=== PATIENT | female | born 1940 | race Caucasian/White ===

== ENCOUNTER → 2018-10-31 12:44 | Outpatient (CLI) | payer OTHER, SELFPAY ==
--- NOTE | 2018-10-31 | DI.MG.S_ITS ---
BILATERAL DIGITAL SCREENING MAMMOGRAM 3D/2D WITH CAD: 10/31/2018 CLINICAL: Routine screening. Comparison is made to exams dated: 01/21/2015 mammogram - [facility], 02/16/2013 mammogram, and 11/27/2007 mammogram - [facility]. The tissue of both breasts is predominantly fatty. Current study was also evaluated with a Computer Aided Detection (CAD) system. There are benign vascular calcifications in both breasts. No significant masses, calcifications, or other findings are seen in either breast. There has been no significant interval change. IMPRESSION: There is no mammographic evidence of malignancy. A 1 year screening mammogram is recommended. This exam was interpreted at Station ID: [id number]. NOTE: For mammograms, a report in lay terms will be sent to the patient. Approximately 15% of breast malignancies will not be visualized mammographically. In the management of a palpable breast mass, a negative mammogram must not discourage biopsy of a clinically suspicious lesion. Electronically Signed By: Maribell vaughan/marcelo:10/31/2018 14:17:14 letter sent: Normal Exam ACR BI-RADS Category 2: Benign Finding(s) 3342F
== END ==
PROVIDERS: Family Provider Family Medicine; PCP Family Medicine; Visit Provider Family Medicine
DX: Z12.31 Encounter for screening mammogram for malignant neoplasm of breast (principal)
CPT/HCPCS: 77063; 77067

== ENCOUNTER → 2019-04-22 10:48 | Outpatient (CLI) | payer OTHER, SELFPAY ==
[2019-04-22 11:51] LABS: Add Manual Diff / Slide Review NO; Basophils Absolute Auto 0 /uL (0-100); Basophils Percent Auto 0.6 % (0-2); Eosinophils Absolute Auto 100 /uL (0-450); Eosinophils Percent Auto 2.1 % (2-4); Hematocrit 40.6 % (36-46); Hemoglobin 13.7 g/dL (12.0-16.0); Lymphocytes Absolute Auto 1600 /uL (1100-4500); Lymphocytes Percent Auto 32.3 % (25-40); Mean Corpuscular HGB Conc 33.8 % (30-36); Mean Corpuscular Hemoglobin 29.3 PG (26-34); Mean Corpuscular Volume 86.7 fL (80-100); Monocytes Absolute Auto 400 /uL (0-900); Monocytes Percent Auto 8.6 % (3-14); Neutrophils Absolute Auto 2800 /uL (1500-7000); Neutrophils Percent Auto 56.4 % (50-75); Platelet Count 254 X10^3/uL (150-400); Red Blood Cell Count 4.68 X10^6/uL (4.0-5.2); Red Cell Distribution Width 13.7 % (11.6-14.8); White Blood Cell Count 4.9 X10^3/uL (4.5-11.0)
[2019-04-22 12:09] LABS: Alanine Aminotransferase 21 IU/L (9-52); Albumin 4.1 g/dL (3.5-5.0); Albumin Globulin Ratio 1.4 (1.0-2.8); Alkaline Phosphatase 52 U/L (38-126); Aspartate Aminotransferase 23 IU/L (14-36); Bilirubin Total 0.7 mg/dL (0.2-1.3); Blood Urea Nitrogen 20 mg/dL (7-17); Calcium 9.6 mg/dL (8.4-10.2); Carbon Dioxide 29 mmol/L (22-32); Chloride 102 mmol/L (98-107); Cholesterol 144 mg/dL (140-199); Estimated Glomerular Filt Rate > 60.0 mL/min (>60); Glucose 86 mg/dL (80-110); HDL Cholesterol 48 mg/dL (40-60); HEMOLYSIS < 15 (0-50); LDL Cholesterol Calculated 71 mg/dL (<100); Potassium 4.1 mmol/L (3.4-5.1); Sodium 139 mmol/L (137-145); Total Protein 7.1 g/dL (6.3-8.2); Triglycerides 125 mg/dL (35-150)
[2019-04-22 12:40] LABS: TSH w/ Reflex to FT4 1.54 uIU/mL (0.47-4.68)
== END ==
PROVIDERS: PCP Family Medicine; Visit Provider Family Medicine
DX: E78.2 Mixed hyperlipidemia (principal); I10 Essential (primary) hypertension; M81.0 Age-related osteoporosis without current pathological fracture
CPT/HCPCS: 36415; 80053; 80061; 84443; 85025

== ENCOUNTER → 2019-04-30 15:04 | Outpatient (CLI) | payer OTHER, SELFPAY ==
--- NOTE | 2019-04-30 15:05 | DI.CT.S_ITS ---
PROCEDURE: CT SINUS SCREEN WO CON INDICATIONS: left side facial pressure and pain TECHNIQUE: Noncontrast 3.0 mm axial images acquired from the frontal sinuses to the mid-sella, with coronal and sagittal reformats. For radiation dose reduction, the following was used: automated exposure control, adjustment of mA and/or kV according to patient size. COMPARISON: None. FINDINGS: Image quality: Diagnostic. Paranasal Sinuses: There is complete opacification of the left maxillary sinus with possible bulging of the bones of the left maxillary sinus, particularly along the medial wall. No displaced fractures are evident. Mild thickening of the briceno of the left maxillary sinus are present. There is mucosal thickening/opacification evident involving the left frontal and left ethmoidal sinuses. There is mild mucosal thickening involving the inferior right maxillary sinus. The remainder of the paranasal sinuses are clear. Ostiomeatal Complexes: The left ostiomeatal complex is completely opacified. The right ostiomeatal complex is patent. No Todd cells. Miscellaneous: Visualized intra-orbital contents are normal. No matthias bullosa or paradoxical turbinate curvature. No nasal septal deviation. IMPRESSION: 1. Expansile soft tissue attenuation within the left maxillary sinus may represent chronic sinusitis. However, the possibility of a mucocele or potentially neoplastic process cannot be completely excluded given the expansile nature. MRI with contrast is recommended for further evaluation. 2. Opacification of the left frontal and ethmoid air cells may also represent conventional sinusitis. 3. Minimal inferior right maxillary sinus disease probably as odontogenic in origin. Dictated by: Wilson Lombardo M.D. on 04/30/2019 at 16:07 Approved by: Wilson Lombardo M.D. on 04/30/2019 at 16:17
== END ==
PROVIDERS: PCP Family Medicine; Visit Provider Family Medicine
DX: J34.89 Other specified disorders of nose and nasal sinuses (principal); R51 Headache
CPT/HCPCS: 70486

== ENCOUNTER → 2019-05-12 08:51 | Outpatient (CLI) | payer OTHER, SELFPAY ==
--- NOTE | 2019-05-12 08:54 | DI.MRI.S_ITS ---
PROCEDURE: MR ORBITS FACE NECK WO/W CON INDICATIONS: Abnormal Sinus CT with radiologist rec. MRI w contrast TECHNIQUE: Noncontrast sagittal T1 spin echo, axial FLAIR, axial gradient echo, axial diffusion and ADC acquired through the brain. Coronal STIR, thin-slice axial T1 spin echo through the orbits. After the administration of contrast, thin-slice axial and coronal T1 spin echo with fat saturation through the orbits, axial T1 spin echo with fat saturation through the brain. COMPARISON: [facility], CT, CT SINUS SCREEN WO CON, 04/30/2019, 15:10. FINDINGS: Image quality: Excellent. Orbits: Globes are symmetrical. The optic nerves are normal in size, without abnormal signal or enhancement. No retrobulbar masses or fat abnormalities. The extra-ocular muscles are normal and symmetric in appearance. Lacrimal glands are normal. Optic chiasm is normal. Periorbital soft tissues appear normal. CSF spaces: Ventricles are normal in size and shape. Basal cisterns are patent. No extra-axial fluid collections. Brain: No intracranial bleeds or mass effects. No abnormal intracranial enhancement. Basurto-white matter interface is intact. Diffusion weighted images demonstrate no acute ischemic insults. Pituitary gland appears normal, without sellar or suprasellar masses. Brainstem appears normal. Normal intravascular flow voids are present. Skull and face: Calvarial marrow is normal in signal. Sinuses: Sinuses and mastoids are clear except for prominent mucosal thickening and retention no mucus within the left maxillary sinus which is mildly enlarged in dimension, with this pattern of mucosal inflammation and thickening and mucous retention extending into the left frontal sinus bilaterally. The left nasal airway issuperiorly by this process. No invasion into the cranial fossa is noted. IMPRESSION: There is a large chronic-appearing abnormality involving the left maxillary sinus, left ethmoid air cells, and continuously extending to involve the left frontal sinus. The appearance is considered most likely benign, and not associated with inflammation extending into the adjacent structures. However, there is prominent mucosal thickening involving the areas described and also mucous retention best seen within the right maxillary sinus but present to lesser degree in the frontal sinus on the left. ENT consultation is anticipated given this finding and the history of left-sided facial pressure and pain. Low-grade active infection or neoplasm has not been entirely excluded. Dictated by: Ned Panda M.D. on 05/13/2019 at 10:22 Approved by: Ned Panda M.D. on 05/13/2019 at 10:29
== END ==
PROVIDERS: PCP Family Medicine; Visit Provider Family Medicine
DX: R22.0 Localized swelling, mass and lump, head (principal); R51 Headache
CPT/HCPCS: 70543; A9579

== ENCOUNTER 2019-09-11 09:22 | Emergency (ER) | payer OTHER, SELFPAY ==
[2019-09-11 09:46] VITALS: BP 152/97; PULSE 124; RESP 16; TEMP 37.8; O2SAT 94
--- NOTE | 2019-09-11 09:50 | DI.RAD.S_ITS ---
PROCEDURE: XR CHEST 1V INDICATIONS: suspected sepsis TECHNIQUE: One view of the chest was acquired. COMPARISON: [facility], , CHEST 2 VIEW, 02/28/2015, 10:48. FINDINGS: Surgical changes and devices: None. Lungs and pleura: Lungs are clear. No pleural effusions or pneumothorax. Mediastinum: Mediastinal contours appear normal. Heart size is normal. Bones and chest wall: No suspicious bony lesions. Overlying soft tissues appear unremarkable. IMPRESSION: No acute disease. Dictated by: Neno Arana M.D. on 09/11/2019 at 10:13 Approved by: Neno Arana M.D. on 09/11/2019 at 10:14
[2019-09-11 10:13] LABS: Add Manual Diff / Slide Review NO; Basophils Absolute Auto 0 /uL (0-100); Basophils Percent Auto 0.2 % (0-2); Eosinophils Absolute Auto 0 /uL (0-450); Hematocrit 38.6 % (36-46); Hemoglobin 13.1 g/dL (12.0-16.0); Lymphocytes Absolute Auto 300 /uL (1100-4500); Lymphocytes Percent Auto 3.4 % (25-40); Mean Corpuscular HGB Conc 34.1 % (30-36); Mean Corpuscular Hemoglobin 30.1 PG (26-34); Mean Corpuscular Volume 88.5 fL (80-100); Monocytes Absolute Auto 300 /uL (0-900); Monocytes Percent Auto 3.4 % (3-14); Neutrophils Absolute Auto 7400 /uL (1500-7000); Platelet Count 210 X10^3/uL (150-400); Prothrombin Time 11.8 SECONDS (10.1-12.7); Red Blood Cell Count 4.36 X10^6/uL (4.0-5.2); Red Cell Distribution Width 13.6 % (11.6-14.8)
[2019-09-11] MEDS: SODIUM CHLORIDE 0.9% 1,000 ML 1000 ML IV (10:13)
[2019-09-11 10:16] LABS: PTT Partial Thromboplastin Tim 31 SECONDS (26.4-36.2)
[2019-09-11 10:23] LABS: Alanine Aminotransferase 11 IU/L (<35); Albumin 4.1 g/dL (3.5-5.0); Albumin Globulin Ratio 1.3 (1.0-2.8); Alkaline Phosphatase 63 U/L (38-126); Aspartate Aminotransferase 24 IU/L (14-36); BUN Creatinine Ratio 22.5 (6-22); Bilirubin Total 1.3 mg/dL (0.2-1.3); Blood Urea Nitrogen 18 mg/dL (7-17); Calcium 9.6 mg/dL (8.4-10.2); Carbon Dioxide 26 mmol/L (22-32); Chloride 105 mmol/L (98-107); Estimated Glomerular Filt Rate > 60.0 mL/min (>60); Globulin 3.1 g/dL (1.7-4.1); Glucose 166 mg/dL (80-110); HEMOLYSIS < 15 (0-50); Lipase 183 U/L (23-300); Potassium 3.6 mmol/L (3.4-5.1); Sodium 138 mmol/L (137-145); Total Protein 7.2 g/dL (6.3-8.2)
[2019-09-11 10:24] LABS: Lactate (Lactic Acid) 1.8 mmol/L (0.7-2.1)
[2019-09-11 10:37] LABS: Procalcitonin 0.14 ng/mL (<0.5)
[2019-09-11 11:35] VITALS: BP 105/62; PULSE 94; RESP 21; O2SAT 93
--- NOTE | 2019-09-11 11:48 | DI.CT.S_ITS ---
PROCEDURE: CT KIDNEY URETER BLADDER (KUB) INDICATIONS: urinary pain with bilateral back pain TECHNIQUE: Noncontrast 5 mm thick sections acquired from the diaphragms to the symphysis. 5 mm thick coronal and sagittal reformats were then performed. For radiation dose reduction, the following was used: automated exposure control, adjustment of mA and/or kV according to patient size. COMPARISON: None. FINDINGS: Image quality: Excellent. Lung bases: Lung bases are clear. Heart size is normal. Atherosclerotic calcifications are noted in the visualiz coronary vasculature. Urinary system: Both kidneys are normal in size. No kidney stones. There is moderate bilateral hydroureter and mild bilateral hydronephrosis. Urinary bladder wall is diffusely thickened and irregular with a focal, thickening to 1.8 cm along the posterior wall. Air locules noted in the urinary bladder which could be related to recent catheterization, infection with gas-forming organism or fistulous connection with bowel. Other solid organs: Liver is normal in size. Multiple hypoattenuating lesions identified in the liver which may represent cysts or hemangiomas, however lesions cannot be definitively characterize without the benefit of intravenous contrast. Gallbladder is absent. Pancreas is normal in contours. Spleen is normal in size. No adrenal nodules. Peritoneum and bowel: Moderate size, paraesophageal hiatal hernia. Unenhanced bowel loops demonstrate normal wall thickness and caliber. No free fluid or air. Nodes and vessels: No retroperitoneal or mesenteric adenopathy by size criteria. Aorta and inferior vena cava are normal in caliber. Abdominal wall: No ventral hernias. Pelvis: No free pelvic fluid. No inguinal hernias or adenopathy. A pessary ring is positioned in the lower pelvis. Bones: No suspicious bony lesions. Spine degenerative disc disease and facet arthropathy. Chronic appearing T12, L1, L3 and L4 vertebral body compression fractures. No acute vertebral body compression fractures. IMPRESSION: 1. No renal stone. 2. Posterior bladder wall thickened to 1.8 cm. Neoplastic process cannot be excluded. 3. Moderate bilateral hydroureter and mild bilateral hydronephrosis possibly related to bladder mass. 4. Air locules in the urinary bladder which could be related to recent catheterization, infection with gas-forming organism or fistulous connection with bowel. Please correlate with clinical history and urinalysis data. Findings. Atherosclerosis including the visualiz coronary vasculature. Dictated by: Winifred Abraham MD, PhD on 09/11/2019 at 12:10 Approved by: Winifred Abraham MD, PhD on 09/11/2019 at 12:19
[2019-09-11 11:59] LABS: Amorphous Sediment Urine 1+; Bacteria Urine Many (>30); Culture Indicated Urine Specimen Cultured; Mucus Urine 2+ (Negative); RBC Urine 5-10/HPF (0-5/HPF); Squamous Epithelial Cell Urine 0-1 /HPF (0-5/HPF); WBC Urine >100/HPF (0-5/HPF)
[2019-09-11] MEDS: CEFTRIAXONE 1 GM/50 ML FROZ.PIGGY IV (12:15)
[2019-09-11 12:20] VITALS: BP 141/76; PULSE 87; RESP 16; O2SAT 96
--- NOTE | 2019-09-11 12:20 | ED.FEMALEGU ---
HPI - Female Genitourinary <OLEGARIO Boyce - Last Filed: 09/12/19 03:31> General Chief complaint: Urogenital-Female Stated complaint: Kidney infection Time Seen by Provider: 09/11/19 11:07 Source: patient Mode of arrival: Ambulatory Limitations: no limitations History of Present Illness HPI Narrative: This is a pleasant 78-year-old female, nonsmoker, who presents to ED with her spouse with chief complaint of urinary frequency, low abdominal cramping discomfort which started on Saturday. Last night she had severe back pain crossing bilaterally with chills, nausea. She had taken her own half tab of [place] and Tylenol for this which helped her symptoms. Patient denies history of kidney stones or infection but had UTIs. When patient was evaluated by me, he had already received a L of normal saline and she reports her pain is much better at this time. Patient declines pain medications or anti nausea medications at this time. Patient reports she recently had left frontal sinus infection for 6 months after tooth extraction and recently had surgery in 08/26/19. Related Data Home Medications Medication Instructions Recorded Confirmed cholecalciferol (vitamin D3) 2,000 iu PO DAILY #0 06/21/13 09/11/19 [Vitamin D3] cyanocobalamin (vitamin B-12) 1,000 mcg PO DAILY #0 06/21/13 09/11/19 [Vitamin B-12] acetaminophen 500 mg capsule 1,000 mg PO BID 08/10/19 09/11/19 Calcium Tablet 1 tab PO DAILY 09/11/19 09/11/19 Pepcid AC 1 tab PO DAILY 09/11/19 09/11/19 jt-te-yoqi-FA-Ca carb-vit K 1 tab PO DAILY 09/11/19 09/11/19 [Women's Multivitamin] simvastatin 40 mg PO BEDTIME 09/11/19 09/11/19 vit C,I-Qx-cpeqi-lutein-zeaxan 1 cap PO BID 09/11/19 09/11/19 [PreserVision AREDS-2] Previous Rx's Medication Instructions Recorded cephalexin [Keflex] 500 mg PO Q12H 7 Days #14 cap 09/11/19 ondansetron 4 mg PO BID-TID PRN #7 tab 09/11/19 Allergies Allergy/AdvReac Type Severity Reaction Status Date / Time hydromorphone [HYDROMORPHONE] AdvReac Severe n/v, Verified 08/10/19 09:37 sweats, vomiting Review of Systems <OLEGARIO Boyce - Last Filed: 09/12/19 03:31> Review of Systems Narrative: General: See HPI HEENT: Denies sinus pain, ear pain, sore throat, difficulty swallowing, dizziness. Respiratory: Denies dyspnea, cough, wheezing, hemoptysis, sputum. Cardiovascular: Denies chest pain, palpitations, orthopnea, edema. Gastrointestinal: Reports nausea. Denies vomiting, abdominal pain, diarrhea, constipation, melena. : See HPI Musculoskeletal: Denies weakness, joint pain or bony pain. Skin: Denies rash, skin lesions, or other. Neurologic: Denies weakness, headache, numbness, change in speech, confusion, seizures, incoordination. Psychiatric: No concerning psychosocial issues. 12-point review of systems is negative except for those stated above. Patient History <OLEGARIO Boyce - Last Filed: 09/12/19 03:31> Medical History (Updated 09/11/19 @ 12:36 by OLEGARIO Boyce) Abnormal CXR (Chronic ~2013) Ankle pain (Chronic ~1976) Cataract (Chronic ~2013) Chicken pox (Resolved ~1946) Diverticular disease (Chronic ~2013) Fractures (Resolved) Gastric ulcer (Chronic) Lumbar compression fracture (Resolved) Measles (Resolved ~1946) Mumps (Resolved ~1947) Osteoporosis (Chronic ~2013) Rubella (Resolved ~1947) Urinary, incontinence, stress female (Chronic) Vision disorder (Chronic) Surgical History (Updated 09/11/19 @ 12:25 by OLEGARIO Boyce) Anesthesia (Resolved) Femoral hernia (Resolved) History of ankle surgery (Resolved) History of kyphoplasty (Resolved ~2012) History of sinus surgery (Acute) Status post appendectomy (~1948) Status post cholecystectomy (~1964) Family History Father Osteoporosis High cholesterol Mother Dementia Smoking Status: Never smoker Substance Use Type: does not use Exam <OLEGARIO Boyce - Last Filed: 09/12/19 03:31> Narrative Exam Narrative: GEN: Alert, oriented x 3, well appearing and nourished, and in no acute distress. Head: Normal cephalic, atraumatic. No scalp or temporal tenderness, palpable mass or rash. EYES: Pupils are equal, round, and reactive to light and accommodation. Extraocular muscles are intact bilaterally. There is no subconjunctival hemorrhage, exudate and sclera non-icteric. ENT: Bilateral auditory canals and tympanic membranes clear. Hearing grossly intact. Nose without bleeding, purulent discharge or deviation. Facial sinuses nontender to palpate. Mucous membrane moist, no mucosal lesion. Throat without erythema, tonsillar hypertrophy or exudate. Uvula in midline, airway patent. Neck: Trachea in midline. No JVD, non-tender without lymphadenopathy. No masses or thyroid megaly. Supple, non-tender and no meningeal signs. CARDIAC: Normal regular rate and rhythm without murmurs, gallops, or rubs. No chest wall tenderness. No peripheral edema, cyanosis or pallor. Capillary refill is less than 2 seconds. RESPIRATORY: Lungs are clear to auscultate bilaterally. No cough, wheezes, rales, or rhonchi. No stridor, respiratory distress, increase work of breathing, or accessary muscle used. ABD: Abdomen soft, nontender and non-distended. No guarding or rebound tenderness to palpate. Bowel sounds are normal in all 4 quadrants. There is no palpable masses or organomegaly. EXT: Full painless ROM of all extremities with no loss of sensation, strength, effusion or edema. SKIN: Warm, dry, normal color for patient. No erythema, lesions or rash over visible areas. BACK: Nontender without deformity or crepitance. No flank tenderness. NEUROLOGICAL: Alert and oriented to place, time and person. Sensation and motor function intact bilaterally. No facial droops, dysphasia. PSYCHIATRIC: Good judgement and reason, without hallucinations, abnormal affect or abnormal behaviors during the examination. Initial Vital Signs Initial Vital Signs: Vital Signs Temperature 100.0 F H 09/11/19 09:46 Pulse Rate 124 H 09/11/19 09:46 Respiratory Rate 16 09/11/19 09:46 Blood Pressure 152/97 H 09/11/19 09:46 Pulse Oximetry 94 09/11/19 09:46 <Sabrina C Mank, DO - Last Filed: 09/12/19 07:03> Initial Vital Signs Initial Vital Signs: Vital Signs Temperature 100.0 F H 09/11/19 09:46 Pulse Rate 124 H 09/11/19 09:46 Respiratory Rate 16 09/11/19 09:46 Blood Pressure 152/97 H 09/11/19 09:46 Pulse Oximetry 94 09/11/19 09:46 Scores <[facility] - Last Filed: 09/12/19 03:31> GCS Hero coma scale eye opening: Spontaneous Benicia coma scale verbal response: Orientated Hero coma scale motor response: Obey commands Hero coma scale total score: 15 Course <[facility] DEMETRIUS LukeP - Last Filed: 09/12/19 03:31> Orders Ordered: Discontinued Medications Sodium Chloride (Normal Saline 0.9%) 1,000 mls @ 1,000 mls/hr IV BOLUS ONE Stop: 09/11/19 10:49 Last Infusion: 09/11/19 12:19 Dose: 0 mls/hr Documented by: Admin: 09/11/19 10:13 Dose: 1,000 mls/hr Documented by: EL Ceftriaxone Sodium/Dextrose (Rocephin) 1 gm in 50 mls @ 100 mls/hr IV NOW ONE Stop: 09/11/19 12:38 Last Infusion: 09/11/19 12:46 Dose: 0 mls/hr Documented by: Admin: 09/11/19 12:15 Dose: 100 mls/hr Documented by: DENEEN Vital Signs Vital signs: Vital Signs - 8 hr 09/11/19 09:46 09/11/19 11:35 Temperature 100.0 F H Pulse Rate 124 H 94 H Respiratory Rate 16 21 Blood Pressure 152/97 H Blood Pressure [Right Arm] 105/62 Pulse Oximetry 94 93 <Sabrina Bajwa DO - Last Filed: 09/12/19 07:03> Orders Ordered: Discontinued Medications Sodium Chloride (Normal Saline 0.9%) 1,000 mls @ 1,000 mls/hr IV BOLUS ONE Stop: 09/11/19 10:49 Last Infusion: 09/11/19 12:19 Dose: 0 mls/hr Documented by: Admin: 09/11/19 10:13 Dose: 1,000 mls/hr Documented by: EL Ceftriaxone Sodium/Dextrose (Rocephin) 1 gm in 50 mls @ 100 mls/hr IV NOW ONE Stop: 09/11/19 12:38 Last Infusion: 09/11/19 12:46 Dose: 0 mls/hr Documented by: Admin: 09/11/19 12:15 Dose: 100 mls/hr Documented by: DENEEN Vital Signs Vital signs: Vital Signs - 8 hr 09/11/19 09:46 09/11/19 11:35 Temperature 100.0 F H Pulse Rate 124 H 94 H Respiratory Rate 16 21 Blood Pressure 152/97 H Blood Pressure [Right Arm] 105/62 Pulse Oximetry 94 93 MDM - Female Genitourinary <OLEGARIO Boyce - Last Filed: 09/12/19 03:31> Differential Diagnosis Differential diagnosis: Likely other (Kidney infection, kidney stone, obstructed kidney stone infection) Medical Records Attestation: I reviewed the patient's medical records. Lab Data Attestation: I reviewed the patient's lab results. Result diagrams: 09/11/19 10:00 09/11/19 10:00 Labs: Lab Results 09/11/19 09/11/19 09/11/19 Range/Units 10:00 10:00 10:00 WBC 8.0 (4.5-11.0) X10^3/uL RBC 4.36 (4.0-5.2) X10^6/uL Hgb 13.1 (12.0-16.0) g/dL Hct 38.6 (36-46) % MCV 88.5 (80-100) fL MCH 30.1 (26-34) PG MCHC 34.1 (30-36) % RDW 13.6 (11.6-14.8) % Plt Count 210 (150-400) X10^3/uL Neut % (Auto) 93.0 H (50-75) % Lymph % (Auto) 3.4 L (25-40) % Steele % (Auto) 3.4 (3-14) % Eos % (Auto) 0.0 L (2-4) % Baso % (Auto) 0.2 (0-2) % Neut # (Auto) 7400 H (7086-3947) /uL Lymph # (Auto) 300 L (0695-6596) /uL Steele # (Auto) 300 (0-900) /uL Eos # (Auto) 0 (0-450) /uL Baso # (Auto) 0 (0-100) /uL PT 11.8 (10.1-12.7) SECONDS INR 1.0 (0.9-1.3) APTT 31 (26.4-36.2) SECONDS Sodium (137-145) mmol/L Potassium (3.4-5.1) mmol/L Chloride (98-107) mmol/L Carbon Dioxide (22-32) mmol/L BUN (7-17) mg/dL Creatinine (0.52-1.04) mg/dL Estimated GFR (>60) mL/min BUN/Creatinine Ratio (6-22) Glucose (80-110) mg/dL Lactate (0.7-2.1) mmol/L Calcium (8.4-10.2) mg/dL Total Bilirubin (0.2-1.3) mg/dL AST (14-36) IU/L ALT (<35) IU/L Alkaline Phosphatase (38-126) U/L Total Protein (6.3-8.2) g/dL Albumin (3.5-5.0) g/dL Globulin (1.7-4.1) g/dL Albumin/Globulin Ratio (1.0-2.8) Lipase (23-300) U/L Procalcitonin 0.14 (<0.5) ng/mL Urine RBC (0-5/HPF) Urine WBC (0-5/HPF) Ur Squamous Epith Cells (0-5/HPF) Amorphous Sediment Urine Bacteria (None) Urine Mucus (Negative) Ur Culture Indicated? 09/11/19 09/11/19 09/11/19 Range/Units 10:00 10:00 11:46 WBC (4.5-11.0) X10^3/uL RBC (4.0-5.2) X10^6/uL Hgb (12.0-16.0) g/dL Hct (36-46) % MCV (80-100) fL MCH (26-34) PG MCHC (30-36) % RDW (11.6-14.8) % Plt Count (150-400) X10^3/uL Neut % (Auto) (50-75) % Lymph % (Auto) (25-40) % Steele % (Auto) (3-14) % Eos % (Auto) (2-4) % Baso % (Auto) (0-2) % Neut # (Auto) (5508-0165) /uL Lymph # (Auto) (2337-1218) /uL Steele # (Auto) (0-900) /uL Eos # (Auto) (0-450) /uL Baso # (Auto) (0-100) /uL PT (10.1-12.7) SECONDS INR (0.9-1.3) APTT (26.4-36.2) SECONDS Sodium 138 (137-145) mmol/L Potassium 3.6 (3.4-5.1) mmol/L Chloride 105 (98-107) mmol/L Carbon Dioxide 26 (22-32) mmol/L BUN 18 H (7-17) mg/dL Creatinine 0.80 (0.52-1.04) mg/dL Estimated GFR > 60.0 (>60) mL/min BUN/Creatinine Ratio 22.5 H (6-22) Glucose 166 H (80-110) mg/dL Lactate 1.8 (0.7-2.1) mmol/L Calcium 9.6 (8.4-10.2) mg/dL Total Bilirubin 1.3 (0.2-1.3) mg/dL AST 24 (14-36) IU/L ALT 11 (<35) IU/L Alkaline Phosphatase 63 (38-126) U/L Total Protein 7.2 (6.3-8.2) g/dL Albumin 4.1 (3.5-5.0) g/dL Globulin 3.1 (1.7-4.1) g/dL Albumin/Globulin Ratio 1.3 (1.0-2.8) Lipase 183 (23-300) U/L Procalcitonin (<0.5) ng/mL Urine RBC 5-10/hpf H (0-5/HPF) Urine WBC >100/hpf H (0-5/HPF) Ur Squamous Epith Cells 0-1 /hpf (0-5/HPF) Amorphous Sediment 1+ Urine Bacteria Many (>30) H (None) Urine Mucus 2+ H (Negative) Ur Culture Indicated? Specimen cultured Urine Dip Bedside Urine Glucose Negative Bedside Urine Bilirubin - Negative Bedside Urine Ketone +/- 5 Urine Specific Marceline 1.020 Bedside Urine Occult Blood +++ Bedside Urine pH 6.0 Bedside Urine Protein ++ 100 Bedside Urine Urobilinogen - Negative Bedside Urine Nitrite + Positive Bedside Urine Leukocytes +++ [address]-KUB: Radiologist's impression: [address] [address] [address] Scan Report Signed Patient: Ryann Tse CMR#: [id number] : 1Acct:[id number] Age/Sex: 78 / FDate of Service: 09/11/19 Loc: ED Accession Number: [id number] Procedure: CT kidney ureter bladder (KUB) Ordering Provider: Adam Luke PROCEDURE: CT KIDNEY URETER BLADDER (KUB) INDICATIONS: urinary pain with bilateral back pain TECHNIQUE: Noncontrast 5 mm thick sections acquired from the diaphragms to the symphysis. 5 mm thick coronal and sagittal reformats were then performed. For radiation dose reduction, the following was used: automated exposure control, adjustment of mA and/or kV according to patient size. COMPARISON: None. FINDINGS: Image quality: Excellent. Lung bases: Lung bases are clear. Heart size is normal. Atherosclerotic calcifications are noted in the visualiz coronary vasculature. Urinary system: Both kidneys are normal in size. No kidney stones. There is moderate bilateral hydroureter and mild bilateral hydronephrosis. Urinary bladder wall is diffusely thickened and irregular with a focal, thickening to 1.8 cm along the posterior wall. Air locules noted in the urinary bladder which could be related to recent catheterization, infection with gas-forming organism or fistulous connection with bowel. Other solid organs: Liver is normal in size. Multiple hypoattenuating lesions identified in the liver which may represent cysts or hemangiomas, however lesions cannot be definitively characterize without the benefit of intravenous contrast. Gallbladder is absent. Pancreas is normal in contours. Spleen is normal in size. No adrenal nodules. Peritoneum and bowel: Moderate size, paraesophageal hiatal hernia. Unenhanced bowel loops demonstrate normal wall thickness and caliber. No free fluid or air. Nodes and vessels: No retroperitoneal or mesenteric adenopathy by size criteria. Aorta and inferior vena cava are normal in caliber. Abdominal wall: No ventral hernias. Pelvis: No free pelvic fluid. No inguinal hernias or adenopathy. A pessary ring is positioned in the lower pelvis. Bones: No suspicious bony lesions. Spine degenerative disc disease and facet arthropathy. Chronic appearing T12, L1, L3 and L4 vertebral body compression fractures. No acute vertebral body compression fractures. IMPRESSION: 1. No renal stone. 2. Posterior bladder wall thickened to 1.8 cm. Neoplastic process cannot be excluded. 3. Moderate bilateral hydroureter and mild bilateral hydronephrosis possibly related to bladder mass. 4. Air locules in the urinary bladder which could be related to recent catheterization, infection with gas-forming organism or fistulous connection with bowel. Please correlate with clinical history and urinalysis data. Findings. Atherosclerosis including the visualiz coronary vasculature. Dictated by: Winifred Abraham MD, PhD on 09/11/2019 at 12:10 Approved by: Winifred Abraham MD, PhD on 09/11/2019 at 12:19 MDM Narrative Medical decision making narrative: This is a pleasant 78-year-old female who presents to ED with urinary frequency and low abdominal cramping pain, chills, nausea which started 3 days ago and progressively worse now she has low back pain. Patient presents to [facility] and referred to ED for evaluation and treatment. Patient reports the pain was severe and she had taken old Vicodin and Tylenol. Patient denies history of kidney stone or infection but had UTIs in the past. When patient was evaluated, she reports feeling much better. Lab tests shows normal white count with shift left. Chemistry test was unremarkable with normal kidney function. POC urine test shows many protein, occult blood with urine nitrites and esterase. Urine micro test shows many bacteria, urine WBC and RBC with mucus. Urine is being cultured at this time. KUB CT test was done given patient's urine test of blood and bacteria to rule out obstructing kidney stone. No kidney stone was visualized but moderate bilateral hydroureter and hydronephrosis possibly related to bladder mass. There was posterior bladder wall thickening which needs further evaluation for neoplastic process. Patient was treated with IV Rocephin and discharged to home with Keflex for 7 day course for bladder infection. Patient advised to follow up with her primary care physician for a referral to urologist for further evaluation and return precautions were discussed and patient verbalized understanding and agrees with treatment plan. <Sabrinaradames Bajwa, DO - Last Filed: 09/12/19 07:03> Lab Data Labs: Lab Results 09/11/19 09/11/19 09/11/19 Range/Units 10:00 10:00 10:00 WBC 8.0 (4.5-11.0) X10^3/uL RBC 4.36 (4.0-5.2) X10^6/uL Hgb 13.1 (12.0-16.0) g/dL Hct 38.6 (36-46) % MCV 88.5 (80-100) fL MCH 30.1 (26-34) PG MCHC 34.1 (30-36) % RDW 13.6 (11.6-14.8) % Plt Count 210 (150-400) X10^3/uL Neut % (Auto) 93.0 H (50-75) % Lymph % (Auto) 3.4 L (25-40) % Steele % (Auto) 3.4 (3-14) % Eos % (Auto) 0.0 L (2-4) % Baso % (Auto) 0.2 (0-2) % Neut # (Auto) 7400 H (9903-0629) /uL Lymph # (Auto) 300 L (4156-1830) /uL Steele # (Auto) 300 (0-900) /uL Eos # (Auto) 0 (0-450) /uL Baso # (Auto) 0 (0-100) /uL PT 11.8 (10.1-12.7) SECONDS INR 1.0 (0.9-1.3) APTT 31 (26.4-36.2) SECONDS Sodium (137-145) mmol/L Potassium (3.4-5.1) mmol/L Chloride (98-107) mmol/L Carbon Dioxide (22-32) mmol/L BUN (7-17) mg/dL Creatinine (0.52-1.04) mg/dL Estimated GFR (>60) mL/min BUN/Creatinine Ratio (6-22) Glucose (80-110) mg/dL Lactate (0.7-2.1) mmol/L Calcium (8.4-10.2) mg/dL Total Bilirubin (0.2-1.3) mg/dL AST (14-36) IU/L ALT (<35) IU/L Alkaline Phosphatase (38-126) U/L Total Protein (6.3-8.2) g/dL Albumin (3.5-5.0) g/dL Globulin (1.7-4.1) g/dL Albumin/Globulin Ratio (1.0-2.8) Lipase (23-300) U/L Procalcitonin 0.14 (<0.5) ng/mL Urine RBC (0-5/HPF) Urine WBC (0-5/HPF) Ur Squamous Epith Cells (0-5/HPF) Amorphous Sediment Urine Bacteria (None) Urine Mucus (Negative) Ur Culture Indicated? 09/11/19 09/11/19 09/11/19 Range/Units 10:00 10:00 11:46 WBC (4.5-11.0) X10^3/uL RBC (4.0-5.2) X10^6/uL Hgb (12.0-16.0) g/dL Hct (36-46) % MCV (80-100) fL MCH (26-34) PG MCHC (30-36) % RDW (11.6-14.8) % Plt Count (150-400) X10^3/uL Neut % (Auto) (50-75) % Lymph % (Auto) (25-40) % Steele % (Auto) (3-14) % Eos % (Auto) (2-4) % Baso % (Auto) (0-2) % Neut # (Auto) (0457-8307) /uL Lymph # (Auto) (1376-7386) /uL Steele # (Auto) (0-900) /uL Eos # (Auto) (0-450) /uL Baso # (Auto) (0-100) /uL PT (10.1-12.7) SECONDS INR (0.9-1.3) APTT (26.4-36.2) SECONDS Sodium 138 (137-145) mmol/L Potassium 3.6 (3.4-5.1) mmol/L Chloride 105 (98-107) mmol/L Carbon Dioxide 26 (22-32) mmol/L BUN 18 H (7-17) mg/dL Creatinine 0.80 (0.52-1.04) mg/dL Estimated GFR > 60.0 (>60) mL/min BUN/Creatinine Ratio 22.5 H (6-22) Glucose 166 H (80-110) mg/dL Lactate 1.8 (0.7-2.1) mmol/L Calcium 9.6 (8.4-10.2) mg/dL Total Bilirubin 1.3 (0.2-1.3) mg/dL AST 24 (14-36) IU/L ALT 11 (<35) IU/L Alkaline Phosphatase 63 (38-126) U/L Total Protein 7.2 (6.3-8.2) g/dL Albumin 4.1 (3.5-5.0) g/dL Globulin 3.1 (1.7-4.1) g/dL Albumin/Globulin Ratio 1.3 (1.0-2.8) Lipase 183 (23-300) U/L Procalcitonin (<0.5) ng/mL Urine RBC 5-10/hpf H (0-5/HPF) Urine WBC >100/hpf H (0-5/HPF) Ur Squamous Epith Cells 0-1 /hpf (0-5/HPF) Amorphous Sediment 1+ Urine Bacteria Many (>30) H (None) Urine Mucus 2+ H (Negative) Ur Culture Indicated? Specimen cultured Urine Dip Bedside Urine Glucose Negative Bedside Urine Bilirubin - Negative Bedside Urine Ketone +/- 5 Urine Specific Marceline 1.020 Bedside Urine Occult Blood +++ Bedside Urine pH 6.0 Bedside Urine Protein ++ 100 Bedside Urine Urobilinogen - Negative Bedside Urine Nitrite + Positive Bedside Urine Leukocytes +++ 500 Esterase Discharge Plan Departure Patient Disposition: Home Clinical Impression: Bladder infection Discharge Date/Time: 09/11/19 13:05 Instructions: Acute Cystitis Activity Restrictions/Additional Instructions: You have been diagnosed with [kidney infection without stones. According to KUB CT test today, there is no stones seen in your kidney. However, the bladder wall appears to be thickened with irregularity with moderate bilateral hydroureter and hydronephrosis. It is also noted possible bladder infection. Your urine is being cultured at this time and it appears to be you have an infection. CBC indicates an early infection.] What to do: *Take your medications as directed. Please ensure to complete a whole course of antibiotic medication. *Follow up with your primary care provider in 2-3 days, call for an appointment. Please ensure to follow up with your primary doctor with the CT results on bladder wall thickening. Let them know you were seen in the ED and that we asked you to be seen in follow up. *Return to ED if you have any new, worsening, or concerning symptoms, such as [worsening back pain, chest pain, breathing difficulty, unable to tolerate fluids, fever, or any acute concerns]. Prescriptions: New cephalexin [Keflex] 500 mg capsule 500 mg PO Q12H 7 Days Qty: 14 RF: 0 ondansetron 4 mg tablet,disintegrating 4 mg PO BID-TID PRN (Reason: nausea and vomiting) Qty: 7 RF: 0 No Action acetaminophen 500 mg capsule 1,000 mg PO BID RF: 0 cyanocobalamin (vitamin B-12) [Vitamin B-12] 1,000 mcg Tablet 1,000 mcg PO DAILY Qty: 0 RF: 0 cholecalciferol (vitamin D3) [Vitamin D3] 2,000 UNIT capsule 2,000 iu PO DAILY Qty: 0 RF: 0 Women's Multivitamin 18 mg iron-400 mcg-500 mg Tablet 1 tab PO DAILY RF: 0 PreserVision AREDS-2 [id number] up-goxt-vi-mg Capsule 1 cap PO BID RF: 0 Calcium Tablet 1 tab PO DAILY RF: 0 Pepcid AC 1 tab PO DAILY RF: 0 simvastatin 40 mg tablet 40 mg PO BEDTIME RF: 0 Referrals: Rob Adam MD [Primary Care Provider] -
[2019-09-11 12:49] VITALS: BP 134/84; PULSE 85; RESP 22; O2SAT 94
[2019-09-11 12:50] VITALS: BP 134/84; PULSE 85; RESP 18; O2SAT 97
[2019-09-11 13:00] VITALS: TEMP 36.9
== END 2019-09-11 13:05 | disposition home or self-care (01) ==
PROVIDERS: Emergency Medicine; Emergency Provider Nurse Practitioner Family; PCP Family Medicine
DX: N30.90 Cystitis, unspecified without hematuria (principal); R79.89 Other specified abnormal findings of blood chemistry
CPT/HCPCS: 36415; 71045; 74176; 80053; 81003; 81015; 83605; 83690; 84145; 85025; 85610; 85730; 87040; 87077; 87086; 87186; 93005; 93010; 96361; 96365; 99283; 99284

== ENCOUNTER → 2019-09-25 10:37 | Outpatient (CLI) | payer OTHER, SELFPAY ==
--- NOTE | 2019-09-25 | DI.CT.S_ITS ---
PROCEDURE: CT ABDOMEN PELVIS WO/W CON INDICATIONS: LOWER URINARY TRACT SYMPTOMS TECHNIQUE: Optional 5 mm thick noncontrast images acquired from the diaphragm to the symphysis pubis. After the administration of intravenous contrast, 5 mm thick images acquired from the diaphragm to the symphysis pubis after a 10-minute delay. 2 mm thick coronal and sagittal reformats were then performed of the kidneys and ureters. For radiation dose reduction, the following was used: automated exposure control, adjustment of mA and/or kV according to patient size. COMPARISON: CT KUB 09/11/2019. Lumbar spine CT 06/21/2013. FINDINGS: Image quality: Excellent. Lung bases: Lung bases are clear. Heart size is prominent. 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 Urinary system: Kidneys are normal in size but with areas of cortical thinning and lobulation. The renal collecting systems are prominent bilaterally this is unchanged compared to recent CT KUB 09/11/2019. However, this appears new compared to partially visualized kidneys on CT from 2012. Proximal ureters aren't dilated. The right ureter is tortuous with a crossing vessel (right gonadal vein). There is also a crossing vessel on the left (left gonadal vein). The mid ureters are patulous. The inferior portions of the ureter are not dilated. No filling defect in the well-opacified ureters. Again seen is abnormal thickening at the inferior bladder, (3/200 and 6/49). Likely small cystocele. No air in the urinary bladder. No bladder stone. Other solid organs: Liver is normal in size and enhancement. Small benign hepatic cysts. Gallbladder is absent. Biliary system is non dilated. Pancreas enhances normally. Spleen is normal in size. A small splenic cyst or hemangioma. A punctate calcified granuloma. Left adrenal benign adenoma measuring 1 cm (3/58). This measures less than 10 Hounsfield units on the noncontrast series. Peritoneum and bowel: Bowel loops demonstrate normal wall thickness and caliber. No free fluid or air. Nodes and vessels: No retroperitoneal or mesenteric adenopathy by size criteria. Aorta and inferior vena cava are normal in size. Abdominal wall: No ventral hernias. Pelvis: No pathologic free pelvic fluid. No inguinal hernias or adenopathy. Pessary is in place. Bones: No suspicious bony lesions. L3 and L4 right hemilaminectomy. L4 compression fracture with kyphoplasty. Mild T12 compression fracture, unchanged. IMPRESSION: 1. Abnormal thickening of the inferior bladder wall. -This can be further evaluated with cystoscopy if not yet performed. -Probable small cystocele. 2. Proximal ureters are dilated. The most distal ureters are normal in caliber. Etiology of this finding is uncertain. However, this appears to be new compared to 2013. Nuclear medicine Lasix renogram may be helpful for determination of obstruction. 3. No renal mass. 4. 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 Incidental benign left adrenal adenoma. Dictated by: Anand Brush M.D. on 09/25/2019 at 14:54 Approved by: Anand Brush M.D. on 09/25/2019 at 15:19
== END ==
PROVIDERS: Family Provider Family Medicine; PCP Family Medicine; Visit Provider Urology
DX: R39.9 Unspecified symptoms and signs involving the genitourinary system (principal); N28.82 Megaloureter; K44.9 Diaphragmatic hernia without obstruction or gangrene; D35.02 Benign neoplasm of left adrenal gland
CPT/HCPCS: 74178; Q9967

== ENCOUNTER → 2019-10-01 12:50 | Outpatient (CLI) | payer OTHER, SELFPAY ==
[2019-10-01 13:39] LABS: Appearance Urine UA SL CLOUDY; Bilirubin Urine UA NEGATIVE (NEGATIVE); Color Urine UA YELLOW; Glucose Urine UA NEGATIVE (Negative); Ketones Urine UA NEGATIVE (NEGATIVE); Leukocyte Esterase Urine UA 3+ (NEGATIVE); Nitrite Urine UA POSITIVE (Negative); Occult Blood Urine UA 3+ (Negative); Protein Urine UA TRACE (Negative); Specific Gravity Urine UA <=1.005 (1.000-1.035); Urobilinogen Urine UA 0.2 E.U./dL (0.2)
[2019-10-01 14:04] LABS: RBC Urine 5-10/HPF (0-5/HPF)
[2019-10-01 14:05] LABS: Amorphous Sediment Urine 1+; Bacteria Urine Moderate (10-30); Culture Indicated Urine Specimen Cultured; WBC Urine >100/HPF (0-5/HPF)
== END ==
PROVIDERS: Family Provider Urology; PCP Family Medicine; Visit Provider Family Medicine
DX: R30.0 Dysuria (principal)
CPT/HCPCS: 81003; 81015; 87077; 87086; 87186

== ENCOUNTER → 2019-11-03 11:36 | Outpatient (CLI) | payer OTHER, SELFPAY ==
[2019-11-03 12:46] LABS: Appearance Urine UA CLOUDY; Bilirubin Urine UA NEGATIVE (NEGATIVE); Color Urine UA YELLOW; Glucose Urine UA NEGATIVE (Negative); Ketones Urine UA NEGATIVE (NEGATIVE); Leukocyte Esterase Urine UA 2+ (NEGATIVE); Nitrite Urine UA POSITIVE (Negative); Occult Blood Urine UA 3+ (Negative); Protein Urine UA 2+ (Negative); Urobilinogen Urine UA 0.2 E.U./dL (0.2)
[2019-11-03 12:47] LABS: pH Urine UA 5.5 (4.5-8.0)
[2019-11-03 12:55] LABS: RBC Urine 10-30/HPF (0-5/HPF)
[2019-11-03 12:56] LABS: Bacteria Urine Many (>30); Culture Indicated Urine Specimen Cultured; Renal Epithelial Cells Urine 1-5/HPF (0-1/HPF); Squamous Epithelial Cell Urine 1-5 /HPF (0-5/HPF); Transitional Epi Cells Urine 0-1/HPF (0-5/HPF); WBC Urine >100/HPF (0-5/HPF)
== END ==
PROVIDERS: Family Provider Urology; PCP Family Medicine; Visit Provider Urology
DX: R39.9 Unspecified symptoms and signs involving the genitourinary system (principal)
CPT/HCPCS: 81001; 87077; 87086; 87186

== ENCOUNTER → 2020-03-23 12:17 | Outpatient (CLI) | payer OTHER, SELFPAY | PROVIDERS: Family Provider Urology; PCP Family Medicine; Referring Provider Family Medicine; Visit Provider Family Medicine | DX: R30.0 Dysuria (principal); Z87.440 Personal history of urinary (tract) infections | CPT/HCPCS: 87077; 87086 ==

== ENCOUNTER → 2020-04-19 14:30 | Outpatient (CLI) | payer OTHER, SELFPAY ==
[2020-04-19 17:36] LABS: Add Manual Diff / Slide Review NO; Basophils Absolute Auto 0 /uL (0-100); Basophils Percent Auto 0.6 % (0-2); Eosinophils Absolute Auto 200 /uL (0-450); Eosinophils Percent Auto 2.9 % (2-4); Hematocrit 39.9 % (36-46); Hemoglobin 13.4 g/dL (12.0-16.0); Lymphocytes Absolute Auto 1300 /uL (1100-4500); Lymphocytes Percent Auto 24.5 % (25-40); Mean Corpuscular HGB Conc 33.6 % (30-36); Mean Corpuscular Hemoglobin 29.9 PG (26-34); Monocytes Absolute Auto 300 /uL (0-900); Monocytes Percent Auto 6.2 % (3-14); Neutrophils Absolute Auto 3600 /uL (1500-7000); Neutrophils Percent Auto 65.8 % (50-75); Platelet Count 296 X10^3/uL (150-400); Red Blood Cell Count 4.49 X10^6/uL (4.0-5.2); Red Cell Distribution Width 13.5 % (11.6-14.8); White Blood Cell Count 5.5 X10^3/uL (4.5-11.0)
[2020-04-19 17:53] LABS: Alanine Aminotransferase 12 IU/L (<35); Albumin 4.3 g/dL (3.5-5.0); Albumin Globulin Ratio 1.3 (1.0-2.8); Alkaline Phosphatase 60 U/L (38-126); Aspartate Aminotransferase 29 IU/L (14-36); BUN Creatinine Ratio 31.9 (6-22); Bilirubin Total 0.5 mg/dL (0.2-1.3); Blood Urea Nitrogen 23 mg/dL (7-17); Calcium 9.9 mg/dL (8.4-10.2); Carbon Dioxide 27 mmol/L (22-32); Chloride 105 mmol/L (98-107); Estimated Glomerular Filt Rate > 60.0 mL/min (>60); Globulin 3.2 g/dL (1.7-4.1); Glucose 134 mg/dL (80-110); HEMOLYSIS < 15 (0-50); Potassium 4.2 mmol/L (3.4-5.1); Sodium 141 mmol/L (137-145); Total Protein 7.5 g/dL (6.3-8.2)
[2020-04-19 18:13] LABS: C-Reactive Protein Quant < 0.5 mg/dL (<1.0)
[2020-04-19 18:23] LABS: Erythrocyte Sedimentation Rate 15 MM/HR (0-20)
== END ==
PROVIDERS: Family Provider Urology; PCP Family Medicine; Referring Provider Family Medicine; Visit Provider Family Medicine
DX: R21 Rash and other nonspecific skin eruption (principal)
CPT/HCPCS: 36415; 80053; 85025; 85651; 86140

== ENCOUNTER 2020-05-02 11:00 | Emergency (ER) | payer OTHER, SELFPAY ==
[2020-05-02 11:07] VITALS: BP 160/89; PULSE 77; RESP 18; TEMP 36.8; O2SAT 96
--- NOTE | 2020-05-02 11:16 | ED.BACK ---
HPI - Back Pain/Injury General Chief Complaint: Back Pain/Injury Stated Complaint: back pain/leg weakness Time Seen by Provider: 05/02/20 11:11 Source: patient Limitations: no limitations History of Present Illness HPI Narrative: CC:Low back pain radiating into the left lateral thigh. HPI: The patient is a 79-year-old female who states that she has not fallen or injured herself. The patient states that she has been moving a lot of furniture over the last 2 weeks. But patient has develops severe pain and discomfort in her low back over the last 2 days prior to admission. The patient states that for the last 2 days she had tremendous difficulty getting out of bed because of the pain and discomfort. It radiated down her left lateral thigh. Today the pain became intolerable and came into the emergency department. Initially her pain was 8/10 in intensity. It was a sharp pain. The pain periodically causes her leg to give out and she has almost fallen. She denies any real numbness. She has had no numbness or tingling over her perineum. She has had previous back surgery for fracture involving her right side that she has had no problems. She took a lorazepam and late last night and again at 7:00 a.m. in the morning. The patient's daughter's boyfriend has a 10s unit and they applied it to her left lower back and the pain seemed to be a little bit better. Her pain today during the exam was approximately 4/10 in intensity. She denies a history of diabetes mellitus stroke congestive heart failure myocardial infarction COPD asthma but does have a history of hypertension. She does not smoke cigarettes vapor arm rarely and socially drinks alcohol and has use CBD marijuana oil once. Related Data Home Medications Medication Instructions Recorded Confirmed cholecalciferol (vitamin D3) 2,000 iu PO DAILY #0 06/21/13 04/27/20 [Vitamin D3] cyanocobalamin (vitamin B-12) 1,000 mcg PO DAILY #0 06/21/13 04/27/20 [Vitamin B-12] acetaminophen 500 mg capsule 1,000 mg PO BID 08/10/19 04/27/20 Calcium Tablet 1 tab PO DAILY 09/11/19 04/27/20 Pepcid AC 1 tab PO DAILY 09/11/19 04/27/20 rm-hj-bnid-FA-Ca carb-vit K 1 tab PO DAILY 09/11/19 04/27/20 [Women's Multivitamin] vit C,S-Iw-fcvhh-lutein-zeaxan 1 cap PO BID 09/11/19 04/27/20 [PreserVision AREDS-2] Previous Rx's Medication Instructions Recorded oxyquinoline 0.025 %-sodium lauryl 0.5 each VAG .q week #2 tube 11/06/19 sulfate 0.01 % vaginal gel simvastatin 40 mg tablet 40 mg PO BEDTIME #90 tab 12/02/19 clobetasol 0.05 % topical cream 1 applictn TOP BID 14 Days #180 04/07/20 gram furosemide 40 mg tablet 40 mg PO QAM #30 tab 04/26/20 potassium chloride 20 mEq 20 meq PO DAILY #30 tab 04/26/20 tablet,extended release lorazepam 0.5 mg tablet 0.5 mg PO DAILY PRN #20 tab 04/27/20 prednisone 20 mg tablet 20 mg PO DAILY #30 tab 04/27/20 cyclobenzaprine 5 mg PO TID PRN #20 tab 05/02/20 hydrocodone-acetaminophen [[place]] 1 tab PO Q6H PRN #12 tab 05/02/20 naproxen [Naprosyn] 250 mg PO BID PRN #20 tab 05/02/20 Allergies Allergy/AdvReac Type Severity Reaction Status Date / Time hydromorphone [HYDROMORPHONE] AdvReac Severe n/v, Verified 05/02/20 11:11 sweats, vomiting Review of Systems Review of Systems Narrative: Review of systems were all negative except for those mentioned in the history of present illness. The patient denies any incontinence of urine or stool. She has had no numbness or tingling loss of sensation over her perineum or rectum. She has not developed urinary retention or incontinence. She has been mildly constipated. Patient History Medical History Abnormal CXR (Chronic ~2013) Ankle pain (Chronic ~1976) Cataract (Chronic ~2013) Chicken pox (Resolved ~1946) Diverticular disease (Chronic ~2013) Fractures (Resolved) Gastric ulcer (Chronic) Lumbar compression fracture (Resolved) Measles (Resolved ~1946) Mumps (Resolved ~1947) Osteoporosis (Chronic ~2013) Pessary maintenance (Acute) Rubella (Resolved ~1947) Urinary, incontinence, stress female (Chronic) Vision disorder (Chronic) Surgical History Anesthesia (Resolved) Femoral hernia (Resolved) History of ankle surgery (Resolved) History of kyphoplasty (Resolved ~2012) History of sinus surgery (Acute) Status post appendectomy (~1948) Status post cholecystectomy (~1964) Family History Father Osteoporosis High cholesterol Mother Dementia Social History marital status: household members: family Smoking Status: Never smoker alcohol intake: current (ON OCCASION ) substance use type: does not use Smoking Status: Never smoker Substance Use Type: does not use Exam Narrative Exam Narrative: PHYSICAL EXAM: CONSTITUTIONAL: Awake, Alert, Oriented, Coherent, Cooperative in mild distress. She does not appear to be toxic. The patient was able to ambulate to the bathroom with a walker. HEAD: AT/NC EENT: PERRL, FROM of eyes, no discharge, NECK: Supple, no obvious JVD, Trachea is midline without stridor, no palpable LN. SPINE: Palpationof the cervical, Thoracic, Lumbar or Sacral spine reveals no gross deformity or tenderness. No CVA tenderness. Patient has no significant paraspinous muscle tenderness. There was no tenderness to palpation over the left piriformis left SI joint or sciatic notch. The patient had full flexion of her right and left hips with some internal external rotation flexion and extension of the hips. The patient had a mild positive straight leg raise on the left. Patient was diffusely tender to palpation along the lateral thigh over the iliotibial band however it did not appear to be extensively tight. The patient has mild swelling of her left knee. THORAX: No deformity, retractions, chest wall tenderness. LUNGS: Clear, symmetrical breath sounds without respiratory distress. HEART: Normal heart tones, regular rhythm and rate without murmur. ABDOMEN: Soft, non-tender, without guarding, rebound, rigidity or palpable mass. EXTREMITIES: No edema, deformity, tenderness or cyanosis. SKIN: No rash, bruising, petechiae or purpura. NEURO: Awake, alert, oriented, conversive, cranial nerves II-XII are symmetrical , moves all 4 extremities and is ambulatory. Initial Vital Signs Initial Vital Signs: Vital Signs Temperature 98.3 F 05/02/20 11:07 Pulse Rate 77 05/02/20 11:07 Respiratory Rate 18 05/02/20 11:07 Blood Pressure 160/89 H 05/02/20 11:07 Pulse Oximetry 96 05/02/20 11:07 Course Course Course Narrative: 1305: CT of the patient's lumbar spine reveals numerous old compression fractures. No acute compression fractures. Previous treatment of L4 compression fracture. 2. Old right hemilaminectomy at L3-L4 and L4-L5. 3. Mild canal stenosis at L2-L3 4. Multilevel foraminal narrowing as described above. The patient's potassium is 3.8, sodium 138, carbon dioxide 36, BUN 24 creatinine 0.79 GFR greater than 60. Glucose 113. The plan is to have physical therapy evaluate her safety and ability to walk and then disposition the patient. 1427: Physical therapy just finished evaluating the patient and she is safe to be discharged. She needs to use the trekking poles and walker and a bedside commode at night. She is to follow-up with her primary care physician to get an outpatient referral to physical therapy. The patient will be discharged. Orders Ordered: ED Orders 05/02/20 11:44 CT lumbar spine wo con Stat 05/02/20 12:35 BMP [Basic Metabolic Panel] Stat Complete Blood Count AUTO DIFF Stat 05/02/20 13:04 Consult to Physical Therapy Evaluate & Treat Discontinued Medications Ketorolac Tromethamine (Toradol) 15 mg IV NOW ONE Stop: 05/02/20 11:43 Last Admin: 05/02/20 12:35 Dose: 15 mg Documented by: GERALD Morphine Sulfate (Morphine) 2 mg IV NOW ONE Stop: 05/02/20 11:43 Last Admin: 05/02/20 12:36 Dose: 2 mg Documented by: GERALD Vital Signs Vital signs: Vital Signs - 8 hr 05/02/20 11:07 05/02/20 11:37 05/02/20 12:40 Temperature 98.3 F Pulse Rate 77 83 80 Respiratory Rate 18 17 16 Blood Pressure 160/89 H Blood Pressure [Right Arm] 175/94 H 174/90 H Pulse Oximetry 96 98 99 05/02/20 15:04 Temperature Pulse Rate 70 Respiratory Rate 16 Blood Pressure Blood Pressure [Right Arm] 152/78 H Pulse Oximetry 98 MDM - Back Pain/Injury Lab Data Result diagrams: 05/02/20 12:35 05/02/20 12:35 Labs: Lab Results 05/02/20 05/02/20 Range/Units 12:35 12:35 WBC 7.0 (4.5-11.0) X10^3/uL RBC 4.62 (4.0-5.2) X10^6/uL Hgb 14.0 (12.0-16.0) g/dL Hct 40.9 (36-46) % MCV 88.6 (80-100) fL MCH 30.3 (26-34) PG MCHC 34.2 (30-36) % RDW 13.6 (11.6-14.8) % Plt Count 264 (150-400) X10^3/uL Neut % (Auto) 80.8 H (50-75) % Lymph % (Auto) 12.3 L (25-40) % [place] % (Auto) 5.6 (3-14) % Eos % (Auto) 0.9 L (2-4) % Baso % (Auto) 0.4 (0-2) % Neut # (Auto) 5600 (5968-4286) /uL Lymph # (Auto) 900 L (2890-7095) /uL [place] # (Auto) 400 (0-900) /uL Eos # (Auto) 100 (0-450) /uL Baso # (Auto) 0 (0-100) /uL Sodium 138 (137-145) mmol/L Potassium 3.8 (3.4-5.1) mmol/L Chloride 99 (98-107) mmol/L Carbon Dioxide 36 H (22-32) mmol/L BUN 24 H (7-17) mg/dL Creatinine 0.79 (0.52-1.04) mg/dL Estimated GFR > 60.0 (>60) mL/min BUN/Creatinine Ratio 30.4 H (6-22) Glucose 113 H (80-110) mg/dL Calcium 10.1 (8.4-10.2) mg/dL Urine Dip Bedside Urine Glucose Negative Bedside Urine Bilirubin - Negative Bedside Urine Ketone - Negative Urine Specific [place] 1.020 Bedside Urine Occult Blood - Negative Bedside Urine pH 6.0 Bedside Urine Protein - Negative Bedside Urine Urobilinogen - Negative Bedside Urine Nitrite - Negative Bedside Urine Leukocytes - Negative Esterase Discharge Plan Departure Patient Disposition: Home Clinical Impression: Low back pain Qualifiers: Chronicity: unspecified Back pain laterality: left Sciatica presence: with sciatica Sciatica laterality: sciatica of left side Qualified Code(s): M54.42 - Lumbago with sciatica, left side Iliotibial band syndrome Qualifiers: Laterality: left Qualified Code(s): M76.32 - Iliotibial band syndrome, left leg Acute back pain Qualifiers: Back pain location: low back pain Back pain laterality: left Sciatica presence: with sciatica Sciatica laterality: sciatica of left side Qualified Code(s): M54.42 - Lumbago with sciatica, left side Discharge Date/Time: 05/02/20 15:06 Instructions: DI for Back Pain With Sciatica, DI for Back Spasm, DI for Back Strain or Sprain Activity Restrictions/Additional Instructions: 1. Follow-up with your primary care physician as soon as possible within the next 48-72 hours to obtain an outpatient consultation for physical therapy ( recommended by physical Therapy) 2. Use a walker at home or your trach poles when walking. Use a bedside commode at nighttime to minimize movement up and down at nighttime and increasing your risk for falling. 3. If you develop severe pain and discomfort weakness paralysis or the leg giving out and you fall you need to return to the emergency department for re-evaluation. 4. Take Naprosyn 250 mg 3 times a day as needed for pain and discomfort. 5. Use cyclobenzaprine 5 mg tablets, 1-2 3 times a day as needed for muscle spasms. 6. Use [place] 5/325 as a rescue pain medication 1 tablet every 6 hours. 7. Apply warm compresses or cold compresses to your back whichever helps with the pain and discomfort. Prescriptions: New naproxen [Naprosyn] 500 mg tablet 250 mg PO BID PRN (Reason: pain) Qty: 20 RF: 0 cyclobenzaprine 5 mg tablet 5 mg PO TID PRN (Reason: muscle spasm) Qty: 20 RF: 0 hydrocodone-acetaminophen [[place]] 5-325 mg tablet 1 tab PO Q6H PRN (Reason: pain) Qty: 12 RF: 0 No Action acetaminophen 500 mg capsule 1,000 mg PO BID RF: 0 clobetasol 0.05 % cream 1 applictn TOP BID 14 Days Qty: 180 RF: 3 prednisone 20 mg tablet 20 mg PO DAILY Qty: 30 RF: 0 lorazepam 0.5 mg tablet 0.5 mg PO DAILY PRN (Reason: sleep) Qty: 20 RF: 0 cyanocobalamin (vitamin B-12) [Vitamin B-12] 1,000 mcg Tablet 1,000 mcg PO DAILY Qty: 0 RF: 0 cholecalciferol (vitamin D3) [Vitamin D3] 2,000 UNIT capsule 2,000 iu PO DAILY Qty: 0 RF: 0 oxyquinoline-sod.lauryl sulfat 0.025-0.01 % gel 0.5 each VAG .q week Qty: 2 RF: 3 simvastatin 40 mg tablet 40 mg PO BEDTIME Qty: 90 RF: 3 furosemide 40 mg tablet 40 mg PO QAM Qty: 30 RF: 1 potassium chloride 20 mEq tablet extended release 20 meq PO DAILY Qty: 30 RF: 1 Women's Multivitamin 18 mg iron-400 mcg-500 mg Tablet 1 tab PO DAILY RF: 0 PreserVision AREDS-2 [id number] si-tjlc-co-mg Capsule 1 cap PO BID RF: 0 Calcium Tablet 1 tab PO DAILY RF: 0 Pepcid AC 1 tab PO DAILY RF: 0 Referrals: Rob Adam MD [Primary Care Provider] -
--- NOTE | 2020-05-02 11:32 | PC.NURSE ---
States low back has been painful for @ 1 week. c/o pain that radiates to Left leg. States left leg is weak when walking. Sensory and circulation wnl. Does not normally ambulate w/ a walker but does well w/ a walker. Recently lost her 04/26 and states she has had increased physical work because of it w/ lifting and twisting. Denies trauma /falls. Also recently increased lasix w/ new potassium supplement that has helped pedal edema greatly.
[2020-05-02 11:37] VITALS: BP 175/94; PULSE 83; RESP 17; O2SAT 98
--- NOTE | 2020-05-02 11:44 | DI.CT.S_ITS ---
PROCEDURE: CT LUMBAR SPINE WO CON INDICATIONS: low back pain radiating into left lateral thigh TECHNIQUE: Noncontrast 3 mm thick sections acquired from the T12 level to the sacrum. Sagittal and coronal reformats were constructed. For radiation dose reduction, the following was used: automated exposure control. COMPARISON: [facility], CT, CT ABDOMEN PELVIS WO/W CON, 09/25/2019, 11:07. FINDINGS: Image quality: Excellent. Bones: There is normal bony alignment. No acute vertebral body compression fractures. Old severe L4 compression treated with percutaneous fixation. Chronic T12, L1, L2, L3 compressions. No suspicious lytic or blastic bony lesions. Central spinal caliber is of normal overall caliber. No pars defects. T11-T12: No canal stenosis or foraminal stenosis. T12-L1: No canal stenosis or foraminal stenosis. L1-L2: Disc bulge. No canal stenosis or foraminal stenosis. L2-L3: Disc bulge. Mild canal stenosis. No foraminal stenosis. L3-L4: Remote percutaneous cement fixation of L4. Remote right hemilaminectomy. No canal stenosis. Moderate right foraminal stenosis and mild left foraminal stenosis. L4-L5: Remote right hemilaminectomy. Facet hypertrophy. No canal stenosis. Mild to moderate right foraminal stenosis. L5-S1: Bilateral facet hypertrophy. Mild disc bulge. No canal stenosis or significant foraminal stenosis. Soft tissues: No retroperitoneal masses or hematomas. Visualized aorta is normal in caliber. IMPRESSION: 1. Numerous old compression fractures. No acute compression fractures. Previous treatment of L4 compression fracture. 2. Old right hemilaminectomy at L3-L4 and L4-L5. 3. Mild canal stenosis at L2-L3. 4. Multilevel foraminal narrowing as described above. Dictated by: Amador Mcclain M.D. on 05/02/2020 at 12:20 Approved by: Amador Mcclain M.D. on 05/02/2020 at 12:26
[2020-05-02] MEDS: KETOROLAC 60 MG/2 ML VIAL 15 MG IV (12:35)
[2020-05-02] MEDS: MORPHINE 2 MG/ML INJ IV (12:36)
[2020-05-02 12:40] VITALS: BP 174/90; PULSE 80; RESP 16; O2SAT 99
[2020-05-02 12:48] LABS: Add Manual Diff / Slide Review NO; Basophils Absolute Auto 0 /uL (0-100); Basophils Percent Auto 0.4 % (0-2); Eosinophils Absolute Auto 100 /uL (0-450); Eosinophils Percent Auto 0.9 % (2-4); Hematocrit 40.9 % (36-46); Lymphocytes Absolute Auto 900 /uL (1100-4500); Lymphocytes Percent Auto 12.3 % (25-40); Mean Corpuscular HGB Conc 34.2 % (30-36); Mean Corpuscular Hemoglobin 30.3 PG (26-34); Mean Corpuscular Volume 88.6 fL (80-100); Monocytes Absolute Auto 400 /uL (0-900); Monocytes Percent Auto 5.6 % (3-14); Neutrophils Absolute Auto 5600 /uL (1500-7000); Neutrophils Percent Auto 80.8 % (50-75); Platelet Count 264 X10^3/uL (150-400); Red Blood Cell Count 4.62 X10^6/uL (4.0-5.2); Red Cell Distribution Width 13.6 % (11.6-14.8)
[2020-05-02 13:01] LABS: BUN Creatinine Ratio 30.4 (6-22); Blood Urea Nitrogen 24 mg/dL (7-17); Calcium 10.1 mg/dL (8.4-10.2); Carbon Dioxide 36 mmol/L (22-32); Chloride 99 mmol/L (98-107); Estimated Glomerular Filt Rate > 60.0 mL/min (>60); Glucose 113 mg/dL (80-110); HEMOLYSIS < 15 (0-50); Potassium 3.8 mmol/L (3.4-5.1); Sodium 138 mmol/L (137-145)
--- NOTE | 2020-05-02 14:54 | PT.IIE ---
Surgical History (Last Reviewed 05/02/20 @ 11:51 by Dakota Wheeler MD) Anesthesia (Resolved) Femoral hernia (Resolved) History of ankle surgery (Resolved) History of kyphoplasty (Resolved ~2012) History of sinus surgery (Acute) Status post appendectomy (~1948) Status post cholecystectomy (~1964) Medical History (Last Reviewed 05/02/20 @ 11:51 by Dakota Wheeler MD) Abnormal CXR (Chronic ~2013) Ankle pain (Chronic ~1976) Cataract (Chronic ~2013) Chicken pox (Resolved ~1946) Diverticular disease (Chronic ~2013) Fractures (Resolved) Gastric ulcer (Chronic) Lumbar compression fracture (Resolved) Measles (Resolved ~1946) Mumps (Resolved ~1947) Osteoporosis (Chronic ~2013) Pessary maintenance (Acute) Rubella (Resolved ~1947) Urinary, incontinence, stress female (Chronic) Vision disorder (Chronic) Physical Therapy Inpatient Evaluation/Re-Eval M1 PT/OT-IP Prior Functional Status Start: 05/02/20 13:09 Freq: Status: Active Protocol: Document 05/02/20 14:28 AW (Rec: 05/02/20 14:53 AW [id number]) Medical Review Prior Functional Status Medical History Reviewed Yes Communication WNL Mobility and Gait Pt has remote history of L3-4 L34-5 hemilami. She is active and independent at baseline without use of assistive device. She states she has had an increase in activity over the past two weeks which involves a lot of heavy lifting and twisting. This time frame correlates with onset of low back pain with LLE radiating pain. Pt has experienced the greatest increase in pain over the last few days and reports great difficulty getting in and out of bed. Activities of Daily Living and IADL's Independent. Social History Household Members family Living Arrangements House Number of Floors (Floors) One Floor Number of Stairs To Enter/Railing? ramped entry Home Environment Standard Height Toilet,Ramp Home Equipment Four Wheel Walker,Straight Cane,Manual Wheelchair,Bedside Commode,Tub Transfer Bench, Grab Bars Near Toilet,Grab Bars In Shower Employment Status Retired Additional Social History Comment Pt's spouse within the past month. She continues to live with her daughter, her daughter's boyfriend, and her 26 yo granddaughter. Pt and daughter state there is always someone at home. M2 PT-IP Current Condition Start: 05/02/20 13:09 Freq: Status: Active Protocol: Document 05/02/20 14:28 AW (Rec: 05/02/20 14:53 AW [id number]) Physical Therapy Current Condition Current Condition Evaluation Date 05/02/20 Treatment Diagnosis low back pain with left-sided radiculopathy; impaired mobility Onset Date 04/29/20 M3 PT-IP Subjective Start: 05/02/20 13:09 Freq: Status: Active Protocol: Document 05/02/20 14:28 AW (Rec: 05/02/20 14:53 AW [id number]) Subjective Physical Therapy Visit Type Type Initial Evaluation Visit Start Time 13:52 Visit Stop Time 14:25 Total Visit Minutes 33 Notes Pt seen in ED Physical Therapy Visit Comments Patient Comments Pt is feeling better with pain meds administered ~1.5 hours ago. She is willing to participate with PT. Patient Goals Pt hopes to reduce pain and improve her quality of movement Therapy Pain Assessment Pain When Pain Assessed During Mobility Pain Present Pain Present Pain Reported Location Back Intensity 4 Scale Used Numeric (0 - 10) Pain Management Techniques Apply Cold,Re-positioning M4 PT-IP Mobility and Gait Start: 05/02/20 13:09 Freq: Status: Active Protocol: Document 05/02/20 14:28 AW (Rec: 05/02/20 14:53 AW [id number]) PT-Transfer Assessment Sit to and From Stand Sit to and from Stand Standby Assistance,Use of Upper Extremities Equipment Transfer Assistive Device Gait Belt,Straight Cane,Front Wheeled Walker Transfers Transfer Destination Chair Transfer Technique pt ambulated with FWW and with trekking pole Transfer Ability Level of Assist Standby Assistance,1 Person Assistance,Use of Upper Extremities Comments Mobility Comments Pt was roomed without a gurney so was sitting up in the wheelchair upon PT arrival. She completed sit to stand SBA with FWW and took a few steps forward. She was clearly using the walker only for stability. PT decided to trial the pt's own single trekking pole. After brief instruction in 3-point gait, pt was able to replicate the pattern easily with only minimal cueing for sequencing. Pt safely ambulated around the central nursing station with trekking pole held in her right hand and SBA. She was observed to have buckling of the left leg x 1 during ambulation trial but was able to recover independently without therapist assist. Pt then returned to the room and transferred back to the wheelchair without increase in pain. Gait Assessment Gait Gait Assistance Required: Standby Assistance Distance (Feet) 200 Assistive Devices Assistive Device Straight Cane Gait Deviations General Gait Pattern Antalgic,Decreased Stride Length,Decreased Feet Clearance,Step-to Gait Factors Limiting Gait Function Factors Limiting Gait Function Decreased Activity Tolerance, Decreased Sensation,Decreased Strength,Limited Range of Motion,Pain,Poor Balance Comments Gait Comments Pt ambulated ~200 feet with trekking pole held in RUE. Gait was notable for minimal dorsiflexion LLE and toe- scuffing x 4. Pt was advised to use the trekking pole ( single or both) as long as acute LBP continued for stability. Stair Climbing Assessment Comments Stair Climbing Comments Not assessed. No stairs at home. PT-Balance Assessment Sitting Balance and Reactions Static Sitting Balance Ability Normal Dynamic Sitting Balance Ability Normal Standing Balance and Reactions Static Standing Balance Ability Good Dynamic Standing Balance Ability Good Device Used trekking pole Balance Tests Single Limb Standing R 5 sec; L <2 sec M5 PT-IP Objective Assessments Start: 05/02/20 13:09 Freq: Status: Active Protocol: Document 05/02/20 14:28 AW (Rec: 05/02/20 14:53 AW [id number]) Orientation Orientation/Cognition Level of Alertness Alert Orientation Name,Day of Week,Place Language Function Ability No Deficits Noted Safety Awareness Understands Safety Issues Memory Description No Deficits Noted Gross Range of Motion Upper Extremity ROM Assessment Within Functional Limits Lower Extremity ROM Assessment Within Functional Limits Strength Lower Extremity Strength Assessment Bilaterally Impaired Hip R 4-/5; L 3+/5 due to pain Knee R 4/5; L 4-/5 due to pain Ankle B 4/5 Comments Strength Comments Pt was planning on L TKA prior to COVID 19 pandemic restricted access to elective services. Left knee pain continues to limit her walking capacity. Coordination Assessment Gross Coordination Gross Coordination WNL Sensation Assessment Sensation Gross Sensation Right LE Impaired,Left LE Impaired Comments Sensation Comments Pt reports long-standing dull light-touch sensation in her distal feet bilaterally. Muscle Tone Muscle Tone WNL Yes M6 PT-IP Treatment Start: 05/02/20 13:09 Freq: Status: Active Protocol: Document 05/02/20 14:28 AW (Rec: 05/02/20 14:53 AW [id number]) Physical Therapy Treatment Education Education Provided Safety Other Treatments Other Treatment Performed Provided education on role of PT, rationale for selection of an assistive device, and importance of continued mobility. M7 PT-IP Assessment and Plan Start: 05/02/20 13:09 Freq: Status: Active Protocol: Document 05/02/20 14:28 AW (Rec: 05/02/20 14:53 AW [id number]) PT Summary Assessment and Plan Potential Status of Condition at Evaluation Evolving Summary Impairments Pain,ROM,Strength,Balance, Sensation,Bed Mobility, Transfers,Gait,Activity Tolerance Assessment Summary Ryann is a 79 yo woman seen for PT evaluation in the ED with complaint of acute low back pain. At baseline, she is active and independent in all regards. Left knee pain and a recent increase in activity ( especially lifting and twisting) likely are contributing to her acute complaints. On evaluation, pt' s pain was well controlled and she required SBA for ambulation with a single trekking pole. This PT advised the pt to continue using single or both trekking poles to increase her confidence with ambulation and to consider use of a BSC for voiding at night which has increased recently due to increased lasix. Pt is safe to discharge home with family assist and would benefit from a referral to outpatient PT. Frequency of Treatment Frequency Of Treatment Discharge Discharge Recommendations Transportation Needs at Discharge Private Vehicle
[2020-05-02 15:04] VITALS: BP 152/78; PULSE 70; RESP 16; O2SAT 98
== END 2020-05-02 15:06 | disposition home or self-care (01) ==
PROVIDERS: Emergency Provider Emergency Medicine; Family Provider Urology; PCP Family Medicine
DX: M54.42 Lumbago with sciatica, left side (principal); M76.32 Iliotibial band syndrome, left leg
CPT/HCPCS: 36415; 72131; 80048; 81003; 85025; 96374; 96375; 97161; 99284; J1885; J2270

== ENCOUNTER → 2020-05-23 10:20 | Outpatient (CLI) | payer OTHER, SELFPAY ==
--- NOTE | 2020-05-23 | DI.US.S_ITS ---
PROCEDURE: US RENAL COMPLETE INDICATIONS: HYDRONEPHROSIS TECHNIQUE: Real-time scanning was performed of the kidneys and bladder, with image documentation. COMPARISON: None. FINDINGS: Kidneys: Kidneys are normal in size. Right kidney measures 10.3 cm long; left kidney measures 9.6 cm long. Right renal cortical thickness is 1.5 cm; left renal cortical thickness is 1.4 cm. Renal cortical echotexture is normal. No hydronephrosis or nephrolithiasis. No suspicious solid mass lesions. Bladder: Pre-void bladder volume is 38 mL. Post-void residual is 18 mL. Pre-void images demonstrate no intraluminal masses or stones. On pre-void images, neither ureteral jets are noted with color Doppler interrogation. (Of note, ureteral jets may not be detectable in up to 25% of cases due to insufficient differences in specific gravity between ureteral and bladder urine). Miscellaneous: No free pelvic fluid. IMPRESSION: No hydronephrosis or nephrolithiasis found. Incidental note is made of a 1.1 cm left simple renal cortical cyst. Normal bladder function. Dictated by: Ned Panda M.D. on 05/23/2020 at 12:09 Approved by: Ned Panda M.D. on 05/23/2020 at 12:15
== END ==
PROVIDERS: Family Provider Family Medicine; PCP Family Medicine; Referring Provider Urology; Visit Provider Urology
DX: N13.30 Unspecified hydronephrosis (principal); N28.1 Cyst of kidney, acquired
CPT/HCPCS: 76770

== ENCOUNTER 2020-06-24 10:30 | Outpatient (RCR) | payer OTHER, SELFPAY ==
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
--- NOTE | 2020-05-17 14:42 | PT.OPPOC ---
Physical, Occupational & Speech Therapy At [facility] Current Diagnoses Lumbago with sciatica, left side (05/17/20) Iliotibial band syndrome, left leg (05/17/20) Visit Care Team Role Provider Type To Bansal MD Referring Provider Physician Specialty: Orthopedic Surgery Address: [address] [place] [address], [address] Email: [email or web address] Rob Adam MD Attending Provider Physician Family Provider Primary Care Provider Specialty: Family Practice Address: [address] [place] [address], [address] Email: [email or web address] Plan Of Care PT-OP-T Assessment and Plan Start: 05/17/20 07:23 Freq: Status: Active Protocol: Document 05/17/20 12:15 MB (Rec: 05/17/20 14:42 MB [id number]) Physical Therapy Assessment Rehab Potential Rehabilitation Potential Good Evaluation Complexity Number of Personal Factors/Comorbidities 1-2 Number of Body Systems Impaired 1-2 Clinical Presentation at Evaluation Evolving Impairments Impairments Activity Tolerance,Balance, Functional Activities, Functional Mobility,Gait, Integument,Pain,Posture,ROM, Sensation,Soft Tissue Mobility ,Strength Other Impairments Personal factors include pt's 3 weeks ago, she has many ongoing things that she has to take care of after this. Pt also did not have scheduled L TKR d/t COVID and this can contribute to pain. Goals 4 Pot Feeder Goal (LTG) Pt will perform 5 reps sit to stand without UE support in less than 13 sec to improve functional transfers and strength by 07/18/2020. LTG Duration 8 weeks 3 Correction Goal (LTG) Pt will perform progressive HEP with I including pelvic realignment, flexibility, strengthening, gait and balance exercises to improve mobility by 07/18/2020. LTG Duration 8 weeks 2 Pot Feeder Goal (LTG) Pt will report an overall 50% improvement in left lateral hip and leg pain to improve quality of lift and transfers by 07/18/2020. LTG Duration 8 weeks 1 Correction Goal (LTG) Pt will be able to gait train 900 feet in 6 minutes to improve community ambulation by 07/18/2020. LTG Duration 8 weeks Assessment Summary Assessment Pt is a 79 y/o female presenting with left lateral hip and leg pain up to that is worse with getting up from lying to standing and sitting to standing. She has a history of multiple spinal compression fractures, left ankle fracture, left LE anomalies including left knee valgus and need for L TKR that was post-poned d/t COVID. 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 She presents with postural changes , increased body mass, pelvic obliquities and LLE changes as described in postural assessment. She also presents with weakness. Personal factors of increased stress and grief after loss of , PMH of fractures, spinal and LLE anomalies are barriers to PT. Pt will benefit from PT to improve pelvic alignment, balance, strengthening and pain. Physical Therapy Plan Frequency and Duration Frequency of Treatment 2x/Week Duration of Treatment 8 weeks Plan of Care Start Date 05/17/20 Plan of Care End Date 07/18/20 Therapeutic Interventions Therapeutic Interventions Aquatic Therapy,Balance Training,Canalithic Repositioning,Coordination Training,Gait Training,Home Exercise Program,Joint Mobilizations,Manual Therapy, Neuromuscular Re-education, Patient/Caregiver Education, Self-Care/Home Management, Sensory Integration,Soft Tissue Mobilization,Taping, Therapeutic Activities, Therapeutic Exercises Modalities Cold Pack/Ice Massage,Electric Stimulation,Hot Packs, Ultrasound Next Visit Focus/Plan Next Note Type Treatment Note Next Visit Plan Initiate pelvic realigment exercises, Consider Counterstrain in future treatments Plan of Care Dates Plan of Care Start Date 05/17/20 Plan of Care End Date 07/18/20 Electronically Signed by: Erika Bailey, PT 05/17/20 3044 Please Sign and Return: I have reviewed this Plan of Care and certify that the skilled therapy services above are required to meet the patient?s needs. Physician Signature Date Printed Name and Credentials Clinical Instructor Signature Printed Name and Credentials
--- NOTE | 2020-05-19 10:11 | PT-OP ANOTE ---
Pt is a no show. PT left message and provided next appointment date and time and asked pt to return call if she cannot make appointment.
--- NOTE | 2020-05-23 15:44 | PT-OP ANOTE ---
PT receives email from front office. Pt cancelled PT for two weeks in setting of seeing doctor and wishing fracture to heal a little longer. On assessment date, pt reported a left ankle fracture. PT does not have any other information about this. Recent doctor notes were for renal US. Will con't PT as appropriate.
--- NOTE | 2020-06-24 10:38 | PT-OP ANOTE ---
This date, pt arrives for appointment. She clarifies that indeed she does not have a left foot fracture, she was referring to her L2 compression fracture discovered 2 days after PT eval. PT did receive referral from Dr. Bansal to con't PT post known fracture. She was not told anything about a back brace. She had OP, got injections, was found to have osteopenia. She no longer gets injections. Her last bone scan was 2 years ago. PT asks pt to consider asking doctor about bone bone. Pt was found to have scabies on 06/13/2020 and has ongoing left arm red sores. She has started treatment and goes back on 07/06/2020. She underwent two skin treatments. She thinks she might have gotten it at stay at [facility] 05/09/2020. Will hold PT until follow-up.
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
== END 2020-07-21 08:28 ==
LOC: PHYS 10:30
PROVIDERS: Family Provider Family Medicine; PCP Family Medicine; Referring Provider Orthopaedic Surgery; Visit Provider Family Medicine
DX: M76.32 Iliotibial band syndrome, left leg (principal); M54.42 Lumbago with sciatica, left side
CPT/HCPCS: 97161; 97535

== ENCOUNTER → 2020-06-28 11:01 | Outpatient (CLI) | payer OTHER, SELFPAY ==
[2020-06-29 09:37] LABS: COVID19 Sendout Not Detected (Not Detect)
== END ==
PROVIDERS: Family Provider Family Medicine; PCP Family Medicine; Visit Provider Physician Assistant
DX: R11.0 Nausea (principal); R50.9 Fever, unspecified; R51 Headache
CPT/HCPCS: 87635

== ENCOUNTER 2020-07-01 18:51 | Emergency (ER) | payer OTHER, SELFPAY ==
[2020-07-01] VITALS (13 sets, daily range): BP systolic 121–148; BP diastolic 59–82; PULSE 89–112; RESP 13–26; TEMP 36.8–38.5; O2SAT 92–96; BMI 30.9
--- NOTE | 2020-07-01 19:34 | DI.RAD.S_ITS ---
PROCEDURE: XR CHEST 1V INDICATIONS: flu-like symptoms TECHNIQUE: One view of the chest was acquired. COMPARISON: [facility], CR, XR CHEST 1V, 09/11/2019, 10:02. FINDINGS: Surgical changes and devices: None. Lungs and pleura: Lungs are clear. No pleural effusions or pneumothorax. Mediastinum: Mediastinal contours appear normal. Heart size is normal. Bones and chest wall: No suspicious bony lesions. Overlying soft tissues appear unremarkable. IMPRESSION: No acute process. Dictated by: Rodger Awad M.D. on 07/01/2020 at 20:12 Approved by: Rodger Awad M.D. on 07/01/2020 at 20:13
[2020-07-01 19:56] LABS: Add Manual Diff / Slide Review NO; Basophils Absolute Auto 0 /uL (0-100); Basophils Percent Auto 0.4 % (0-2); Eosinophils Absolute Auto 0 /uL (0-450); Eosinophils Percent Auto 0.2 % (2-4); Hematocrit 37.1 % (36-46); Hemoglobin 12.4 g/dL (12.0-16.0); Lymphocytes Absolute Auto 700 /uL (1100-4500); Lymphocytes Percent Auto 6.5 % (25-40); Mean Corpuscular HGB Conc 33.5 % (30-36); Mean Corpuscular Hemoglobin 29.1 PG (26-34); Mean Corpuscular Volume 86.9 fL (80-100); Monocytes Absolute Auto 1300 /uL (0-900); Monocytes Percent Auto 12.3 % (3-14); Neutrophils Absolute Auto 8600 /uL (1500-7000); Neutrophils Percent Auto 80.6 % (50-75); Platelet Count 222 X10^3/uL (150-400); Red Blood Cell Count 4.26 X10^6/uL (4.0-5.2); Red Cell Distribution Width 12.9 % (11.6-14.8); White Blood Cell Count 10.6 X10^3/uL (4.5-11.0)
[2020-07-01 20:04] LABS: Lactate (Lactic Acid) 0.7 mmol/L (0.7-2.1)
[2020-07-01 20:06] LABS: Alanine Aminotransferase 9 IU/L (<35); Albumin 3.7 g/dL (3.5-5.0); Albumin Globulin Ratio 1.1 (1.0-2.8); Alkaline Phosphatase 99 U/L (38-126); Aspartate Aminotransferase 24 IU/L (14-36); BUN Creatinine Ratio 24.7 (6-22); Bilirubin Total 0.6 mg/dL (0.2-1.3); Blood Urea Nitrogen 21 mg/dL (7-17); Calcium 9.8 mg/dL (8.4-10.2); Carbon Dioxide 27 mmol/L (22-32); Chloride 99 mmol/L (98-107); Creatine Kinase 38 U/L (30-135); Estimated Glomerular Filt Rate > 60.0 mL/min (>60); Globulin 3.5 g/dL (1.7-4.1); Glucose 145 mg/dL (80-110); HEMOLYSIS < 15 (0-50); Potassium 3.7 mmol/L (3.4-5.1); Sodium 133 mmol/L (137-145); Total Protein 7.2 g/dL (6.3-8.2)
[2020-07-01 20:09] LABS: D Dimer 575 ng/mL (<230)
[2020-07-01 20:13] LABS: Lactate Dehydrogenase 381 U/L (313-618)
--- NOTE | 2020-07-01 20:13 | ED.FEVER ---
HPI - Fever General Chief Complaint: Fever Stated Complaint: fever, cough, body aches, since Saturday Time Seen by Provider: 07/01/20 19:00 Source: patient Mode of arrival: Wheelchair Limitations: no limitations History of Present Illness HPI Narrative: 79F never smoker with HTN presents with about a week of dry cough, fever, and body aches. SHe's had nausea, but denies vomiting. She denies runny nose, sore throat, dysuria, frequency or urgency. She's had no recent travel, but prior to April she and her were frequently traveling. She was seen in the respiratory clinic a few days ago and had a negative COVID swab. MD complaint: fever and weakness Onset (ago): day(s) Temperature Source: oral Associated symptoms: chills, myalgias, cough and nausea Relieving factors: nothing Exacerbating factors: at night Treatments prior to arrival fever: none, acetaminophen and ibuprofen Related Data Home Medications Medication Instructions Recorded Confirmed cholecalciferol (vitamin D3) 2,000 iu PO DAILY #0 06/21/13 04/27/20 [Vitamin D3] cyanocobalamin (vitamin B-12) 1,000 mcg PO DAILY #0 06/21/13 04/27/20 [Vitamin B-12] acetaminophen 500 mg capsule 1,000 mg PO BID 08/10/19 04/27/20 Calcium Tablet 1 tab PO DAILY 09/11/19 04/27/20 Pepcid AC 1 tab PO DAILY 09/11/19 04/27/20 mi-rl-zgzs-FA-Ca carb-vit K 1 tab PO DAILY 09/11/19 04/27/20 [Women's Multivitamin] vit C,R-Sl-lvhfj-lutein-zeaxan 1 cap PO BID 09/11/19 04/27/20 [PreserVision AREDS-2] Previous Rx's Medication Instructions Recorded oxyquinoline 0.025 %-sodium lauryl 0.5 each VAG .q week #2 tube 11/06/19 sulfate 0.01 % vaginal gel simvastatin 40 mg tablet 40 mg PO BEDTIME #90 tab 12/02/19 clobetasol 0.05 % topical cream 1 applictn TOP BID 14 Days #180 04/07/20 gram furosemide 40 mg tablet 40 mg PO QAM #30 tab 04/26/20 potassium chloride 20 mEq 20 meq PO DAILY #30 tab 04/26/20 tablet,extended release prednisone 20 mg tablet 20 mg PO DAILY #30 tab 04/27/20 cyclobenzaprine 5 mg PO TID PRN #20 tab 05/02/20 hydrocodone-acetaminophen [Henrietta] 1 tab PO Q6H PRN #12 tab 05/02/20 naproxen [Naprosyn] 250 mg PO BID PRN #20 tab 05/02/20 lorazepam 0.5 mg tablet 0.5 mg PO DAILY PRN #30 tab 05/23/20 benzonatate [Tessalon Perles] 100 mg PO TID PRN #14 cap 07/02/20 cephalexin [Keflex] 500 mg PO QID 7 Days #28 cap 07/02/20 Allergies Allergy/AdvReac Type Severity Reaction Status Date / Time hydromorphone [HYDROMORPHONE] AdvReac Severe n/v, Verified 06/28/20 10:59 sweats, vomiting Review of Systems Constitutional Constitutional: Reports chills, Reports fatigue, Reports fever(s), Denies frequent falls, Denies lethargy and Reports weakness Eyes Eyes: Denies change in vision, Denies eye discharge, Denies irritation and Denies loss of vision ENT Ears, Nose, Mouth, and Throat: Denies change in voice, Denies dizziness, Denies neck pain, Denies sore throat and Denies throat swelling Cardiovascular Cardiovascular: Denies chest pain, Denies irregular heart rhythm, Denies lightheadedness, Denies palpitations, Denies dyspnea, Denies dyspnea on exertion and Denies orthopnea Respiratory Respiratory: Reports cough, Denies dyspnea, Denies dyspnea on exertion and Reports wheezing Gastrointestinal Gastrointestinal: Denies abdominal pain, Denies change in bowel habits, Denies diarrhea, Denies nausea and Denies vomiting Musculoskeletal Musculoskeletal: Denies neck pain and Denies numbness Integumentary/Breasts Skin/Breast: Denies pruritus, Denies erythema, Denies rash and Denies wounds Neurologic Neurologic: Denies behavioral changes, Denies confusion, Denies dizziness, Denies frequent falls, Denies loss of vision, Denies numbness and Reports weakness Psychiatric Psychiatric: Denies anxiety, Denies behavioral changes, Denies confusion, Denies depression, Denies homicidal ideation and Denies suicidal ideation Endocrine Endocrine: Reports fatigue, Denies flushing and Denies palpitations Hematologic/Lymphatic Hematologic/Lymphatic: Denies easy bruising Allergic/Immunologic Allergic/Immunologic: Denies urticaria, Denies throat swelling and Reports wheezing Patient History Medical History Abnormal CXR (Chronic ~2013) Ankle pain (Chronic ~1976) Cataract (Chronic ~2013) Chicken pox (Resolved ~1946) Diverticular disease (Chronic ~2013) Fractures (Resolved) Gastric ulcer (Chronic) Lumbar compression fracture (Resolved) Measles (Resolved ~1946) Mumps (Resolved ~1947) Osteoporosis (Chronic ~2013) Pessary maintenance (Acute) Rubella (Resolved ~1947) Urinary, incontinence, stress female (Chronic) Vision disorder (Chronic) Surgical History Anesthesia (Resolved) Femoral hernia (Resolved) History of ankle surgery (Resolved) History of kyphoplasty (Resolved ~2012) History of sinus surgery (Acute) Status post appendectomy (~1948) Status post cholecystectomy (~1964) Family History Father Osteoporosis High cholesterol Mother Dementia Social History marital status: household members: family Smoking Status: Never smoker alcohol intake: current (ON OCCASION ) substance use type: does not use Smoking Status: Never smoker alcohol intake frequency: 0-2 drinks per day Substance Use Type: does not use Exam Narrative Exam Narrative: GENERAL: [79] year old patient appears stated age. Well-nourished, well-developed patient, in mild distress. HEAD: Atraumatic. Normocephalic. EYES: Pupils equal round and reactive. Extraocular motions intact. No scleral icterus. No injection or drainage. ENT: Nose without bleeding, purulent drainage. Throat without erythema, tonsillar hypertrophy or exudate. Airway patent. NECK: Trachea midline. Non tender CARDIOVASCULAR: Regular rate and rhythm without murmurs, gallops, or rubs. RESPIRATORY: Clear to auscultation. Breath sounds equal bilaterally. No wheezes, rales, or rhonchi. GASTROINTESTINAL: Abdomen soft, non-tender, nondistended. EXTREMITIES: No edema or joint tenderness. BACK: Nontender without deformity or crepitance. No flank tenderness. NEURO: AOx3. SKIN: No rash or erythema of visible areas Initial Vital Signs Initial Vital Signs: Vital Signs Temperature 101.3 F H 07/01/20 19:10 Pulse Rate 112 H 07/01/20 19:10 Respiratory Rate 16 07/01/20 19:10 Blood Pressure 148/74 H 07/01/20 19:10 Pulse Oximetry 96 07/01/20 19:10 Course Orders Ordered: ED Orders 07/01/20 19:34 XR chest 1V Stat EKG-12 Lead Stat 07/01/20 19:40 C-Reactive Protein Quant Stat Complete Blood Count AUTO DIFF Stat Comprehensive Metabolic Panel Stat D Dimer Stat Ferritin Stat Lactate (Lactic Acid) Stat Lactate Dehydrogenase Stat NT-proBNP (BNP-Adult 18+) Stat Procalcitonin Stat Troponin & CK Cardiac Panel Stat 07/01/20 20:08 Blood Culture Stat 07/01/20 21:01 CT angio chest PE protocol Stat 07/01/20 23:30 Urine Culture Stat Urine Microscopic Stat Discontinued Medications Amoxicillin/Clavulanate Potassium (Augmentin 875-125 Mg) 1 tab PO NOW ONE Stop: 07/02/20 00:25 Last Admin: 07/02/20 00:46 Dose: Not Given Documented by: SANTINO Ceftriaxone Sodium/Dextrose (Rocephin) 1 gm in 50 mls @ 100 mls/hr IV NOW ONE Stop: 07/02/20 00:55 Last Admin: 07/02/20 00:33 Dose: 100 mls/hr Documented by: JEFFRY Vital Signs Vital signs: Vital Signs - 8 hr 07/01/20 19:10 07/01/20 19:33 07/01/20 19:34 Temperature 101.3 F H Pulse Rate 112 H 109 H Respiratory Rate 16 21 Blood Pressure 148/74 H 134/82 Pulse Oximetry 96 92 07/01/20 20:00 07/01/20 21:00 07/01/20 21:10 Temperature Pulse Rate 100 H 98 H 97 H Respiratory Rate 26 H 22 24 Blood Pressure 121/69 Pulse Oximetry 92 93 93 07/01/20 21:37 07/01/20 22:00 07/01/20 22:26 Temperature 98.3 F Pulse Rate 94 H 90 97 H Respiratory Rate 15 19 Blood Pressure 128/79 Pulse Oximetry 96 93 96 07/01/20 22:30 07/01/20 23:00 07/01/20 23:30 Temperature Pulse Rate 95 H 89 96 H Respiratory Rate 22 13 Blood Pressure 125/59 L 125/66 Pulse Oximetry 94 94 94 07/01/20 23:33 07/02/20 00:00 07/02/20 00:30 Temperature Pulse Rate 90 91 H Respiratory Rate 18 17 Blood Pressure 130/73 Pulse Oximetry 96 95 07/02/20 01:00 Temperature Pulse Rate 98 H Respiratory Rate 22 Blood Pressure Pulse Oximetry 95 MDM - Fever Lab Data Result diagrams: 07/01/20 19:40 07/01/20 19:40 Labs: Lab Results 07/01/20 07/01/20 07/01/20 Range/Units 19:40 19:40 19:40 WBC 10.6 (4.5-11.0) X10^3/uL RBC 4.26 (4.0-5.2) X10^6/uL Hgb 12.4 (12.0-16.0) g/dL Hct 37.1 (36-46) % MCV 86.9 (80-100) fL MCH 29.1 (26-34) PG MCHC 33.5 (30-36) % RDW 12.9 (11.6-14.8) % Plt Count 222 (150-400) X10^3/uL Neut % (Auto) 80.6 H (50-75) % Lymph % (Auto) 6.5 L (25-40) % [place] % (Auto) 12.3 (3-14) % Eos % (Auto) 0.2 L (2-4) % Baso % (Auto) 0.4 (0-2) % Neut # (Auto) 8600 H (0594-7756) /uL Lymph # (Auto) 700 L (7517-6843) /uL [place] # (Auto) 1300 H (0-900) /uL Eos # (Auto) 0 (0-450) /uL Baso # (Auto) 0 (0-100) /uL D-Dimer 575 H (<230) ng/mL Sodium (137-145) mmol/L Potassium (3.4-5.1) mmol/L Chloride (98-107) mmol/L Carbon Dioxide (22-32) mmol/L BUN (7-17) mg/dL Creatinine (0.52-1.04) mg/dL Estimated GFR (>60) mL/min BUN/Creatinine Ratio (6-22) Glucose (80-110) mg/dL Lactate (0.7-2.1) mmol/L Calcium (8.4-10.2) mg/dL Ferritin (11-264) ng/mL Total Bilirubin (0.2-1.3) mg/dL AST (14-36) IU/L ALT (<35) IU/L Alkaline Phosphatase (38-126) U/L Lactate Dehydrogenase (313-618) U/L Total Creatine Kinase (30-135) U/L CK-MB (CK-2) CK-MB (CK-2) Rel Index Troponin I (0.01-0.034) ng/mL C-Reactive Protein (<1.0) mg/dL NT-Pro-B Natriuret Pep (<450) pg/mL Total Protein (6.3-8.2) g/dL Albumin (3.5-5.0) g/dL Globulin (1.7-4.1) g/dL Albumin/Globulin Ratio (1.0-2.8) Procalcitonin 0.22 (<0.5) ng/mL Urine RBC (0-5/HPF) Urine WBC (0-5/HPF) Ur Squamous Epith Cells (0-5/HPF) Urine Bacteria (None) Ur Culture Indicated? COVID-19 PCR (Negative) 07/01/20 07/01/20 07/01/20 Range/Units 19:40 19:40 20:34 WBC (4.5-11.0) X10^3/uL RBC (4.0-5.2) X10^6/uL Hgb (12.0-16.0) g/dL Hct (36-46) % MCV (80-100) fL MCH (26-34) PG MCHC (30-36) % RDW (11.6-14.8) % Plt Count (150-400) X10^3/uL Neut % (Auto) (50-75) % Lymph % (Auto) (25-40) % [place] % (Auto) (3-14) % Eos % (Auto) (2-4) % Baso % (Auto) (0-2) % Neut # (Auto) (5761-9168) /uL Lymph # (Auto) (0754-0207) /uL [place] # (Auto) (0-900) /uL Eos # (Auto) (0-450) /uL Baso # (Auto) (0-100) /uL D-Dimer (<230) ng/mL Sodium 133 L (137-145) mmol/L Potassium 3.7 (3.4-5.1) mmol/L Chloride 99 (98-107) mmol/L Carbon Dioxide 27 (22-32) mmol/L BUN 21 H (7-17) mg/dL Creatinine 0.85 (0.52-1.04) mg/dL Estimated GFR > 60.0 (>60) mL/min BUN/Creatinine Ratio 24.7 H (6-22) Glucose 145 H (80-110) mg/dL Lactate 0.7 (0.7-2.1) mmol/L Calcium 9.8 (8.4-10.2) mg/dL Ferritin 115 (11-264) ng/mL Total Bilirubin 0.6 (0.2-1.3) mg/dL AST 24 (14-36) IU/L ALT 9 (<35) IU/L Alkaline Phosphatase 99 (38-126) U/L Lactate Dehydrogenase 381 (313-618) U/L Total Creatine Kinase 38 (30-135) U/L CK-MB (CK-2) TNP CK-MB (CK-2) Rel Index TNP Troponin I < 0.012 (0.01-0.034) ng/mL C-Reactive Protein 23.5 H (<1.0) mg/dL NT-Pro-B Natriuret Pep 512 H (<450) pg/mL Total Protein 7.2 (6.3-8.2) g/dL Albumin 3.7 (3.5-5.0) g/dL Globulin 3.5 (1.7-4.1) g/dL Albumin/Globulin Ratio 1.1 (1.0-2.8) Procalcitonin (<0.5) ng/mL Urine RBC (0-5/HPF) Urine WBC (0-5/HPF) Ur Squamous Epith Cells (0-5/HPF) Urine Bacteria (None) Ur Culture Indicated? COVID-19 PCR Negative (Negative) 07/01/20 Range/Units 23:30 WBC (4.5-11.0) X10^3/uL RBC (4.0-5.2) X10^6/uL Hgb (12.0-16.0) g/dL Hct (36-46) % MCV (80-100) fL MCH (26-34) PG MCHC (30-36) % RDW (11.6-14.8) % Plt Count (150-400) X10^3/uL Neut % (Auto) (50-75) % Lymph % (Auto) (25-40) % [place] % (Auto) (3-14) % Eos % (Auto) (2-4) % Baso % (Auto) (0-2) % Neut # (Auto) (6726-6971) /uL Lymph # (Auto) (8909-7651) /uL [place] # (Auto) (0-900) /uL Eos # (Auto) (0-450) /uL Baso # (Auto) (0-100) /uL D-Dimer (<230) ng/mL Sodium (137-145) mmol/L Potassium (3.4-5.1) mmol/L Chloride (98-107) mmol/L Carbon Dioxide (22-32) mmol/L BUN (7-17) mg/dL Creatinine (0.52-1.04) mg/dL Estimated GFR (>60) mL/min BUN/Creatinine Ratio (6-22) Glucose (80-110) mg/dL Lactate (0.7-2.1) mmol/L Calcium (8.4-10.2) mg/dL Ferritin (11-264) ng/mL Total Bilirubin (0.2-1.3) mg/dL AST (14-36) IU/L ALT (<35) IU/L Alkaline Phosphatase (38-126) U/L Lactate Dehydrogenase (313-618) U/L Total Creatine Kinase (30-135) U/L CK-MB (CK-2) CK-MB (CK-2) Rel Index Troponin I (0.01-0.034) ng/mL C-Reactive Protein (<1.0) mg/dL NT-Pro-B Natriuret Pep (<450) pg/mL Total Protein (6.3-8.2) g/dL Albumin (3.5-5.0) g/dL Globulin (1.7-4.1) g/dL Albumin/Globulin Ratio (1.0-2.8) Procalcitonin (<0.5) ng/mL Urine RBC 0-1/hpf D (0-5/HPF) Urine WBC 30-100/hpf H (0-5/HPF) Ur Squamous Epith Cells 1-5 /hpf (0-5/HPF) Urine Bacteria Many (>30) H (None) Ur Culture Indicated? Specimen cultured COVID-19 PCR (Negative) Urine Dip Bedside Urine Glucose Negative Bedside Urine Bilirubin + 1 Bedside Urine Ketone ++ 40 Urine Specific [place] 1.010 Bedside Urine Occult Blood +/- Bedside Urine pH 5.5 Bedside Urine Protein + 30 Bedside Urine Urobilinogen - Negative Bedside Urine Nitrite + Positive Bedside Urine Leukocytes + 70 Esterase Imaging Data Chest x-ray: Radiologist's Impression: Ryann Tse 79 F [address] [place] [address] XRay Report Signed Patient: Ryann Tse CMR#: [id number] : [id number] Age/Sex: 79 / FDate of Service: 07/01/20 Loc: ED Accession Number: [id number] Procedure: XR chest 1V Ordering Provider: Lan Martines D.O. PROCEDURE: XR CHEST 1V INDICATIONS: flu-like symptoms TECHNIQUE: One view of the chest was acquired. COMPARISON: Merged With [facility], , XR CHEST 1V, 09/11/2019, 10:02. FINDINGS: Surgical changes and devices: None. Lungs and pleura: Lungs are clear. No pleural effusions or pneumothorax. Mediastinum: Mediastinal contours appear normal. Heart size is normal. Bones and chest wall: No suspicious bony lesions. Overlying soft tissues appear unremarkable. IMPRESSION: No acute process. Dictated by: Rodger Awad M.D. on 07/01/2020 at 20:12 Approved by: Rodger Awad M.D. on 07/01/2020 at 20:13 MDM Narrative Medical decision making narrative: 79F with low grade fever, cough for the past few days. She's had a recent negative COVID. Exam unremarkable, no signs of sepsis, no need for supplemental oxygen. DDimer elevated, but not considered positive for her age, however CTA ordered given history of travel, SOB, cough. No PE, pneumonia or other noted. She's feeling better after above stated therapies. Urine Cx from March suggests susceptibiilty to Keflex. COVID negative again. Cough is worse at night, and she has post nasal drip raising the question of viral vs. allergic source despite lack of improvement with her vistaril at home. Patient stable for DC, return precautions given, questions answered to her apparent satisfaction. Discharge Plan Departure Patient Disposition: Home Clinical Impression: Acute UTI, Acute upper respiratory infection Discharge Date/Time: 07/02/20 01:29 Activity Restrictions/Additional Instructions: *You have been diagnosed with [urinary tract infection, viral upper respiratory infection] *What to do: *Take medications as directed *Follow up with your primary care provider in 2-3 days, call for an appointment. Let them know you were seen in the Emergency Department and that we ask that you be seen in follow up *Return to ER if you should have any new, worsening or concerning symptoms Prescriptions: New cephalexin [Keflex] 500 mg capsule 500 mg PO QID 7 Days Qty: 28 RF: 0 benzonatate [Tessalon Perles] 100 mg capsule 100 mg PO TID PRN (Reason: cough) Qty: 14 RF: 0 No Action acetaminophen 500 mg capsule 1,000 mg PO BID RF: 0 clobetasol 0.05 % cream 1 applictn TOP BID 14 Days Qty: 180 RF: 3 prednisone 20 mg tablet 20 mg PO DAILY Qty: 30 RF: 0 cyanocobalamin (vitamin B-12) [Vitamin B-12] 1,000 mcg Tablet 1,000 mcg PO DAILY Qty: 0 RF: 0 cholecalciferol (vitamin D3) [Vitamin D3] 2,000 UNIT capsule 2,000 iu PO DAILY Qty: 0 RF: 0 oxyquinoline-sod.lauryl sulfat 0.025-0.01 % gel 0.5 each VAG .q week Qty: 2 RF: 3 simvastatin 40 mg tablet 40 mg PO BEDTIME Qty: 90 RF: 3 furosemide 40 mg tablet 40 mg PO QAM Qty: 30 RF: 1 potassium chloride 20 mEq tablet extended release 20 meq PO DAILY Qty: 30 RF: 1 lorazepam 0.5 mg tablet 0.5 mg PO DAILY PRN (Reason: sleep) Qty: 30 RF: 0 naproxen [Naprosyn] 500 mg tablet 250 mg PO BID PRN (Reason: pain) Qty: 20 RF: 0 cyclobenzaprine 5 mg tablet 5 mg PO TID PRN (Reason: muscle spasm) Qty: 20 RF: 0 hydrocodone-acetaminophen [Henrietta] 5-325 mg tablet 1 tab PO Q6H PRN (Reason: pain) Qty: 12 RF: 0 Women's Multivitamin 18 mg iron-400 mcg-500 mg Tablet 1 tab PO DAILY RF: 0 PreserVision AREDS-2 [phone] [id number]-zaig-tx-mg Capsule 1 cap PO BID RF: 0 Calcium Tablet 1 tab PO DAILY RF: 0 Pepcid AC 1 tab PO DAILY RF: 0 Referrals: Rob Adam MD [Primary Care Provider] -
[2020-07-01 20:19] LABS: NT-proBNP (BNP-Adult 18+) 512 pg/mL (<450); Troponin I < 0.012 ng/mL (0.01-0.034)
[2020-07-01 20:24] LABS: C-Reactive Protein Quant 23.5 mg/dL (<1.0)
[2020-07-01 20:25] LABS: Procalcitonin 0.22 ng/mL (<0.5)
[2020-07-01 20:42] LABS: Ferritin 115 ng/mL (11-264)
--- NOTE | 2020-07-01 21:01 | DI.CT.S_ITS ---
PROCEDURE: CT ANGIO CHEST PE PROTOCOL INDICATIONS: cough, low grade fever, tachycardia, tachypnea, elevated D D TECHNIQUE: After the administration of intravenous contrast, 2 mm thick sections acquired from the pulmonary apices to the posterior costophrenic angles. 3-dimensional maximum intensity projection (MIP) coronal and sagittal reformats were then acquired through the thorax. For radiation dose reduction, the following was used: automated exposure control, adjustment of mA and/or kV according to patient size. COMPARISON: [facility], CT, CT ABDOMEN PELVIS WO/W CON, 09/25/2019, 11:07 assessment . [facility], CR, XR CHEST 1V, 07/01/2020, 19:51. FINDINGS: Image quality: Limited opacification of the pulmonary vasculature. Pulmonary arteries: Pulmonary arteries are normal in size, and demonstrate no intraluminal filling defects to suggest central pulmonary embolism. Lungs and pleura: There is a 26 mm diameter patchy region of opacity within the lateral aspect of the lingula. This is in a somewhat different location and configuration than with what was seen on the prior examination. No pleural effusions or pneumothorax. Central and peripheral airways are patent. Mediastinum: Heart size is enlarged, without pericardial effusion. Calcification of the coronary vasculature is present. No mediastinal or hilar adenopathy. Thoracic aorta is normal in caliber and enhancement. Esophagus is normal in caliber. A moderate hiatal hernia is present. Bones and chest wall: No suspicious bony lesions. Ribs and thoracic spine appear intact throughout. Thyroid gland is within normal limits . No axillary or supraclavicular adenopathy. Abdomen: Visualized upper abdominal solid organs appear normal in the early arterial phase of enhancement. IMPRESSION: 1. Limited evaluation demonstrating no definite pulmonary embolus. 2. Coronary artery disease. Cardiomegaly. 3. No evidence of acute process. 4. Indeterminate opacity within the lingula, possibly neoplastic. PET-CT examination is recommended for further assessment. 5. Hiatal hernia. Dictated by: Rodger Awad M.D. on 07/01/2020 at 21:46 Approved by: Rodger Awad M.D. on 07/01/2020 at 21:51
[2020-07-01 21:26] LABS: COVID19 -Nasal RAPID Negative (Negative)
[2020-07-01 23:54] LABS: Bacteria Urine Many (>30); Culture Indicated Urine Specimen Cultured; RBC Urine 0-1/HPF (0-5/HPF); Squamous Epithelial Cell Urine 1-5 /HPF (0-5/HPF); WBC Urine 30-100/HPF (0-5/HPF)
[2020-07-02] VITALS: PULSE 90; RESP 18; O2SAT 96
[2020-07-02 00:30] VITALS: PULSE 91; RESP 17; O2SAT 95
[2020-07-02] MEDS: CEFTRIAXONE 1 GM/50 ML FROZ.PIGGY IV (00:33)
[2020-07-02 01:00] VITALS: PULSE 98; RESP 22; O2SAT 95
== END 2020-07-02 01:29 | disposition home or self-care (01) ==
PROVIDERS: Emergency Provider Emergency Medicine; Family Provider Family Medicine; PCP Family Medicine
DX: N39.0 Urinary tract infection, site not specified (principal); J06.9 Acute upper respiratory infection, unspecified; R50.9 Fever, unspecified; R11.0 Nausea; R05 Cough
CPT/HCPCS: 36415; 71045; 71275; 80053; 81003; 81015; 82550; 82728; 83605; 83615; 83880; 84145; 84484; 85025; 85379; 86140; 87040; 87077; 87086; 87186; 87635; 93005; 96365; 99284; Q9967

== ENCOUNTER → 2020-07-12 11:52 | Outpatient (CLI) | payer OTHER, SELFPAY ==
[2020-07-12 13:25] LABS: Appearance Urine UA CLEAR; Bilirubin Urine UA NEGATIVE (NEGATIVE); Color Urine UA YELLOW; Glucose Urine UA NEGATIVE (Negative); Ketones Urine UA NEGATIVE (NEGATIVE); Leukocyte Esterase Urine UA TRACE (NEGATIVE); Nitrite Urine UA NEGATIVE (Negative); Occult Blood Urine UA NEGATIVE (Negative); Protein Urine UA NEGATIVE (Negative); Specific Gravity Urine UA <=1.005 (1.000-1.035); Urobilinogen Urine UA 0.2 E.U./dL (0.2)
[2020-07-12 13:41] LABS: Bacteria Urine None Seen; RBC Urine None Seen (0-5/HPF)
[2020-07-12 13:45] LABS: Culture Indicated Urine Specimen Cultured; Squamous Epithelial Cell Urine 1-5 /HPF (0-5/HPF); WBC Urine 5-10/HPF (0-5/HPF)
== END ==
PROVIDERS: Family Provider Family Medicine; PCP Family Medicine; Referring Provider Family Medicine; Visit Provider Family Medicine
DX: R30.0 Dysuria (principal)
CPT/HCPCS: 81003; 81015; 87086

== ENCOUNTER → 2020-08-23 16:21 | Outpatient (CLI) | payer OTHER, SELFPAY ==
[2020-08-23 17:00] LABS: Appearance Urine UA CLOUDY; Bilirubin Urine UA NEGATIVE (NEGATIVE); Color Urine UA YELLOW; Glucose Urine UA NEGATIVE (Negative); Ketones Urine UA 1+ (NEGATIVE); Leukocyte Esterase Urine UA 1+ (NEGATIVE); Nitrite Urine UA POSITIVE (Negative); Occult Blood Urine UA 3+ (Negative); Protein Urine UA TRACE (Negative); Urobilinogen Urine UA 0.2 E.U./dL (0.2)
[2020-08-23 17:16] LABS: Bacteria Urine Many (>30); Culture Indicated Urine Specimen Cultured; Mucus Urine 2+ (Negative); RBC Urine 5-10/HPF (0-5/HPF); Squamous Epithelial Cell Urine 1-5 /HPF (0-5/HPF); Transitional Epi Cells Urine 5-10/HPF (0-5/HPF); WBC Urine 30-100/HPF (0-5/HPF)
== END ==
PROVIDERS: Family Provider Family Medicine; PCP Family Medicine; Referring Provider Family Medicine; Visit Provider Family Medicine
DX: R30.0 Dysuria (principal)
CPT/HCPCS: 81003; 81015; 87077; 87086; 87186

== ENCOUNTER → 2020-08-31 10:14 | Outpatient (CLI) | payer OTHER, SELFPAY | PROVIDERS: Family Provider Family Medicine; PCP Family Medicine; Referring Provider Family Medicine; Visit Provider Family Medicine | DX: Z13.820 Encounter for screening for osteoporosis (principal); M81.0 Age-related osteoporosis without current pathological fracture; Z78.0 Asymptomatic menopausal state; Z82.62 Family history of osteoporosis | CPT/HCPCS: 77080 ==

== ENCOUNTER → 2020-10-04 11:24 | Outpatient (CLI) | payer OTHER, SELFPAY ==
[2020-10-04 12:39] LABS: Add Manual Diff / Slide Review NO; Basophils Absolute Auto 0 /uL (0-100); Basophils Percent Auto 0.3 % (0-2); Eosinophils Absolute Auto 0 /uL (0-450); Eosinophils Percent Auto 0.7 % (2-4); Hematocrit 36.2 % (36-46); Hemoglobin 12.1 g/dL (12.0-16.0); Lymphocytes Absolute Auto 1400 /uL (1100-4500); Lymphocytes Percent Auto 19.5 % (25-40); Mean Corpuscular HGB Conc 33.4 % (30-36); Mean Corpuscular Hemoglobin 28.3 PG (26-34); Mean Corpuscular Volume 84.6 fL (80-100); Monocytes Absolute Auto 1000 /uL (0-900); Neutrophils Absolute Auto 4600 /uL (1500-7000); Neutrophils Percent Auto 65.5 % (50-75); Platelet Count 223 X10^3/uL (150-400); Red Blood Cell Count 4.28 X10^6/uL (4.0-5.2); Red Cell Distribution Width 13.8 % (11.6-14.8)
[2020-10-04 13:17] LABS: Appearance Urine UA Slightly Cloudy; Bilirubin Urine UA NEGATIVE (NEGATIVE); Color Urine UA YELLOW; Glucose Urine UA NEGATIVE (Negative); Ketones Urine UA NEGATIVE (NEGATIVE); Leukocyte Esterase Urine UA 3+ (NEGATIVE); Nitrite Urine UA POSITIVE (Negative); Occult Blood Urine UA TRACE-INTACT (Negative); Protein Urine UA NEGATIVE (Negative); Specific Gravity Urine UA <=1.005 (1.000-1.035); Urobilinogen Urine UA 0.2 E.U./dL (0.2); pH Urine UA 6.5 (4.5-8.0)
[2020-10-04 13:22] LABS: RBC Urine 0-1/HPF (0-5/HPF)
[2020-10-04 13:23] LABS: Bacteria Urine Many (>30); Culture Indicated Urine Specimen Cultured; Squamous Epithelial Cell Urine 0-1 /HPF (0-5/HPF); WBC Urine >100/HPF (0-5/HPF)
== END ==
PROVIDERS: Family Provider Family Medicine; PCP Family Medicine; Referring Provider Urology; Visit Provider Family Medicine
DX: R30.0 Dysuria (principal)
CPT/HCPCS: 36415; 81003; 81015; 85025; 87077; 87086; 87186

== ENCOUNTER 2020-10-06 11:05 | Emergency (ER) | payer OTHER, SELFPAY ==
[2020-10-06 11:12] VITALS: BP 193/104; PULSE 96; RESP 18; TEMP 37.8; O2SAT 96; BMI 30.5
--- NOTE | 2020-10-06 11:42 | ED_ITS ---
HPI - General Adult General Chief complaint: Weakness Stated complaint: weakness Time Seen by Provider: 10/06/20 11:20 Source: patient and EMS Mode of arrival: EMS Limitations: no limitations History of Present Illness HPI narrative: 79-year-old female who was brought in by EMS for evaluation of weakness. She is currently just 1-2 days into treatment by oral antibiotics for a urinary tract infection. This was diagnosed and treated by her primary provider. She states that she has been taking the antibiotics but has felt that over the past couple days she is not been improving. Has had some nausea but no vomiting. She does have nausea medicine at home for this which she has been taking. Still is having urinary frequency. No change in bowel habits. No back pain. This generally overall not feeling very well. Related Data Home Medications Medication Instructions Recorded Confirmed cholecalciferol (vitamin D3) 2,000 iu PO DAILY #0 06/21/13 09/06/20 [Vitamin D3] cyanocobalamin (vitamin B-12) 1,000 mcg PO DAILY #0 06/21/13 09/06/20 [Vitamin B-12] acetaminophen 500 mg capsule 1,000 mg PO BID 08/10/19 09/06/20 Calcium Tablet 1 tab PO DAILY 09/11/19 09/06/20 Pepcid AC 1 tab PO DAILY 09/11/19 09/06/20 bo-qh-lhwt-FA-Ca carb-vit K 1 tab PO DAILY 09/11/19 09/06/20 [Women's Multivitamin] vit C,U-Vm-tgysg-lutein-zeaxan 1 cap PO BID 09/11/19 09/06/20 [PreserVision AREDS-2] hydroxyzine HCl 25 mg tablet 25 mg PO BEDTIME 08/01/20 09/06/20 Previous Rx's Medication Instructions Recorded oxyquinoline 0.025 %-sodium lauryl 0.5 each VAG .q week #2 tube 11/06/19 sulfate 0.01 % vaginal gel simvastatin 40 mg tablet 40 mg PO BEDTIME #90 tab 12/02/19 clobetasol 0.05 % topical cream 1 applictn TOP BID 14 Days #180 04/07/20 gram furosemide 40 mg tablet 40 mg PO QAM #30 tab 04/26/20 potassium chloride 20 mEq 20 meq PO DAILY #30 tab 06/16/20 tablet,extended release lorazepam 0.5 mg tablet 0.5 mg PO DAILY PRN #30 tab 05/23/20 estradiol See Rx Instructions .ROUTE 08/04/20 .COMPLEX #30 gram DISABLED PARKING PERMIT #1 each 09/06/20 denosumab 60 mg/mL subcutaneous 60 mg SUBCUT [id number] #1 ml 09/06/20 syringe nitrofurantoin macrocrystal 100 mg 100 mg PO BID #10 cap 09/06/20 capsule nitrofurantoin 100 mg PO BID #14 cap 10/04/20 monohydrate/macrocrystals 100 mg capsule ciprofloxacin HCl 250 mg PO BID 3 Days #6 tab 10/06/20 Allergies Allergy/AdvReac Type Severity Reaction Status Date / Time hydromorphone [HYDROMORPHONE] AdvReac Severe n/v, Verified 09/06/20 11:30 sweats, vomiting Review of Systems Constitutional Constitutional: Reports fatigue, Reports fever(s) and Reports lethargy Cardiovascular Cardiovascular: Denies chest pain and Denies dyspnea Respiratory Respiratory: Denies dyspnea Gastrointestinal Gastrointestinal: Denies abdominal pain, Reports nausea and Denies vomiting Genitourinary Genitourinary: Reports dysuria Genitourinary: Reports dysuria Musculoskeletal Musculoskeletal: Denies back pain Integumentary/Breasts Skin/Breast: Denies lesions and Denies rash Neurologic Neurologic: Denies behavioral changes Psychiatric Psychiatric: Denies behavioral changes Endocrine Endocrine: Reports fatigue Hematologic/Lymphatic Hematologic/Lymphatic: Denies easy bleeding and Denies easy bruising Allergic/Immunologic Allergic/Immunologic: Denies urticaria Patient History Medical History Abnormal CXR (~2013) Ankle pain (~1976) Cataract (~2013) Chicken pox (~1946) Diverticular disease (~2013) Fractures Gastric ulcer Lumbar compression fracture Measles (~1946) Mumps (~1947) Osteoporosis (~2013) Pessary maintenance Rubella (~1947) Urinary, incontinence, stress female Vision disorder Surgical History Anesthesia Femoral hernia History of ankle surgery History of kyphoplasty (~2012) History of sinus surgery Status post appendectomy (~194) Status post cholecystectomy (~1964) Family History Father Osteoporosis High cholesterol Mother Dementia Social History marital status: household members: family Smoking Status: Never smoker alcohol intake: current substance use type: does not use Smoking Status: Never smoker alcohol intake frequency: 0-2 drinks per day Substance Use Type: does not use Exam Initial Vital Signs Initial Vital Signs: Vital Signs Temperature 100.0 F H 10/06/20 11:12 Pulse Rate 96 H 10/06/20 11:12 Respiratory Rate 18 10/06/20 11:12 Blood Pressure 193/104 H 10/06/20 11:12 Pulse Oximetry 96 10/06/20 11:12 Const General: cooperative and comfortable Limitations: mental status not altered HENMT Head: normal to inspection and normocephalic Resp Effort & Inspection: normal respiratory effort Auscultation: clear to auscultation bilaterally Cardio Rate: regular rate Rhythm: regular rhythm GI Inspection: non-distended Palpation: soft Back/Spine/Pelvis Back: No CVA tenderness Skin Lesions: no lesions Rashes: no rashes Neuro General: patient alert and patient awake Cognition: normal cognition Speech: speech normal Extrem General: normal to inspection and capillary refill normal Psych Appearance: grossly normal and well kempt Course Orders Ordered: Discontinued Medications Acetaminophen (Acetaminophen 325 Mg Tablet) 650 mg PO NOW ONE Stop: 10/06/20 12:48 Last Admin: 10/06/20 12:51 Dose: 650 mg Documented by: AZUL Ciprofloxacin (Ciprofloxacin 500 Mg Tablet) 500 mg PO NOW ONE Stop: 10/06/20 11:43 Last Admin: 10/06/20 11:55 Dose: 500 mg Documented by: AZUL Vital Signs Vital signs: Vital Signs - 8 hr 10/06/20 11:12 10/06/20 13:25 Temperature 100.0 F H 99.8 F H Pulse Rate 96 H 94 H Respiratory Rate 18 18 Blood Pressure 193/104 H 144/82 H Pulse Oximetry 96 96 Medical Decision Making [facility] Narrative Medical decision making narrative: Review of the patient's medical record shows that she had a urine culture that was a pansensitive E coli. She has been on Macrobid for the past couple days. Have low suspicion for pyelonephritis. Was febrile upon arrival boat she has a known urinary tract infection. Given the fact that Macrobid is bacteria static and not bactericidal and that she is having worsening symptoms despite a couple days of this antibiotic feel that we should switch her to a different antibiotic. Was given a 1st dose here and a prescription for the rest. We did discuss use of Tylenol for her fever control. The patient could be discharged home when she was given return precautions. She expressed understanding and agreement. Discharge Plan Departure Patient Disposition: Home Clinical Impression: Urinary tract infection Qualifiers: Urinary tract infection type: site unspecified Instructions: DI for Urinary Tract Infection (UTI) Activity Restrictions/Additional Instructions: I am going to switch your antibiotics so I recommend that you stop taking the Macrobid/nitrofurantoin that you had been taking in start taking the new antibiotic that you were given a prescription for today. You can Tylenol for any fevers or body aches. Use the Zofran/ondansetron as needed for nausea. Contact your primary provider for follow-up. Return to the emergency department for any new or worsening symptoms Prescriptions: New ciprofloxacin HCl 250 mg tablet 250 mg PO BID 3 Days Qty: 6 RF: 0 No Action acetaminophen 500 mg capsule 1,000 mg PO BID RF: 0 clobetasol 0.05 % cream 1 applictn TOP BID 14 Days Qty: 180 RF: 3 Prolia 60 mg/mL syringe 60 mg SUBCUT [id number] Qty: 1 RF: 0 nitrofurantoin macrocrystal 100 mg capsule 100 mg PO BID Qty: 10 RF: 1 (DME) DISABLED PARKING PERMIT See Rx Instructions .ROUTE .MEDSUPPLY Qty: 1 RF: 0 cyanocobalamin (vitamin B-12) [Vitamin B-12] 1,000 mcg Tablet 1,000 mcg PO DAILY Qty: 0 RF: 0 cholecalciferol (vitamin D3) [Vitamin D3] 2,000 UNIT capsule 2,000 iu PO DAILY Qty: 0 RF: 0 oxyquinoline-sod.lauryl sulfat 0.025-0.01 % gel 0.5 each VAG .q week Qty: 2 RF: 3 simvastatin 40 mg tablet 40 mg PO BEDTIME Qty: 90 RF: 3 furosemide 40 mg tablet 40 mg PO QAM Qty: 30 RF: 1 potassium chloride 20 mEq tablet extended release 20 meq PO DAILY Qty: 30 RF: 1 lorazepam 0.5 mg tablet 0.5 mg PO DAILY PRN (Reason: sleep) Qty: 30 RF: 0 estradiol See Rx Instructions .ROUTE .COMPLEX Qty: 30 RF: 3 nitrofurantoin monohyd/m-cryst 100 mg capsule 100 mg PO BID Qty: 14 RF: 0 hydroxyzine HCl 25 mg tablet 25 mg PO BEDTIME RF: 0 Women's Multivitamin 18 mg iron-400 mcg-500 mg Tablet 1 tab PO DAILY RF: 0 PreserVision AREDS-2 [id number] li-zarv-he-mg Capsule 1 cap PO BID RF: 0 Calcium Tablet 1 tab PO DAILY RF: 0 Pepcid AC 1 tab PO DAILY RF: 0 Referrals: Rob Adam MD [Primary Care Provider] -
[2020-10-06] MEDS: CIPROFLOXACIN 500 MG TABLET PO (11:55)
[2020-10-06] MEDS: ACETAMINOPHEN 325 MG TABLET 650 MG PO (12:51)
[2020-10-06 13:25] VITALS: BP 144/82; PULSE 94; RESP 18; TEMP 37.7; O2SAT 96
== END 2020-10-06 13:25 | disposition home or self-care (01) ==
PROVIDERS: Emergency Provider Emergency Medicine; Family Provider Family Medicine; PCP Family Medicine
DX: N39.0 Urinary tract infection, site not specified (principal); R50.9 Fever, unspecified; R30.0 Dysuria
CPT/HCPCS: 99281; 99283

== ENCOUNTER → 2020-10-10 12:49 | Outpatient (CLI) | payer OTHER, SELFPAY ==
[2020-10-10 13:37] LABS: BUN Creatinine Ratio 21.3 (6-22); Blood Urea Nitrogen 16 mg/dL (7-17); Estimated Glomerular Filt Rate > 60.0 mL/min (>60)
== END ==
PROVIDERS: Family Provider Family Medicine; PCP Family Medicine; Referring Provider Family Medicine; Visit Provider Family Medicine
DX: Z01.812 Encounter for preprocedural laboratory examination (principal)
CPT/HCPCS: 36415; 82565; 84520

== ENCOUNTER → 2020-10-11 10:57 | Outpatient (CLI) | payer OTHER, SELFPAY ==
--- NOTE | 2020-10-11 10:57 | DI.CT.S_ITS ---
PROCEDURE: CT CHEST W CON INDICATIONS: FU Abnormal chest CT 07/01/20 TECHNIQUE: After the administration of intravenous contrast, 5 mm thick sections acquired from the pulmonary apices to the posterior costophrenic angles. 1 mm axial lung, 5 mm thick coronal and sagittal reformats and 7 mm axial MIP were acquired. For radiation dose reduction, the following was used: automated exposure control, adjustment of mA and/or kV according to patient size. COMPARISON: [facility], CT, CT ANGIO CHEST PE PROTOCOL, 07/01/2020, 21:15. FINDINGS: Image quality: Excellent. Lungs and pleura: No acute air space opacities. There is a mild degree of focal atelectasis at the anterior tip of the lingular segment left upper lobe. An area of prior CT concern from 07/01/20 at the lateral left lung base is no longer seen as a masslike structure and therefore is considered inflammatory in prior origin. No pleural effusions or pneumothorax. Central and peripheral airways are patent and normal in caliber. Mediastinum: Heart size is normal. No pericardial effusion. No mediastinal or hilar adenopathy by size criteria. Thoracic aorta and central pulmonary arteries are normal in size. Esophagus is normal in caliber. There is a small to moderate hiatal hernia behind the heart. Bones and chest wall: No suspicious bony lesions. No vertebral body compression fractures. No axillary or supraclavicular adenopathy by size criteria. Thyroid gland appears normal where well seen . Abdomen: Visualized upper abdominal solid organs appear normal. Upper abdominal bowel loops are normal in caliber. IMPRESSION: Resolution of a possible mass at the lateral left lung base, and therefore is considered to have been inflammatory in origin. Mild focal anterior lingular segment atelectasis noted, no pneumonia found. No acute disease. Dictated by: Ned Panda M.D. on 10/11/2020 at 12:15 Approved by: Ned Panda M.D. on 10/11/2020 at 12:20
== END ==
PROVIDERS: Family Provider Family Medicine; PCP Family Medicine; Referring Provider Family Medicine; Visit Provider Family Medicine
DX: R93.89 Abnormal findings on diagnostic imaging of other specified body structures (principal); K44.9 Diaphragmatic hernia without obstruction or gangrene
CPT/HCPCS: 71260; Q9967

== ENCOUNTER → 2020-11-17 11:56 | Outpatient (CLI) | payer OTHER, SELFPAY ==
--- NOTE | 2020-11-17 | DI.US.S_ITS ---
PROCEDURE: US RENAL COMPLETE INDICATIONS: HYDRONEPHROSIS TECHNIQUE: Real-time scanning was performed of the kidneys and bladder, with image documentation. COMPARISON: [facility], CT, CT ABDOMEN PELVIS WO/W CON, 09/25/2019, 11:07. [facility], US, US RENAL COMPLETE, 05/23/2020, 10:51. FINDINGS: Kidneys: Kidneys are normal in size. Right kidney measures 9.6 cm long; left kidney measures 9.8 cm long. Right renal cortical thickness is 1.8 cm; left renal cortical thickness is 1.5 cm. Renal cortical echotexture is normal. No hydronephrosis or nephrolithiasis. There is a solid echogenic nonvascular mass seen along the inferior medial aspect of the left kidney cortex that measures 1.3 x 1.2 x 1.2 cm. A 1 cm left renal simple appearing cyst is also seen. Bladder: Evaluation of the bladder is limited, as it is not distended. Miscellaneous: No free pelvic fluid. IMPRESSION: No hydronephrosis is seen. There is an echogenic nodule seen at the inferior pole of the left kidney, which corresponds well to a benign, fat containing nodule the can be seen on the prior CT. For evaluation of the bladder, which is not distended. Dictated by: Taqueria Wen M.D. on 11/17/2020 at 11:34 Approved by: Taqueria Wen M.D. on 11/17/2020 at 11:39
== END ==
PROVIDERS: Family Provider Family Medicine; PCP Family Medicine; Referring Provider Urology; Visit Provider Urology
DX: N13.30 Unspecified hydronephrosis (principal); N28.1 Cyst of kidney, acquired; N28.9 Disorder of kidney and ureter, unspecified
CPT/HCPCS: 76770

== ENCOUNTER → 2020-11-18 14:39 | Outpatient (CLI) | payer OTHER, SELFPAY ==
[2020-11-18 15:54] LABS: BUN Creatinine Ratio 26.7 (6-22); Blood Urea Nitrogen 20 mg/dL (7-17); Estimated Glomerular Filt Rate > 60.0 mL/min (>60)
== END ==
PROVIDERS: Family Provider Family Medicine; PCP Family Medicine; Referring Provider Urology; Visit Provider Urology
DX: N32.89 Other specified disorders of bladder (principal); Z87.448 Personal history of other diseases of urinary system
CPT/HCPCS: 36415; 82565; 84520

== ENCOUNTER → 2020-12-02 13:58 | Outpatient (CLI) | payer MEDICARE, SELFPAY ==
[2020-12-02] MEDS: COVID-19 VACC #1, MRNA(MOD) 100 MCG/0.5 ML VIAL IM (14:08)
== END ==
PROVIDERS: Family Provider Family Medicine; PCP Family Medicine; Visit Provider Internal Medicine
DX: Z23 Encounter for immunization (principal)
CPT/HCPCS: 0011A; 91301

== ENCOUNTER → 2020-12-30 15:07 | Outpatient (CLI) | payer MEDICARE, SELFPAY ==
[2020-12-30] MEDS: COVID-19 VACC #2, MRNA(MOD) 100 MCG/0.5 ML VIAL IM (15:17)
== END ==
PROVIDERS: Family Provider Family Medicine; PCP Family Medicine; Visit Provider Internal Medicine
DX: Z23 Encounter for immunization (principal)
CPT/HCPCS: 0012A; 91301

== ENCOUNTER → 2021-01-20 12:37 | Outpatient (CLI) | payer OTHER, SELFPAY ==
[2021-01-20 13:26] LABS: Add Manual Diff / Slide Review NO; Basophils Absolute Auto 0 /uL (0-100); Basophils Percent Auto 0.5 % (0-2); Eosinophils Absolute Auto 100 /uL (0-450); Eosinophils Percent Auto 1.6 % (2-4); Hematocrit 40.6 % (36-46); Hemoglobin 13.3 g/dL (12.0-16.0); Lymphocytes Absolute Auto 1700 /uL (1100-4500); Lymphocytes Percent Auto 22.6 % (25-40); Mean Corpuscular HGB Conc 32.8 % (30-36); Mean Corpuscular Hemoglobin 28.4 PG (26-34); Mean Corpuscular Volume 86.7 fL (80-100); Monocytes Absolute Auto 500 /uL (0-900); Monocytes Percent Auto 7.1 % (3-14); Neutrophils Absolute Auto 5100 /uL (1500-7000); Neutrophils Percent Auto 68.2 % (50-75); Platelet Count 284 X10^3/uL (150-400); Red Blood Cell Count 4.68 X10^6/uL (4.0-5.2); Red Cell Distribution Width 14.2 % (11.6-14.8); White Blood Cell Count 7.5 X10^3/uL (4.5-11.0)
[2021-01-20 13:34] LABS: Hemoglobin A1C% w Est Avg Glu 5.5 % (4.0-6.0)
[2021-01-20 13:42] LABS: Blood Urea Nitrogen 15 mg/dL (7-17); Calcium 10.1 mg/dL (8.4-10.2); Carbon Dioxide 29 mmol/L (22-32); Chloride 103 mmol/L (98-107); Estimated Glomerular Filt Rate > 60.0 mL/min (>60); Glucose 96 mg/dL (80-110); HEMOLYSIS < 15 (0-50); Potassium 4.5 mmol/L (3.4-5.1); Sodium 138 mmol/L (137-145)
[2021-01-20 15:47] LABS: Appearance Urine UA SL CLOUDY; Bilirubin Urine UA NEGATIVE (NEGATIVE); Color Urine UA YELLOW; Glucose Urine UA NEGATIVE (Negative); Ketones Urine UA NEGATIVE (NEGATIVE); Leukocyte Esterase Urine UA 3+ (NEGATIVE); Nitrite Urine UA NEGATIVE (Negative); Occult Blood Urine UA 1+ (Negative); Protein Urine UA TRACE (Negative); Urobilinogen Urine UA 0.2 E.U./dL (0.2)
[2021-01-20 15:54] LABS: Bacteria Urine Many (>30); Culture Indicated Urine Specimen Cultured; RBC Urine 1-5/HPF (0-5/HPF); WBC Urine >100/HPF (0-5/HPF)
== END ==
PROVIDERS: Family Provider Family Medicine; PCP Family Medicine; Referring Provider Orthopaedic Surgery Adult Reconstructive Orthopaedic Surgery; Visit Provider Orthopaedic Surgery Adult Reconstructive Orthopaedic Surgery
DX: Z01.818 Encounter for other preprocedural examination (principal); R73.9 Hyperglycemia, unspecified; Z01.812 Encounter for preprocedural laboratory examination; N39.0 Urinary tract infection, site not specified
CPT/HCPCS: 36415; 80048; 81001; 83036; 85025; 87077; 87086; 87186; 93005

== ENCOUNTER → 2021-02-04 09:49 | Outpatient (CLI) | payer OTHER, SELFPAY ==
[2021-02-04 10:54] LABS: COVID19 -Nasal RAPID Negative (Negative)
== END ==
PROVIDERS: Family Provider Family Medicine; PCP Family Medicine; Visit Provider Physician Assistant
DX: Z20.822 Contact with and (suspected) exposure to COVID-19 (principal)
CPT/HCPCS: 87635

== ENCOUNTER → 2021-02-06 13:00 | Outpatient (CLI) | payer OTHER, SELFPAY ==
--- NOTE | 2021-02-06 14:23 | PM.TREADMILL ---
Cardiac Stress Test Report Referral & Results Date Patient Seen: 02/06/21 Requesting provider: Rob Adam Indication: Abnormal EKG Rest ECG: Unremarkable (Q-waves seen is now patient not clearly visible on this altered 12 Lead) Procedure Note: After both written and verbal informed consent the patient had an IV started by the diagnostic imaging RN, and then was hooked up to the treadmill monitoring system. The Lexiscan material, and then the Cardiolite tracer, were administered sequentially. An additional 3 min was spent monitoring the patient while supine on the gurney. The patient had a normal response to all infused materials. Impression: Please see perfusion imaging report for details regarding possible ischemia Please note: Actual ECG tracings can be found in the PACS system.
--- NOTE | 2021-02-08 05:00 | DI.NM.S_ITS ---
DATE OF SERVICE: PROCEDURE: Pharmacological perfusion study. DATE OF STUDY: 02/06/2021 INDICATIONS: Abnormal EKG with underlying hypertension and hyperlipidemia. RADIOPHARMACEUTICAL: 25.6 millicurie technetium-99m Myoview IV was injected at stress and 26.1 millicurie technetium-99m Myoview IV was injected at rest. CARDIAC STRESS: The patient underwent IV Lexiscan perfusion study under the supervision of an attending staff. The patient remained hemodynamically stable. No significant symptoms were reported. Baseline EKG revealed sinus rhythm with Q-waves in lead 3 and AVF, lower voltage complexes, poor R-wave progression in chest leads, some nonspecific ST/T changes. During stress, no new convincing ischemic changes or significant arrhythmias seen. RAW DATA: There is increased subdiaphragmatic activity as well as breast shadow seen. The patient's weight is 181 pounds. GATED STUDY: Resting LV ejection fraction 78% and stress LV ejection fraction 87 percent without any obvious wall motion abnormalities. Resting end-diastolic volume 72 mL. TID ratio 0.79, which is within normal limits. Lung/heart ratio 0.29, which is within normal limits. MYOCARDIAL PERFUSION SCAN: Stress supine, resting supine and stress prone images were compared to each other. Resting and stress supine images revealed a small size, minimally decreased perfusion of the basal inferior septum and basal inferior lateral wall which got completely resolved during prone images suggestive of tissue attenuation artifact. No convincing ischemia or infarction pattern seen. CONCLUSION: I will call this study a normal myocardial perfusion study with evidence of tissue attenuation artifact which got resolved during prone images. Preserved left ventricular function. Overall, this is a low-risk myocardial perfusion study. Ryann Tse - EDEN/anuradha/rena doc#: [id number]/job#: [id number] dd: 02/07/2021 17:25:00 dt: 02/08/2021 04:31:00 DICTATING MD/COPIES TO: Sudeep Lamb MD COPIES MNE: LUCIEN;
== END ==
PROVIDERS: Family Provider Family Medicine; PCP Family Medicine; Referring Provider Family Medicine; Visit Provider Family Medicine
DX: R94.31 Abnormal electrocardiogram [ECG] [EKG] (principal); I10 Essential (primary) hypertension; E78.5 Hyperlipidemia, unspecified
CPT/HCPCS: 78452; 93016; 93017; 93018; A9502; J2785

== ENCOUNTER → 2021-02-11 11:25 | Outpatient (CLI) | payer OTHER, SELFPAY ==
[2021-02-11 12:02] LABS: Appearance Urine UA SL CLOUDY; Bilirubin Urine UA NEGATIVE (NEGATIVE); Color Urine UA YELLOW; Glucose Urine UA NEGATIVE (Negative); Ketones Urine UA NEGATIVE (NEGATIVE); Leukocyte Esterase Urine UA NEGATIVE (NEGATIVE); Nitrite Urine UA NEGATIVE (Negative); Occult Blood Urine UA NEGATIVE (Negative); Protein Urine UA NEGATIVE (Negative); Specific Gravity Urine UA 1.015 (1.000-1.035); Urobilinogen Urine UA 0.2 E.U./dL (0.2)
== END ==
PROVIDERS: Family Provider Family Medicine; PCP Family Medicine; Referring Provider Family Medicine; Visit Provider Family Medicine
DX: R30.0 Dysuria (principal)
CPT/HCPCS: 81003

== ENCOUNTER → 2021-02-23 08:49 | Outpatient (CLI) | payer OTHER, SELFPAY ==
[2021-02-23 10:29] LABS: Appearance Urine UA CLOUDY; Bilirubin Urine UA NEGATIVE (NEGATIVE); Color Urine UA YELLOW; Glucose Urine UA NEGATIVE (Negative); Ketones Urine UA NEGATIVE (NEGATIVE); Leukocyte Esterase Urine UA 3+ (NEGATIVE); Nitrite Urine UA POSITIVE (Negative); Occult Blood Urine UA 2+ (Negative); Protein Urine UA 1+ (Negative); Specific Gravity Urine UA 1.025 (1.000-1.035); Urobilinogen Urine UA 0.2 E.U./dL (0.2)
[2021-02-23 10:32] LABS: pH Urine UA 5.5 (4.5-8.0)
[2021-02-23 10:44] LABS: Bacteria Urine Many (>30); Culture Indicated Urine Specimen Cultured; RBC Urine 1-5/HPF (0-5/HPF); Squamous Epithelial Cell Urine 1-5 /HPF (0-5/HPF); WBC Urine >100/HPF (0-5/HPF)
== END ==
PROVIDERS: Family Provider Family Medicine; PCP Family Medicine; Referring Provider Family Medicine; Visit Provider Family Medicine
DX: R30.0 Dysuria (principal)
CPT/HCPCS: 81003; 81015; 87077; 87086; 87186

== ENCOUNTER → 2021-03-05 15:08 | Outpatient (CLI) | payer OTHER, SELFPAY ==
[2021-03-05 15:29] LABS: Appearance Urine UA CLEAR; Bilirubin Urine UA NEGATIVE (NEGATIVE); Color Urine UA YELLOW; Glucose Urine UA NEGATIVE (Negative); Ketones Urine UA NEGATIVE (NEGATIVE); Leukocyte Esterase Urine UA NEGATIVE (NEGATIVE); Nitrite Urine UA NEGATIVE (Negative); Occult Blood Urine UA NEGATIVE (Negative); Protein Urine UA NEGATIVE (Negative); Specific Gravity Urine UA 1.025 (1.000-1.035); Urobilinogen Urine UA 0.2 E.U./dL (0.2)
[2021-03-05 15:30] LABS: pH Urine UA 5.5 (4.5-8.0)
== END ==
PROVIDERS: Family Provider Family Medicine; PCP Family Medicine; Referring Provider Family Medicine; Visit Provider Family Medicine
DX: R30.0 Dysuria (principal)
CPT/HCPCS: 81003

== ENCOUNTER → 2021-03-06 10:04 | Outpatient (CLI) | payer OTHER, SELFPAY ==
[2021-03-06 11:49] LABS: COVID19 -Nasal RAPID Negative (Negative)
== END ==
PROVIDERS: Family Provider Family Medicine; PCP Family Medicine; Visit Provider Physician Assistant
DX: Z01.812 Encounter for preprocedural laboratory examination (principal); Z20.822 Contact with and (suspected) exposure to COVID-19
CPT/HCPCS: 87635

== ENCOUNTER 2021-03-09 14:08 | Observation (INO) | payer OTHER, SELFPAY ==
[2021-02-22 09:33] VITALS: BMI 31.0
[2021-03-08] VITALS (23 sets, daily range): BP systolic 83–129; BP diastolic 42–84; PULSE 51–83; RESP 10–19; TEMP 36.1–37.1; O2SAT 93–98; BMI 30.9
--- NOTE | 2021-03-08 | DI.RAD.S_ITS ---
PROCEDURE: XR KNEE LT 1TO2V INDICATIONS: TOTAL LEFT KNEE TECHNIQUE: 2 views of the knee were acquired. COMPARISON: [facility], , KNEE 3V LEFT, 02/19/2014, 15:12. FINDINGS: Bones: No fracture. Expected postoperative alignment of left knee arthroplasty. The hardware appears intact. Soft tissues: No joint effusion. No suspicious soft tissue calcifications. IMPRESSION: Expected postoperative alignment. Dictated by: Neno Arana M.D. on 03/08/2021 at 14:39 Approved by: Neno Arana M.D. on 03/08/2021 at 14:40
[2021-03-08] MEDS: ACETAMINOPHEN 325 MG TABLET 975 MG PO (09:42)
[2021-03-08] MEDS: GABAPENTIN 300 MG CAPSULE PO (09:43)
[2021-03-08] MEDS: CELECOXIB 200 MG CAPSULE PO (09:43)
[2021-03-08] MEDS: LACTATED RINGERS 1,000 ML 42 ML IV ×3 (09:50→13:51)
--- NOTE | 2021-03-08 10:03 | SUR.PREOP ---
Chlorhexadine wipe to left knee.
--- NOTE | 2021-03-08 11:04 | PM.PREOP ---
Pre-operative Note COVID-19 COVID-19 status: Negative Result date/Date tested (Pos, Neg/Pending): 03/06/21 Interval Note History & Physical reviewed/Exam performed by Physician: Yes Changes to H&P: No H&P completed within 30 days and has changed as indicated here:: Plan for L TKA
[2021-03-08] MEDS: CEFAZOLIN 2 GM/100 ML FROZ.PIGGY IV ×2 (11:24→19:38)
[2021-03-08] MEDS: TRANEXAMIC ACID 1,000 MG VIAL 2000 MG INJ ×2 (11:31→12:27)
--- NOTE | 2021-03-08 11:45 | SUR.OPER ---
Supine on padded OR bed. Pillow under head, arms secured on padded armboards <90 degree abduction. Safety belt across torso. Non-operative leg secured with tape over blanket over lower leg. Operative leg secured in Dr. Belcher's padded knee positioner and in control of the surgeon.
[2021-03-08] MEDS: ROPIVACAINE 0.5% PF 5 MG/ML 20ML VIAL 10 ML INJ (12:00)
[2021-03-08] MEDS: SODIUM CHLORIDE IRRIG SOLUTION 250 ML, POVIDONE-IODINE SPONGE STICKS 1 APPLIC IRR (12:02)
[2021-03-08] MEDS: ROPIVACAINE 0.5% PF 20ML 60 ML, MORPHINE 4 MG, KETOROLAC 30 MG INJ (12:05)
--- NOTE | 2021-03-08 12:54 | P.OP_ITS ---
Operative Date/Time/Diagnoses Date of procedure: 03/08/21 Time of procedure: 12:54 Pre-op diagnosis: left knee OA Post-op diagnosis: same Procedure & Clinicians Procedure: Left total knee arthroplasty Same procedure as scheduled: Yes Indications: Left knee osteoarthritis with valgus alignment. Resistant to further conservative measures Surgeon: Rafael Belcher Computer Game Designer: Dominguez Ortega Anesthesia Type: Spinal Operative Notes Findings: Left knee osteoarthritis with [id number] articulation of the lateral compartment and overall valgus alignment. Closure Type: primary Specimen(s): none sent Prosthetic devices, grafts, tissues, transplants, or devices: Schulz and nephew Journey 2 CR size 4 left femoral component Journey size 4 left tibial base plate Left size 3-410 mm thick Journey 2 CR polyethylene 32 mm oval Esther 2 patellar button Estimated Blood Loss (mL): 100 Tourniquet time (min): 45 Procedure in detail: Patient was met in the preoperative holding area where the site and side of surgery were marked by . Informed consent had been reviewed in clinic and sign but was also reviewed the preoperative holding area. All last minute questions were answered. Patient was then brought back in operating room where she received a spinal anesthetic she was then placed supine on operating room table and the left lower extremity had a nonsterile tourniquet placed on the left thigh and the left lo wer extremity was then prepped and draped in normal sterile fashion. Surgical time-out was performed verifying the site and side of surgery as well as the name of the patient. A longitudinal incision over the anterior aspect of the knee was made in the skin using 10. Blade. A new 10. Blade was then used to elevate medial lateral flaps. The medial parapatellar arthrotomy was made using a 10. Blade. Hoffa's fat pad was then removed and medial peel was then performed. This point the patella was able to be everted the knee was then brought into flexion the lateral meniscus was removed as well as the ACL. Magdaleno's line was marked as well as epicondylar axis and the drill entry point for the femoral and tibial drill respectively. The drill was then used to enter the femoral canal followed by the tibial canal. The intramedullary jesus was then placed inside the femur and the distal femoral cutting block was then placed and pinned in place. This cut in the neutral slot. The jig was then removed intramedullary jesus was then placed inside the tibia. The tibial cutting jig was then pinned in place using the out second rigger on the intramedullary a jesus. Alignment was confirmed with a drop jesus. A 3rd pin was then placed drop jesus was removed as well as intramedullary jesus and the oscillating saw was used to make the tibial cut making sure to preserve the PCL. The tibial cut was then removed along with the medial meniscus. The knee was then brought into full extension and a size 9 mm thick extension block could be fit into the extension space however it was tighter on the lateral side the knee was then brought into figure 4 position and the ITB band was then pie crusted. This balanced the varus valgus of the knee in full extension. The was then brought into flexion the pins were then removed and the gap nuclear medicine medical director was then placed tensioned and drilled. The gap nuclear medicine medical director was then removed and the Sizer was then placed and marked at 3? of external rotation based off of our Whitesides line this was then drilled for and compared to our gap nuclear medicine medical director which was very similar. Femur sized to size 4. The 5 in 1 cutting block was then placed on the distal femur and pinned into place the 5 in 1 cuts were then made sequentially. The block was then removed and the trial femoral component was placed in the narrow saw was then used to cut the notch for the CR component. We then trialed with a size 4 tibial base plate 9 mm thick CR this had excellent range of motion. Knee is stable to varus and valgus stress at full extension. As well as through mid flexion flexion range of motion. Tibial base plate rotation was then marked using a floating technique. The patella was then freehand cut sized to a 32 mm this was then drilled for and a 32 mm oval button was then placed the knee was brought through range of motion without any patellar liftoff. This point the components were removed the tibial tray was then placed back on the tibia and drilled and punched. Bony fragment was then cut to size and placed inside the tibial canal to prevent cement extrusion. A similar plate was then made for the femoral drill anterior. Local anesthetic was then infiltrated in the periarticular soft tissues including the posterior aspect of the knee. The cut surface of the tibia femur and patella were then pulse lavaged with copious normal saline and then dried. Size cement was then mixed cement was then placed on the undersurface of the tibial base plate and fat finger packed on the cut surface of the tibia as well as the keel hole. The tibial base plate was then placed and malleted into place with excess cement removed. Cement was then finger packed on the cut surface of the femur with exception of the posterior condylar cut and cement was placed on the feet of the femoral component this was then malleted into place and excess cement was removed. The see our 9 mm thick poly trial was then placed in the knee was brought into full extension ankle held in internal rotation. Stem was then placed on the cut surface of the patella and between the patellar pegs and clamped in place and excess cement was removed. Betadine was then placed in the wound and the to urniquet was let down at 45 minutes of time. Electrocautery was used to gain hemostasis. The cement was allowed to fully cure. Once was completed the knee was pulse lavaged with copious normal saline and the knee was brought through range of motion yet again willingly trialed with a 10 mm thick polyethylene which gave us slightly better flexion stability than the 9 mm and still was able to achieve full extension. A left size 3-410 mm thick CR polyethylene was then selected and placed onto the tibial base plate and confirmed the medial and lateral tabs were well seated. The medial parapatellar arthrotomy was then closed using interrupted Vicryl followed by running Quill suture followed by 2 Vicryl in subcutaneous layer followed by running 3-0 Stratafix followed by Dermabond and Aquacel dressing. Complications: none Post-operative Condition: stable Disposition: PACU Plan for aftercare: WBAT LLE, 24 hours post-op abx, ASA 81mg BID for DVT prophylaxis
[2021-03-08] MEDS: ACETAMINOPHEN 325 MG TABLET 650 MG PO ×2 (15:40→21:37)
[2021-03-08] MEDS: LACTATED RINGERS 1,000 ML 100 ML IV (15:40)
[2021-03-08] MEDS: SODIUM CHLORIDE 0.9% 250 ML IV (17:12)
--- NOTE | 2021-03-08 17:15 | PC.NURSE ---
Addendum entered by Cinthia Mclean R.N. 03/08/21 21:29: Pt unable to void. Denies urge to void. Pt reports has prolapse with pessary. Bladder scanned for 655 cc/s. Pt was straight cathed for 350 cc's dark yellow urine. Reports last void was 0730 this a.m. Pt was able to move head of bed up and down several times and apply gentle pressure above pubis to encourage bladder to drain during catheterization. Pt does report dizziness much improved and continues to deny pain. No change in neurovascular status this shift. Addendum entered by Cinthia Mclean R.N. 03/08/21 20:20: Pt reports little bit of dizziness with head movement. Blood pressure remains soft with systolic 91 @ this time. Decision to use bedpan as P.T. has not seen patient and for the aforementioned reasons as well. Pt denies feeling urge to void and is unable to void on bedpan. Bladder scanned for 655 cc/s. Discussion with pt to straight cath. Pt is able to move feet BL and continues to deny pain to left knee. Addendum entered by Cinthia Mclean R.N. 03/08/21 19:08: Pt's blood pressure now increasing with systolic pressure now 92. Original Note: Pt awake, alert, conversant in bed @ beginning of shift. Admits to full sensation to BL LE's. Denies pain, informs this data analyst report writer and HAND LACER not unusual for blood pressure readings to range from high to low. Admits to dizziness with movement of head but reports baseline visual disturbances. Pt's glasses are available @ bedside. Pt's sister is present in pt's room and involved in pt's care. RCooper has seen pt and instructed pt on I.S. use. Left post tib pulse audible with doppler. Brisk capilliary refill to this extremity and pt's extremities are equally warm to touch and pink in color. Pt's blood pressure is trending downward with systolic readings in low 80's. Pt remains awake, alert and conversant. On-call provider, Dr. Patel was informed of this trend and normal saline bolus ordered and immediately initiated. Awaiting lab for stat H and H. Pt was informed.
[2021-03-08 17:34] LABS: Hematocrit 33.9 % (36-46); Hemoglobin 11.3 g/dL (12.0-16.0)
[2021-03-08] MEDS: FAMOTIDINE 20 MG TABLET PO (19:39)
[2021-03-08] MEDS: SIMVASTATIN 40 MG TABLET PO (21:36)
[2021-03-08] MEDS: ASPIRIN EC 81 MG TABLET PO (21:37)
[2021-03-08] MEDS: DOCUSATE 100 MG CAPSULE PO (21:37)
[2021-03-08] MEDS: OXYCODONE IR 5 MG TABLET PO (23:32)
[2021-03-09] VITALS (8 sets, daily range): BP systolic 96–127; BP diastolic 52–78; PULSE 57–70; RESP 14–20; TEMP 36.2–37; O2SAT 96–99
[2021-03-09] MEDS: CEFAZOLIN 2 GM/100 ML FROZ.PIGGY IV (03:47)
[2021-03-09] MEDS: LACTATED RINGERS 1,000 ML 100 ML IV (03:52)
[2021-03-09 06:45] LABS: Hematocrit 30.7 % (36-46); Hemoglobin 10.3 g/dL (12.0-16.0)
[2021-03-09] MEDS: OXYCODONE IR 5 MG TABLET PO ×3 (07:30→21:48)
[2021-03-09] MEDS: POTASSIUM CHLORIDE 20 MEQ TAB PO (08:54)
[2021-03-09] MEDS: DOCUSATE 100 MG CAPSULE PO ×2 (08:54→20:03)
[2021-03-09] MEDS: ASPIRIN EC 81 MG TABLET PO ×2 (08:54→20:04)
[2021-03-09] MEDS: FUROSEMIDE 40 MG TABLET PO (08:54)
[2021-03-09] MEDS: ACETAMINOPHEN 325 MG TABLET 650 MG PO ×3 (08:54→20:03)
--- NOTE | 2021-03-09 09:04 | CM.IDA ---
Addendum entered by RK Chong 03/10/21 14:21: DC order in today, therapy team has cleared patient for return home w/outpatient PT. Patient will DC w/family and no needs from this GLOBAL COMPENSATION ANALYST JW Original Note: Initial DCP Assessment Note Pt is a 80 yo female, resident of [facility], now POD#1 from Left knee surgery w/ Dr Belcher PCP: Rob Adam Payer: Augustine BUTLER Reviewed chart, pt hopeful to return home w/spouse and family, patient lives downstairs in the basement, adult dtr lives upstairs. Therapy evals are pending today, this GLOBAL COMPENSATION ANALYST will follow closely, anticipate that patient will return home w/family today, r/o need for HH. RK Chong
[2021-03-09] MEDS: OXYCODONE IR 10 MG TABLET PO (09:55)
--- NOTE | 2021-03-09 10:35 | PT.IIE ---
Current Diagnoses Unilateral primary osteoarthritis, left knee (03/08/21) Surgery Performed Operation Date: 03/08/21 10:45 Actual Procedures p Total Knee Arthroplasty(Left) - Rafael Belcher MD Surgical History (Last Reviewed 02/20/21 @ 14:00 by Karen Bedoya MD) Anesthesia Femoral hernia History of ankle surgery History of kyphoplasty (~2012) History of sinus surgery Status post appendectomy (~1948) Status post cholecystectomy (~1964) Medical History (Last Updated 02/22/21 @ 09:38 by Vivi Burton RN) Abnormal CXR (~2013) Ankle pain (~1976) Cataract (~2013) Chicken pox (~1946) Chronic UTI Diverticular disease (~2013) Fractures Gastric ulcer Hyperlipidemia Lumbar compression fracture Measles (~1946) Mumps (~1947) Osteoporosis (~2013) Pessary maintenance Rubella (~1947) Urinary, incontinence, stress female Vision disorder Physical Therapy Inpatient Evaluation/Re-Eval M1 PT/OT-IP Prior Functional Status Start: 03/09/21 12:40 Freq: NEEDED Status: Active Protocol: Document 03/09/21 10:35 AB (Rec: 03/09/21 12:55 AB [id number]) Medical Review Prior Functional Status Medical History Reviewed Yes Communication able to make need known Mobility and Gait pt stated that she is modified independent with all mobilities and ambulation without AD but uses her FWW for initial standing when getting out of bed but does not use it for ambulation Social History Household Members family Living Arrangements House Number of Floors (Floors) Two Floors Number of Stairs To Enter/Railing? pt stays on main level of the house; has a ramp to enter Home Environment Standard Height Toilet,Walk in Shower,Ramp Home Equipment Front Wheel Walker,Shower Seat with Backrest,Hand Held Shower,Grab Bars Near Toilet, Grab Bars In Shower Additional Social History Comment has a hiking pole M2 PT-IP Current Condition Start: 03/09/21 12:40 Freq: NEEDED Status: Active Protocol: Document 03/09/21 10:35 AB (Rec: 03/09/21 12:55 AB [id number]) Physical Therapy Current Condition Current Condition Evaluation Date 03/09/21 Treatment Diagnosis s/p L TKA; difficulty in walking Onset Date 03/08/21 Weight Bearing Status Weight Bearing Status Weight Bear as Tolerated Allowed Weight Bearing Amount (enter % LLE: WBAT or #) (%) M3 PT-IP Subjective Start: 03/09/21 12:40 Freq: NEEDED Status: Active Protocol: Document 03/09/21 10:35 AB (Rec: 03/09/21 12:55 AB [email or web address]) Subjective Physical Therapy Visit Type Type Initial Evaluation Visit Start Time 10:35 Visit Stop Time 11:15 Total Visit Minutes 40 Number of FELLED SEAM OPERATOR Visits 0 Physical Therapy Visit Comments Patient Comments pt is agreeable to do PT; requesting to use the toilet Therapy Pain Assessment Pain When Pain Assessed During Mobility Pain Present Pain Present Pain Reported Location Left Knee Intensity 8 Scale Used Numeric (0 - 10) Pain Management Techniques Apply Cold,Distraction, Elevation,Modification of Treatment,Re-positioning, Timing of Activity with Medications M4 PT-IP Mobility and Gait Start: 03/09/21 12:40 Freq: NEEDED Status: Active Protocol: Document 03/09/21 10:35 AB (Rec: 03/09/21 12:55 AB [email or web address]) PT-Bed Mobility Assessment Supine to Sit Supine to Sit Standby Assistance PT-Transfer Assessment Sit to and From Stand Sit to and from Stand Minimal Assistance Equipment Transfer Assistive Device Gait Belt,Front Wheeled Walker Orthotic/Prosthetic Devices or Brace: No Transfers Transfer Destination Chair,Bedside Commode Transfer Technique Stand Step Pivot Transfer Ability Level of Assist Minimal Assistance,1 Person Assistance,Use of Upper Extremities Comments Mobility Comments BP in supine: 91/48. pt completed supine to sit SBA. pt was able to sit on EOB SBA. BP in sittin/60. completed sit to stand min A and completed step transfer to bedside commode min A and cues. completed sit to stand from bedside commode min A and ambulated towards the chair min A and cues using FWW. pt with c/o slight dizziness/ lightheadedness. positioned pt on chair. BP checked: 101/61 . call light and table placed within reach. pt's sister stated that she does not live with pt but will be with pt most of the time to assist her at home. Caregiver training set up for 230pm this afternoon. Gait Assessment Gait Gait Assistance Required: Minimum Assistance Distance (Feet) 12 Able to Maintain Weight Bearing Status Yes During Gait Assistive Devices Assistive Device Gait Belt,Front Wheeled Walker Orthotic/Prosthetic Devices or Brace: No Gait Deviations General Gait Pattern Antalgic,Decreased Stride Length,Decreased Feet Clearance Factors Limiting Gait Function Factors Limiting Gait Function Decreased Activity Tolerance, Decreased Strength,Difficulty Following Directions,Limited Range of Motion,Pain,Poor Balance,Poor Safety Awareness Comments Gait Comments pls refer to mobility section for details PT-Balance Assessment Sitting Balance and Reactions Static Sitting Balance Ability Good Dynamic Sitting Balance Ability Good Standing Balance and Reactions Static Standing Balance Ability Fair Dynamic Standing Balance Ability Fair Device Used FWW M5 PT-IP Objective Assessments Start: 03/09/21 12:40 Freq: NEEDED Status: Active Protocol: Document 03/09/21 10:35 AB (Rec: 03/09/21 12:55 AB [id number]) Orientation Orientation/Cognition Level of Alertness Alert Orientation Name,Place,Situation Language Function Ability No Deficits Noted Safety Awareness Understands Safety Issues Memory Description No Deficits Noted Gross Range of Motion Lower Extremity ROM Impairments L knee flexion: ~ 100 deg Strength Lower Extremity Strength Assessment Left Impaired Hip 4-/5 Knee 3+/5 Coordination Assessment Gross Coordination Gross Coordination WNL Muscle Tone Muscle Tone WNL Yes M6 PT-IP Treatment Start: 03/09/21 12:40 Freq: NEEDED Status: Active Protocol: Document 03/09/21 10:35 AB (Rec: 03/09/21 12:55 AB [email or web address]) Physical Therapy Treatment Exercises Exercises Heel Slides Education Education Provided Precautions,Weight Bearing Status,Post-Op Packet,Safety M7 PT-IP Assessment and Plan Start: 03/09/21 12:40 Freq: NEEDED Status: Active Protocol: Document 03/09/21 10:35 AB (Rec: 03/09/21 12:55 AB [email or web address]) PT Summary Assessment and Plan Potential Rehabilitation Potential Good Status of Condition at Evaluation Evolving Summary Impairments Pain,ROM,Strength,Balance, Coordination,Sensation,Tone, Cognition,Bed Mobility, Transfers,Gait,Activity Tolerance Assessment Summary pt requiring min A with mobility using FWW but unable to tolerate much activity with decrease in BP after ambulation to the chair. caregiver training set up at 230pm today with pt's sister going to assist pt at home for most of the day. will continue to assess progress. Goals Bed Mobility Goal Independent Transfer Goal Independent,Front Wheeled Walker Gait Goal Independent,Front Wheel Walker Gait Distance 150 Days to Meet Goals 5 Frequency of Treatment Frequency Of Treatment Twice a Day Treatment Plan Physical Therapy Treatment Plan Bed Mobility Training,Transfer Training,Gait Training, Therapeutic Exercise,Balance Retraining,Post Op Education, Discharge Planning,Hot or Cold Pack,Neuromuscular Re-ed, Coordination Retraining,Manual Therapy Other Recommendations and Next Treatment caregiver trainin pm 4/ Focus 29 Precautions Other Precautions LLE WBAT Recommendations To Nursing Amount of Assist Needed 1 Person Assist Discharge Recommendations PT Discharge Recommendations Home with Assistance, Outpatient PT Transportation Needs at Discharge Private Vehicle
[2021-03-09] MEDS: ONDANSETRON 4 MG/2 ML INJ IV (12:04)
--- NOTE | 2021-03-09 13:14 | P.DS_ITS ---
History of Present Illness History of Present Illness Date Patient Seen: 03/09/21 Time Patient Seen: 13:15 Chief complaint: OPB Narrative: Pain is moderate to severe. Denies fever or chills. Had some nausea with her last pain meds. No vomiting. Has plenty of assistance at home. Discharge Providers Provider Discharge Date: 03/09/21 Primary care physician: Rob Adam MD Consults: 03/08/21 15:25 Consult to Discharge Planning Routine Comment: Consult to Physical Therapy Evaluate & Treat Comment: Physician Instructions: postop TKA protocol Consult to Respiratory Therapy Evaluate & Treat Comment: Physician Instructions: Evaluate and treat Discharge provider: Dominguez Ortega PA-C Summary Hospital Course Discharge Diagnosis: Left knee osteoarthritis Hospital Course: Left total knee arthroplasty Same procedure as scheduled: Yes Indications: Left knee osteoarthritis with valgus alignment. Resistant to further conservative measures Surgeon: Rafael Belcher Ventilating Equipment Installer: Dominguez Ortega Anesthesia Type: Spinal Operative Notes Findings: Left knee osteoarthritis with [id number] articulation of the lateral compartment and overall valgus alignment. Closure Type: primary Specimen(s): none sent Prosthetic devices, grafts, tissues, transplants, or devices: Schulz and nephew Journey 2 CR size 4 left femoral component Journey size 4 left tibial base plate Left size 3-410 mm thick Journey 2 CR polyethylene 32 mm oval Esther 2 patellar button Estimated Blood Loss (mL): 100 Tourniquet time (min): 45 Status at Discharge Cognitive/behavioral status at discharge: at baseline, oriented Functional status at discharge: uses cane/walker Overall status at discharge: patient is progressing back to baseline Time Spent with Patient Time spent: Less than 30 minutes Exam Vital Signs (past 8 hours): - 03/09/21 07:14 03/09/21 08:21 Temperature 98.6 F Pulse Rate 61 68 Respiratory Rate 14 20 Blood Pressure 103/52 L Pulse Oximetry 96 99 Oxygen Delivery Method Room Air Oxygen Flow Rate 0 Narrative Exam Narrative: 80-year-old female resting comfortably in bedside chair in no apparent distress. Dressing is Clean, dry, intact.. Sensation grossly intact distally. Motor functions intact bilateral lower extremities. Objective Labs Result Diagrams: 03/09/21 06:37 Labs: Laboratory Results - last 24 hr 03/08/21 03/09/21 17:25 06:37 Hgb 11.3 L 10.3 L Hct 33.9 L 30.7 L PFSH Medical History Abnormal CXR (~2013) Ankle pain (~1976) Cataract (~2013) Chicken pox (~1946) Chronic UTI Diverticular disease (~2013) Fractures Gastric ulcer Hyperlipidemia Lumbar compression fracture Measles (~1946) Mumps (~1947) Osteoporosis (~2013) Pessary maintenance Rubella (~1947) Urinary, incontinence, stress female Vision disorder Surgical History Anesthesia Femoral hernia History of ankle surgery History of kyphoplasty (~2012) History of sinus surgery Status post appendectomy (~1948) Status post cholecystectomy (~1964) Family History Father Osteoporosis High cholesterol Mother Dementia Social History marital status: household members: family Smoking Status: Never smoker alcohol intake: current substance use type: does not use Discharge Assessment & Plan Assessment and Plan Assessment: Patient progressing as expected status post left total knee arthroplasty Plan of Treatment: Discharge home today after physical therapy in stable condition. Discharge Plan Discharge Plan Patient Disposition: Home Discharge orders & Medications Discharge Orders: Discharge (Order); Ordered 03/09/21 Ordered By: Dominguez Ortega Prescriptions: New acetaminophen 325 mg Tablet 650 mg PO TID Qty: 60 RF: 0 aspirin 81 mg Tablet,Delayed Release (Dr/Ec) 81 mg PO BID Qty: 60 RF: 0 polyethylene glycol 3350 17 gram Powder In Packet 17 gm PO DAILY PRN (Reason: Constipation) Qty: 20 RF: 0 ondansetron 4 mg Tablet,Disintegrating 4 mg PO Q4HR PRN (Reason: Nausea) Qty: 20 RF: 0 Continued clobetasol 0.05 % cream 1 applictn TOP BID 14 Days Qty: 180 RF: 3 Prolia 60 mg/mL syringe 60 mg SUBCUT [id number] Qty: 1 RF: 0 (DME) DISABLED PARKING PERMIT See Rx Instructions .ROUTE .MEDSUPPLY Qty: 1 RF: 0 metoprolol tartrate 25 mg tablet 25 mg PO BID Qty: 60 RF: 3 cyanocobalamin (vitamin B-12) [Vitamin B-12] 1,000 mcg Tablet 1,000 mcg PO DAILY Qty: 0 RF: 0 cholecalciferol (vitamin D3) [Vitamin D3] 2,000 UNIT capsule 2,000 iu PO DAILY Qty: 0 RF: 0 oxyquinoline-sod.lauryl sulfat 0.025-0.01 % gel 0.5 each VAG .q week Qty: 2 RF: 3 furosemide 40 mg tablet 40 mg PO QAM Qty: 30 RF: 1 potassium chloride 20 mEq tablet extended release 20 meq PO DAILY Qty: 30 RF: 1 simvastatin 40 mg tablet 40 mg PO BEDTIME Qty: 90 RF: 3 estradiol 0.01 % (0.1 mg/gram) cream 1 g VAG 2XW Qty: 42.5 RF: 3 Women's Multivitamin 18 mg iron-400 mcg-500 mg Tablet 1 tab PO DAILY RF: 0 PreserVision AREDS-2 [phone] ba-gyky-bv-mg Capsule 1 cap PO BID RF: 0 Calcium Tablet 1 tab PO DAILY RF: 0 Pepcid AC 1 tab PO DAILY RF: 0 Discontinued acetaminophen 500 mg capsule 1,000 mg PO BID RF: 0 Follow up/Referrals: Rob Adam MD [Primary Care Provider] - Rafael Belcher MD [Physician] - (Two weeks) Diet/Activity/Treatments Diet: Diet as Tolerated Activity: Weight-bearing as tolerated Cold/Heat Therapy: Apply ice to knee as needed Skin/Wound/Dressing Care Report to your healthcare provider any signs of infection, such as:: increased pain, unusual drainage and unusual redness Dressing: Keep dressing clean and dry Visit Report/Discharge Packet Stand Alone Forms: Surgery Discharge Discharge Data Primary Care Provider: Rob Adam Attending Provider: Rafael Belcher Quality VTE Deep Vein Thrombosis/Pulmonary Embolism Present on Admission: No
--- NOTE | 2021-03-09 14:30 | PT.IPTN ---
Current Diagnoses Unilateral primary osteoarthritis, left knee (03/09/21) Surgery Performed Operation Date: 03/08/21 10:45 Actual Procedures p Total Knee Arthroplasty(Left) - Rafael Belcher MD Physical Therapy Treatment Note M2 PT-IP Current Condition Start: 03/09/21 12:40 Freq: NEEDED Status: Active Protocol: Document 03/09/21 10:35 AB (Rec: 03/09/21 12:55 AB [email or web address]) Physical Therapy Current Condition Current Condition Evaluation Date 03/09/21 Treatment Diagnosis s/p L TKA; difficulty in walking Onset Date 03/08/21 Weight Bearing Status Weight Bearing Status Weight Bear as Tolerated Allowed Weight Bearing Amount (enter % LLE: WBAT or #) (%) M3 PT-IP Subjective Start: 03/09/21 12:40 Freq: NEEDED Status: Active Protocol: Document 03/09/21 14:30 AB (Rec: 03/09/21 16:28 AB [id number]) Subjective Physical Therapy Visit Type Type Treatment Note Visit Start Time 14:30 Visit Stop Time 15:10 Total Visit Minutes 40 Number of ADDICTIONS COUNSELOR Visits 0 Physical Therapy Visit Comments Patient Comments pt is agreeable to do PT. sister in room for caregiver training Therapy Pain Assessment Pain When Pain Assessed During Mobility Pain Present Pain Present Pain Reported Location Left Knee Scale Used 8 Pain Management Techniques Apply Cold,Distraction, Modification of Treatment,Re- positioning,Timing of Activity with Medications M4 PT-IP Mobility and Gait Start: 03/09/21 12:40 Freq: NEEDED Status: Active Protocol: Document 03/09/21 14:30 AB (Rec: 03/09/21 16:28 AB [email or web address]) PT-Bed Mobility Assessment Supine to Sit Supine to Sit Standby Assistance Sit to Supine Sit to Supine Standby Assistance PT-Transfer Assessment Sit to and From Stand Sit to and from Stand Contact Guard Assistance, Minimal Assistance,Use of Upper Extremities Equipment Transfer Assistive Device Gait Belt,Front Wheeled Walker Orthotic/Prosthetic Devices or Brace: No Transfer Ability Level of Assist Contact Guard Assistance, Minimal Assistance Comments Mobility Comments caregiver training conducted. educated pt's sister on how to use safety belt and how to assist pt. sister was able to put safety belt on and assist pt with sit to stand. pt ambulated in room using FWW with sister assisting towards the bed. pt completed sit<> supine SBA and cues for techniques. pt agreed to ambulate in hallway and completed using fWW ~100 ft with sister assisting. c/o increase knee pain to 8/10 and unable to ambulate farther. pt's sister stated that pt has a long ways to get into the house and a long ramp. Pt stated that she is not comfortable to going home today and is still having increase pain. Nurse in room is aware of pt's concerns. pt requested to go back and rest in bed. completed sit to supine and sister assisting. positioned pt in bed. call light and table placed within reach. Gait Assessment Gait Gait Assistance Required: Contact Guard Assist,Minimum Assistance,1 Person Assist Distance (Feet) 100 Able to Maintain Weight Bearing Status Yes During Gait Assistive Devices Assistive Device Gait Belt,Front Wheeled Walker Orthotic/Prosthetic Devices or Brace: No Gait Deviations General Gait Pattern Antalgic,Decreased Stride Length,Decreased Feet Clearance,Step-to Gait Factors Limiting Gait Function Factors Limiting Gait Function Decreased Activity Tolerance, Decreased Strength,Limited Range of Motion,Pain,Poor Balance,Poor Safety Awareness M5 PT-IP Objective Assessments Start: 03/09/21 12:40 Freq: NEEDED Status: Active Protocol: Document 03/09/21 10:35 AB (Rec: 03/09/21 12:55 AB [email or web address]) Orientation Orientation/Cognition Level of Alertness Alert Orientation Name,Place,Situation Language Function Ability No Deficits Noted Safety Awareness Understands Safety Issues Memory Description No Deficits Noted Gross Range of Motion Lower Extremity ROM Impairments L knee flexion: ~ 100 deg Strength Lower Extremity Strength Assessment Left Impaired Hip 4-/5 Knee 3+/5 Coordination Assessment Gross Coordination Gross Coordination WNL Muscle Tone Muscle Tone WNL Yes M6 PT-IP Treatment Start: 03/09/21 12:40 Freq: NEEDED Status: Active Protocol: Document 03/09/21 14:30 AB (Rec: 03/09/21 16:28 AB [email or web address]) Physical Therapy Treatment Education Education Provided Safety M7 PT-IP Assessment and Plan Start: 03/09/21 12:40 Freq: NEEDED Status: Active Protocol: Document 03/09/21 14:30 AB (Rec: 03/09/21 16:28 AB [id number]) PT Summary Assessment and Plan Potential Rehabilitation Potential Good Summary Impairments Pain,ROM,Strength,Balance, Sensation,Bed Mobility, Transfers,Gait,Activity Tolerance Progress Towards Goals Slow Progress due to Pain Assessment Summary caregiver training conducted and pt's sister was able to assist pt but pt unable to ambulate much due to c/o pain on knee. pt has a long ways to get into the house. educated on setting up chairs in between for pt to rest. pt stated that she is not comfortable to go home tonight and still has significant pain. nurse is aware. will conduct further caregiver training tomorrow and pt's sister stated that she will be in the hospital at ~ 9 am. will continue to assess progress. Goals Bed Mobility Goal Independent Transfer Goal Independent,Front Wheeled Walker Gait Goal Independent,Front Wheel Walker Gait Distance 150 Days to Meet Goals 5 Frequency of Treatment Frequency Of Treatment Twice a Day Treatment Plan Physical Therapy Treatment Plan Bed Mobility Training,Transfer Training,Gait Training, Therapeutic Exercise,Balance Retraining,Post Op Education, Discharge Planning,Hot or Cold Pack,Neuromuscular Re-ed, Coordination Retraining,Manual Therapy Other Recommendations and Next Treatment pt's sister will be in the [facility] hospital at ~9am and caregiver training can be conducted Precautions Other Precautions LLE WBAT Recommendations To Nursing Amount of Assist Needed 1 Person Assist Discharge Recommendations PT Discharge Recommendations Home with Assistance, Outpatient PT Transportation Needs at Discharge Private Vehicle
--- NOTE | 2021-03-09 15:25 | PC.NURSE ---
Called [facility] and spoke with Kimberlee, informed her that pt worked with PT and didn't feel comfortable with discharge today, PT agreed.
[2021-03-09] MEDS: SIMVASTATIN 40 MG TABLET PO (20:03)
[2021-03-09] MEDS: FAMOTIDINE 20 MG TABLET PO (20:04)
[2021-03-09] MEDS: SODIUM CHLORIDE 0.9% FLUSH 10 ML IV (20:04)
[2021-03-10] MEDS: METOCLOPRAMIDE 10 MG/2 ML INJ IV (00:09)
[2021-03-10] MEDS: HYDROMORPHONE 2 MG TABLET PO ×2 (00:09→09:13)
[2021-03-10] MEDS: OXYCODONE IR 5 MG TABLET PO ×2 (01:37→05:45)
[2021-03-10 03:01] VITALS: BP 124/79; PULSE 72; RESP 18; TEMP 36.4; O2SAT 93
[2021-03-10] MEDS: ONDANSETRON 4 MG ODT PO ×2 (05:44→09:14)
[2021-03-10 07:12] VITALS: BP 141/80; PULSE 76; RESP 19; TEMP 37.2; O2SAT 94
--- NOTE | 2021-03-10 08:14 | P.DS_ITS ---
History of Present Illness History of Present Illness Chief complaint: OPB Narrative: Pain is moderate to severe. Denies fever or chills. Had some nausea with her last pain meds. No vomiting. Has plenty of assistance at home. Patient was not discharged yesterday secondary to increased pain and muscle spasms. She is feeling better this morning and wishes to go home where she can be more comfortable. We will discharge her home today in stable condition. Discharge Providers Provider Date of admission: 03/09/21 14:08 Discharge Date: 03/10/21 Primary care physician: Rob Adam MD Consults: 03/08/21 15:25 Consult to Discharge Planning Routine Comment: Consult to Physical Therapy Evaluate & Treat Comment: Physician Instructions: postop TKA protocol Consult to Respiratory Therapy Evaluate & Treat Comment: Physician Instructions: Evaluate and treat Discharge provider: Dominguez Ortega PA-C Exam Vital Signs (past 8 hours): - 03/10/21 03:01 Temperature 97.6 F Pulse Rate 72 Respiratory Rate 18 Blood Pressure 124/79 Pulse Oximetry 93 Oxygen Delivery Method Room Air Oxygen Flow Rate 0 Narrative Exam Narrative: Patient seen this morning. She is resting comfortably in bed in no apparent distress. Dressing is Clean, dry, intact.. Neurovascular status is intact to the bilateral lower extremities. Objective Labs Result Diagrams: 03/09/21 06:37 [facility] Medical History Abnormal CXR (~2013) Ankle pain (~1976) Cataract (~2013) Chicken pox (~1946) Chronic UTI Diverticular disease (~2013) Fractures Gastric ulcer Hyperlipidemia Lumbar compression fracture Measles (~1946) Mumps (~1947) Osteoporosis (~2013) Pessary maintenance Rubella (~1947) Urinary, incontinence, stress female Vision disorder Surgical History Anesthesia Femoral hernia History of ankle surgery History of kyphoplasty (~2012) History of sinus surgery Status post appendectomy (~1948) Status post cholecystectomy (~1964) Family History Father Osteoporosis High cholesterol Mother Dementia Social History marital status: household members: family Smoking Status: Never smoker alcohol intake: current substance use type: does not use Discharge Assessment & Plan Assessment and Plan Assessment: Patient progressing as expected status post left total knee arthroplasty Plan of Treatment: Discharge home today after physical therapy in stable condition. Discharge Plan Discharge Plan Patient Disposition: Home Discharge orders & Medications Prescriptions: New acetaminophen 325 mg Tablet 650 mg PO TID Qty: 60 RF: 0 aspirin 81 mg Tablet,Delayed Release (Dr/Ec) 81 mg PO BID Qty: 60 RF: 0 polyethylene glycol 3350 17 gram Powder In Packet 17 gm PO DAILY PRN (Reason: Constipation) Qty: 20 RF: 0 ondansetron 4 mg Tablet,Disintegrating 4 mg PO Q4HR PRN (Reason: Nausea) Qty: 20 RF: 0 lorazepam 2 mg tablet 2 mg PO TID PRN (Reason: anxiety) Qty: 30 RF: 0 Continued clobetasol 0.05 % cream 1 applictn TOP BID 14 Days Qty: 180 RF: 3 Prolia 60 mg/mL syringe 60 mg SUBCUT [id number] Qty: 1 RF: 0 (DME) DISABLED PARKING PERMIT See Rx Instructions .ROUTE .MEDSUPPLY Qty: 1 RF: 0 metoprolol tartrate 25 mg tablet 25 mg PO BID Qty: 60 RF: 3 cyanocobalamin (vitamin B-12) [Vitamin B-12] 1,000 mcg Tablet 1,000 mcg PO DAILY Qty: 0 RF: 0 cholecalciferol (vitamin D3) [Vitamin D3] 2,000 UNIT capsule 2,000 iu PO DAILY Qty: 0 RF: 0 oxyquinoline-sod.lauryl sulfat 0.025-0.01 % gel 0.5 each VAG .q week Qty: 2 RF: 3 furosemide 40 mg tablet 40 mg PO QAM Qty: 30 RF: 1 potassium chloride 20 mEq tablet extended release 20 meq PO DAILY Qty: 30 RF: 1 simvastatin 40 mg tablet 40 mg PO BEDTIME Qty: 90 RF: 3 estradiol 0.01 % (0.1 mg/gram) cream 1 g VAG 2XW Qty: 42.5 RF: 3 Women's Multivitamin 18 mg iron-400 mcg-500 mg Tablet 1 tab PO DAILY RF: 0 PreserVision AREDS-2 [id number] ha-dybp-uj-mg Capsule 1 cap PO BID RF: 0 Calcium Tablet 1 tab PO DAILY RF: 0 Pepcid AC 1 tab PO DAILY RF: 0 Discontinued acetaminophen 500 mg capsule 1,000 mg PO BID RF: 0 Follow up/Referrals: Rob Adam MD [Primary Care Provider] - Rafael Belcher MD [Physician] - (Two weeks) Diet/Activity/Treatments Diet: Diet as Tolerated Activity: Weight-bearing as tolerated Cold/Heat Therapy: Apply ice to knee as needed Skin/Wound/Dressing Care Report to your healthcare provider any signs of infection, such as:: increased pain, unusual drainage and unusual redness Dressing: Keep dressing clean and dry Visit Report/Discharge Packet Instructions: DI for Knee Replacement, DI for Constipation, How to Prevent Falls Stand Alone Forms: Surgery Discharge Discharge Data Primary Care Provider: Rob Adam Attending Provider: Rafael Belcher Quality VTE Deep Vein Thrombosis/Pulmonary Embolism Present on Admission: No
[2021-03-10] MEDS: ACETAMINOPHEN 325 MG TABLET 650 MG PO (09:00)
[2021-03-10] MEDS: ASPIRIN EC 81 MG TABLET PO (09:00)
[2021-03-10] MEDS: FUROSEMIDE 40 MG TABLET PO (09:01)
[2021-03-10] MEDS: POTASSIUM CHLORIDE 20 MEQ TAB PO (09:01)
[2021-03-10] MEDS: DOCUSATE 100 MG CAPSULE PO (09:01)
[2021-03-10] MEDS: METOPROLOL IR 25 MG TABLET PO (09:15)
--- NOTE | 2021-03-10 09:49 | PT.IPTN ---
Current Diagnoses Unilateral primary osteoarthritis, left knee (03/09/21) Surgery Performed Operation Date: 03/08/21 10:45 Actual Procedures p Total Knee Arthroplasty(Left) - Rafael Belcher MD Physical Therapy Treatment Note M2 PT-IP Current Condition Start: 03/09/21 12:40 Freq: NEEDED Status: Active Protocol: Document 03/09/21 10:35 AB (Rec: 03/09/21 12:55 AB [email or web address]) Physical Therapy Current Condition Current Condition Evaluation Date 03/09/21 Treatment Diagnosis s/p L TKA; difficulty in walking Onset Date 03/08/21 Weight Bearing Status Weight Bearing Status Weight Bear as Tolerated Allowed Weight Bearing Amount (enter % LLE: WBAT or #) (%) M3 PT-IP Subjective Start: 03/09/21 12:40 Freq: NEEDED Status: Active Protocol: Document 03/10/21 09:20 CLB (Rec: 03/10/21 12:18 CLB [id number]) Subjective Physical Therapy Visit Type Type Treatment Note Visit Start Time 09:20 Visit Stop Time 09:49 Total Visit Minutes 29 Notes Sister present during tx. Number of COMMERCIAL DESIGNER Visits 1 Physical Therapy Visit Comments Patient Comments pt is agreeable to do PT. sister in room for caregiver training Therapy Pain Assessment Pain When Pain Assessed During Mobility Pain Present Pain Present Pain Reported Location Left Knee Intensity 7 Scale Used Numeric (0 - 10) Pain Management Techniques Distraction,Modification of Treatment,Re-positioning, Timing of Activity with Medications M4 PT-IP Mobility and Gait Start: 03/09/21 12:40 Freq: NEEDED Status: Active Protocol: Document 03/10/21 09:20 CLB (Rec: 03/10/21 12:18 CLB [id number]) PT-Bed Mobility Assessment Supine to Sit Supine to Sit Standby Assistance PT-Transfer Assessment Sit to and From Stand Sit to and from Stand Contact Guard Assistance,1 Person Assistance,Use of Upper Extremities Equipment Transfer Assistive Device Gait Belt,Front Wheeled Walker Orthotic/Prosthetic Devices or Brace: No Transfers Transfer Destination Chair Transfer Technique Stand Step Pivot Transfer Ability Level of Assist Contact Guard Assistance,1 Person Assistance,Use of Upper Extremities Comments Mobility Comments Pt able to get to EOB from flat bed and use of GB on foot to assist left leg off bed. Pt able to lower leg to floor with GB. Pt sister donned GB and provided CGA to stand and ambulate in [place]. Pt sat in chair performing HS with scoot to EOC. Pt left in chair with all needs within reach. Gait Assessment Gait Gait Assistance Required: Contact Guard Assist,1 Person Assist Distance (Feet) 125 Able to Maintain Weight Bearing Status Yes During Gait Assistive Devices Assistive Device Gait Belt,Front Wheeled Walker Orthotic/Prosthetic Devices or Brace: No Gait Deviations General Gait Pattern Antalgic,Decreased Stride Length,Decreased Feet Clearance,Step-to Gait Factors Limiting Gait Function Factors Limiting Gait Function Decreased Activity Tolerance, Decreased Strength,Limited Range of Motion,Pain,Poor Balance,Poor Safety Awareness Comments Gait Comments Pt ambulates with step to gait pattern with inability at this time to use step thru due to pain. M5 PT-IP Objective Assessments Start: 03/09/21 12:40 Freq: NEEDED Status: Active Protocol: Document 03/09/21 10:35 AB (Rec: 03/09/21 12:55 AB [id number]) Orientation Orientation/Cognition Level of Alertness Alert Orientation Name,Place,Situation Language Function Ability No Deficits Noted Safety Awareness Understands Safety Issues Memory Description No Deficits Noted Gross Range of Motion Lower Extremity ROM Impairments L knee flexion: ~ 100 deg Strength Lower Extremity Strength Assessment Left Impaired Hip 4-/5 Knee 3+/5 Coordination Assessment Gross Coordination Gross Coordination WNL Muscle Tone Muscle Tone WNL Yes M6 PT-IP Treatment Start: 03/09/21 12:40 Freq: NEEDED Status: Active Protocol: Document 03/10/21 09:20 CLB (Rec: 03/10/21 12:18 CLB [id number]) Physical Therapy Treatment Exercises Exercises Ankle Pumps,Quad Sets,Heel Slides,Passive Knee Extension Hang Education Education Provided Safety Other Treatments Other Treatment Performed Educated pt and sister on transfer in/out of car. M7 PT-IP Assessment and Plan Start: 03/09/21 12:40 Freq: NEEDED Status: Active Protocol: Document 03/10/21 09:20 CLB (Rec: 03/10/21 12:18 CLB [id number]) PT Summary Assessment and Plan Potential Rehabilitation Potential Good Summary Impairments Pain,ROM,Strength,Balance, Sensation,Bed Mobility, Transfers,Gait,Activity Tolerance Progress Towards Goals Progressing Toward Goals Assessment Summary Pt sister able to assist pt with CGA for safety during sit <>stand and ambulation. Pt requires SBA for bed mobility. Pt able to perform all ther ex AROM with knee flx to 90 degrees in sitting. Pt will d/ c home with assist of sister. Goals Bed Mobility Goal Independent Transfer Goal Independent,Front Wheeled Walker Gait Goal Independent,Front Wheel Walker Gait Distance 150 Days to Meet Goals 5 Frequency of Treatment Frequency Of Treatment Twice a Day Treatment Plan Physical Therapy Treatment Plan Bed Mobility Training,Transfer Training,Gait Training, Therapeutic Exercise,Balance Retraining,Post Op Education, Discharge Planning,Hot or Cold Pack,Neuromuscular Re-ed, Coordination Retraining,Manual Therapy Precautions Other Precautions LLE WBAT Recommendations To Nursing Amount of Assist Needed 1 Person Assist Discharge Recommendations PT Discharge Recommendations Home with Assistance, Outpatient PT Transportation Needs at Discharge Private Vehicle
--- NOTE | 2021-03-10 12:24 | PC.NURSE ---
Discharge: Pt feels ready to d/c to home. Seen by PT and received their final instructions. Seen by KAHLIL Ortega and given d/c instructions. Tolerates diet w/out problems. Vds w/out diff. Po pain meds are effective. Reviewed d/c packet. All scripts were esent and picked up by sister except the ativan. 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 Pt understands her knee pricautions. Questions answered. Pt d/c home via auto with sister.
== END 2021-03-10 11:20 | disposition home or self-care (01) ==
LOC: OR 14:31 → AC 14:31
PROVIDERS: Orthopaedic Surgery; Admitting Provider Orthopaedic Surgery Adult Reconstructive Orthopaedic Surgery; Family Provider Family Medicine; PCP Family Medicine; Referring Provider Orthopaedic Surgery Adult Reconstructive Orthopaedic Surgery; Visit Provider Orthopaedic Surgery Adult Reconstructive Orthopaedic Surgery
PROC: 0SRD0JZ Replacement of Left Knee Joint with Synthetic Substitute, Open Approach (ICD-10-PCS; CPT 27447; principal; 2021-03-08 10:45)
DX: M17.12 Unilateral primary osteoarthritis, left knee (principal); M21.062 Valgus deformity, not elsewhere classified, left knee; I10 Essential (primary) hypertension; E66.9 Obesity, unspecified; K21.9 Gastro-esophageal reflux disease without esophagitis; Z68.31 Body mass index [BMI] 31.0-31.9, adult
CPT/HCPCS: 27447; 36415; 73560; 85014; 85018; 94762; 97110; 97162; 97530; C1776; G0378; A9270; J0690; J1100; J1885; J2270; J2274; J2405; J2704; J2765; J2795

== ENCOUNTER → 2021-03-27 13:01 | Outpatient (CLI) | payer OTHER, SELFPAY ==
[2021-03-08 15:26] VITALS: BMI 30.9
[2021-03-27 13:29] LABS: Appearance Urine UA CLOUDY; Bilirubin Urine UA NEGATIVE (NEGATIVE); Color Urine UA YELLOW; Glucose Urine UA NEGATIVE (Negative); Ketones Urine UA NEGATIVE (NEGATIVE); Leukocyte Esterase Urine UA 3+ (NEGATIVE); Nitrite Urine UA POSITIVE (Negative); Occult Blood Urine UA 1+ (Negative); Protein Urine UA TRACE (Negative); Specific Gravity Urine UA 1.015 (1.000-1.035); Urobilinogen Urine UA 0.2 E.U./dL (0.2)
[2021-03-27 13:30] LABS: pH Urine UA 6.5 (4.5-8.0)
[2021-03-27 13:44] LABS: Bacteria Urine Many (>30); Culture Indicated Urine Specimen Cultured; RBC Urine 0-1/HPF (0-5/HPF); Squamous Epithelial Cell Urine 0-1 /HPF (0-5/HPF); WBC Urine >100/HPF (0-5/HPF)
== END ==
PROVIDERS: Family Provider Family Medicine; PCP Family Medicine; Referring Provider Family Medicine; Visit Provider Orthopaedic Surgery Adult Reconstructive Orthopaedic Surgery
DX: R30.0 Dysuria (principal)
CPT/HCPCS: 81001; 87077; 87086; 87186

== ENCOUNTER → 2021-04-18 13:33 | Outpatient (CLI) | payer OTHER, SELFPAY ==
[2021-03-08 15:26] VITALS: BMI 30.9
[2021-04-18 14:39] LABS: Appearance Urine UA SL CLOUDY; Bilirubin Urine UA NEGATIVE (NEGATIVE); Color Urine UA YELLOW; Glucose Urine UA NEGATIVE (Negative); Ketones Urine UA NEGATIVE (NEGATIVE); Leukocyte Esterase Urine UA TRACE (NEGATIVE); Nitrite Urine UA NEGATIVE (Negative); Occult Blood Urine UA NEGATIVE (Negative); Protein Urine UA NEGATIVE (Negative); Urobilinogen Urine UA 0.2 E.U./dL (0.2)
[2021-04-18 14:54] LABS: Bacteria Urine Many (>30); Culture Indicated Urine Specimen Cultured; RBC Urine 0-1/HPF (0-5/HPF); Squamous Epithelial Cell Urine 1-5 /HPF (0-5/HPF); WBC Urine 10-30/HPF (0-5/HPF); pH Urine UA 5.5 (4.5-8.0)
== END ==
PROVIDERS: Family Provider Family Medicine; PCP Family Medicine; Referring Provider Family Medicine; Visit Provider Family Medicine
DX: R30.0 Dysuria (principal); R35.0 Frequency of micturition; R39.15 Urgency of urination
CPT/HCPCS: 81001; 87077; 87086; 87186

== ENCOUNTER → 2021-04-26 11:23 | Outpatient (CLI) | payer OTHER, SELFPAY ==
[2021-03-08 15:26] VITALS: BMI 30.9
[2021-04-26 11:32] LABS: Bacteria Urine None Seen; RBC Urine None Seen (0-5/HPF); WBC Urine None Seen (0-5/HPF)
[2021-04-26 12:04] LABS: Appearance Urine UA CLEAR; Bilirubin Urine UA NEGATIVE (NEGATIVE); Color Urine UA YELLOW; Glucose Urine UA NEGATIVE (Negative); Ketones Urine UA NEGATIVE (NEGATIVE); Leukocyte Esterase Urine UA NEGATIVE (NEGATIVE); Nitrite Urine UA NEGATIVE (Negative); Occult Blood Urine UA NEGATIVE (Negative); Protein Urine UA NEGATIVE (Negative); Urobilinogen Urine UA 0.2 E.U./dL (0.2)
[2021-04-26 12:09] LABS: Culture Indicated Urine Cult Not Indicated; Urine Comments Microscopic Normal
== END ==
PROVIDERS: Family Provider Family Medicine; PCP Family Medicine; Referring Provider Family Medicine; Visit Provider Family Medicine
DX: N39.0 Urinary tract infection, site not specified (principal)
CPT/HCPCS: 81001

== ENCOUNTER 2021-05-01 18:27 | Emergency (ER) | payer OTHER, SELFPAY ==
[2021-03-08 15:26] VITALS: BMI 30.9
[2021-05-01 18:36] VITALS: BP 176/102; PULSE 83; RESP 18; TEMP 36.8; O2SAT 99
--- NOTE | 2021-05-01 21:49 | ED.URI ---
HPI - URI/Sore Throat General Chief Complaint: Upper Respiratory Symptoms Stated Complaint: Thinks Sinus Infection Time Seen by Provider: 05/01/21 18:36 Source: patient Mode of arrival: Family Vehicle Limitations: no limitations History of Present Illness HPI Narrative: 80-year-old nonsmoker with history of chronic UTIs and frequent upper respiratory infections presents with a chief complaint of concern that she may need some lab work and IV antibiotics. She states that she has been having increased nasal drainage and some facial fullness and occasionally gags on the posterior nasal drip. She denies any discolored or fall tasting drainage. She denies any headache or blurred vision. She denies any sore throat. She has had the occasional cough but denies much in the way of shortness of breath or production of sputum. She has had no nausea or vomiting. She denies any abdominal pain or diarrhea. She has had urinary frequency, urgency and dysuria. She saw her primary care provider today and was concerned about the possibility of an infection, she is admittedly nervous given a relatively recent left knee surgery. She had been told that if she gets any kind of infection in the setting of this surgery that she would be in trouble. She had a subjective fever a day or 2 ago but nothing measurable. She had night sweats last night as well. She was prescribed Bactrim by her PCP and took 1st dose earlier today MD Complaint: fever and nasal congestion Onset (ago): hour(s) Duration: constant Severity: moderate Relieving factors: nothing Able to tolerate fluids by mouth: Yes Associated symptoms: fever, chills, diaphoresis, rhinorrhea, nasal congestion and dysuria Related Data Home Medications Medication Instructions Recorded Confirmed cholecalciferol (vitamin D3) 2,000 iu PO DAILY #0 06/21/13 05/01/21 [Vitamin D3] cyanocobalamin (vitamin B-12) 1,000 mcg PO DAILY #0 06/21/13 05/01/21 [Vitamin B-12] Calcium Tablet 1 tab PO DAILY 09/11/19 05/01/21 Pepcid AC 1 tab PO DAILY 09/11/19 05/01/21 PreserVision AREDS-2 1 cap PO BID 09/11/19 05/01/21 Women's Multivitamin 1 tab PO DAILY 09/11/19 05/01/21 Previous Rx's Medication Instructions Recorded oxyquinoline 0.025 %-sodium lauryl 0.5 each VAG .q week #2 tube 11/06/19 sulfate 0.01 % vaginal gel clobetasol 0.05 % topical cream 1 applictn TOP BID 14 Days #180 04/07/20 gram furosemide 40 mg tablet 40 mg PO QAM #30 tab 04/26/20 DISABLED [place] #1 each 09/06/20 denosumab 60 mg/mL subcutaneous 60 mg SUBCUT [id number] #1 ml 09/06/20 syringe simvastatin 40 mg tablet 40 mg PO BEDTIME #90 tab 11/23/20 metoprolol tartrate 25 mg tablet 25 mg PO BID #60 tab 01/23/21 estradiol 1 g VAG 2XW #42.5 gram 01/29/21 acetaminophen 650 mg PO TID #60 tab 03/09/21 aspirin 81 mg PO BID #60 tab 03/09/21 ondansetron 4 mg PO Q4HR PRN #20 tab 03/09/21 polyethylene glycol 3350 17 gm PO DAILY PRN #20 ea 03/09/21 lorazepam 2 mg PO TID PRN #30 tab 03/10/21 potassium chloride 20 mEq 20 meq PO DAILY #30 tab 04/17/21 tablet,extended release nitrofurantoin macrocrystal 50 mg 50 mg PO .COMPLEX #30 cap 04/27/21 capsule sulfamethoxazole 800 1 tab PO BID #14 tab 05/01/21 mg-trimethoprim 160 mg tablet Allergies Allergy/AdvReac Type Severity Reaction Status Date / Time hydroxyzine AdvReac Severe Anxiety Verified 05/01/21 18:41 hydromorphone [HYDROMORPHONE] AdvReac Intermediate n/v, Verified 05/01/21 18:41 sweats, vomiting Review of Systems Constitutional Constitutional: Reports body ache(s), Reports chills, Reports fatigue, Reports fever(s), Denies frequent falls, Denies lethargy and Denies weakness Eyes Eyes: Denies change in vision, Denies eye discharge, Denies irritation and Denies loss of vision ENT Ears, Nose, Mouth, and Throat: Denies change in voice, Denies dizziness, Reports nasal congestion, Reports nasal discharge, Denies neck pain, Denies sore throat and Denies throat swelling Cardiovascular Cardiovascular: Denies chest pain, Denies irregular heart rhythm, Denies lightheadedness, Denies palpitations, Denies dyspnea, Denies dyspnea on exertion and Denies orthopnea Respiratory Respiratory: Denies cough, Denies dyspnea, Denies dyspnea on exertion and Denies wheezing Gastrointestinal Gastrointestinal: Denies abdominal pain, Denies change in bowel habits, Denies diarrhea, Denies nausea and Denies vomiting Genitourinary Genitourinary: Reports urinary urgency Genitourinary: Reports difficulty voiding and Reports urinary urgency Musculoskeletal Musculoskeletal: Denies neck pain and Denies numbness Integumentary/Breasts Skin/Breast: Denies pruritus, Denies erythema, Denies rash and Denies wounds Neurologic Neurologic: Denies behavioral changes, Denies confusion, Denies dizziness, Denies frequent falls, Denies loss of vision, Denies numbness and Denies weakness Psychiatric Psychiatric: Denies anxiety, Denies behavioral changes, Denies confusion, Denies depression, Denies homicidal ideation and Denies suicidal ideation Endocrine Endocrine: Reports fatigue, Denies flushing and Denies palpitations Hematologic/Lymphatic Hematologic/Lymphatic: Denies easy bruising Allergic/Immunologic Allergic/Immunologic: Denies urticaria, Denies throat swelling and Denies wheezing Patient History Medical History Abnormal CXR (~2013) Ankle pain (~1976) Cataract (~2013) Chicken pox (~1946) Chronic UTI Diverticular disease (~2013) Fractures Gastric ulcer Hyperlipidemia Lumbar compression fracture Measles (~1946) Mumps (~1947) Osteoporosis (~2013) Pessary maintenance Rubella (~1947) Urinary, incontinence, stress female Vision disorder Surgical History Anesthesia Femoral hernia History of ankle surgery History of kyphoplasty (~2012) History of sinus surgery Status post appendectomy (~1948) Status post cholecystectomy (~1964) Family History Father Osteoporosis High cholesterol Mother Dementia Social History marital status: household members: family Smoking Status: Never smoker alcohol intake: current substance use type: does not use Smoking Status: Never smoker alcohol intake frequency: holidays/special occasions only Substance Use Type: does not use Exam Narrative Exam Narrative: GENERAL: [80] year old patient appears stated age. Well-developed patient, in mild distress. Anxious HEAD: Atraumatic. Normocephalic. EYES: Pupils equal round and reactive. Extraocular motions intact. No scleral icterus. No injection or drainage. ENT: Nose without bleeding, purulent drainage. Throat without erythema, tonsillar hypertrophy or exudate. Airway patent. NECK: Trachea midline. Non tender CARDIOVASCULAR: Regular rate and rhythm without murmurs, gallops, or rubs. RESPIRATORY: Clear to auscultation. Breath sounds equal bilaterally. No wheezes, rales, or rhonchi. GASTROINTESTINAL: Abdomen soft, non-tender, nondistended. EXTREMITIES: No edema or joint tenderness. BACK: Nontender without deformity or crepitance. No flank tenderness. NEURO: AOx3. SKIN: No rash or erythema of visible areas Initial Vital Signs Initial Vital Signs: Vital Signs Temperature 98.3 F 05/01/21 18:36 Pulse Rate 83 05/01/21 18:36 Respiratory Rate 18 05/01/21 18:36 Blood Pressure 176/102 H 05/01/21 18:36 Pulse Oximetry 99 05/01/21 18:36 Course Orders Ordered: ED Orders 05/01/21 21:00 Urinalysis and Microscopic Stat Urine Culture Stat 05/01/21 21:55 XR chest 1V Stat 05/01/21 22:30 COVID19 -Nasal swab/Pre-Proc Stat Complete Blood Count AUTO DIFF Stat Comprehensive Metabolic Panel Stat Lactate (Lactic Acid) Stat 05/01/21 22:48 Blood Culture Stat Discontinued Medications Sodium Chloride (Normal Saline 0.9%) 1,000 mls @ 125 mls/hr IV CONT DORCAS Last Infusion: 05/02/21 00:27 Dose: 0 mls/hr Documented by: Admin: 05/01/21 22:47 Dose: 125 mls/hr Documented by: DIANNA Vital Signs Vital signs: Vital Signs - 8 hr 05/02/21 00:28 Pulse Rate 80 Respiratory Rate 14 Blood Pressure 164/88 H Pulse Oximetry 95 MDM - URI/Sore Throat Lab Data Result diagrams: 05/01/21 22:30 05/01/21 22:30 Labs: Lab Results 05/01/21 05/01/21 05/01/21 Range/Units 21:00 22:30 22:30 WBC 7.2 (4.5-11.0) X10^3/uL RBC 4.04 (4.0-5.2) X10^6/uL Hgb 11.9 L (12.0-16.0) g/dL Hct 35.8 L (36-46) % MCV 88.6 (80-100) fL MCH 29.4 (26-34) PG MCHC 33.2 (30-36) % RDW 14.0 (11.6-14.8) % Plt Count 310 (150-400) X10^3/uL Neut % (Auto) 71.0 (50-75) % Lymph % (Auto) 21.2 L (25-40) % [place] % (Auto) 6.3 (3-14) % Eos % (Auto) 0.8 L (2-4) % Baso % (Auto) 0.7 (0-2) % Neut # (Auto) 5100 (8369-5042) /uL Lymph # (Auto) 1500 (3414-9525) /uL [place] # (Auto) 500 (0-900) /uL Eos # (Auto) 100 (0-450) /uL Baso # (Auto) 0 (0-100) /uL Sodium 137 (137-145) mmol/L Potassium 4.2 (3.4-5.1) mmol/L Chloride 104 (98-107) mmol/L Carbon Dioxide 24 (22-32) mmol/L BUN 17 (7-17) mg/dL Creatinine 0.79 (0.52-1.04) mg/dL Estimated GFR > 60.0 (>60) mL/min BUN/Creatinine Ratio 21.5 (6-22) Glucose 106 (80-110) mg/dL Lactate (0.7-2.1) mmol/L Calcium 9.1 (8.4-10.2) mg/dL Total Bilirubin 0.4 (0.2-1.3) mg/dL AST 24 (14-36) IU/L ALT 11 (<35) IU/L Alkaline Phosphatase 52 (38-126) U/L Total Protein 7.2 (6.3-8.2) g/dL Albumin 4.1 (3.5-5.0) g/dL Globulin 3.1 (1.7-4.1) g/dL Albumin/Globulin Ratio 1.3 (1.0-2.8) Urine Color Yellow Urine Appearance Clear Urine pH 6.5 (4.5-8.0) Ur Specific [place] 1.010 (1.000-1.035) Urine Protein Negative (Negative) Urine Glucose (UA) Negative (Negative) g/dL Urine Ketones Trace H (NEGATIVE) Urine Occult Blood Negative (Negative) Urine Nitrate Negative (Negative) Urine Bilirubin Negative (NEGATIVE) Urine Urobilinogen 0.2 (0.2) E.U./dL Ur Leukocyte Esterase Trace H (NEGATIVE) Urine RBC None seen (0-5/HPF) Urine WBC 0-1/hpf (0-5/HPF) Ur Squamous Epith Cells 1-5 /hpf (0-5/HPF) Urine Bacteria Few (2-10) H (None) Ur Culture Indicated? Specimen cultured SARS-CoV-2 (PCR) (Negative) 05/01/21 05/01/21 Range/Units 22:30 22:30 WBC (4.5-11.0) X10^3/uL RBC (4.0-5.2) X10^6/uL Hgb (12.0-16.0) g/dL Hct (36-46) % MCV (80-100) fL MCH (26-34) PG MCHC (30-36) % RDW (11.6-14.8) % Plt Count (150-400) X10^3/uL Neut % (Auto) (50-75) % Lymph % (Auto) (25-40) % [place] % (Auto) (3-14) % Eos % (Auto) (2-4) % Baso % (Auto) (0-2) % Neut # (Auto) (7283-0366) /uL Lymph # (Auto) (0653-7612) /uL [place] # (Auto) (0-900) /uL Eos # (Auto) (0-450) /uL Baso # (Auto) (0-100) /uL Sodium (137-145) mmol/L Potassium (3.4-5.1) mmol/L Chloride (98-107) mmol/L Carbon Dioxide (22-32) mmol/L BUN (7-17) mg/dL Creatinine (0.52-1.04) mg/dL Estimated GFR (>60) mL/min BUN/Creatinine Ratio (6-22) Glucose (80-110) mg/dL Lactate 1.2 (0.7-2.1) mmol/L Calcium (8.4-10.2) mg/dL Total Bilirubin (0.2-1.3) mg/dL AST (14-36) IU/L ALT (<35) IU/L Alkaline Phosphatase (38-126) U/L Total Protein (6.3-8.2) g/dL Albumin (3.5-5.0) g/dL Globulin (1.7-4.1) g/dL Albumin/Globulin Ratio (1.0-2.8) Urine Color Urine Appearance Urine pH (4.5-8.0) Ur Specific [place] (1.000-1.035) Urine Protein (Negative) Urine Glucose (UA) (Negative) g/dL Urine Ketones (NEGATIVE) Urine Occult Blood (Negative) Urine Nitrate (Negative) Urine Bilirubin (NEGATIVE) Urine Urobilinogen (0.2) E.U./dL Ur Leukocyte Esterase (NEGATIVE) Urine RBC (0-5/HPF) Urine WBC (0-5/HPF) Ur Squamous Epith Cells (0-5/HPF) Urine Bacteria (None) Ur Culture Indicated? SARS-CoV-2 (PCR) Negative (Negative) Imaging Data Chest x-ray: Radiologist's Impression: [address] [id number] ReportSigned Patient: Ryann Tse CMR#: [id number]: 1Acct:[id number]/Sex: 80 / FDate of Service: 05/01/21Loc: EDAccession Number: [id number] Procedure: XR chest 1V Ordering Provider: Lan Martines D.O. PROCEDURE: XR CHEST 1V INDICATIONS: fever, chills, shaking TECHNIQUE: One view of the chest was acquired. COMPARISON: [facility], XR CHEST 1V, 07/01/2020, 19:51. FINDINGS: Surgical changes and devices: None. Lungs and pleura: Lungs are clear. No pleural effusions or pneumothorax. Mediastinum: Tortuous thoracic aorta is seen. Heart size is enlarged. Bones and chest wall: No suspicious bony lesions. Overlying soft tissues appear unremarkable. IMPRESSION: No acute cardiopulmonary pathology. Dictated by: Harjit Gallagher M.D. on 05/01/2021 at 22:14 MDM Narrative Medical decision making narrative: Multiple etiologies for patient's symptoms considered including: [Sepsis versus bacteremia versus pneumonia versus COVID versus other] Patient's symptoms improved over duration of stay with above-stated therapies. Findings and discharge diagnosis discussed with patient/family followed by verbalization of understanding Return precautions discussed with patient/family whom verbalize understanding. Discharge Plan Departure Patient Disposition: Home Clinical Impression: Dysuria Sinusitis Qualifiers: Sinusitis location: unspecified location Chronicity: acute Recurrence: recurrent Qualified Code(s): J01.91 - Acute recurrent sinusitis, unspecified Instructions: DI for Sinusitis Activity Restrictions/Additional Instructions: *You have been diagnosed with [sinusitis and possible UTI. Lab work, x-ray, COVID and physical exam are very reassuring.] *What to do: *Please continue to take your regular medications as directed. [ ] New medication prescriptions sent to your pharmacy: [ ] [ ] New medication written as a paper prescription [x ] No new medications given *Please follow up with your primary care provider in 2-3 days, call for an appointment. Let them know you were seen in the Emergency Department and that we ask that you be seen in follow up. We will electronically transmit a record of today's note if your PCP is in our system *If you do not have a primary care provider please contact the [facility] Resource line at [phone]. They will ask some questions about your medical history and help get you set up with a doctor in the community. *Return to Emergency Department if you should have any new, worsening or concerning symptoms, such as [fever greater than 101 F, shaking chills, worsening pain, persistent vomiting or other bothersome symptoms] Prescriptions: No Action sulfamethoxazole-trimethoprim [Bactrim DS] 800-160 mg tablet 1 tab PO BID Qty: 14 RF: 0 clobetasol 0.05 % cream 1 applictn TOP BID 14 Days Qty: 180 RF: 3 Prolia 60 mg/mL syringe 60 mg SUBCUT [id number] Qty: 1 RF: 0 (DME) DISABLED PARKING PERMIT See Rx Instructions .ROUTE .MEDSUPPLY Qty: 1 RF: 0 metoprolol tartrate 25 mg tablet 25 mg PO BID Qty: 60 RF: 3 cyanocobalamin (vitamin B-12) [Vitamin B-12] 1,000 mcg Tablet 1,000 mcg PO DAILY Qty: 0 RF: 0 cholecalciferol (vitamin D3) [Vitamin D3] 2,000 UNIT capsule 2,000 iu PO DAILY Qty: 0 RF: 0 oxyquinoline-sod.lauryl sulfat 0.025-0.01 % gel 0.5 each VAG .q week Qty: 2 RF: 3 furosemide 40 mg tablet 40 mg PO QAM Qty: 30 RF: 1 simvastatin 40 mg tablet 40 mg PO BEDTIME Qty: 90 RF: 3 estradiol 0.01 % (0.1 mg/gram) cream 1 g VAG 2XW Qty: 42.5 RF: 3 potassium chloride 20 mEq tablet extended release 20 meq PO DAILY Qty: 30 RF: 3 nitrofurantoin macrocrystal 50 mg capsule 50 mg PO .COMPLEX Qty: 30 RF: 1 Women's Multivitamin 18 mg iron-400 mcg-500 mg Tablet 1 tab PO DAILY RF: 0 PreserVision AREDS-2 [id number] [id number]-mo-mg Capsule 1 cap PO BID RF: 0 Calcium Tablet 1 tab PO DAILY RF: 0 Pepcid AC 1 tab PO DAILY RF: 0 acetaminophen 325 mg Tablet 650 mg PO TID Qty: 60 RF: 0 aspirin 81 mg Tablet,Delayed Release (Dr/Ec) 81 mg PO BID Qty: 60 RF: 0 polyethylene glycol 3350 17 gram Powder In Packet 17 gm PO DAILY PRN (Reason: Constipation) Qty: 20 RF: 0 ondansetron 4 mg Tablet,Disintegrating 4 mg PO Q4HR PRN (Reason: Nausea) Qty: 20 RF: 0 lorazepam 2 mg tablet 2 mg PO TID PRN (Reason: anxiety) Qty: 30 RF: 0 Referrals: Rob Adam MD [Primary Care Provider] -
--- NOTE | 2021-05-01 21:55 | DI.RAD.S_ITS ---
PROCEDURE: XR CHEST 1V INDICATIONS: fever, chills, shaking TECHNIQUE: One view of the chest was acquired. COMPARISON: [facility], CR, XR CHEST 1V, 07/01/2020, 19:51. FINDINGS: Surgical changes and devices: None. Lungs and pleura: Lungs are clear. No pleural effusions or pneumothorax. Mediastinum: Tortuous thoracic aorta is seen. Heart size is enlarged. Bones and chest wall: No suspicious bony lesions. Overlying soft tissues appear unremarkable. IMPRESSION: No acute cardiopulmonary pathology. Dictated by: Harjit Gallagher M.D. on 05/01/2021 at 22:14 Approved by: Harjit Gallagher M.D. on 05/01/2021 at 22:14
[2021-05-01] MEDS: SODIUM CHLORIDE 0.9% 1,000 ML 125 ML IV (22:47)
[2021-05-01 22:50] LABS: Add Manual Diff / Slide Review NO; Basophils Absolute Auto 0 /uL (0-100); Basophils Percent Auto 0.7 % (0-2); Eosinophils Absolute Auto 100 /uL (0-450); Eosinophils Percent Auto 0.8 % (2-4); Hematocrit 35.8 % (36-46); Hemoglobin 11.9 g/dL (12.0-16.0); Lymphocytes Absolute Auto 1500 /uL (1100-4500); Lymphocytes Percent Auto 21.2 % (25-40); Mean Corpuscular HGB Conc 33.2 % (30-36); Mean Corpuscular Hemoglobin 29.4 PG (26-34); Mean Corpuscular Volume 88.6 fL (80-100); Monocytes Absolute Auto 500 /uL (0-900); Monocytes Percent Auto 6.3 % (3-14); Neutrophils Absolute Auto 5100 /uL (1500-7000); Platelet Count 310 X10^3/uL (150-400); Red Blood Cell Count 4.04 X10^6/uL (4.0-5.2); White Blood Cell Count 7.2 X10^3/uL (4.5-11.0)
[2021-05-01 22:53] LABS: Appearance Urine UA CLEAR; Bilirubin Urine UA NEGATIVE (NEGATIVE); Color Urine UA YELLOW; Glucose Urine UA NEGATIVE (Negative); Ketones Urine UA TRACE (NEGATIVE); Leukocyte Esterase Urine UA TRACE (NEGATIVE); Nitrite Urine UA NEGATIVE (Negative); Occult Blood Urine UA NEGATIVE (Negative); Protein Urine UA NEGATIVE (Negative); RBC Urine None Seen (0-5/HPF); Urobilinogen Urine UA 0.2 E.U./dL (0.2)
[2021-05-01 22:54] LABS: Lactate (Lactic Acid) 1.2 mmol/L (0.7-2.1)
[2021-05-01 22:55] LABS: Alanine Aminotransferase 11 IU/L (<35); Albumin 4.1 g/dL (3.5-5.0); Albumin Globulin Ratio 1.3 (1.0-2.8); Alkaline Phosphatase 52 U/L (38-126); Aspartate Aminotransferase 24 IU/L (14-36); BUN Creatinine Ratio 21.5 (6-22); Bilirubin Total 0.4 mg/dL (0.2-1.3); Blood Urea Nitrogen 17 mg/dL (7-17); Calcium 9.1 mg/dL (8.4-10.2); Carbon Dioxide 24 mmol/L (22-32); Chloride 104 mmol/L (98-107); Estimated Glomerular Filt Rate > 60.0 mL/min (>60); Globulin 3.1 g/dL (1.7-4.1); Glucose 106 mg/dL (80-110); HEMOLYSIS < 15 (0-50); Potassium 4.2 mmol/L (3.4-5.1); Sodium 137 mmol/L (137-145); Total Protein 7.2 g/dL (6.3-8.2)
[2021-05-01 22:58] LABS: pH Urine UA 6.5 (4.5-8.0)
[2021-05-01 23:15] LABS: Bacteria Urine Few (2-10); Culture Indicated Urine Specimen Cultured; Squamous Epithelial Cell Urine 1-5 /HPF (0-5/HPF); WBC Urine 0-1/HPF (0-5/HPF)
[2021-05-01 23:35] LABS: COVID19 -Nasal RAPID Negative (Negative)
[2021-05-02 00:28] VITALS: BP 164/88; PULSE 80; RESP 14; O2SAT 95
== END 2021-05-02 00:29 | disposition home or self-care (01) ==
PROVIDERS: Emergency Provider Emergency Medicine; Family Provider Family Medicine; PCP Family Medicine
DX: J01.91 Acute recurrent sinusitis, unspecified (principal); R30.0 Dysuria; R50.9 Fever, unspecified; Z20.822 Contact with and (suspected) exposure to COVID-19
CPT/HCPCS: 36415; 71045; 80053; 81001; 83605; 85025; 87040; 87077; 87086; 87186; 87635; 96360; 96361; 99284; C9803

== ENCOUNTER → 2021-06-30 14:02 | Outpatient (ROUT) | payer OTHER, SELFPAY ==
[2021-03-08 15:26] VITALS: BMI 30.9
[2021-07-04 13:46] LABS: Varicella Zoster PCR Negative (Negative)
== END ==
PROVIDERS: Family Provider Family Medicine; PCP Family Medicine; Visit Provider Nurse Practitioner
DX: R21 Rash and other nonspecific skin eruption (principal)
CPT/HCPCS: 87798

== ENCOUNTER → 2021-08-07 16:50 | Outpatient (CLI) | payer OTHER, SELFPAY ==
[2021-03-08 15:26] VITALS: BMI 30.9
[2021-08-07 17:50] LABS: Appearance Urine UA CLEAR; Bilirubin Urine UA NEGATIVE (NEGATIVE); Color Urine UA YELLOW; Glucose Urine UA NEGATIVE (Negative); Ketones Urine UA NEGATIVE (NEGATIVE); Leukocyte Esterase Urine UA TRACE (NEGATIVE); Nitrite Urine UA NEGATIVE (Negative); Occult Blood Urine UA NEGATIVE (Negative); Protein Urine UA NEGATIVE (Negative); Urobilinogen Urine UA 0.2 E.U./dL (0.2)
[2021-08-07 18:02] LABS: Bacteria Urine Many (>30); Culture Indicated Urine Specimen Cultured; RBC Urine 0-1/HPF (0-5/HPF); Squamous Epithelial Cell Urine 1-5 /HPF (0-5/HPF); WBC Urine 1-5/HPF (0-5/HPF)
== END ==
PROVIDERS: Family Provider Family Medicine; PCP Family Medicine; Referring Provider Family Medicine; Visit Provider Family Medicine
DX: N39.0 Urinary tract infection, site not specified (principal)
CPT/HCPCS: 81001; 87077; 87086; 87186

== ENCOUNTER → 2021-08-16 15:58 | Outpatient (CLI) | payer OTHER, SELFPAY ==
[2021-03-08 15:26] VITALS: BMI 30.9
[2021-08-16 17:22] LABS: Appearance Urine UA CLEAR; Bilirubin Urine UA NEGATIVE (NEGATIVE); Color Urine UA YELLOW; Glucose Urine UA NEGATIVE (Negative); Ketones Urine UA NEGATIVE (NEGATIVE); Leukocyte Esterase Urine UA NEGATIVE (NEGATIVE); Nitrite Urine UA NEGATIVE (Negative); Occult Blood Urine UA NEGATIVE (Negative); Protein Urine UA NEGATIVE (Negative); Urobilinogen Urine UA 0.2 E.U./dL (0.2)
[2021-08-16 17:29] LABS: pH Urine UA 5.5 (4.5-8.0)
== END ==
PROVIDERS: Family Provider Family Medicine; PCP Family Medicine; Referring Provider Family Medicine; Visit Provider Family Medicine
DX: N39.0 Urinary tract infection, site not specified (principal)
CPT/HCPCS: 81003

== ENCOUNTER → 2021-10-16 09:54 | Outpatient (CLI) | payer OTHER, SELFPAY ==
[2021-03-08 15:26] VITALS: BMI 30.9
--- NOTE | 2021-10-16 | DI.MG.S_ITS ---
BILATERAL DIGITAL SCREENING MAMMOGRAM 3D/2D WITH CAD: 10/16/2021 CLINICAL: Routine screening. Comparison is made to exams dated: 10/31/2018 mammogram, 01/31/2015 mammogram, 01/21/2015 mammogram - [facility], and 02/16/2013 mammogram - [facility]. The tissue of both breasts is predominantly fatty. Current study was also evaluated with a Computer Aided Detection (CAD) system. There are benign vascular calcifications in both breasts. No significant masses, calcifications, or other findings are seen in either breast. There has been no significant interval change. IMPRESSION: BENIGN There is no mammographic evidence of malignancy. A 1 year screening mammogram is recommended. This exam was interpreted at Station ID: [id number]. NOTE: For mammograms, a report in lay terms will be sent to the patient. Approximately 15% of breast malignancies will not be visualized mammographically. In the management of a palpable breast mass, a negative mammogram must not discourage biopsy of a clinically suspicious lesion. Electronically Signed By: Dougie chun/[email or web address]:10/16/2021 12:16:18 letter sent: Normal Exam ACR BI-RADS Category 2: Benign Finding(s) [id number]
== END ==
PROVIDERS: Family Provider Family Medicine; PCP Family Medicine; Referring Provider Family Medicine; Visit Provider Family Medicine
DX: Z12.31 Encounter for screening mammogram for malignant neoplasm of breast (principal)
CPT/HCPCS: 77063; 77067

== ENCOUNTER → 2022-02-21 09:27 | Outpatient (CLI) | payer OTHER, SELFPAY ==
[2021-03-08 15:26] VITALS: BMI 30.9
== END ==
PROVIDERS: Family Provider Family Medicine; PCP Family Medicine; Visit Provider Physician Assistant
DX: N39.0 Urinary tract infection, site not specified (principal)
CPT/HCPCS: 87077; 87086; 87186

== ENCOUNTER → 2022-06-13 08:42 | Outpatient (CLI) | payer OTHER, SELFPAY ==
[2021-03-08 15:26] VITALS: BMI 30.9
== END ==
PROVIDERS: Family Provider Family Medicine; PCP Family Medicine; Visit Provider Nurse Practitioner Family
DX: N39.0 Urinary tract infection, site not specified (principal)
CPT/HCPCS: 87077; 87086; 87186

== ENCOUNTER → 2022-08-28 12:38 | Outpatient (CLI) | payer OTHER, SELFPAY ==
[2021-03-08 15:26] VITALS: BMI 30.9
[2022-08-28 13:46] LABS: Add Manual Diff / Slide Review NO; Basophils Absolute Auto 0 /uL (0-100); Basophils Percent Auto 0.5 % (0-2); Eosinophils Absolute Auto 100 /uL (0-450); Eosinophils Percent Auto 2.9 % (2-4); Hematocrit 40.4 % (36-46); Hemoglobin 13.4 g/dL (12.0-16.0); Lymphocytes Absolute Auto 1500 /uL (1100-4500); Lymphocytes Percent Auto 29.9 % (25-40); Mean Corpuscular HGB Conc 33.2 % (30-36); Mean Corpuscular Hemoglobin 29.4 PG (26-34); Mean Corpuscular Volume 88.6 fL (80-100); Monocytes Absolute Auto 500 /uL (0-900); Neutrophils Absolute Auto 2900 /uL (1500-7000); Neutrophils Percent Auto 57.7 % (50-75); Platelet Count 234 X10^3/uL (150-400); Red Blood Cell Count 4.56 X10^6/uL (4.0-5.2); Red Cell Distribution Width 13.6 % (11.6-14.8); White Blood Cell Count 5.1 X10^3/uL (4.5-11.0)
[2022-08-28 14:12] LABS: Alanine Aminotransferase 10 IU/L (<35); Albumin 4.1 g/dL (3.5-5.0); Albumin Globulin Ratio 1.2 (1.0-2.8); Alkaline Phosphatase 46 U/L (38-126); Aspartate Aminotransferase 25 IU/L (14-36); BUN Creatinine Ratio 15.6 (6-22); Bilirubin Total 0.5 mg/dL (0.2-1.3); Blood Urea Nitrogen 14 mg/dL (7-17); Calcium 9.8 mg/dL (8.4-10.2); Carbon Dioxide 31 mmol/L (22-32); Chloride 100 mmol/L (98-107); Cholesterol 157 mg/dL (140-199); Estimated Glomerular Filt Rate > 60 mL/min (>60); Globulin 3.3 g/dL (1.7-4.1); Glucose 95 mg/dL (80-110); HDL Cholesterol 47 mg/dL (40-60); HEMOLYSIS < 15 (0-50); LDL Cholesterol Calculated 76 mg/dL (<100); Potassium 4.4 mmol/L (3.4-5.1); Sodium 140 mmol/L (137-145); Total Protein 7.4 g/dL (6.3-8.2); Triglycerides 168 mg/dL (35-150)
== END ==
PROVIDERS: Family Provider Family Medicine; PCP Family Medicine; Referring Provider Family Medicine; Visit Provider Family Medicine
DX: I10 Essential (primary) hypertension (principal); E78.2 Mixed hyperlipidemia
CPT/HCPCS: 36415; 80053; 80061; 84443; 85025

== ENCOUNTER → 2022-09-03 10:12 | Outpatient (CLI) | payer OTHER, SELFPAY ==
[2021-03-08 15:26] VITALS: BMI 30.9
[2022-09-03 13:46] LABS: Appearance Urine UA CLEAR; Bilirubin Urine UA NEGATIVE (NEGATIVE); Color Urine UA ORANGE; Glucose Urine UA NEGATIVE (Negative); Ketones Urine UA TRACE (NEGATIVE); Leukocyte Esterase Urine UA 2+ (NEGATIVE); Nitrite Urine UA POSITIVE (Negative); Occult Blood Urine UA NEGATIVE (Negative); Protein Urine UA TRACE (Negative); Urobilinogen Urine UA 0.2 E.U./dL (0.2)
[2022-09-03 13:49] LABS: RBC Urine None Seen (0-5/HPF)
[2022-09-03 13:50] LABS: Bacteria Urine Many (>30); Culture Indicated Urine Specimen Cultured; Squamous Epithelial Cell Urine 10-30 /HPF (0-5/HPF); WBC Urine 30-100/HPF (0-5/HPF)
== END ==
PROVIDERS: Family Provider Family Medicine; PCP Family Medicine; Visit Provider Family Medicine
DX: N39.0 Urinary tract infection, site not specified (principal); R30.0 Dysuria
CPT/HCPCS: 81001; 87077; 87086; 87186

== ENCOUNTER 2022-11-05 11:05 | Emergency (ER) | payer OTHER, SELFPAY ==
[2021-03-08 15:26] VITALS: BMI 30.9
[2022-11-05 11:31] VITALS: BP 170/79; PULSE 80; RESP 18; TEMP 36.4; O2SAT 99; BMI 31.7
[2022-11-05 12:49] LABS: Amorphous Sediment Urine 1+; Bacteria Urine Many (>30); Culture Indicated Urine Specimen Cultured; Mucus Urine 1+ (Negative); RBC Urine 0-1/HPF (0-5/HPF); Squamous Epithelial Cell Urine 1-5 /HPF (0-5/HPF); WBC Urine 5-10/HPF (0-5/HPF)
[2022-11-05 12:55] VITALS: BP 153/74; PULSE 67; O2SAT 96
[2022-11-05 13:06] LABS: COVID-19 CEPHEID 4-PLEX PCR Negative (Negative); Influenza A - CEPHEID Flu A NEGATIVE (NEGATIVE); Influenza B - CEPHEID Flu B NEGATIVE (NEGATIVE); Respiratory Syncytial Virus Negative (Negative)
--- NOTE | 2022-11-05 13:10 | ED_ITS ---
HPI - Female Genitourinary <Michael Lamb PA-C - Last Filed: 11/05/22 13:43> General Chief complaint: Urogenital-Female Stated complaint: UTI Time Seen by Provider: 11/05/22 13:07 History of Present Illness HPI Narrative: 82-year-old female with vaginal prolapse, frequent UTIs, essential hypertension presents to the ED with 3 days of malaise, chills, urinary frequency, urinary incontinence. Patient unsure if she had a fever. Patient denies cough, rhinorrhea, chest pain, shortness of breath, flank pain, abdominal pain, dysuria, lightheadedness, dizziness, syncope. Patient states that she uses a pessary for the vaginal prolapse, has been using it for about 3 years now, states that she has been having more frequent UTIs since starting the pessary use. Patient is currently not seeing Urology, however sees her student admissions clerk and PCP. She was advised against surgical correction of the prolapse, given her age. Patient also uses estrogen cream for atrophic vaginitis. Related Data Home Medications Medication Instructions Recorded Confirmed cyanocobalamin (vitamin B-12) 1,000 mcg PO DAILY ##0 06/21/13 09/03/22 1,000 mcg tablet (Vitamin B-12) Calcium Tablet 1 tab PO DAILY 09/11/19 09/03/22 vit C 250 mg-vit E 90 mg-zinc 40 1 cap PO BID 09/11/19 09/03/22 mg-copper 1 [id number] capsule (PreserVision AREDS-2) Previous Rx's Medication Instructions Recorded clobetasol 0.05 % topical cream 1 applictn topical BID 2 weeks 04/07/20 #180 grams DISABLED PARKING PERMIT #1 ea 09/06/20 denosumab 60 mg/mL subcutaneous 60 mg SUBCUT [id number] #1 mL 09/06/20 syringe (Prolia) acetaminophen 325 mg tablet 650 mg PO TID #60 tabs 03/09/21 polyethylene glycol 3350 17 gram 17 gm PO DAILY PRN Constipation 03/09/21 oral powder packet #20 ea estradiol 0.01% (0.1 mg/gram) 1 g vaginal 3XW postmenopausal 07/25/22 vaginal cream atrophy #42.5 grams oxyquinoline 0.025 %-sodium lauryl See Rx Instructions .Route 07/26/22 sulfate 0.01 % vaginal gel .COMPLEX #113.4 grams (Trimo-Mujica Jelly) nitrofurantoin macrocrystal 50 mg See Rx Instructions .Route 08/21/22 capsule .COMPLEX #90 caps cephalexin 750 mg capsule 750 mg PO TID #15 caps 09/03/22 furosemide 40 mg tablet 40 mg PO QAM PRN edema #30 tabs 09/03/22 metoprolol tartrate 25 mg tablet 25 mg PO BID #180 tabs 09/03/22 potassium chloride 20 mEq See Rx Instructions .Route 09/03/22 tablet,extended release .COMPLEX PRN edema and muscle cramps #30 tabs simvastatin 40 mg tablet See Rx Instructions .Route 09/03/22 .COMPLEX #90 tabs nirmatrelvir 300 mg (150 mg See Rx Instructions PO .COMPLEX 10/01/22 x2)-ritonavir 100 mg tablet,dose #30 ea pack(EUA) (Paxlovid) amoxicillin 875 mg tablet 875 mg PO BID #14 tabs 10/11/22 cefpodoxime 200 mg tablet 200 mg PO BID 14 days #28 tabs 11/05/22 ondansetron 4 mg disintegrating 4 mg PO Q8H PRN nausea and 11/05/22 tablet vomiting #14 tabs Allergies Allergy/AdvReac Type Severity Reaction Status Date / Time hydroxyzine AdvReac Severe Anxiety Verified 09/03/22 09:36 hydromorphone [HYDROMORPHONE] AdvReac Intermediate n/v, Verified 09/03/22 09:36 sweats, vomiting Review of Systems <Michael Lamb PA-C - Last Filed: 11/05/22 13:43> Review of Systems ROS Unobtainable: All systems reviewed & are unremarkable except as noted in HPI and below Constitutional Constitutional: Reports chills, Reports fatigue, Denies fever(s), Denies frequent falls, Reports lethargy and Denies weakness Eyes Eyes: Denies change in vision, Denies eye discharge, Denies irritation and Denies loss of vision ENT Ears, Nose, Mouth, and Throat: Denies change in voice, Denies dizziness, Denies neck pain, Denies sore throat and Denies throat swelling Cardiovascular Cardiovascular: Denies chest pain, Denies irregular heart rhythm, Denies lightheadedness, Denies palpitations, Denies dyspnea, Denies dyspnea on exertion and Denies orthopnea Respiratory Respiratory: Denies cough, Denies dyspnea, Denies dyspnea on exertion and Denies wheezing Gastrointestinal Gastrointestinal: Denies abdominal pain, Denies change in bowel habits, Denies diarrhea, Denies nausea and Denies vomiting Genitourinary Genitourinary: Denies hematuria, Denies dysuria, Denies flank pain, Reports urinary incontinence and Reports urinary urgency Musculoskeletal Musculoskeletal: Denies back pain, Denies muscle weakness, Denies neck pain, Denies numbness and Denies tingling Integumentary/Breasts Skin/Breast: Denies pruritus, Denies erythema, Denies rash and Denies wounds Neurologic Neurologic: Denies behavioral changes, Denies confusion, Denies dizziness, Denies frequent falls, Denies loss of vision, Denies numbness, Denies tingling and Denies weakness Psychiatric Psychiatric: Denies anxiety, Denies behavioral changes, Denies confusion, Denies depression, Denies homicidal ideation and Denies suicidal ideation Endocrine Endocrine: Reports fatigue, Denies flushing and Denies palpitations Hematologic/Lymphatic Hematologic/Lymphatic: Denies easy bruising Allergic/Immunologic Allergic/Immunologic: Denies urticaria, Denies throat swelling and Denies wheezing Patient History <Michael Lamb PA-C - Last Filed: 11/05/22 13:43> Medical History Abnormal CXR (~2013) Ankle pain (~1976) Cataract (~2013) Chicken pox (~1946) Chronic UTI Diverticular disease (~2013) Fractures Gastric ulcer Hyperlipidemia Lumbar compression fracture Measles (~1946) Mumps (~1947) Osteoporosis (~2013) Pessary maintenance Rubella (~1947) Urinary, incontinence, stress female Vision disorder Surgical History Anesthesia Femoral hernia History of ankle surgery History of kyphoplasty (~2012) History of sinus surgery Status post appendectomy (~1948) Status post cholecystectomy (~1964) Family History Father Osteoporosis High cholesterol Mother Dementia alcohol intake frequency: holidays/special occasions only Substance Use Type: does not use Exam <Michael Lamb PA-C - Last Filed: 11/05/22 13:43> Narrative Exam Narrative: Const General:?cooperative, healthy appearing and comfortable HENVT Head:?normal to inspection Ears:?hearing grossly normal bilaterally Nose:?external nose normal Face and sinus:?normal facial exam and sinuses nontender Mouth:?oral mucosae normal Throat:?posterior oropharynx normal Eyes General:?appearance normal, both eyes and all related structures Neck Neck:?normal visual inspection and no lymphadenopathy noted Resp Effort & Inspection:?normal respiratory effort Auscultation:?clear to auscultation bilaterally Cardio Rate:?regular rate Rhythm:?regular rhythm GI Abdomen is soft, nondistended, nontender to palpation. No CVA tenderness. Neuro General:?patient alert, patient awake and patient oriented x3 Initial Vital Signs Initial Vital Signs: Vital Signs Temperature 97.5 F L 11/05/22 11:31 Pulse Rate 80 11/05/22 11:31 Respiratory Rate 18 11/05/22 11:31 Blood Pressure 170/79 H 11/05/22 11:31 Pulse Oximetry 99 11/05/22 11:31 Oxygen Delivery Method 11/05/22 11:31 <Minnie Vegas DO - Last Filed: 11/07/22 07:17> Initial Vital Signs Initial Vital Signs: Vital Signs Temperature 97.5 F L 11/05/22 11:31 Pulse Rate 80 11/05/22 11:31 Respiratory Rate 18 11/05/22 11:31 Blood Pressure 170/79 H 11/05/22 11:31 Pulse Oximetry 99 11/05/22 11:31 Oxygen Delivery Method 11/05/22 11:31 Course <Michael Lamb PA-C - Last Filed: 11/05/22 13:43> Orders Ordered: ED Orders 11/05/22 11:42 Covid-19 + FLU A/B + RSV - PCR Stat 11/05/22 11:56 Urine Culture Stat Urine Microscopic Stat Vital Signs Vital signs: Vital Signs - 8 hr 11/05/22 11:31 11/05/22 12:55 Temperature 97.5 F L Pulse Rate 80 67 Respiratory Rate 18 Blood Pressure 170/79 H 153/74 H Pulse Oximetry 99 96 Oxygen Delivery Method Room Air Room Air <DO Mey Ennis Last Filed: 11/07/22 07:17> Orders Ordered: ED Orders 11/05/22 11:42 Covid-19 + FLU A/B + RSV - PCR Stat 11/05/22 11:56 Urine Culture Stat Urine Microscopic Stat Vital Signs Vital signs: Vital Signs - 8 hr 11/05/22 11:31 11/05/22 12:55 Temperature 97.5 F L Pulse Rate 80 67 Respiratory Rate 18 Blood Pressure 170/79 H 153/74 H Pulse Oximetry 99 96 Oxygen Delivery Method Room Air Room Air MDM - Female Genitourinary <Michael Lamb PA-C - Last Filed: 11/05/22 13:43> Lab Data Labs: Lab Results 11/05/22 11/05/22 Range/Units 11:42 11:56 Urine RBC 0-1/hpf (0-5/HPF) Urine WBC 5-10/hpf H (0-5/HPF) Ur Squamous Epith Cells 1-5 /hpf D (0-5/HPF) Amorphous Sediment 1+ Urine Bacteria Many (>30) H (None) Urine Mucus 1+ H (Negative) Ur Culture Indicated? Specimen cultured SARS-CoV-2 (PCR) Negative (Negative) Influenza A (RT-PCR) Flu a negative (NEGATIVE) Influenza B (RT-PCR) Flu b negative (NEGATIVE) RSV (PCR) Negative (Negative) Urine Dip Bedside Urine Glucose Negative Bedside Urine Bilirubin - Negative Bedside Urine Ketone +/- 5 Urine Specific [place] 1.015 Bedside Urine Occult Blood +/- Bedside Urine pH 6.0 Bedside Urine Protein +/- 15 Bedside Urine Urobilinogen - Negative Bedside Urine Nitrite + Positive Bedside Urine Leukocytes + 70 Esterase MDM Narrative Medical decision making narrative: 82-year-old female with vaginal prolapse, frequent UTIs, essential hypertension presents to the ED with 3 days of malaise, chills, urinary frequency, urinary incontinence. Concern for UTI versus pyelonephritis versus sepsis versus other. Will obtain UA, COVID/influenza swab. Patient was negative for COVID, influenza. UA was positive for UTI. Urine has been sent for culture. Patient is being started on antibiotics, Zofran. ED return precautions were discussed with patient. Patient verbalized understanding. Patient also agrees to follow- up with her PCP, urologist, student admissions clerk to revisit the frequent UTIs. <Minnie Vegas DO - Last Filed: 11/07/22 07:17> Lab Data Labs: Lab Results 11/05/22 11/05/22 Range/Units 11:42 11:56 Urine RBC 0-1/hpf (0-5/HPF) Urine WBC 5-10/hpf H (0-5/HPF) Ur Squamous Epith Cells 1-5 /hpf D (0-5/HPF) Amorphous Sediment 1+ Urine Bacteria Many (>30) H (None) Urine Mucus 1+ H (Negative) Ur Culture Indicated? Specimen cultured SARS-CoV-2 (PCR) Negative (Negative) Influenza A (RT-PCR) Flu a negative (NEGATIVE) Influenza B (RT-PCR) Flu b negative (NEGATIVE) RSV (PCR) Negative (Negative) Urine Dip Bedside Urine Glucose Negative Bedside Urine Bilirubin - Negative Bedside Urine Ketone +/- 5 Urine Specific [place] 1.015 Bedside Urine Occult Blood +/- Bedside Urine pH 6.0 Bedside Urine Protein +/- 15 Bedside Urine Urobilinogen - Negative Bedside Urine Nitrite + Positive Bedside Urine Leukocytes + 70 Esterase Discharge Plan Departure Patient Disposition: Home Clinical Impression: Acute UTI Instructions: DI for Urinary Tract Infection (UTI) Activity Restrictions/Additional Instructions: You were evaluated in the ED today for urinary urgency, urinary incontinence, malaise. Your urine tested positive for a UTI, and you are being started on an antibiotic. You are also being prescribed Zofran for nausea. You may continue to take Tylenol or ibuprofen for pain. Your symptoms should improve over the next 2-3 days as the antibiotics kick in. Please return to the ED or follow-up with your PCP if symptoms are not improving, you experience fever, chills, persistent vomiting, flank pain. Prescriptions: New cefpodoxime 200 mg tablet 200 mg PO BID 14 Days Qty: 28 0RF Rx Instructions: must administer with a meal/food ondansetron 4 mg tablet,disintegrating 4 mg PO Q8H PRN (Reason: nausea and vomiting) Qty: 14 0RF No Action clobetasol 0.05 % cream 1 applictn TOP BID 14 Days Qty: 180 3RF Prolia 60 mg/mL syringe 60 mg SUBCUT [id number] Qty: 1 0RF (DME) DISABLED PARKING PERMIT See Rx Instructions .ROUTE .MEDSUPPLY Qty: 1 0RF Rx Instructions: I find this patient to be medically disabled and qualified for disabled parking as indicated, and signed, on the accompanying Disabled Parking Application for Individuals. cephalexin 750 mg capsule 750 mg PO TID Qty: 15 0RF furosemide 40 mg tablet 40 mg PO QAM PRN (Reason: edema) Qty: 30 1RF potassium chloride 20 mEq tablet extended release See Rx Instructions .ROUTE .COMPLEX PRN (Reason: edema and muscle cramps) Qty: 30 3RF Dose Instruction: take 1 tablet by mouth once daily Rx Instructions: take 1 tablet by mouth once daily PRN; simvastatin 40 mg tablet See Rx Instructions .ROUTE .COMPLEX Qty: 90 3RF Dose Instruction: take 1 tablet by mouth at bedtime Rx Instructions: take 1 tablet by mouth at bedtime metoprolol tartrate 25 mg tablet 25 mg PO BID Qty: 180 3RF cyanocobalamin (vitamin B-12) [Vitamin B-12] 1,000 mcg Tablet 1,000 mcg PO DAILY Qty: 0 Trimo-Mujica Jelly 0.025-0.01 % gel See Rx Instructions .ROUTE .COMPLEX Qty: 113.4 3RF Dose Instruction: INSERT 0.5 GRAM VAGINALLY ONCE A WEEK Rx Instructions: INSERT 0.5 GRAM VAGINALLY ONCE A WEEK nitrofurantoin macrocrystal 50 mg capsule See Rx Instructions .ROUTE .COMPLEX Qty: 90 1RF Dose Instruction: take 1 CAPSULE by mouth at bedtime with food Rx Instructions: take 1 CAPSULE by mouth at bedtime with food Paxlovid (EUA) 300 mg (150 mg x 2)-100 mg tablets,dose pack See Rx Instructions PO .COMPLEX Qty: 30 0RF Rx Instructions: take TWO 150 mg tablets of nirmatrelvir with ONE 100 mg tablet of ritonavir twice daily for 5 days PO amoxicillin 875 mg tablet 875 mg PO BID Qty: 14 0RF estradiol 0.01 % (0.1 mg/gram) cream 1 g VAG 3XW Qty: 42.5 12RF PreserVision AREDS-2 [id number] yr-hbls-[id number]-mg Capsule 1 cap PO BID Calcium Tablet 1 tab PO DAILY acetaminophen 325 mg Tablet 650 mg PO TID Qty: 60 0RF polyethylene glycol 3350 17 gram Powder In Packet 17 gm PO DAILY PRN (Reason: Constipation) Qty: 20 0RF Referrals: Rob Adam MD [Primary Care Provider] - Visit Report Forms: Patient Portal/API <Minnie Botnick, DO - Last Filed: 11/07/22 07:17> Cosign ED Attending Cosignature Attestation: I was immediately available in the department for consultation. Documentation has been reviewed. I agree with assessment and plan.
== END 2022-11-05 13:30 | disposition home or self-care (01) ==
PROVIDERS: Emergency Medicine; Emergency Provider Student in an Organized Health Care Education/Training Program; Family Provider Family Medicine; PCP Family Medicine
DX: N39.0 Urinary tract infection, site not specified (principal); Z20.822 Contact with and (suspected) exposure to COVID-19
CPT/HCPCS: 0241U; 81003; 81015; 87077; 87086; 87186; 99282

== ENCOUNTER → 2022-11-22 10:38 | Outpatient (CLI) | payer OTHER, SELFPAY ==
[2021-03-08 15:26] VITALS: BMI 30.9
== END ==
PROVIDERS: Family Provider Family Medicine; PCP Family Medicine; Visit Provider Obstetrics & Gynecology
DX: N39.0 Urinary tract infection, site not specified (principal)
CPT/HCPCS: 87086

== ENCOUNTER → 2023-02-04 10:19 | Outpatient (CLI) | payer OTHER, SELFPAY ==
[2021-03-08 15:26] VITALS: BMI 30.9
--- NOTE | 2023-02-04 10:20 | DI.RAD.S_ITS ---
PROCEDURE: XR CERVICAL SPINE 2V OR 3V INDICATIONS: Cervical pain with radiculopathy TECHNIQUE: 3 view(s) of the cervical spine were acquired. COMPARISON: None. FINDINGS: Bones: No fractures or dislocations to the T1 level. The lateral masses of C1 appear intact on the odontoid view. No suspicious bony lesions. There is reversal normal cervical lordosis associated with disc space narrowing and facet arthropathy in the mid cervical spine. Grade 1 anterior spondylolisthesis present C3-4. Generalized decreased osseous mineralization present. Craniovertebral relationships normal. Soft tissues: No prevertebral soft tissue swelling. IMPRESSION: Degenerative disc disease and arthropathy results in reversal the normal cervical lordosis Approved by: Mark Cuevas M.D. on 02/04/2023 at 16:49
== END ==
PROVIDERS: Family Provider Family Medicine; PCP Family Medicine; Referring Provider Family Medicine; Visit Provider Family Medicine
DX: M50.30 Other cervical disc degeneration, unspecified cervical region (principal); M54.12 Radiculopathy, cervical region; M40.50 Lordosis, unspecified, site unspecified; M43.12 Spondylolisthesis, cervical region
CPT/HCPCS: 72040

== ENCOUNTER → 2023-02-07 09:45 | Outpatient (CLI) | payer OTHER, SELFPAY ==
[2021-03-08 15:26] VITALS: BMI 30.9
--- NOTE | 2023-02-07 09:47 | DI.RAD.S_ITS ---
PROCEDURE: XR SHOULDER RT MIN 2V INDICATIONS: Right shoulder pain TECHNIQUE: 3 views of the shoulder were acquired. COMPARISON: [facility], , SHOULDER MINIMUM 2VIEW RIGHT, 11/29/2009, 10:08. FINDINGS: No acute fracture or dislocation identified. Degenerative changes of the glenohumeral joint are present. There appears to be cephalad migration/subluxation of the humeral head. AC joint degenerative changes also likely present. IMPRESSION: 1. No acute fracture identified. 2. Degenerative changes of the glenohumeral and likely the acromioclavicular joints. 3. Cephalad subluxation of the humeral head, a finding that can be seen in the setting of chronic rotator cuff pathology. If symptoms persist, follow-up radiographs and/or CT or MRI may be helpful for further evaluation. Dictated by: Darwin Berry M.D. on 02/07/2023 at 17:16 Approved by: Darwin Berry M.D. on 02/07/2023 at 17:18
== END ==
PROVIDERS: Family Provider Family Medicine; PCP Family Medicine; Referring Provider Anesthesiology; Visit Provider Anesthesiology
DX: S43.021A Posterior subluxation of right humerus, initial encounter; M25.511 Pain in right shoulder; M54.2 Cervicalgia; M54.12 Radiculopathy, cervical region; R27.0 Ataxia, unspecified; G89.29 Other chronic pain
CPT/HCPCS: 73030; 99214

== ENCOUNTER → 2023-02-11 11:46 | Outpatient (CLI) | payer OTHER, SELFPAY ==
[2021-03-08 15:26] VITALS: BMI 30.9
== END ==
PROVIDERS: Family Provider Family Medicine; PCP Family Medicine; Visit Provider Physician Assistant
DX: N39.0 Urinary tract infection, site not specified (principal)
CPT/HCPCS: 87077; 87086; 87186

== ENCOUNTER 2023-02-15 12:13 | Emergency (ER) | payer OTHER, SELFPAY ==
[2021-03-08 15:26] VITALS: BMI 30.9
[2023-02-15] VITALS (17 sets, daily range): BP systolic 131–185; BP diastolic 78–103; PULSE 66–88; RESP 16–26; TEMP 36.4; O2SAT 92–96
--- NOTE | 2023-02-15 12:59 | DI.RAD.S_ITS ---
PROCEDURE: XR CHEST 1V INDICATIONS: Flu like symptoms TECHNIQUE: One view of the chest was acquired. COMPARISON: [facility], CR, XR CHEST 1V, 05/01/2021, 21:59. FINDINGS: Surgical changes and devices: None. Lungs and pleura: An incomplete inspiratory result is noted, causing a crowded appearance to the lung markings. No focal infiltrates are seen. No pneumothorax or significant pleural effusions are seen. Mediastinum: The cardiac contours are within normal limits. The aorta demonstrates calcification and tortuosity. Bones and chest wall: No suspicious bony lesions. Age-appropriate bony degenerative changes are seen. Overlying soft tissues appear unremarkable. IMPRESSION: Low lung volumes, without focal infiltrates. If clinically appropriate, a short-term followup chest series (with PA and lateral views) performed in deep inspiration is suggested for further evaluation. Dictated by: Taqueria Wen M.D. on 02/15/2023 at 12:13 Approved by: Taqueria Wen M.D. on 02/15/2023 at 12:14
--- NOTE | 2023-02-15 13:02 | ED.SOB ---
HPI - SOB/Dyspnea General Chief Complaint: Shortness of Breath/Dyspnea Stated Complaint: SOB Time Seen by Provider: 02/15/23 12:53 Source: patient Mode of arrival: Ambulatory History of Present Illness HPI Narrative: This is a 82-year-old female with history of hypertension, dyslipidemia, recurrent UTI with a complaint of dyspnea which she describes as air hunger episodes. She states been going on for about 3 weeks it has been intermittent for short periods but becoming more frequent, she states last night she went to lay flat and felt very short of breath which was new, she took a 0.5 of Xanax and then at about 4:00 a.m. took another 0.5 of Xanax was able to sleep. When she woke up she still felt short of breath. Patient states she notes it does seem to be worse when she exerts herself. She states she would to stop and take a break while she was in the grocery store yesterday. Patient denies any lightheadedness or passing out. No diaphoresis. She did have some nausea with episode yesterday. No swelling in her extremities she states that is actually been much better lately. She denies any chest pain or pressure, she does note she is had some right shoulder pain that has been persistent but does not seem to be linked to the ear hunger episodes. She states ibuprofen made it improved from 10 to 02/18. Patient states she did have a cardiac evaluation about 2 years ago prior to having her knee replacement. Patient states she is on metoprolol b.i.d., simvastatin, calcium, PreserVision AREDs, vaginal estrogen, and was on methenamine but this was stopped as it cause a lot of GI upset. She is had most recently a knee surgery 2 years ago, she is had 3 ankle surgeries, tonsillectomy, appendectomy, cholecystectomy, hernia repair, she is had compression fractures 1st was in her 20s and then following were in 2013 became unstable and required kyphoplasty and back surgery. She states they are all between T12 and L4. Dr. Adam is her primary care physician. Related Data Home Medications Medication Instructions Recorded Confirmed cyanocobalamin (vitamin B-12) 1,000 mcg PO DAILY ##0 06/21/13 02/07/23 1,000 mcg tablet (Vitamin B-12) Calcium Tablet 1 tab PO DAILY 09/11/19 02/07/23 vit C 250 mg-vit E 90 mg-zinc 40 1 cap PO BID 09/11/19 02/07/23 mg-copper 1 [id number] capsule (PreserVision AREDS-2) aflibercept 2 mg/0.05 mL mg intravitreal 11/23/22 02/07/23 intravitreal solution for injection (Eylea) Previous Rx's Medication Instructions Recorded clobetasol 0.05 % topical cream 1 applictn topical BID 2 weeks 04/07/20 #180 grams DISABLED PARKING PERMIT #1 ea 09/06/20 denosumab 60 mg/mL subcutaneous 60 mg SUBCUT [id number] #1 mL 09/06/20 syringe (Prolia) acetaminophen 325 mg tablet 650 mg PO TID #60 tabs 03/09/21 estradiol 0.01% (0.1 mg/gram) 1 g vaginal 3XW postmenopausal 07/25/22 vaginal cream atrophy #42.5 grams oxyquinoline 0.025 %-sodium lauryl See Rx Instructions .Route 07/26/22 sulfate 0.01 % vaginal gel .COMPLEX #113.4 grams (Trimo-Mujica Jelly) furosemide 40 mg tablet 40 mg PO QAM PRN edema #30 tabs 09/03/22 metoprolol tartrate 25 mg tablet 25 mg PO BID #180 tabs 09/03/22 potassium chloride 20 mEq See Rx Instructions .Route 09/03/22 tablet,extended release .COMPLEX PRN edema and muscle cramps #30 tabs simvastatin 40 mg tablet See Rx Instructions .Route 09/03/22 .COMPLEX #90 tabs ondansetron 4 mg disintegrating 4 mg PO Q8H PRN nausea and 11/05/22 tablet vomiting #14 tabs methenamine hippurate 1 gram tablet 1 g PO BID #60 tabs 11/22/22 dexamethasone 4 mg tablet 4 mg PO TID #6 tabs 02/04/23 gabapentin 100 mg capsule 100 mg PO TID #90 caps 02/07/23 sulfamethoxazole 800 1 tab PO Q12H #14 tabs 02/11/23 mg-trimethoprim 160 mg tablet (Bactrim DS) nitrofurantoin 100 mg PO Q12H 5 days #10 caps 02/13/23 monohydrate/macrocrystals 100 mg capsule (Macrobid) Allergies Allergy/AdvReac Type Severity Reaction Status Date / Time hydroxyzine AdvReac Severe Anxiety Verified 02/07/23 08:37 hydromorphone [HYDROMORPHONE] AdvReac Intermediate n/v, Verified 02/07/23 08:37 sweats, vomiting Review of Systems Review of Systems ROS Unobtainable: All systems reviewed & are unremarkable except as noted in HPI and below Patient History Medical History Abnormal CT scan, chest Abnormal CXR (~2013) Ankle pain (~1976) Ataxia Cataract (~2013) Chicken pox (~1946) Chronic UTI Diverticular disease (~2013) Fractures Gastric ulcer Hyperlipidemia Infected sebaceous cyst of skin Lumbar compression fracture Measles (~1946) Mumps (~1947) Osteoporosis (~2013) Pessary maintenance Preoperative evaluation to rule out surgical contraindication Rash Rubella (~1947) Shoulder pain Urinary, incontinence, stress female Vision disorder Surgical History Anesthesia Femoral hernia History of ankle surgery History of kyphoplasty (~2012) History of sinus surgery Status post appendectomy (~1948) Status post cholecystectomy (~1964) Family History Father Osteoporosis High cholesterol Mother Dementia Social History marital status: household members: family Smoking Status: Never smoker alcohol intake: current substance use type: does not use Smoking Status: Never smoker alcohol intake frequency: holidays/special occasions only Substance Use Type: does not use Exam Narrative Exam Narrative: GENERAL: Alert and oriented x three, elderly female in mild distress. Patient had just ambulated back from the bathroom HEENT: Head normocephalic, atraumatic, EOMI, pupils reactive, face symmetric, moist mucous membranes NECK: Supple, full range of motion CARDIOVASCULAR: Regular rate and rhythm without murmurs, rubs or gallops. No JVD. No swelling bilateral lower extremities. RESPIRATORY: Breath sounds equal bilaterally, no wheezes, no rhonchi. Mild crackles left lung base. No tachypnea or accessory muscle use. patient's speaks in full sentences ABDOMEN: Soft, nontender. Normoactive bowel sounds all 4 quadrants. No guarding or rebound, rigidity, no mass : No CVA tenderness EXTREMITIES: Normal range of motion, no clubbing or edema. Neurovascularly intact NEUROLOGICAL: Cranial nerves II through XII grossly intact. Moving all extremities SKIN: Warm, dry, no petechiae, no rashes or lesions. Initial Vital Signs Initial Vital Signs: Vital Signs Temperature 97.6 F 02/15/23 12:27 Pulse Rate 71 02/15/23 12:27 Respiratory Rate 16 02/15/23 12:27 Blood Pressure 150/99 H 02/15/23 12:27 Pulse Oximetry 96 02/15/23 12:27 Oxygen Delivery Method Room Air 02/15/23 12:27 Course Orders Ordered: ED Orders 02/15/23 12:50 Complete Blood Count AUTO DIFF Stat Comprehensive Metabolic Panel Stat D Dimer Stat NT-proBNP (BNP-Adult 18+) Stat Troponin I Stat 02/15/23 12:56 EKG-12 Lead Stat 02/15/23 12:59 XR chest 1V Stat 02/15/23 13:32 Urinalysis and Microscopic Stat 02/15/23 13:44 EC echo doppler complete Stat 02/15/23 14:05 COVID19 -Nasal RAPID Stat 02/15/23 15:00 Trop I [Troponin I] Stat Discontinued Medications Ibuprofen (Ibuprofen 400 Mg Tablet) 400 mg PO NOW ONE Stop: 02/15/23 15:58 Last Admin: 02/15/23 16:11 Dose: 400 mg Documented By: MERI Vital Signs Vital signs: Vital Signs - 8 hr 02/15/23 12:27 02/15/23 12:56 02/15/23 13:00 Temperature 97.6 F Pulse Rate 71 66 72 Respiratory Rate 16 22 Blood Pressure 150/99 H Pulse Oximetry 96 95 94 Oxygen Delivery Method Room Air Room Air 02/15/23 13:04 02/15/23 13:06 02/15/23 13:06 Temperature Pulse Rate 67 Respiratory Rate 26 H Blood Pressure 185/103 H 178/97 H Pulse Oximetry 96 Oxygen Delivery Method 02/15/23 13:42 02/15/23 13:43 02/15/23 13:43 Temperature Pulse Rate 70 67 Respiratory Rate 24 17 Blood Pressure 141/84 H Pulse Oximetry 95 96 Oxygen Delivery Method 02/15/23 14:00 02/15/23 14:00 02/15/23 14:30 Temperature Pulse Rate 67 Respiratory Rate 16 Blood Pressure 131/82 138/78 Pulse Oximetry 95 Oxygen Delivery Method Room Air 02/15/23 14:30 02/15/23 15:00 02/15/23 15:01 Temperature Pulse Rate 71 71 Respiratory Rate 21 Blood Pressure 156/93 H Pulse Oximetry 96 94 Oxygen Delivery Method 02/15/23 15:01 02/15/23 15:30 02/15/23 16:00 Temperature Pulse Rate 68 67 88 Respiratory Rate 26 H 24 22 Blood Pressure Pulse Oximetry 96 94 95 Oxygen Delivery Method 02/15/23 16:30 02/15/23 17:00 02/15/23 17:06 Temperature Pulse Rate 73 77 80 Respiratory Rate 24 20 20 Blood Pressure Pulse Oximetry 94 94 92 Oxygen Delivery Method Room Air 02/15/23 17:07 Temperature Pulse Rate Respiratory Rate Blood Pressure 131/80 Pulse Oximetry Oxygen Delivery Method MDM - SOB/Dyspnea Lab Data 02/15/23 12:50 02/15/23 12:50 Labs: Lab Results 02/15/23 02/15/23 02/15/23 Range/Units 12:50 12:50 12:50 WBC 6.5 (4.5-11.0) X10^3/uL RBC 4.86 (4.0-5.2) X10^6/uL Hgb 14.1 (12.0-16.0) g/dL Hct 42.5 (36-46) % MCV 87.5 (80-100) fL MCH 29.1 (26-34) PG MCHC 33.3 (30-36) % RDW 14.1 (11.6-14.8) % Plt Count 265 (150-400) X10^3/uL Neut % (Auto) 66.0 (50-75) % Lymph % (Auto) 20.6 L (25-40) % [place] % (Auto) 9.9 (3-14) % Eos % (Auto) 2.8 (2-4) % Baso % (Auto) 0.7 (0-2) % Neut # (Auto) 4300 (3291-0471) /uL Lymph # (Auto) 1300 (5491-4562) /uL [place] # (Auto) 600 (0-900) /uL Eos # (Auto) 200 (0-450) /uL Baso # (Auto) 0 (0-100) /uL D-Dimer 423 (<500) ng/ml Sodium 137 (137-145) mmol/L Potassium 4.7 (3.4-5.1) mmol/L Chloride 102 (98-107) mmol/L Carbon Dioxide 29 (22-32) mmol/L BUN 15 (7-17) mg/dL Creatinine 0.83 (0.52-1.04) mg/dL Estimated GFR > 60 (>60) mL/min BUN/Creatinine Ratio 18.1 (6-22) Glucose 104 (80-110) mg/dL Calcium 9.0 (8.4-10.2) mg/dL Total Bilirubin 0.5 (0.2-1.3) mg/dL AST 23 (14-36) IU/L ALT 14 (<35) IU/L Alkaline Phosphatase 45 (38-126) U/L Troponin I < 0.012 (0.01-0.034) ng/mL NT-Pro-B Natriuret Pep 313 (<450) pg/mL Total Protein 7.3 (6.3-8.2) g/dL Albumin 4.0 (3.5-5.0) g/dL Globulin 3.3 (1.7-4.1) g/dL Albumin/Globulin Ratio 1.2 (1.0-2.8) Urine Color Urine Appearance Urine pH (4.5-8.0) Ur Specific Constable (1.000-1.035) Urine Protein (Negative) Urine Glucose (UA) (Negative) g/dL Urine Ketones (NEGATIVE) Urine Occult Blood (Negative) Urine Nitrate (Negative) Urine Bilirubin (NEGATIVE) Urine Urobilinogen (0.2) E.U./dL Ur Leukocyte Esterase (NEGATIVE) Urine RBC (0-5/HPF) Urine WBC (0-5/HPF) Ur Squamous Epith Cells (0-5/HPF) Urine Bacteria (None) Ur Culture Indicated? SARS-CoV-2 (PCR) (Negative) 02/15/23 02/15/23 02/15/23 Range/Units 13:32 14:05 15:00 WBC (4.5-11.0) X10^3/uL RBC (4.0-5.2) X10^6/uL Hgb (12.0-16.0) g/dL Hct (36-46) % MCV (80-100) fL MCH (26-34) PG MCHC (30-36) % RDW (11.6-14.8) % Plt Count (150-400) X10^3/uL Neut % (Auto) (50-75) % Lymph % (Auto) (25-40) % [place] % (Auto) (3-14) % Eos % (Auto) (2-4) % Baso % (Auto) (0-2) % Neut # (Auto) (2755-2434) /uL Lymph # (Auto) (0303-9624) /uL [place] # (Auto) (0-900) /uL Eos # (Auto) (0-450) /uL Baso # (Auto) (0-100) /uL D-Dimer (<500) ng/ml Sodium (137-145) mmol/L Potassium (3.4-5.1) mmol/L Chloride (98-107) mmol/L Carbon Dioxide (22-32) mmol/L BUN (7-17) mg/dL Creatinine (0.52-1.04) mg/dL Estimated GFR (>60) mL/min BUN/Creatinine Ratio (6-22) Glucose (80-110) mg/dL Calcium (8.4-10.2) mg/dL Total Bilirubin (0.2-1.3) mg/dL AST (14-36) IU/L ALT (<35) IU/L Alkaline Phosphatase (38-126) U/L Troponin I < 0.012 (0.01-0.034) ng/mL NT-Pro-B Natriuret Pep (<450) pg/mL Total Protein (6.3-8.2) g/dL Albumin (3.5-5.0) g/dL Globulin (1.7-4.1) g/dL Albumin/Globulin Ratio (1.0-2.8) Urine Color Yellow Urine Appearance Clear Urine pH 6.0 (4.5-8.0) Ur Specific [place] 1.010 (1.000-1.035) Urine Protein Negative (Negative) Urine Glucose (UA) Negative (Negative) g/dL Urine Ketones Negative (NEGATIVE) Urine Occult Blood Negative (Negative) Urine Nitrate Negative (Negative) Urine Bilirubin Negative (NEGATIVE) Urine Urobilinogen 0.2 (0.2) E.U./dL Ur Leukocyte Esterase Negative (NEGATIVE) Urine RBC 1-5/hpf (0-5/HPF) Urine WBC 1-5/hpf (0-5/HPF) Ur Squamous Epith Cells 5-10 /hpf H (0-5/HPF) Urine Bacteria Few (2-10) H (None) Ur Culture Indicated? Cult not indicated SARS-CoV-2 (PCR) Negative (Negative) Imaging Data Chest x-ray: Radiologist's Impression: [address] [address] XRay Report Signed Patient: Ryann Tse MR#: [id number] : 1940 Acct:[id number] Age/Sex: 82 / F Date of Service: 02/15/23 Loc: ED Accession Number: [id number] ?? Procedure: XR chest 1V Ordering Provider: Lewis Slaughter D.O. PROCEDURE:? XR CHEST 1V ? INDICATIONS:? Flu like symptoms ? TECHNIQUE:? One view of the chest was acquired.? ? COMPARISON:? [facility], CR, XR CHEST 1V, 05/01/2021, 21:59. ? FINDINGS:? ? Surgical changes and devices:? None.? ? Lungs and pleura:? An incomplete inspiratory result is noted, causing a crowded appearance to the lung markings.? No focal infiltrates are seen.? No pneumothorax or significant pleural effusions are seen. ? ? Mediastinum:? The cardiac contours are within normal limits. The aorta demonstrates calcification and tortuosity. ? Bones and chest wall:? No suspicious bony lesions.? Age-appropriate bony degenerative changes are seen.? Overlying soft tissues appear unremarkable.? IMPRESSION:? Low lung volumes, without focal infiltrates. ? If clinically appropriate, a short-term followup chest series (with PA and lateral views) performed in deep inspiration is suggested for further evaluation.? Dictated by: Taqueria Wen M.D. on 02/15/2023 at 12:13 ? ? Approved by: Taqueria Wen M.D. on 02/15/2023 at 12:14? ECHO: Radiologist's Impression: Ryann Tse?(Fatoumata)??82??F??1940 ? Allergy/Adv: hydroxyzine, hydromorphone (More??) Close Echocardiogram Ultrasound (Signed) RuyAllen - 02/15/23 Chest X-Ray (Signed) Taqueria Wen - 02/15/23 Shoulder X-Ray (Signed) Darwin Berry - 02/07/23 Cervical Spine X-Ray (Signed) Mark Cuevas - 02/04/23 Mammogram Screening (Signed) Dougie Reddy - 10/16/21 Chest X-Ray (Signed) Harjit Gallagher - 05/01/21 Knee X-Ray (Signed) Neno Arana - 03/08/21 Radiology Report (Cancelled) Sudeep Lamb - 02/08/21 Myocardial Perfusion Scan Nuc Med (Signed) Sudeep Lamb - 02/08/21 Renal Ultrasound (Signed) Taqueria Wen - 11/17/[address] (Signed) Ned Panda - 10/11/20 DEXA Result 08/31/20 Bone Densitometry 08/31/20 Chest CTA (Signed) Rodger Awad - 07/01/20 Chest X-Ray (Signed) Rodger Awad - 07/01/20 Renal Ultrasound (Signed) Ned Panda - 05/23/[address] (Signed) Amador Mcclain - 05/02/20 Abdomen/Pelvis CT (Signed) Anand Brush - 09/25/19 Abdomen/Pelvis CT (Signed) Winifred Abraham - 09/11/19 Chest X-Ray (Signed) Neno Arana - 09/11/19 EKG Rpt. 08/10/19 Orbits/Face/Neck MRI (Signed) Ned Panda - 05/12/[address] (Signed) Wilson Lombardo - 04/30/19 Mammogram Screening (Signed) Maribell Kapoor - 10/31/18 Launch?[address] [address] Echocardiography Report Signed Patient: Ryann Tse MR#: [id number] : 1940 Acct:[id number] Age/Sex: 82 / F Date of Service: 02/15/23 Loc: ED Accession Number: [id number] ?? Procedure: EC echo doppler complete Ordering Provider: Lewis Slaughter D.O. ? [facility] +[facility]+ : ? :? [address] ? : ? : : ? :? [place] ? : ? : : ? :? [address] ? : ? : : ? : ? Phone: [phone] : ? : [phone]? [phone]? +---------+ ? Echocardiogram Report + + :Name: RYANN TSE ? ? ? Study Date: 02/15/2023 ? Height: 64 in? : :[facility] ? ? ReadingLocation: ? Weight: 185 lb : : ? Gender: Female ? BSA: 1.9 m2? ? : :: 1940? Age: 82 yrs? BP: 150/99 mmHg: :Reason For Study: SHORTNESS OF BREATH ? HR: 70 ? : :Ordering Physician: SUKHJINDER,? : :LEWIS ? Performed By: TAMEKA DWYER? : :Referring: LEWIS SLAUGHTER? : + + Interpretation Summary The ejection fraction is estimated to be 60-65%. The aortic valve is slightly calcified. There is trace aortic regurgitation. There is mild tricuspid regurgitation. Right ventricular systolic pressure is estimated to be 30 mmHg plus right atrial pressure. ? Procedure: ? A two-dimensional transthoracic echocardiogram with color flow and Doppler was performed. The study quality was technically difficult. There is no prior echocardiogram noted for this patient. The patient was in normal sinus rhythm during the exam. Left Ventricle: ? The left ventricle is normal in size. Proximal septal thickening is noted. Left ventricular systolic function is normal. The ejection fraction is estimated to be 60-65%. Left ventricular wall motion is normal. Right Ventricle: ? The right ventricle is normal in size and function. Atria: ? Both atria are normal in size. There is no Doppler evidence for an interatrial shunt. Mitral Valve: ? There is mild mitral annular calcification. There is trace mitral regurgitation. Aortic Valve: ? The aortic valve is slightly calcified. There is no aortic valve stenosis. There is trace aortic regurgitation. Tricuspid Valve: ? The tricuspid valve is normal. There is mild tricuspid regurgitation. Right ventricular systolic pressure is estimated to be 30 mmHg plus right atrial pressure. Pulmonic Valve: ? The pulmonic valve is normal in structure and function. There is mild pulmonic regurgitation. Great Vessels: ? The aortic root is normal size. The ascending aorta is mildly enlarged. The inferior vena cava was not visualized. Pericardium/ Pleura ? There is no pericardial effusion. There is no pleural effusion. ? MMode/2D Measurements & Calculations LVIDd: 4.0 cm ? LVOT diam: 2.1 cm LVIDs: 2.6 cm ? Ao root diam: 3.3 cm FS: 36.2 %? asc Aorta Diam: 3.8 cm IVSd: 1.00 cm LVPWd: 0.75 cm LV pineda. diameter/BSA (cm/m^2): 2.1 LV sys. diameter/BSA (cm/m^2): 1.4 ? LA A2 area: 14.3 cm2? RA long axis: 5.5 cm LA A4 area: 17.3 cm2? RA area: 19.3 cm2 LA length (vol): 4.3 cm ? RA vol: 57.2 ml LA vol: 48.6 ml ? RA : 30.2 ml/m2 LA vol index: 25.7 ml/m2 ? TAPSE: 1.8 cm ? Doppler Measurements & Calculations Ao V2 max: 134.1 cm/sec ? LVOT Max Julio: 105.4 cm/sec Ao V2 mean: 89.6 cm/sec ? LV V1 max P.4 mmHg Ao max P.2 mmHg ? LV V1 VTI: 25.3 cm Ao mean P.6 mmHg? MEMO(I,D): 2.8 cm2 Ao V2 VTI: 30.0 cm? MEMO(V,D): 2.6 cm2 ? sev ratio: 0.84 ? MEMO indexed to BSA (cm^2/m^2): 1.5 ? MV E max julio: 59.2 cm/sec ? TR max julio: 271.8 cm/sec MV A max julio: 92.8 cm/sec ? TR max P.5 mmHg MV E/A: 0.64? PA V2 max: 73.5 cm/sec Med Peak E' Julio: 4.6 cm/sec ? ? ? PA V2 mean: 50.5 cm/sec E/E' med: 12.9? PA mean P.1 mmHg Lat Peak E' Julio: 8.3 cm/sec ? ? ? PA pr(Accel): 44.7 mmHg E/E' lat: 7.1 E/e' average: 10.0 MV dec time: 0.32 sec ? SV(LVOT): 84.5 ml ? Reading Physician:04:44 PM ECG Data Attestation: I personally reviewed and interpreted this ECG as follows: Prior ECG tracings: available for review Interpretation: Sinus rhythm rate of 64 OH 160 QRS 82 QTC of 406. No acute ST elevation patient has inverted T-wave in 3 AVF, V1 V2, patient has prior from 01/20/2021 shows V2 appears new but other ST segments appear same with no new elevation. [facility] Narrative Medical decision making narrative: This is an 82-year-old female with complaint of intermittent dyspnea that is becoming more frequent with no clear factors but sounds like exacerbation sometimes worsened and some orthopnea starting last night. She has some mild crackles in the left base not appreciated on the right. She does not appear fluid overloaded from her lower extremities. Patient's lab workup shows an appropriate CBC, CMP with negative troponin, BNP is 313, chest x-ray is negative, D-dimer is negative Repeat troponin EKG at the 2 hour clarence, no acute change. COVID swab is negative. Was able to obtain echo, no focal wall motion abnormalities EF of 60-65% with some mild calcification of valves but no significant aortic or valvular change. No pericardial effusion. No focal wall motion abnormalities. No clear source for the patient's symptoms have been found today. Patient has ambulated to the bathroom without issue. She is not been having persistent in the department. Discussed cardiac arbs but can not get stress testing until Saturday. Patient prefers to return home. Spoke with Dr. Adam patient's primary care physician, patient will not be able to get a stress test here through the weekend they are unavailable patient is felt appropriate for discharge home but would benefit from short-term follow-up. Dr. Adam will work to facilitate follow-up with plan for strict return precautions for patient. Discussed with patient to continue aspirin 81 mg daily along with her regular medications until seen by her physician. Discharge Plan Departure Patient Disposition: Home Clinical Impression: Shortness of breath Instructions: DI for Shortness of Breath Activity Restrictions/Additional Instructions: Follow-up with Dr. Adam, I spoke with him he will work to to have you seen shortly this upcoming week and possibly have stress testing. Please taken aspirin 81 mg daily until you follow up with Dr. Adam. Continue your other home medications as prescribed. Please return for new or worsening symptoms, increasing chest pain, shortness of breath, lightheadedness, passing out, new swelling in your extremities or other new or concerning changes. Prescriptions: No Action sulfamethoxazole-trimethoprim [Bactrim DS] 800-160 mg tablet 1 tab PO Q12H Qty: 14 0RF Rx Instructions: Do not take with methananine hippurate clobetasol 0.05 % cream 1 applictn TOP BID 14 Days Qty: 180 3RF Prolia 60 mg/mL syringe 60 mg SUBCUT [id number] Qty: 1 0RF (DME) DISABLED PARKING PERMIT See Rx Instructions .ROUTE .MEDSUPPLY Qty: 1 0RF Rx Instructions: I find this patient to be medically disabled and qualified for disabled parking as indicated, and signed, on the accompanying Disabled Parking Application for Individuals. furosemide 40 mg tablet 40 mg PO QAM PRN (Reason: edema) Qty: 30 1RF potassium chloride 20 mEq tablet extended release See Rx Instructions .ROUTE .COMPLEX PRN (Reason: edema and muscle cramps) Qty: 30 3RF Dose Instruction: take 1 tablet by mouth once daily Rx Instructions: take 1 tablet by mouth once daily PRN; simvastatin 40 mg tablet See Rx Instructions .ROUTE .COMPLEX Qty: 90 3RF Dose Instruction: take 1 tablet by mouth at bedtime Rx Instructions: take 1 tablet by mouth at bedtime metoprolol tartrate 25 mg tablet 25 mg PO BID Qty: 180 3RF dexamethasone 4 mg tablet 4 mg PO TID Qty: 6 0RF cyanocobalamin (vitamin B-12) [Vitamin B-12] 1,000 mcg Tablet 1,000 mcg PO DAILY Qty: 0 Trimo-Mujica Jelly 0.025-0.01 % gel See Rx Instructions .ROUTE .COMPLEX Qty: 113.4 3RF Dose Instruction: INSERT 0.5 GRAM VAGINALLY ONCE A WEEK Rx Instructions: INSERT 0.5 GRAM VAGINALLY ONCE A WEEK Eylea 2 mg/0.05 mL solution intravitreal nitrofurantoin monohyd/m-cryst [Macrobid] 100 mg capsule 100 mg PO Q12H 5 Days Qty: 10 0RF Rx Instructions: must administer with a meal/food estradiol 0.01 % (0.1 mg/gram) cream 1 g VAG 3XW Qty: 42.5 12RF methenamine hippurate 1 gram tablet 1 g PO BID Qty: 60 12RF PreserVision AREDS-2 [id number] Capsule 1 cap PO BID Calcium Tablet 1 tab PO DAILY acetaminophen 325 mg Tablet 650 mg PO TID Qty: 60 0RF ondansetron 4 mg tablet,disintegrating 4 mg PO Q8H PRN (Reason: nausea and vomiting) Qty: 14 0RF gabapentin 100 mg capsule 100 mg PO TID Qty: 90 2RF Rx Instructions: Take one pill nightly for 3 days If tolerated, take one pill twice daily for 3 days If tolerated, take one pill three times daily Referrals: Rob Adam MD [Primary Care Provider] - Stand Alone Forms: Patient Portal/API
[2023-02-15 13:09] LABS: Add Manual Diff / Slide Review NO; Basophils Absolute Auto 0 /uL (0-100); Basophils Percent Auto 0.7 % (0-2); Eosinophils Absolute Auto 200 /uL (0-450); Eosinophils Percent Auto 2.8 % (2-4); Hematocrit 42.5 % (36-46); Hemoglobin 14.1 g/dL (12.0-16.0); Lymphocytes Absolute Auto 1300 /uL (1100-4500); Lymphocytes Percent Auto 20.6 % (25-40); Mean Corpuscular HGB Conc 33.3 % (30-36); Mean Corpuscular Hemoglobin 29.1 PG (26-34); Mean Corpuscular Volume 87.5 fL (80-100); Monocytes Absolute Auto 600 /uL (0-900); Monocytes Percent Auto 9.9 % (3-14); Neutrophils Absolute Auto 4300 /uL (1500-7000); Platelet Count 265 X10^3/uL (150-400); Red Blood Cell Count 4.86 X10^6/uL (4.0-5.2); Red Cell Distribution Width 14.1 % (11.6-14.8); White Blood Cell Count 6.5 X10^3/uL (4.5-11.0)
[2023-02-15 13:10] LABS: Alanine Aminotransferase 14 IU/L (<35); Albumin Globulin Ratio 1.2 (1.0-2.8); Alkaline Phosphatase 45 U/L (38-126); Aspartate Aminotransferase 23 IU/L (14-36); BUN Creatinine Ratio 18.1 (6-22); Bilirubin Total 0.5 mg/dL (0.2-1.3); Blood Urea Nitrogen 15 mg/dL (7-17); Carbon Dioxide 29 mmol/L (22-32); Chloride 102 mmol/L (98-107); Estimated Glomerular Filt Rate > 60 mL/min (>60); Globulin 3.3 g/dL (1.7-4.1); Glucose 104 mg/dL (80-110); HEMOLYSIS 17 (0-50); Potassium 4.7 mmol/L (3.4-5.1); Sodium 137 mmol/L (137-145); Total Protein 7.3 g/dL (6.3-8.2)
[2023-02-15 13:22] LABS: NT-proBNP (BNP-Adult 18+) 313 pg/mL (<450); Troponin I < 0.012 ng/mL (0.01-0.034)
--- NOTE | 2023-02-15 13:44 | DI.ECHO.S_ITS ---
[facility]---------+ [facility] +---------+ : : [address] : : : : [id number] : : : : Phone: [phone]+ Echocardiogram Report + + :Name: MIKAELA LEONARDO Study Date: 02/15/2023 Height: 64 in : :[facility] ReadingLocation: Weight: 185 lb : : Gender: Female BSA: 1.9 m2 : :: 1940 Age: 82 yrs BP: 150/99 mmHg: :Reason For Study: SHORTNESS OF BREATH HR: 70 : :Ordering Physician: SUKHJINEDR, : :LEWIS Performed By: TAMEKA DWYER : :Referring: LEWIS SLAUGHTER : + + Interpretation Summary The ejection fraction is estimated to be 60-65%. The aortic valve is slightly calcified. There is trace aortic regurgitation. There is mild tricuspid regurgitation. Right ventricular systolic pressure is estimated to be 30 mmHg plus right atrial pressure. Procedure: A two-dimensional transthoracic echocardiogram with color flow and Doppler was performed. The study quality was technically difficult. There is no prior echocardiogram noted for this patient. The patient was in normal sinus rhythm during the exam. Left Ventricle: The left ventricle is normal in size. Proximal septal thickening is noted. Left ventricular systolic function is normal. The ejection fraction is estimated to be 60-65%. Left ventricular wall motion is normal. Right Ventricle: The right ventricle is normal in size and function. Atria: Both atria are normal in size. There is no Doppler evidence for an interatrial shunt. Mitral Valve: There is mild mitral annular calcification. There is trace mitral regurgitation. Aortic Valve: The aortic valve is slightly calcified. There is no aortic valve stenosis. There is trace aortic regurgitation. Tricuspid Valve: The tricuspid valve is normal. There is mild tricuspid regurgitation. Right ventricular systolic pressure is estimated to be 30 mmHg plus right atrial pressure. Pulmonic Valve: The pulmonic valve is normal in structure and function. There is mild pulmonic regurgitation. Great Vessels: The aortic root is normal size. The ascending aorta is mildly enlarged. The inferior vena cava was not visualized. Pericardium/ Pleura There is no pericardial effusion. There is no pleural effusion. MMode/2D Measurements & Calculations LVIDd: 4.0 cm LVOT diam: 2.1 cm LVIDs: 2.6 cm Ao root diam: 3.3 cm FS: 36.2 % asc Aorta Diam: 3.8 cm IVSd: 1.00 cm LVPWd: 0.75 cm LV pineda. diameter/BSA (cm/m^2): 2.1 LV sys. diameter/BSA (cm/m^2): 1.4 LA A2 area: 14.3 cm2 RA long axis: 5.5 cm LA A4 area: 17.3 cm2 RA area: 19.3 cm2 LA length (vol): 4.3 cm RA vol: 57.2 ml LA vol: 48.6 ml RA : 30.2 ml/m2 LA vol index: 25.7 ml/m2 TAPSE: 1.8 cm Doppler Measurements & Calculations Ao V2 max: 134.1 cm/sec LVOT Max Julio: 105.4 cm/sec Ao V2 mean: 89.6 cm/sec LV V1 max P.4 mmHg Ao max P.2 mmHg LV V1 VTI: 25.3 cm Ao mean P.6 mmHg MEMO(I,D): 2.8 cm2 Ao V2 VTI: 30.0 cm MEMO(V,D): 2.6 cm2 sev ratio: 0.84 MEMO indexed to BSA (cm^2/m^2): 1.5 MV E max julio: 59.2 cm/sec TR max julio: 271.8 cm/sec MV A max julio: 92.8 cm/sec TR max P.5 mmHg MV E/A: 0.64 PA V2 max: 73.5 cm/sec Med Peak E' Julio: 4.6 cm/sec PA V2 mean: 50.5 cm/sec E/E' med: 12.9 PA mean P.1 mmHg Lat Peak E' Julio: 8.3 cm/sec PA pr(Accel): 44.7 mmHg E/E' lat: 7.1 E/e' average: 10.0 MV dec time: 0.32 sec SV(LVOT): 84.5 ml Reading Physician:04:44 PM
[2023-02-15 13:45] LABS: Appearance Urine UA CLEAR; Bilirubin Urine UA NEGATIVE (NEGATIVE); Color Urine UA YELLOW; Glucose Urine UA NEGATIVE (Negative); Ketones Urine UA NEGATIVE (NEGATIVE); Leukocyte Esterase Urine UA NEGATIVE (NEGATIVE); Nitrite Urine UA NEGATIVE (Negative); Occult Blood Urine UA NEGATIVE (Negative); Protein Urine UA NEGATIVE (Negative); Urobilinogen Urine UA 0.2 E.U./dL (0.2)
[2023-02-15 13:50] LABS: D Dimer 423 ng/ml (<500)
[2023-02-15 14:28] LABS: Bacteria Urine Few (2-10); Culture Indicated Urine Cult Not Indicated; RBC Urine 1-5/HPF (0-5/HPF); Squamous Epithelial Cell Urine 5-10 /HPF (0-5/HPF); WBC Urine 1-5/HPF (0-5/HPF)
[2023-02-15 14:41] LABS: COVID19 -Nasal RAPID Negative (Negative)
[2023-02-15 15:34] LABS: Troponin I < 0.012 ng/mL (0.01-0.034)
[2023-02-15] MEDS: IBUPROFEN 400 MG TABLET PO (16:11)
== END 2023-02-15 17:15 | disposition home or self-care (01) ==
PROVIDERS: Emergency Provider Emergency Medicine; Family Provider Family Medicine; PCP Family Medicine
DX: R06.02 Shortness of breath (principal); Z20.822 Contact with and (suspected) exposure to COVID-19
CPT/HCPCS: 36415; 71045; 80053; 81001; 83880; 84484; 85025; 85379; 87635; 93005; 93306; 99284; C9803

== ENCOUNTER 2023-03-07 20:20 | Emergency (ER) | payer OTHER, SELFPAY ==
[2021-03-08 15:26] VITALS: BMI 30.9
--- NOTE | 2023-03-07 20:31 | ED_ITS ---
HPI - Epistaxis General Chief complaint: Nasal Problem Stated complaint: spontaneous nose bleed Time Seen by Provider: 03/07/23 20:31 History of Present Illness HPI Narrative: Patient is a 82-year-old female who presents with acute epistaxis. It started suddenly has been ongoing for the last 40 minutes unable to be controlled. Dripping out both nares but mostly coming from the left. Dripping down her throat as well. Not on antiplatelet or anticoagulation medication. She was able to take her metoprolol for her hypertension prior to arrival Related Data Home Medications Medication Instructions Recorded Confirmed cyanocobalamin (vitamin B-12) 1,000 mcg PO DAILY ##0 06/21/13 02/20/23 1,000 mcg tablet (Vitamin B-12) Calcium Tablet 1 tab PO DAILY 09/11/19 02/20/23 vit C 250 mg-vit E 90 mg-zinc 40 1 cap PO BID 09/11/19 02/20/23 mg-copper 1 [id number] capsule (PreserVision AREDS-2) aflibercept 2 mg/0.05 mL mg intravitreal 11/23/22 02/20/23 intravitreal solution for injection (Eylea) Previous Rx's Medication Instructions Recorded DISABLED PARKING PERMIT #1 ea 09/06/20 denosumab 60 mg/mL subcutaneous 60 mg SUBCUT [id number] #1 mL 09/06/20 syringe (Prolia) acetaminophen 325 mg tablet 650 mg PO TID #60 tabs 03/09/21 estradiol 0.01% (0.1 mg/gram) 1 g vaginal 3XW postmenopausal 07/25/22 vaginal cream atrophy #42.5 grams oxyquinoline 0.025 %-sodium lauryl See Rx Instructions .Route 07/26/22 sulfate 0.01 % vaginal gel .COMPLEX #113.4 grams (Trimo-Mujica Jelly) furosemide 40 mg tablet 40 mg PO QAM PRN edema #30 tabs 09/03/22 metoprolol tartrate 25 mg tablet 25 mg PO BID #180 tabs 09/03/22 potassium chloride 20 mEq See Rx Instructions .Route 09/03/22 tablet,extended release .COMPLEX PRN edema and muscle cramps #30 tabs simvastatin 40 mg tablet See Rx Instructions .Route 09/03/22 .COMPLEX #90 tabs ondansetron 4 mg disintegrating 4 mg PO Q8H PRN nausea and 12/26/22 tablet vomiting #14 tabs dexamethasone 4 mg tablet 4 mg PO TID #6 tabs 02/04/23 gabapentin 100 mg capsule 100 mg PO TID #90 caps 02/07/23 lorazepam 0.5 mg tablet 0.5 mg PO BEDTIME PRN sleep #20 02/20/23 tabs Allergies Allergy/AdvReac Type Severity Reaction Status Date / Time hydroxyzine AdvReac Severe Anxiety Verified 03/07/23 20:41 hydromorphone [HYDROMORPHONE] AdvReac Intermediate n/v, Verified 03/07/23 20:41 sweats, vomiting methenamine AdvReac Intermediate Nausea Verified 03/07/23 20:41 Review of Systems Review of Systems ROS Unobtainable: All systems reviewed & are unremarkable except as noted in HPI and below Patient History Medical History Abnormal CT scan, chest Abnormal CXR (~2013) Ankle pain (~1976) Ataxia Cataract (~2013) Chicken pox (~1946) Chronic UTI Compression fracture of lumbar vertebra (02/19/14) Diverticular disease (~2013) Fractures Gastric ulcer Hyperlipidemia Infected sebaceous cyst of skin Lumbar compression fracture Measles (~1946) Mumps (~1947) Osteoporosis (~2013) Pessary maintenance Preoperative evaluation to rule out surgical contraindication Rash Rotator cuff dysfunction Rubella (~194) Shoulder pain Urinary, incontinence, stress female Vision disorder Surgical History Anesthesia Femoral hernia History of ankle surgery History of kyphoplasty (~2012) History of sinus surgery Status post appendectomy (~194) Status post cholecystectomy (~1964) Family History Father Osteoporosis High cholesterol Mother Dementia Social History marital status: household members: family Smoking Status: Never smoker alcohol intake: current substance use type: does not use Smoking Status: Never smoker alcohol intake frequency: holidays/special occasions only Substance Use Type: does not use Exam Initial Vital Signs Initial Vital Signs: Vital Signs Temperature 98 F 03/07/23 20:36 Pulse Rate 81 03/07/23 20:36 Respiratory Rate 16 03/07/23 20:36 Blood Pressure 175/117 H 03/07/23 20:36 Pulse Oximetry 96 03/07/23 20:36 Oxygen Delivery Method Room Air 03/07/23 20:36 GENERAL: Alert well-appearing 82-year-old female with [id number] distress NOSE: Suction out of left near no obvious source of anterior bleeding CARDIOVASCULAR: peripheral pulses in tact, cap refill <2 sec RESPIRATORY: No respiratory distress, speaks in full sentences without difficulty EXTREMITIES: Normal range of motion, no clubbing or edema. Neurovascularly intact NEUROLOGICAL: Cranial nerves II through XII grossly intact. Normal gait and speech. SKIN: Warm, dry, no petechiae, no rashes or lesions. Procedures Epistaxis Control Nostril: left Nose Prepped With: oxymetazoline Direct Inspection: yes and unable to visualize Clots Removed by: suction Cautery Used: silver nitrate Device Inserted: nasal tampon Patient Tolerated Procedure: well Course Orders Ordered: Discontinued Medications Oxymetazoline HCl (Oxymetazoline Nasal Aurora 15 Ml) 2 sprays NASAL NOW ONE Stop: 03/07/23 20:33 Last Admin: 03/07/23 20:42 Dose: 2 sprays Documented By: [facility] Silver Nitrate/Potassium Nitrate (Silver Nitrate Stick) 1 each TOP NOW ONE Stop: 03/07/23 21:45 Last Admin: 03/07/23 21:45 Dose: 1 each Documented By: BRANDY Vital Signs Vital signs: Vital Signs - 8 hr 03/07/23 20:36 03/07/23 22:23 03/07/23 23:02 Temperature 98 F Pulse Rate 81 74 78 Respiratory Rate 16 18 16 Blood Pressure 175/117 H 127/85 125/89 Pulse Oximetry 96 98 94 Oxygen Delivery Method Room Air Room Air Room Air MDM - Epistaxis MDM Narrative Medical decision making narrative: Patient presents with significant right-sided epistaxis. Yocasta clamp was used but really not working. Rhino rocket was inserted with Afrin. Stayed in place for awhile. It was removed and still actively bleeding. Silver nitrate was used which seems to help control the bleeding significantly but still slight amount of oozing. Few squirts of Afrin and nasal clamp was then used seems if control but a lot. No active bleeding from the right side although she was having a couple drips. No evidence of posterior epistaxis Discharge Plan Departure Patient Disposition: Home Clinical Impression: Acute anterior epistaxis Instructions: DI for Nosebleed Activity Restrictions/Additional Instructions: *You have been diagnosed with nosebleed *What to do: I hope this stops for you. Use nose clamp as needed, use afrin as needed. *Continue to take medications as directed Afrin a couple squirts if needed for bleeding *Follow up with your primary care provider in 2-3 days or call [phone] *Return to ER if you should have persistent bleeding despite clamp, or any new, worsening or concerning symptoms Prescriptions: No Action lorazepam 0.5 mg tablet 0.5 mg PO BEDTIME PRN (Reason: sleep) Qty: 20 0RF Rx Instructions: Take one or two tabs at bedtime as needed for muscle spasm of right upper back/shoulder Prolia 60 mg/mL syringe 60 mg SUBCUT [id number] Qty: 1 0RF (DME) DISABLED PARKING PERMIT See Rx Instructions .ROUTE .MEDSUPPLY Qty: 1 0RF Rx Instructions: I find this patient to be medically disabled and qualified for disabled parking as indicated, and signed, on the accompanying Disabled Parking Application for Individuals. furosemide 40 mg tablet 40 mg PO QAM PRN (Reason: edema) Qty: 30 1RF potassium chloride 20 mEq tablet extended release See Rx Instructions .ROUTE .COMPLEX PRN (Reason: edema and muscle cramps) Qty: 30 3RF Dose Instruction: take 1 tablet by mouth once daily Rx Instructions: take 1 tablet by mouth once daily PRN; simvastatin 40 mg tablet See Rx Instructions .ROUTE .COMPLEX Qty: 90 3RF Dose Instruction: take 1 tablet by mouth at bedtime Rx Instructions: take 1 tablet by mouth at bedtime metoprolol tartrate 25 mg tablet 25 mg PO BID Qty: 180 3RF dexamethasone 4 mg tablet 4 mg PO TID Qty: 6 0RF cyanocobalamin (vitamin B-12) [Vitamin B-12] 1,000 mcg Tablet 1,000 mcg PO DAILY Qty: 0 Trimo-Mujica Jelly 0.025-0.01 % gel See Rx Instructions .ROUTE .COMPLEX Qty: 113.4 3RF Dose Instruction: INSERT 0.5 GRAM VAGINALLY ONCE A WEEK Rx Instructions: INSERT 0.5 GRAM VAGINALLY ONCE A WEEK Eylea 2 mg/0.05 mL solution intravitreal estradiol 0.01 % (0.1 mg/gram) cream 1 g VAG 3XW Qty: 42.5 12RF PreserVision AREDS-2 [id number] bd-[id number]-mg Capsule 1 cap PO BID Calcium Tablet 1 tab PO DAILY acetaminophen 325 mg Tablet 650 mg PO TID Qty: 60 0RF ondansetron 4 mg tablet,disintegrating 4 mg PO Q8H PRN (Reason: nausea and vomiting) Qty: 14 0RF gabapentin 100 mg capsule 100 mg PO TID Qty: 90 2RF Rx Instructions: Take one pill nightly for 3 days If tolerated, take one pill twice daily for 3 days If tolerated, take one pill three times daily Referrals: Rob Adam MD [Primary Care Provider] - Stand Alone Forms: Patient Portal/API
[2023-03-07 20:36] VITALS: BP 175/117; PULSE 81; RESP 16; TEMP 36.6; O2SAT 96; BMI 31.7
[2023-03-07] MEDS: OXYMETAZOLINE NASAL SPRAY 15 ML 2 SPRAYS NASAL (20:42)
--- NOTE | 2023-03-07 20:43 | PC.NURSE ---
Patient reports spontaneous nose bleed starting about one hour ago. Patient was reading a book. Has history of hypertension but no history of nose bleeds. Not on blood thinners. Denies headache. Spitting up copious amount of bright red blood.
--- NOTE | 2023-03-07 20:44 | PC.NURSE ---
Rhino rocket placed in left nostril by Dr Vegas. Patient tolerated well. Bleeding appears to be slowed. Patient suctioning with yanker suction.
[2023-03-07] MEDS: SILVER NITRATE STICK 1 EACH TOP (21:45)
[2023-03-07 22:23] VITALS: BP 127/85; PULSE 74; RESP 18; O2SAT 98
[2023-03-07 23:02] VITALS: BP 125/89; PULSE 78; RESP 16; O2SAT 94
== END 2023-03-07 23:21 | disposition home or self-care (01) ==
PROVIDERS: Emergency Provider Emergency Medicine; Family Provider Family Medicine; PCP Family Medicine
DX: R04.0 Epistaxis (principal)
CPT/HCPCS: 99282; A9270

== ENCOUNTER → 2023-03-14 10:23 | Outpatient (CLI) | payer OTHER, SELFPAY ==
[2021-03-08 15:26] VITALS: BMI 30.9
[2023-03-14 11:55] LABS: BUN Creatinine Ratio 19.5 (6-22); Blood Urea Nitrogen 15 mg/dL (7-17); Calcium 9.8 mg/dL (8.4-10.2); Carbon Dioxide 32 mmol/L (22-32); Chloride 100 mmol/L (98-107); Estimated Glomerular Filt Rate > 60 mL/min (>60); Glucose 88 mg/dL (80-110); HEMOLYSIS < 15 (0-50); Potassium 4.6 mmol/L (3.4-5.1); Sodium 138 mmol/L (137-145)
== END ==
PROVIDERS: Family Provider Family Medicine; PCP Family Medicine; Referring Provider Urology; Visit Provider Urology
DX: N39.0 Urinary tract infection, site not specified (principal); N81.10 Cystocele, unspecified; N95.2 Postmenopausal atrophic vaginitis; D49.4 Neoplasm of unspecified behavior of bladder; Z87.448 Personal history of other diseases of urinary system
CPT/HCPCS: 36415; 51798; 80048; 81002; 99214

== ENCOUNTER → 2023-03-16 09:07 | Outpatient (CLI) | payer OTHER, SELFPAY ==
[2021-03-08 15:26] VITALS: BMI 30.9
--- NOTE | 2023-03-16 09:09 | DI.MRI.S_ITS ---
PROCEDURE: MR CERVICAL SPINE WO CON INDICATIONS: Right cervical radiculopathy, ataxic gait TECHNIQUE: Noncontrast sagittal T1 spin echo and T2 fast spin echo, sagittal STIR, foraminal oblique sagittal T2 fast spin echo, and axial gradient echo or T2 fast spin echo through the cervical spine. COMPARISON: [facility], CR, XR CERVICAL SPINE 2V OR 3V, 02/04/2023, 10:33. FINDINGS: Image quality: Excellent. Alignment and Curvature: There is loss of normal cervical lordosis. There is moderate kyphosis at C3-C5. 4 mm of anterolisthesis of C3 on C4. 2 mm of anterolisthesis of C4 on C5. 4 mm of retrolisthesis of C5 on C6. Bone Marrow: Marrow demonstrates normal overall signal. Mild reactive signal throughout the endplates of the cervical and upper thoracic spine, most prominently at C5-C6. Spinal Cord: Visualized spinal cord has normal size and signal. No cerebellar tonsillar herniation. Paraspinous Soft Tissues: No paravertebral masses. Prevertebral soft tissues are normal in thickness. C2-C3: Moderate disc desiccation. Mild facet and uncovertebral hypertrophy bilaterally. No significant canal nor foraminal stenosis. C3-C4: Moderate disc desiccation. Mild diffuse disc bulge. Moderate facet and uncovertebral hypertrophy . Moderate canal stenosis. Severe right and moderate left foraminal stenosis. Right C4 nerve root compression. C4-C5: Moderate disc desiccation. Moderate diffuse disc bulge. Moderate facet and uncovertebral hypertrophy bilaterally. Moderate to severe canal stenosis. Mild cord flattening. Moderate right and severe left foraminal stenosis. Left C5 nerve root compression. C5-C6: Moderate disc height loss and desiccation. Moderate diffuse disc bulge with superimposed left paracentral protrusion. Mild facet and uncovertebral hypertrophy bilaterally. Severe canal stenosis. Mild cord flattening. Moderate to severe right and severe left foraminal stenosis. Left greater than right C6 nerve root compression. C6-C7: Moderate disc height loss and desiccation. Moderate diffuse disc bulge. Moderate facet and uncovertebral hypertrophy bilaterally. Moderate canal stenosis. Moderate right and severe left foraminal stenosis. Left C7 nerve root compression. C7-T1: Mild disc height loss and desiccation. Mild diffuse disc bulge. Mild facet and uncovertebral hypertrophy bilaterally. Mild canal stenosis. Severe left and mild right foraminal stenosis. Left C8 nerve root compression. IMPRESSION: 1. Multilevel degenerative disc and facet disease, as well as uncovertebral hypertrophy. 2. Multilevel canal stenoses, worst at C4-C5 and C5-C6, where there is mild cord flattening. 3. Multilevel foraminal stenoses, worst at C3-C4, C4-C5, C5-C6, C6-C7, and C7-T1, where there is associated intraforaminal nerve root compression. Recommend correlation with clinical symptoms to ascertain relevance of these findings. Dictated by: Rodger Awad M.D. on 03/18/2023 at 9:00 Approved by: Rodger Awad M.D. on 03/18/2023 at 9:38
--- NOTE | 2023-03-16 09:09 | DI.MRI.S_ITS ---
PROCEDURE: MR SHOULDER RT WO CON INDICATIONS: Please eval for rotator cuff pathology TECHNIQUE: Noncontrast oblique coronal T2 fast spin echo with fat saturation, oblique sagittal T1 spin echo and T2 fast spin echo with fat saturation, axial T1 spin echo and T2 fast spin echo with fat saturation through the shoulder. COMPARISON: None. FINDINGS: Image quality: Excellent. Rotator cuff: There is high grade tearing of the mid and anterior supraspinatus tendon at the humeral insertion site extending the musculotendinous junction. Moderate grade articular surface and intrasubstance tearing of the posterior/mid supraspinatus tendon at the humeral insertion site. Low-grade articular surface and intrasubstance tearing of the anterior, and mid infraspinatus tendon at the humeral insertion site extending to the musculotendinous junction. Low-grade articular surface and intrasubstance tearing of the mid and superior subscapularis tendon at the humeral insertion site. Infraspinatus and supraspinatus atrophy is present. Bones and bursae: No bone marrow contusions or fractures. Tendon anchors within the anterosuperior humeral head. Moderate glenohumeral periarticular osteophyte formation. Postsurgical widening of the acromioclavicular interval. The acromion demonstrates conventional anatomy, without an os acromiale. No pathologic subacromial-subdeltoid or subcoracoid bursal fluid is present. Capsule and soft tissues: Diffuse glenoid labral tearing. High-grade tearing of the biceps tendon. The rotator interval appears normal, without fibrosis. The coracohumeral ligament is normal in thickness. IMPRESSION: 1. Postsurgical sequelae. 2. High-grade tearing of the supraspinatus tendon with associated atrophy. 3. Low-grade tearing of the subscapularis and infraspinatus tendons. 3. 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 Dictated by: Rodger Awad M.D. on 03/18/2023 at 8:55 Approved by: Rodger Awad M.D. on 03/18/2023 at 8:58
== END ==
PROVIDERS: Family Provider Family Medicine; PCP Family Medicine; Referring Provider Anesthesiology; Visit Provider Anesthesiology
DX: M50.11 Cervical disc disorder with radiculopathy, high cervical region (principal); M47.892 Other spondylosis, cervical region; M48.02 Spinal stenosis, cervical region; M75.121 Complete rotator cuff tear or rupture of right shoulder, not specified as traumatic; M19.011 Primary osteoarthritis, right shoulder; S43.491A Other sprain of right shoulder joint, initial encounter; M67.919 Unspecified disorder of synovium and tendon, unspecified shoulder; Z98.890 Other specified postprocedural states
CPT/HCPCS: 72141; 73221

== ENCOUNTER → 2023-03-22 09:44 | Outpatient (CLI) | payer OTHER, SELFPAY ==
[2021-03-08 15:26] VITALS: BMI 30.9
--- NOTE | 2023-03-22 09:46 | DI.CT.S_ITS ---
PROCEDURE: CT ABDOMEN PELVIS WO/W CON INDICATIONS: Frequent persistent urinary tract infection TECHNIQUE: Optional 5 mm thick noncontrast images acquired from the diaphragm to the symphysis pubis. After the administration of intravenous contrast, 5 mm thick images acquired from the diaphragm to the symphysis pubis after a 10-minute delay. 2 mm thick coronal and sagittal reformats were then performed of the kidneys and ureters. For radiation dose reduction, the following was used: automated exposure control, adjustment of mA and/or kV according to patient size. COMPARISON: [facility], CT, CT ABDOMEN PELVIS WO/W CON, 09/25/2019, 11:07. FINDINGS: Image quality: Good Lower chest: Suspected right basal atelectasis versus small component of airspace disease. Moderate hiatal hernia again seen. Coronary calcifications. Solid organs: Multiple liver cysts, as before. Subcentimeter lesions are too small to characterize, also stable and probably cysts. Gallbladder is absent. No pathologic dilation of the pancreatic duct or biliary tree allowing for post cholecystectomy state. No splenomegaly. A splenic cyst is again seen, stable. Splenic granuloma. Stable left adrenal nodule, representing an adenoma. Bilateral cortical scarring, similar to prior. 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 No solid renal mass. Bilateral pelviectasis. No obstructing calcified stone is identified. No discrete ureter filling defect. There is irregularity and possible mild wall thickening of the distal ureters bilaterally. There is moderate bladder wall thickening. A small amount of air is present. This may be due to recent instrumentation, correlate clinically. Vessels and lymph nodes: No abdominal aortic aneurysm. The main portal vein is patent. No pathologic adenopathy by size criteria. Bowel and peritoneum: Colonic diverticula. Above average fecal loading. No ascites. Body wall: Unremarkable Pelvis: Pessary in place. Possible small cystocele. Reproductive organs with senescent changes, overall not well evaluated on CT. Bones: No acute or suspicious osseous finding. Degenerative changes again seen. Hemilaminectomy changes. Age-indeterminate height loss of multiple vertebral bodies, with augmentation at L4. L2 height loss is new compared to 2019. IMPRESSION: Moderate bladder wall thickening and irregularity and mild wall thickening of the distal ureters. In the setting of recurrent UTIs, consider urologic consultation and possible direct visualization. No significant upper tract disease otherwise on CT IVP. There is mild bilateral pelviectasis, without focal obstructing lesion. Age-indeterminate height loss of the L2 vertebral body, new from 2019. Other findings as above, likely incidental or stable. Dictated by: Kelvin Shah M.D. on 03/22/2023 at 17:15 Approved by: Kelvin Shah M.D. on 03/22/2023 at 17:26
--- NOTE | 2023-03-22 09:46 | DI.RAD.S_ITS ---
PROCEDURE: XR LUMBAR SPINE MIN 4V INDICATIONS: Lumbar radiculopathy TECHNIQUE: 5 views of the lumbar spine were acquired, including bilateral oblique views. COMPARISON: [facility], , -SPINE 2-3 VIEWS, 02/28/2015, 10:48. FINDINGS: Bones: 5 nonrib-bearing vertebrae are present. There is diffuse osteopenia. Chronic appearing anterior wedge compression deformities at T12, L1, L2, L3 and L4 levels are again seen not significantly changed from prior study with prior vertebral plasty at L4 level. Moderate degenerative endplate changes throughout lumbar spine is seen. No evidence of acute compression fracture. Soft tissues: Overlying bowel gas pattern is normal. No suspicious soft tissue calcifications. Oblique images: No pars defects. Bilateral bony foraminal stenosis are likely present at L2-3 through L5-S1 levels. IMPRESSION: 1. Chronic appearing compression deformity involving T12 through L4 levels not significantly changed from prior studies. No gross acute compression fracture. Degenerative disc disease throughout lumbar spine. 2. Oblique views show no pars defects. Bilateral bony foraminal stenosis are present at L2-3 through L5-S1 levels. Dictated by: Harjit Gallagher M.D. on 03/22/2023 at 11:06 Approved by: Harjit Gallagher M.D. on 03/22/2023 at 11:09
== END ==
PROVIDERS: Family Provider Family Medicine; PCP Family Medicine; Referring Provider Urology; Visit Provider Urology
DX: N28.89 Other specified disorders of kidney and ureter (principal); N39.0 Urinary tract infection, site not specified; D35.02 Benign neoplasm of left adrenal gland; I25.10 Atherosclerotic heart disease of native coronary artery without angina pectoris; K76.89 Other specified diseases of liver; K44.9 Diaphragmatic hernia without obstruction or gangrene; K57.90 Diverticulosis of intestine, part unspecified, without perforation or abscess without bleeding; M47.27 Other spondylosis with radiculopathy, lumbosacral region; M51.16 Intervertebral disc disorders with radiculopathy, lumbar region; M48.061 Spinal stenosis, lumbar region without neurogenic claudication; M48.07 Spinal stenosis, lumbosacral region; M48.55XA Collapsed vertebra, not elsewhere classified, thoracolumbar region, initial encounter for fracture; M48.56XA Collapsed vertebra, not elsewhere classified, lumbar region, initial encounter for fracture; Z90.49 Acquired absence of other specified parts of digestive tract
CPT/HCPCS: 72110; 74178; Q9967

== ENCOUNTER → 2023-04-17 13:20 | Outpatient (CLI) | payer OTHER, SELFPAY ==
[2021-03-08 15:26] VITALS: BMI 30.9
== END ==
PROVIDERS: Family Provider Family Medicine; PCP Family Medicine; Visit Provider Urology
DX: N39.0 Urinary tract infection, site not specified (principal); R93.41 Abnormal radiologic findings on diagnostic imaging of renal pelvis, ureter, or bladder; N28.89 Other specified disorders of kidney and ureter; Z87.448 Personal history of other diseases of urinary system
CPT/HCPCS: 81002; 87077; 87086; 87186; 99214

== ENCOUNTER 2023-04-23 09:42 | Day surgery (SDC) | payer OTHER, SELFPAY ==
[2021-03-08 15:26] VITALS: BMI 30.9
[2023-04-23] VITALS (7 sets, daily range): BP systolic 105–137; BP diastolic 64–83; PULSE 62–73; RESP 12–17; TEMP 36.2–36.3; O2SAT 93–95; BMI 31.7
[2023-04-23] MEDS: FAMOTIDINE 20 MG/2 ML VIAL IV (10:41)
[2023-04-23] MEDS: METOCLOPRAMIDE 10 MG/2 ML INJ IV (10:41)
[2023-04-23] MEDS: LACTATED RINGERS 1,000 ML 42 ML IV (10:56)
--- NOTE | 2023-04-23 11:03 | SUR.PREOP ---
Patient states she had a spoonful of yogurt at 0830 this morning with her meds because her medication upsets her stomach. Dr. Aguirre, anesthesia notified, verbal order of 20 mf IV pepcid and 10 mg IV Reglan ordered for pre-op. Marco Vargas RN
--- NOTE | 2023-04-23 11:08 | PM.PREOP ---
Pre-operative Note COVID-19 COVID-19 status: Not tested Criteria for continued procedure: Non-surgical alternatives not available or appropriate per current SOC Interval Note History & Physical reviewed/Exam performed by Physician: Yes Changes to H&P: No
[2023-04-23] MEDS: AMPICILLIN/SULBACTAM 3 GM 3 GM in SODIUM CHLORIDE 0.9% 100 ML IV (11:42)
[2023-04-23] MEDS: CIPROFLOXACIN 400 MG/200 ML PIGGYBACK 200 MG IV (11:47)
--- NOTE | 2023-04-23 12:04 | SUR.OPER ---
Lithotomy on padded OR bed, head on pillow, left arm secured on padded arm boards at <90 degrees abduction. right arm padded with gel pad and tucked at side, Legs secured in padded yellow fins stirrups. Patients glasses in black glass case and placed into patients belongings bag in pre-op.
[2023-04-23] MEDS: IOPAMIDOL 30 ML VIAL INJ (12:10)
--- NOTE | 2023-04-23 12:18 | P.OP_ITS ---
Procedure & Clinicians Procedure: Cystoscopy with bilateral retrograde pyelogram Same procedure as scheduled: Yes Indications: This is a very pleasant 82-year-old female who presented with complaints of recurring urinary tract infections. It flexible cystoscopy she was found to have an irregular trigone which did not seem to ?smooth out ?with filling and on CT scan was felt to have thickening of the distal ureter. She presents at this time for cystoscopy and bilateral retrograde pyelogram to further delineate and interrogate these findings. Surgeon: To Jain Click Yes if Unassisted: Yes Anesthesia Type: General Operative Notes Findings: At cystoscopy external genitalia were relatively normal. The urethral meatus was normal with perhaps a small caruncle urethral mucosa was normal along its length the right and left ureteral orifices were normal position and did appear to have clear efflux. The bladder exhibited inflammatory changes consistent with the patient's known cystitis. Patient has been on antibiotics which were culture specific. The bladder base and trigonal area were somewhat irregular and did with filling smooth without somewhat. This appears to be a variant of trabeculation. Ureteral orifices again had changes around them consistent with cystitis. At retrograde pyelogram the ureters were irregular in their course but for the most part of normal caliber. In the area of the UPJ and proximal ureter there was some very small caliber intestinal elevation. This appeared to create some pelvocaliectasis. However with observation this drained completely and quickly and this is likely a longstanding anatomic variant. There did not appear to be UPJ obstruction in the distal ureter there was no irregularity or filling defect. In fact it had a rather smooth appearance. The distal ureters were affected by what appeared to be calcified vessels and again there appeared to be no filling defects no moth-eaten or other abnormal findings. And the collecting system drained quickly. In a word there is no evidence of malignancy or other significant adverse or worrisome finding Closure Type: not applicable Specimen(s): none sent Prosthetic devices, grafts, tissues, transplants, or devices: None Blood products transfused: none Procedure in detail: Procedure in detail: After informed consent was obtained, the patient was identified and brought to the operating room where she was placed in a supine position on the table and anesthesia was induced and maintained. Ensuring an adequate level of anesthesia the patient was transitioned to the lithotomy position where she was prepped, draped and prepared for Transurethral procedure. After prepping, draping, ensuring an adequate level of anesthesia and time-out a 22 Swedish cystoscope was passed through the urethra and into the bladder were cystoscopy is formed with the 30 and 70 degree lens. The left ureteral orifice was identified and a cone-tip catheter was then impacted in the left ureteral orifice collecting system filled with contrast and patient account representative images collected via the fluoroscope. The left collecting system was then observed for drainage and it appeared to drain quickly and efficiently. Findings were as noted above the right ureteral orifice was then impacted with the cone-tip catheter and the right collecting system filled with contrast and patient account representative images collected via the fluoroscope this again was also observed for drainage and drained quite well. In all other than the small caliber intestinal elevation the deviation and course by blood vessels no abnormality was noted as noted above both collecting systems drained quickly. At this point the bladder was drained the scope was removed and the patient was awakened taken to the postanesthesia care unit for recovery. Once recover the patient will be discharged to home the patient did tolerate the procedure well and there were no complications. Complications: none Post-operative Condition: stable Disposition: PACU Plan for aftercare: Discharge to home to follow up my office in 10 days to 14 days.
--- NOTE | 2023-04-23 12:37 | DI.RAD.S_ITS ---
PROCEDURE: XR ABDOMEN 1V INDICATIONS: RETROGRADE IN THE OR. TECHNIQUE: 13 intra-operative images acquired by the Urology service. COMPARISON: [facility], CT, CT ABDOMEN PELVIS WO/W CON, 03/22/2023, 9:55. FINDINGS: Retrograde injection of bilateral ureterocele demonstrates normal ureteral caliber. No filling defects identified within the ureters. IMPRESSION: Normal bilateral retrograde ureterograms. Dictated by: Winifred Abraham MD, PhD on 04/23/2023 at 14:13 Approved by: Winifred Abraham MD, PhD on 04/23/2023 at 14:15
== END 2023-04-23 13:10 | disposition home or self-care (01) ==
PROVIDERS: Family Provider Family Medicine; PCP Family Medicine; Referring Provider Urology; Visit Provider Urology
PROC: (CPT 52351; principal; 2023-04-23 12:15)
DX: N32.89 Other specified disorders of bladder (principal); N30.90 Cystitis, unspecified without hematuria; N28.89 Other specified disorders of kidney and ureter; Z87.448 Personal history of other diseases of urinary system
CPT/HCPCS: 52351; 74018; 76000; 82962; J0295; J0744; J1100; J2405; J2704; J2765; J3010; Q9967

== ENCOUNTER → 2023-05-17 13:27 | Outpatient (CLI) | payer OTHER, SELFPAY ==
[2021-03-08 15:26] VITALS: BMI 30.9
--- NOTE | 2023-05-23 09:54 | PM.PFT.1 ---
Pulmonary Function Test Referral & Results Date Patient Seen: 05/17/23 Results: The spirometry demonstrates an FVC of 1.40 L which is 55% of predicted. The FEV1 was measured at 1.09 L which is 57% of predicted. The FEV1/FVC ratio was 78 which is 106% of predicted. Following the administration of bronchodilator there was 216% improvement in FEV1 and an 87% improvement in FEF 25-75%. Lung volumes appear to be decreased, although SVC is not separately reported. This would be consistent with an element of restrictive lung disease The diffusing capacity was measured at 15.15 which is 62% of predicted. The maximum voluntary ventilation was severely reduced Interpretation: This study demonstrates moderate to moderately severe obstructive lung disease based on significant reduction in FEV1 although FEV1/FVC ratio is preserved. There is evidence of notable benefit following bronchodilator administration particularly small airway flow as above based on improvement in FEF 25-75%. There appears to be a reduction in lung volumes suggesting an element of restrictive lung disease There is also moderate to moderately severe reduction diffusing capacity suggesting the presence of disease at the capillary alveolar level Maximum voluntary ventilation is also severely reduced which confirms the likely presence of significant restrictive lung disease, in my opinion Clinical correlation suggested
== END ==
PROVIDERS: Family Provider Family Medicine; PCP Family Medicine; Referring Provider Family Medicine; Visit Provider Family Medicine
DX: R06.02 Shortness of breath (principal); J98.8 Other specified respiratory disorders
CPT/HCPCS: 94060; 94726; 94729

== ENCOUNTER → 2023-05-23 12:22 | Outpatient (CLI) | payer OTHER, SELFPAY ==
[2021-03-08 15:26] VITALS: BMI 30.9
== END ==
PROVIDERS: Family Provider Family Medicine; PCP Family Medicine; Visit Provider Urology
DX: N39.0 Urinary tract infection, site not specified (principal); N28.89 Other specified disorders of kidney and ureter; R93.41 Abnormal radiologic findings on diagnostic imaging of renal pelvis, ureter, or bladder; Z87.448 Personal history of other diseases of urinary system
CPT/HCPCS: 81002; 87077; 87086; 87186; 99213

== ENCOUNTER → 2023-08-05 12:58 | Outpatient (CLI) | payer OTHER, SELFPAY ==
[2021-03-08 15:26] VITALS: BMI 30.9
== END ==
PROVIDERS: Family Provider Family Medicine; PCP Student in an Organized Health Care Education/Training Program; Visit Provider Physician Assistant
DX: N39.0 Urinary tract infection, site not specified (principal)
CPT/HCPCS: 87077; 87086

== ENCOUNTER → 2023-08-16 12:37 | Outpatient (CLI) | payer OTHER, SELFPAY ==
[2021-03-08 15:26] VITALS: BMI 30.9
[2023-08-16 14:02] LABS: Add Manual Diff / Slide Review NO; Basophils Absolute Auto 0 /uL (0-100); Basophils Percent Auto 0.3 % (0-2); Eosinophils Absolute Auto 100 /uL (0-450); Eosinophils Percent Auto 2.2 % (2-4); Hematocrit 37.9 % (36-46); Hemoglobin 12.4 g/dL (12.0-16.0); Lymphocytes Absolute Auto 1200 /uL (1100-4500); Lymphocytes Percent Auto 20.2 % (25-40); Mean Corpuscular HGB Conc 32.7 % (30-36); Mean Corpuscular Hemoglobin 27.5 PG (26-34); Mean Corpuscular Volume 84.2 fL (80-100); Monocytes Absolute Auto 600 /uL (0-900); Monocytes Percent Auto 9.3 % (3-14); Neutrophils Absolute Auto 4100 /uL (1500-7000); Platelet Count 263 X10^3/uL (150-400); Red Cell Distribution Width 14.2 % (11.6-14.8); White Blood Cell Count 6.1 X10^3/uL (4.5-11.0)
[2023-08-16 14:20] LABS: Alanine Aminotransferase 11 IU/L (<35); Albumin 3.8 g/dL (3.5-5.0); Albumin Globulin Ratio 1.4 (1.0-2.8); Alkaline Phosphatase 50 U/L (38-126); Aspartate Aminotransferase 23 IU/L (14-36); Bilirubin Total 0.5 mg/dL (0.2-1.3); Blood Urea Nitrogen 21 mg/dL (7-17); Calcium 9.8 mg/dL (8.4-10.2); Carbon Dioxide 32 mmol/L (22-32); Chloride 100 mmol/L (98-107); Estimated Glomerular Filt Rate > 60 mL/min (>60); Globulin 2.8 g/dL (1.7-4.1); Glucose 92 mg/dL (80-110); HEMOLYSIS < 15 (0-50); Potassium 4.7 mmol/L (3.4-5.1); Sodium 135 mmol/L (137-145); Total Protein 6.6 g/dL (6.3-8.2)
[2023-08-16 14:51] LABS: TSH w/ Reflex to FT4 2.28 uIU/mL (0.47-4.68)
== END ==
PROVIDERS: Family Provider Family Medicine; PCP Student in an Organized Health Care Education/Training Program; Referring Provider Family Medicine; Visit Provider Family Medicine
DX: R63.4 Abnormal weight loss (principal)
CPT/HCPCS: 36415; 80053; 84443; 85025

== ENCOUNTER → 2023-08-19 12:00 | Outpatient (CLI) | payer OTHER, SELFPAY ==
[2021-03-08 15:26] VITALS: BMI 30.9
[2023-08-19 13:13] LABS: Appearance Urine UA CLOUDY; Bilirubin Urine UA NEGATIVE (NEGATIVE); Color Urine UA YELLOW; Glucose Urine UA NEGATIVE (Negative); Ketones Urine UA NEGATIVE (NEGATIVE); Leukocyte Esterase Urine UA 1+ (NEGATIVE); Nitrite Urine UA NEGATIVE (Negative); Occult Blood Urine UA NEGATIVE (Negative); Protein Urine UA NEGATIVE (Negative); Specific Gravity Urine UA 1.015 (1.000-1.035); Urobilinogen Urine UA 0.2 E.U./dL (0.2)
[2023-08-19 13:22] LABS: Bacteria Urine Moderate (10-30); Culture Indicated Urine Specimen Cultured; RBC Urine 0-1/HPF (0-5/HPF); Squamous Epithelial Cell Urine 5-10 /HPF (0-5/HPF); WBC Urine 10-30/HPF (0-5/HPF); pH Urine UA 5.5 (4.5-8.0)
== END ==
PROVIDERS: Family Provider Family Medicine; PCP Family Medicine; Visit Provider Family Medicine
DX: R30.0 Dysuria (principal)
CPT/HCPCS: 81001; 87086

== ENCOUNTER → 2023-08-29 11:47 | Outpatient (CLI) | payer OTHER, SELFPAY ==
[2021-03-08 15:26] VITALS: BMI 30.9
== END ==
PROVIDERS: Family Provider Family Medicine; PCP Family Medicine; Visit Provider Urology
DX: N39.0 Urinary tract infection, site not specified (principal); N95.2 Postmenopausal atrophic vaginitis; N81.10 Cystocele, unspecified
CPT/HCPCS: 51798; 81002; 87077; 87086; 87186; 99213

== ENCOUNTER → 2023-09-13 09:58 | Outpatient (CLI) | payer OTHER, SELFPAY ==
[2021-03-08 15:26] VITALS: BMI 30.9
== END ==
PROVIDERS: Family Provider Family Medicine; PCP Family Medicine; Visit Provider Urology
DX: N39.0 Urinary tract infection, site not specified (principal)
CPT/HCPCS: 87077; 87086; 87186

== ENCOUNTER → 2023-09-13 11:24 | Outpatient (CLI) | payer OTHER, SELFPAY ==
[2021-03-08 15:26] VITALS: BMI 30.9
--- NOTE | 2023-09-13 11:25 | DI.CT.S_ITS ---
PROCEDURE: CT ANGIO CHEST PE PROTOCOL INDICATIONS: shortness of breath, travels long distances TECHNIQUE: After the administration of intravenous contrast, 2 mm thick sections acquired from the pulmonary apices to the posterior costophrenic angles. 3-dimensional maximum intensity projection (MIP) coronal and sagittal reformats were then acquired through the thorax. For radiation dose reduction, the following was used: automated exposure control, adjustment of mA and/or kV according to patient size. COMPARISON: [facility], CR, XR CHEST 1V, 02/15/2023, 12:58. [facility], CT, CT ABDOMEN PELVIS WO/W CON, 03/22/2023, 9:55. [facility], CT, CT ANGIO CHEST PE PROTOCOL, 07/01/2020, 21:15. FINDINGS: Image quality: Excellent. Pulmonary arteries: Pulmonary arteries are normal in size, and demonstrate no intraluminal filling defects to suggest central pulmonary embolism. Lungs and pleura: Mild scattered ground-glass opacity and streaky opacity which has the appearance of atelectasis. No consolidation. The central airways are clear. No pleural effusions or pneumothorax. Mediastinum: Heart size is normal, without pericardial effusion. No mediastinal or hilar adenopathy. Thoracic aorta is normal in caliber and enhancement. No aortic dissection. Esophagus is normal in caliber, moderate hiatal hernia. Asymmetric elevation of the right hemidiaphragm is again seen. Bones and chest wall: No suspicious bony lesions. T5, T8, T12, L2 compression fractures, unchanged. Thyroid gland is unremarkable. No axillary or supraclavicular adenopathy. Abdomen: Visualized upper abdominal solid organs appear normal in the early arterial phase of enhancement. Hepatic cysts. Calcified splenic granuloma. Proximal jejunum diverticulum. IMPRESSION: 1. No pulmonary embolism. No aortic dissection. 2. Mild scattered ground-glass in streaky opacity which has the appearance of atelectasis. 3. No pleural effusion. 4. Asymmetric elevation of the right hemidiaphragm. Moderate-sized hiatal hernia, unchanged. Dictated by: Anand Brush M.D. on 09/13/2023 at 11:49 Approved by: Anand Brush M.D. on 09/13/2023 at 12:04
== END ==
PROVIDERS: Family Provider Family Medicine; PCP Family Medicine; Referring Provider Internal Medicine; Visit Provider Internal Medicine
DX: N39.0 Urinary tract infection, site not specified (principal); R06.02 Shortness of breath; K44.9 Diaphragmatic hernia without obstruction or gangrene
CPT/HCPCS: 51701; 71275; 87077; 87086; 87186; Q9967

== ENCOUNTER 2023-11-07 12:30 | Outpatient (RCR) | payer OTHER, SELFPAY ==
[2021-03-08 15:26] VITALS: BMI 30.9
== END 2023-11-07 14:30 ==
LOC: PUL 12:30
PROVIDERS: Family Provider Family Medicine; PCP Family Medicine; Referring Provider Family Medicine; Visit Provider Family Medicine
DX: J44.9 Chronic obstructive pulmonary disease, unspecified (principal)
CPT/HCPCS: 94626

== ENCOUNTER → 2023-12-26 11:13 | Outpatient (CLI) | payer OTHER, SELFPAY ==
[2023-12-10 12:07] VITALS: BMI 30.9
== END ==
PROVIDERS: Family Provider Family Medicine; PCP Family Medicine; Visit Provider Urology
DX: N39.0 Urinary tract infection, site not specified (principal); N95.2 Postmenopausal atrophic vaginitis; R30.0 Dysuria; R42 Dizziness and giddiness
CPT/HCPCS: 51798; 81002; 87077; 87086; 87186; 99213

== ENCOUNTER → 2024-02-17 11:20 | Outpatient (CLI) | payer OTHER, SELFPAY ==
[2023-12-10 12:07] VITALS: BMI 30.9
[2024-02-17 12:12] LABS: Appearance Urine UA CLOUDY; Bilirubin Urine UA NEGATIVE (NEGATIVE); Color Urine UA YELLOW; Glucose Urine UA NEGATIVE (Negative); Ketones Urine UA 1+ (NEGATIVE); Leukocyte Esterase Urine UA 1+ (NEGATIVE); Nitrite Urine UA POSITIVE (Negative); Occult Blood Urine UA TRACE-INTACT (Negative); Protein Urine UA 1+ (Negative); Specific Gravity Urine UA 1.025 (1.000-1.035)
[2024-02-17 12:16] LABS: Urine Volume 10mL (spun)
[2024-02-17 12:19] LABS: Bacteria Urine Many (>30); Culture Indicated Urine Specimen Cultured; RBC Urine 0-1/HPF (0-5/HPF); Squamous Epithelial Cell Urine 1-5 /HPF (0-5/HPF); WBC Urine 10-30/HPF (0-5/HPF)
== END ==
PROVIDERS: Family Provider Family Medicine; PCP Family Medicine; Visit Provider Physician Assistant Medical
DX: R39.9 Unspecified symptoms and signs involving the genitourinary system (principal)
CPT/HCPCS: 81001; 87077; 87086; 87186

== ENCOUNTER 2024-02-18 12:19 | Emergency (ER) | payer OTHER, SELFPAY ==
[2023-12-10 12:07] VITALS: BMI 30.9
[2024-02-18 12:37] VITALS: BP 150/79; PULSE 109; RESP 20; TEMP 36.5; O2SAT 95; BMI 30.5
[2024-02-18 15:21] VITALS: PULSE 90; O2SAT 94
[2024-02-18 15:22] VITALS: BP 125/69; PULSE 80
[2024-02-18 15:30] VITALS: BP 128/72; PULSE 74; O2SAT 95
[2024-02-18 16:42] LABS: Add Manual Diff / Slide Review NO; Basophils Absolute Auto 0 /uL (0-100); Basophils Percent Auto 0.3 % (0-2); Eosinophils Absolute Auto 0 /uL (0-450); Eosinophils Percent Auto 0.4 % (2-4); Hematocrit 34.1 % (36-46); Hemoglobin 11.1 g/dL (12.0-16.0); Lymphocytes Absolute Auto 900 /uL (1100-4500); Lymphocytes Percent Auto 13.8 % (25-40); Mean Corpuscular HGB Conc 32.5 % (30-36); Mean Corpuscular Hemoglobin 26.7 PG (26-34); Mean Corpuscular Volume 82.1 fL (80-100); Monocytes Absolute Auto 1000 /uL (0-900); Monocytes Percent Auto 15.7 % (3-14); Neutrophils Absolute Auto 4300 /uL (1500-7000); Neutrophils Percent Auto 69.8 % (50-75); Platelet Count 190 X10^3/uL (150-400); Red Blood Cell Count 4.15 X10^6/uL (4.0-5.2); Red Cell Distribution Width 15.1 % (11.6-14.8); White Blood Cell Count 6.2 X10^3/uL (4.5-11.0)
[2024-02-18 16:53] LABS: PTT Partial Thromboplastin Tim 35 SECONDS (25.1-36.5)
[2024-02-18 16:58] LABS: Alanine Aminotransferase 12 IU/L (<35); Albumin 3.5 g/dL (3.5-5.0); Albumin Globulin Ratio 1.1 (1.0-2.8); Alkaline Phosphatase 57 U/L (38-126); Aspartate Aminotransferase 22 IU/L (14-36); BUN Creatinine Ratio 21.1 (6-22); Bilirubin Total 0.5 mg/dL (0.2-1.3); Blood Urea Nitrogen 16 mg/dL (7-17); Calcium 9.6 mg/dL (8.4-10.2); Carbon Dioxide 35 mmol/L (22-32); Chloride 98 mmol/L (98-107); Estimated Glomerular Filt Rate > 60 mL/min (>60); Globulin 3.1 g/dL (1.7-4.1); Glucose 98 mg/dL (80-110); HEMOLYSIS < 15 (0-50); Lipase 234 U/L (23-300); Potassium 3.9 mmol/L (3.4-5.1); Sodium 135 mmol/L (137-145); Total Protein 6.6 g/dL (6.3-8.2)
[2024-02-18] MEDS: CEFDINIR 300 MG CAPSULE PO (17:06)
[2024-02-18 17:13] LABS: Procalcitonin 0.15 ng/mL (<0.5)
[2024-02-18] MEDS: ONDANSETRON 4 MG/2 ML INJ IV (17:13)
[2024-02-18] MEDS: SODIUM CHLORIDE 0.9% 500 ML 1000 ML IV (17:15)
--- NOTE | 2024-02-18 17:49 | ED_ITS ---
HPI - Female Genitourinary General Chief complaint: Urogenital-Female Stated complaint: Thinks worsening UTI Time Seen by Provider: 02/18/24 16:10 Source: patient Mode of arrival: Ambulatory History of Present Illness HPI Narrative: Patient seen by walk-in clinic yesterday and started Bactrim for UTI. She patient has frequent UTIs. Sometimes Klebsiella sometimes he coli are the results of cultures. Patient states Bactrim has made her stomach upset since taking 2 doses yesterday. Symptoms started with her typical symptoms of a cough dizzy urinary incontinence and flank/low back pain. She never has dysuria or frequency urgency. Urine culture does show Gram-negative bacilli and sensitivity is pending. She does agree for changing to a different antibiotic, I have suggested Omnicef. Patient in no distress. Not toxic appearing. Related Data Home Medications Medication Instructions Recorded Confirmed cyanocobalamin (vitamin B-12) 1,000 mcg PO DAILY ##0 06/21/13 02/24/24 1,000 mcg tablet (Vitamin B-12) Calcium Tablet 1 tab PO DAILY 09/11/19 02/24/24 vit C 250 mg-vit E 90 mg-zinc 40 1 cap PO BID 09/11/19 02/24/24 mg-copper 1 [id number] capsule (PreserVision AREDS-2) aflibercept 2 mg/0.05 mL mg intravitreal 11/23/22 02/24/24 intravitreal solution for injection (Eylea) cholecalciferol (vitamin D3) 50 50 mcg PO DAILY 04/23/23 02/24/24 mcg (2,000 unit) capsule (Vitamin D3) potassium chloride 20 mEq 20 meq PO DAILY 08/20/23 02/24/24 tablet,extended release furosemide 40 mg tablet 40 mg PO QAM PRN 02/06/24 02/24/24 loratadine 10 mg tablet (Claritin) 10 mg PO DAILY PRN 02/06/24 02/24/24 Previous Rx's Medication Instructions Recorded DISABLED PARKING PERMIT #1 ea 09/06/20 denosumab 60 mg/mL subcutaneous 60 mg SUBCUT [id number] #1 mL 09/06/20 syringe (Prolia) acetaminophen 325 mg tablet 650 mg (2 x 325 mg) PO TID #60 tabs 03/09/21 ondansetron 4 mg disintegrating 4 mg PO Q8H PRN nausea and 11/05/22 tablet vomiting #14 tabs metoprolol tartrate 25 mg tablet 25 mg PO BID #180 tabs 07/26/23 lorazepam 0.5 mg tablet 0.5 mg PO BEDTIME PRN sleep #10 08/19/23 tabs simvastatin 40 mg tablet 40 mg PO ONCE PM #90 tabs 10/22/23 estradiol 0.01% (0.1 mg/gram) 1 g vaginal 3XW postmenopausal 11/21/23 vaginal cream atrophy #42.5 grams Allergies Allergy/AdvReac Type Severity Reaction Status Date / Time hydroxyzine AdvReac Severe Anxiety Verified 02/24/24 10:37 hydromorphone [HYDROMORPHONE] AdvReac Intermediate n/v, Verified 02/24/24 10:37 sweats, vomiting methenamine AdvReac Intermediate Nausea Verified 02/24/24 10:37 nitrofurantoin AdvReac Mild Verified 02/24/24 10:37 Review of Systems Review of Systems Narrative: GENERAL: negative chills, fatigue, malaise, fever, sweats. HEENT: negative sinus pain, ear pain, sore throat RESPIRATORY: negative dyspnea, positive cough CARDIOVASCULAR: negative chest pain, palpitations GASTROINTESTINAL: negative nausea, vomiting, abdominal pain : negative dysuria, frequency, hematuria, positive urinary incontinence MUSCULOSKELETAL: negative muscle or bony pain SKIN: negative rash, skin lesions NEUROLOGIC: negative weakness, numbness, positive dizzy ROS Unobtainable: All systems reviewed & are unremarkable except as noted in HPI and below Patient History Medical History (Updated 02/24/24 @ 11:04 by Rob Adam MD) Urinary tract infection AC (acromioclavicular) joint arthritis Atrophic vaginitis Pelvicaliectasis Cervical spinal stenosis History of hydronephrosis Hx of gastroesophageal reflux (GERD) Rotator cuff dysfunction Rash Hyperlipidemia Chronic UTI Abnormal CT scan, chest Pessary maintenance Preoperative evaluation to rule out surgical contraindication Vision disorder Abnormal CXR (~2013) Lumbar compression fracture Osteoporosis (~2013) Fractures Ankle pain (~1976) Rubella (~1947) Mumps (~1947) Measles (~1946) Chicken pox (~1946) Cataract (~2013) Urinary, incontinence, stress female Gastric ulcer Diverticular disease (~2013) Compression fracture of lumbar vertebra (02/19/14) Infected sebaceous cyst of skin Surgical History History of knee replacement (03/04/21) Hx of cystoscopy History of sinus surgery Anesthesia History of kyphoplasty (~2012) History of ankle surgery Femoral hernia Status post appendectomy (~1949) Status post cholecystectomy (~1965) Family History Father Osteoporosis High cholesterol Cancer Mother Dementia Hypertension alcohol intake frequency: holidays/special occasions only Substance Use Type: does not use Exam Narrative Exam Narrative: GENERAL: in no distress, not toxic not dyspneic HEAD: Normocephalic. EYES: Pupils equal round ENT: Slightly dry lips and tongue NECK: Trachea midline. CARDIOVASCULAR: Regular rate and rhythm RESPIRATORY: Clear to auscultation. Breath sounds equal bilaterally. No wheezes, rales, or rhonchi. GASTROINTESTINAL: Abdomen soft, non-tender, abdomen is soft flat nontender no peritoneal signs. No CVA tenderness. Bowel sounds are present. No pain out of proportion to exam EXTREMITIES: No gross deformities. BACK: No flank tenderness. NEURO: AOx4. SKIN: Warm and dry PSYCH: Not anxious, is cooperative Initial Vital Signs Initial Vital Signs: Vital Signs Temperature 97.7 F 02/18/24 12:37 Pulse Rate 109 H 02/18/24 12:37 Respiratory Rate 20 02/18/24 12:37 Blood Pressure 150/79 H 02/18/24 12:37 Pulse Oximetry 95 02/18/24 12:37 Oxygen Delivery Method Room Air 02/18/24 12:37 Course Orders Ordered: Discontinued Medications Cefdinir (Cefdinir 300 Mg Capsule) 300 mg PO NOW ONE Stop: 02/18/24 16:26 Last Admin: 02/18/24 17:06 Dose: 300 mg Documented By: CAYETANO Sodium Chloride (Normal Saline 0.9%) 1,000 mls @ 250 mls/hr IV BOLUS ONE Stop: 02/18/24 19:39 Last Admin: 02/18/24 17:15 Dose: Not Given Documented By: CAYETANO Sodium Chloride (Normal Saline 0.9%) 500 mls @ 1,000 mls/hr IV BOLUS ONE Stop: 02/18/24 17:43 Last Infusion: 02/18/24 17:32 Dose: Infused Documented By: Admin: 02/18/24 17:15 Dose: 1,000 mls/hr Documented By: CAYETANO Ondansetron HCl (Ondansetron 4 Mg/2 Ml Inj) 4 mg IV NOW PRN PRN Reason: Nausea And Vomiting Last Admin: 02/18/24 17:13 Dose: 4 mg Documented By: CAYETANO Ondansetron HCl (Ondansetron 4 Mg Odt) 4 mg SL NOW PRN PRN Reason: Nausea And Vomiting Vital Signs Vital signs: Vital Signs - 8 hr 02/18/24 12:37 02/18/24 15:21 02/18/24 15:22 Temperature 97.7 F Pulse Rate 109 H 90 80 Respiratory Rate 20 Blood Pressure 150/79 H Pulse Oximetry 95 94 Oxygen Delivery Method Room Air 02/18/24 15:22 02/18/24 15:30 02/18/24 15:30 Temperature Pulse Rate 74 Respiratory Rate Blood Pressure 125/69 128/72 Pulse Oximetry 95 Oxygen Delivery Method MDM - Female Genitourinary Lab Data 02/18/24 16:35 02/18/24 16:35 Labs: Lab Results 02/18/24 Range/Units 16:35 WBC 6.2 (4.5-11.0) X10^3/uL RBC 4.15 (4.0-5.2) X10^6/uL Hgb 11.1 L (12.0-16.0) g/dL Hct 34.1 L (36-46) % MCV 82.1 (80-100) fL MCH 26.7 (26-34) PG MCHC 32.5 (30-36) % RDW 15.1 H (11.6-14.8) % Plt Count 190 (150-400) X10^3/uL Neut % (Auto) 69.8 (50-75) % Lymph % (Auto) 13.8 L (25-40) % White % (Auto) 15.7 H (3-14) % Eos % (Auto) 0.4 L (2-4) % Baso % (Auto) 0.3 (0-2) % Neut # (Auto) 4300 (6044-8146) /uL Lymph # (Auto) 900 L (4681-5594) /uL White # (Auto) 1000 H (0-900) /uL Eos # (Auto) 0 (0-450) /uL Baso # (Auto) 0 (0-100) /uL PT 12.0 (9.4-12.5) SECONDS INR 1.0 (0.9-1.3) APTT 35 (25.1-36.5) SECONDS Sodium 135 L (137-145) mmol/L Potassium 3.9 (3.4-5.1) mmol/L Chloride 98 (98-107) mmol/L Carbon Dioxide 35 H (22-32) mmol/L BUN 16 (7-17) mg/dL Creatinine 0.76 (0.52-1.04) mg/dL Estimated GFR > 60 (>60) mL/min BUN/Creatinine Ratio 21.1 (6-22) Glucose 98 (80-110) mg/dL Lactate 1.0 (0.7-2.1) mmol/L Calcium 9.6 (8.4-10.2) mg/dL Total Bilirubin 0.5 (0.2-1.3) mg/dL AST 22 (14-36) IU/L ALT 12 (<35) IU/L Alkaline Phosphatase 57 (38-126) U/L Total Protein 6.6 (6.3-8.2) g/dL Albumin 3.5 (3.5-5.0) g/dL Globulin 3.1 (1.7-4.1) g/dL Albumin/Globulin Ratio 1.1 (1.0-2.8) Lipase 234 (23-300) U/L Procalcitonin 0.15 (<0.5) ng/mL [facility] Narrative Medical decision making narrative: Patient seen by walk-in clinic yesterday and started Bactrim for UTI. She patient has frequent UTIs. Sometimes Klebsiella sometimes he coli are the results of cultures. Patient states Bactrim has made her stomach upset since taking 2 doses yesterday. Symptoms started with her typical symptoms of a cough dizzy urinary incontinence and flank/low back pain. She never has dysuria or frequency urgency. Urine culture does show Gram-negative bacilli and sensitivity is pending. She does agree for changing to a different antibiotic, I have suggested Omnicef. Patient in no distress. Not toxic appearing. After history and exam CBC CMP lactic acid procalcitonin normal saline Omnicef [facility] Medical records reviewed: Walk-in clinic notes from yesterday, urine culture results Differential considered: Includes but not limited to UTI pyelonephritis cystitis Lab Test results independently reviewed as above. Pertinent findings: WBC 6.2 hemoglobin 11.1 platelets 190 sodium 135 potassium 3.9 BUN 16 creatinine 0.76 GFR greater than 60 procalcitonin 0.15 lactic acid 1.0 Imaging studies independently reviewed: No imaging indicated Consultations: None indicated Treatments: Normal saline Omnicef Re-evaluations: 5:45 p.m.. Reviewed results with patient and friend. They are reassuring. Pain is controlled. No nausea or vomiting. Patient tolerated Omnicef as well. Return precautions reviewed. She desires discharge home. She does see Dr. Rob Adam for primary care, she will follow up with him. Discussion: Appropriate for discharge home. Exam and laboratory studies are reassuring. Patient likely not tolerating Bactrim and I have prescribed Omnicef. She is tolerating that very well. Not toxic at discharge. Return precautions reviewed. She desires discharge home Diagnosis: Frequent UTI Discharge Plan Departure Patient Disposition: Home Clinical Impression: Frequent UTI Instructions: DI for Urinary Tract Infection (UTI) Activity Restrictions/Additional Instructions: Please see your family doctor this week for re-evaluation. Please stop previous antibiotic Bactrim. This is likely upsetting her stomach. New prescription Omnicef has been sent to your pharmacy to continue tomorrow. Keep well hydrated. Return if worse if any questions or concerns. Prescriptions: No Action Prolia 60 mg/mL syringe 60 mg SUBCUT [id number] Qty: 1 0RF (DME) DISABLED PARKING PERMIT See Rx Instructions .ROUTE .MEDSUPPLY Qty: 1 0RF Rx Instructions: I find this patient to be medically disabled and qualified for disabled parking as indicated, and signed, on the accompanying Disabled Parking Application for Individuals. lorazepam 0.5 mg tablet 0.5 mg PO BEDTIME PRN (Reason: sleep) Qty: 10 0RF Rx Instructions: Take one or two tabs at bedtime as needed for muscle spasm of right upper back/shoulder cyanocobalamin (vitamin B-12) [Vitamin B-12] 1,000 mcg Tablet 1,000 mcg PO DAILY Qty: 0 Eylea 2 mg/0.05 mL solution intravitreal metoprolol tartrate 25 mg tablet 25 mg PO BID Qty: 180 0RF simvastatin 40 mg tablet 40 mg PO ONCE PM Qty: 90 3RF estradiol 0.01 % (0.1 mg/gram) cream 1 g VAG 3XW Qty: 42.5 12RF cholecalciferol (vitamin D3) [Vitamin D3] 50 mcg (2,000 unit) Capsule 50 mcg PO DAILY loratadine [Claritin] 10 mg tablet 10 mg PO DAILY PRN PreserVision AREDS-2 [id number] Capsule 1 cap PO BID Calcium Tablet 1 tab PO DAILY acetaminophen 325 mg Tablet 650 mg PO TID Qty: 60 0RF ondansetron 4 mg tablet,disintegrating 4 mg PO Q8H PRN (Reason: nausea and vomiting) Qty: 14 0RF potassium chloride 20 mEq tablet extended release 20 meq PO DAILY furosemide 40 mg tablet 40 mg PO QAM PRN Referrals: Rob Adam MD [Primary Care Provider] - Stand Alone Forms: Patient Portal/API
[2024-02-18 18:06] VITALS: BP 116/73; PULSE 86; RESP 18; O2SAT 96
== END 2024-02-18 18:03 | disposition home or self-care (01) ==
PROVIDERS: Emergency Provider Emergency Medicine; Family Provider Family Medicine; PCP Family Medicine
DX: N39.0 Urinary tract infection, site not specified (principal)
CPT/HCPCS: 80053; 83605; 83690; 84145; 85025; 85610; 85730; 96374; 99284; J2405

== ENCOUNTER → 2024-02-24 11:08 | Outpatient (CLI) | payer OTHER, SELFPAY ==
[2023-12-10 12:07] VITALS: BMI 30.9
== END ==
PROVIDERS: Family Provider Family Medicine; PCP Family Medicine; Visit Provider Family Medicine
DX: N39.0 Urinary tract infection, site not specified (principal)
CPT/HCPCS: 87086

== ENCOUNTER → 2024-03-10 13:13 | Outpatient (CLI) | payer OTHER, SELFPAY ==
[2023-12-10 12:07] VITALS: BMI 30.9
[2024-03-10 15:56] LABS: Bacteria Urine Many (>30); Culture Indicated Urine Specimen Cultured; RBC Urine 0-1/HPF (0-5/HPF); Squamous Epithelial Cell Urine None Seen (0-5/HPF); Urine Volume 10mL (spun); WBC Urine 10-30/HPF (0-5/HPF)
== END ==
PROVIDERS: Family Provider Family Medicine; PCP Family Medicine; Referring Provider Family Medicine; Visit Provider Family Medicine
DX: N39.0 Urinary tract infection, site not specified (principal)
CPT/HCPCS: 81015; 87077; 87086

== ENCOUNTER → 2024-03-31 13:59 | Outpatient (CLI) | payer OTHER, SELFPAY ==
[2023-12-10 12:07] VITALS: BMI 30.9
[2024-03-31 15:37] LABS: Appearance Urine UA CLEAR; Bilirubin Urine UA NEGATIVE (NEGATIVE); Color Urine UA YELLOW; Glucose Urine UA NEGATIVE (Negative); Ketones Urine UA NEGATIVE (NEGATIVE); Leukocyte Esterase Urine UA TRACE (NEGATIVE); Nitrite Urine UA POSITIVE (Negative); Occult Blood Urine UA NEGATIVE (Negative); Protein Urine UA NEGATIVE (Negative); Specific Gravity Urine UA <=1.005 (1.000-1.035); Urobilinogen Urine UA 0.2 E.U./dL (0.2)
[2024-03-31 15:40] LABS: pH Urine UA 5.5 (4.5-8.0)
[2024-03-31 16:56] LABS: Urine Volume 10mL (spun)
[2024-03-31 16:57] LABS: Bacteria Urine Many (>30); Culture Indicated Urine Specimen Cultured; RBC Urine None Seen (0-5/HPF); Squamous Epithelial Cell Urine 0-1 /HPF (0-5/HPF); WBC Urine 0-1/HPF (0-5/HPF)
== END ==
PROVIDERS: Family Provider Family Medicine; PCP Family Medicine; Referring Provider Family Medicine; Visit Provider Family Medicine
DX: N39.0 Urinary tract infection, site not specified (principal)
CPT/HCPCS: 81003; 81015; 87077; 87086

== ENCOUNTER → 2024-04-14 12:05 | Outpatient (CLI) | payer OTHER, SELFPAY ==
[2023-12-10 12:07] VITALS: BMI 30.9
== END ==
PROVIDERS: Family Provider Family Medicine; PCP Family Medicine; Visit Provider Obstetrics & Gynecology
DX: R82.998 Other abnormal findings in urine (principal); Z87.440 Personal history of urinary (tract) infections
CPT/HCPCS: 87077; 87086; 87186

== ENCOUNTER → 2024-05-01 08:33 | Outpatient (CLI) | payer OTHER, SELFPAY ==
[2023-12-10 12:07] VITALS: BMI 30.9
== END ==
PROVIDERS: Family Provider Family Medicine; PCP Family Medicine; Visit Provider Urology
DX: N39.0 Urinary tract infection, site not specified (principal)
CPT/HCPCS: 87077; 87086; 87186

== ENCOUNTER → 2024-06-28 12:08 | Outpatient (CLI) | payer OTHER, SELFPAY ==
[2024-05-29 10:29] VITALS: BMI 30.9
== END ==
PROVIDERS: Family Provider Family Medicine; PCP Family Medicine; Visit Provider Physician Assistant Surgical
DX: R10.9 Unspecified abdominal pain (principal)
CPT/HCPCS: 87077; 87086; 87186

== ENCOUNTER → 2024-07-09 11:19 | Outpatient (CLI) | payer OTHER, SELFPAY ==
[2024-05-29 10:29] VITALS: BMI 30.9
[2024-07-09 12:37] LABS: Alanine Aminotransferase 11 IU/L (<35); Albumin 3.8 g/dL (3.5-5.0); Albumin Globulin Ratio 1.3 (1.0-2.8); Alkaline Phosphatase 64 U/L (38-126); Aspartate Aminotransferase 25 IU/L (14-36); BUN Creatinine Ratio 14.1 (6-22); Bilirubin Total 0.5 mg/dL (0.2-1.3); Blood Urea Nitrogen 12 mg/dL (7-17); Calcium 9.3 mg/dL (8.4-10.2); Carbon Dioxide 28 mmol/L (22-32); Chloride 99 mmol/L (98-107); Cholesterol 197 mg/dL (140-199); Estimated Glomerular Filt Rate > 60 mL/min (>60); Glucose 94 mg/dL (80-110); HDL Cholesterol 42 mg/dL (40-60); HEMOLYSIS < 15 (0-50); LDL Cholesterol Calculated 119 mg/dL (<100); Potassium 4.2 mmol/L (3.4-5.1); Sodium 133 mmol/L (137-145); Total Protein 6.8 g/dL (6.3-8.2); Triglycerides 179 mg/dL (35-150)
[2024-07-09 12:54] LABS: TSH w/ Reflex to FT4 2.82 uIU/mL (0.47-4.68)
== END ==
PROVIDERS: Family Provider Family Medicine; PCP Family Medicine; Referring Provider Physician Assistant; Visit Provider Physician Assistant
DX: E78.2 Mixed hyperlipidemia (principal); M81.0 Age-related osteoporosis without current pathological fracture; I10 Essential (primary) hypertension
CPT/HCPCS: 36415; 80053; 80061; 82306; 84443

== ENCOUNTER → 2024-07-14 13:24 | Outpatient (CLI) | payer OTHER, SELFPAY ==
[2024-05-29 10:29] VITALS: BMI 30.9
[2024-07-14 13:43] LABS: Urine Volume 10mL (spun)
[2024-07-14 13:44] LABS: Bacteria Urine Moderate (10-30); Culture Indicated Urine Specimen Cultured; RBC Urine None Seen (0-5/HPF); Squamous Epithelial Cell Urine 1-5 /HPF (0-5/HPF); WBC Urine 10-30/HPF (0-5/HPF)
== END ==
PROVIDERS: Family Provider Family Medicine; PCP Family Medicine; Visit Provider Physician Assistant
DX: N39.0 Urinary tract infection, site not specified (principal)
CPT/HCPCS: 81015; 87086

== ENCOUNTER → 2024-07-17 13:33 | Outpatient (CLI) | payer OTHER, SELFPAY ==
[2024-05-29 10:29] VITALS: BMI 30.9
== END ==
PROVIDERS: Family Provider Family Medicine; PCP Family Medicine; Visit Provider Urology
DX: N39.0 Urinary tract infection, site not specified (principal)
CPT/HCPCS: 87086

== ENCOUNTER → 2024-08-04 12:13 | Outpatient (CLI) | payer OTHER, SELFPAY ==
[2024-05-29 10:29] VITALS: BMI 30.9
--- NOTE | 2024-08-04 12:13 | DI.RAD.S_ITS ---
PROCEDURE: XR DEXA AXIAL SKELETON INDICATIONS: Osteoporosis (on Prolia) COMPARISON: [facility], , XR DEXA AXIAL SKELETON, 08/31/2020, 10:41. FINDINGS: Lumbar Spine: Bone mineral density 1.030 g/cm2, T score 0.1. Prior DEXA was performed using dissimilar scan type or analysis method. Left Hip: Bone mineral density 0.581 g/cm2, T score -3.0. Prior DEXA was performed using dissimilar scan type or analysis method. Left Femoral Neck: Bone mineral density 0.525 g/cm2, T score -2.9 Right Hip: Bone mineral density 0.645 g/cm2, T score -2.4. Prior DEXA was performed using dissimilar scan type or analysis method. Right Femoral Neck: Bone mineral density 0.710 g/cm2, T score -1.3. Fracture Risk Calculation (when applicable): FRAX score not reported due to T-score less than -2.5 (T score greater or equal to -1.0 to: NORMAL) (T score from -1.1 to -2.4: OSTEOPENIA) (T score less than or equal to -2.5: OSTEOPOROSIS) IMPRESSION: By WHO criteria, patient has osteoporosis. Follow-up guidelines as follows: Osteoporosis: Consider a repeat DEXA and Vertebral Fracture Assessment (VFA) exam in 2 years or sooner if medically necessary, to reassess this patient's status. Osteopenia: Consider a repeat DEXA in 2-3 years to reassess this patient's status, or if there is a new clinical indication. Normal: Consider a repeat DEXA in 5 years or sooner, or if there is a new clinical indication. All treatment decisions require clinical judgment and consideration of individual patient factors, including patient preferences, comorbidities, previous drug use, risk factors not captured in the FRAX model (e.g., frailty, falls, vitamin D deficiency, increased bone turnover, interval significant decline in bone density ) and possible under- or over-estimation of fracture risk by FRAX. In addition, the NOF Guide recommends that FDA-approved medical therapies be considered in postmenopausal women and men age >= 50 years with a: * Hip or vertebral (clinical or morphometric) fracture * T-score of <=-2.5 at the spine or hip * Ten-year fracture probability by FRAX of >= 3% for hip fracture or >=20% for major osteoporotic fracture. People with diagnosed cases of osteoporosis or at high risk for fracture should have regular bone mineral density tests. For patients eligible for Medicare, routine testing is allowed once every 2 years. The testing frequency can be increased to one year for patients who have rapidly progressing disease, those who are receiving or discontinuing medical therapy to restore bone mass, or have additional risk factors. Approved by: Darwin Morales M.D. on 08/04/2024 at 20:49
== END ==
PROVIDERS: Family Provider Family Medicine; PCP Family Medicine; Referring Provider Physician Assistant; Visit Provider Physician Assistant
DX: M81.0 Age-related osteoporosis without current pathological fracture (principal)
CPT/HCPCS: 77080

== ENCOUNTER → 2024-08-12 13:13 | Outpatient (CLI) | payer OTHER, SELFPAY ==
[2024-05-29 10:29] VITALS: BMI 30.9
== END ==
PROVIDERS: Family Provider Family Medicine; PCP Family Medicine; Visit Provider Urology
DX: N39.0 Urinary tract infection, site not specified (principal)
CPT/HCPCS: 87077; 87086

== ENCOUNTER → 2024-09-16 11:22 | Outpatient (CLI) | payer OTHER, SELFPAY ==
[2024-05-29 10:29] VITALS: BMI 30.9
[2024-09-16 12:53] LABS: Appearance Urine UA SL CLOUDY; Bilirubin Urine UA NEGATIVE (NEGATIVE); Color Urine UA YELLOW; Glucose Urine UA NEGATIVE (Negative); Ketones Urine UA TRACE (NEGATIVE); Leukocyte Esterase Urine UA 2+ (NEGATIVE); Nitrite Urine UA POSITIVE (Negative); Occult Blood Urine UA NEGATIVE (Negative); Protein Urine UA NEGATIVE (Negative); Urobilinogen Urine UA 0.2 E.U./dL (0.2); pH Urine UA 5.5 (4.5-8.0)
[2024-09-16 12:54] LABS: Urine Volume 10mL (spun)
[2024-09-16 12:56] LABS: Bacteria Urine Many (>30); Culture Indicated Urine Specimen Cultured; RBC Urine None Seen (0-5/HPF); Squamous Epithelial Cell Urine None Seen (0-5/HPF); WBC Urine 30-100/HPF (0-5/HPF)
== END ==
PROVIDERS: Family Provider Family Medicine; PCP Family Medicine; Visit Provider Urology
DX: N39.0 Urinary tract infection, site not specified (principal); D49.4 Neoplasm of unspecified behavior of bladder; N95.2 Postmenopausal atrophic vaginitis; N81.10 Cystocele, unspecified; Z96.0 Presence of urogenital implants; Z87.448 Personal history of other diseases of urinary system
CPT/HCPCS: 51798; 81001; 81002; 87077; 87086; 87186; 99213

== ENCOUNTER → 2024-10-01 09:03 | Outpatient (CLI) | payer OTHER, SELFPAY ==
[2024-05-29 10:29] VITALS: BMI 30.9
[2024-10-01 10:42] LABS: Influenza A - CEPHEID Flu A NEGATIVE (NEGATIVE); Influenza B - CEPHEID Flu B NEGATIVE (NEGATIVE); Respiratory Syncytial Virus Negative (Negative)
[2024-10-01 10:44] LABS: COVID-19 CEPHEID 4-PLEX PCR Negative (Negative)
== END ==
PROVIDERS: Family Provider Family Medicine; PCP Family Medicine; Visit Provider Family Medicine
DX: J04.0 Acute laryngitis (principal); J06.9 Acute upper respiratory infection, unspecified; R05.9 Cough, unspecified
CPT/HCPCS: 0241U

== ENCOUNTER → 2024-10-01 09:12 | Outpatient (CLI) | payer OTHER, SELFPAY ==
[2024-05-29 10:29] VITALS: BMI 30.9
--- NOTE | 2024-10-01 09:15 | DI.RAD.S_ITS ---
PROCEDURE: XR CHEST 2V INDICATIONS: cough and sort of breath TECHNIQUE: 2 views of the chest were acquired. COMPARISON: [facility], CR, XR CHEST 1V, 02/15/2023, 12:58. [facility], CR, XR CHEST 1V, 05/01/2021, 21:59. FINDINGS: Surgical changes and devices: None. Lungs and pleura: Low lung volumes. Mildly prominent interstitium. Eventration of the right hemidiaphragm again seen. No drainable pleural effusions. Suspected right middle lobe opacity is present. Mediastinum: Heart size is at the upper limit of normal, unchanged. Bones and chest wall: Unremarkable IMPRESSION: Prominent interstitium could represent atypical infection or edema. In addition, focal opacity in the right middle lobe adjacent to right hemidiaphragm eventration could represent mild focal airspace disease versus atelectasis Consider future imaging surveillance to assess for resolution. Low lung volumes. Dictated by: Kelvin Shah M.D. on 10/01/2024 at 15:15 Approved by: Kelvin Shah M.D. on 10/01/2024 at 15:17
== END ==
LOC: RAD 09:15
PROVIDERS: Family Provider Family Medicine; PCP Family Medicine; Referring Provider Family Medicine; Visit Provider Family Medicine
DX: J04.0 Acute laryngitis (principal); J06.9 Acute upper respiratory infection, unspecified; R05.9 Cough, unspecified
CPT/HCPCS: 0241U; 71046

== ENCOUNTER → 2024-10-07 13:17 | Outpatient (CLI) | payer OTHER, SELFPAY ==
[2024-05-29 10:29] VITALS: BMI 30.9
== END ==
PROVIDERS: Family Provider Family Medicine; PCP Family Medicine; Visit Provider Urology
DX: N39.0 Urinary tract infection, site not specified (principal)
CPT/HCPCS: 87077; 87086; 87186

== ENCOUNTER 2024-10-15 13:57 | Emergency (ER) | payer OTHER, SELFPAY ==
[2024-05-29 10:29] VITALS: BMI 30.9
[2024-10-15 14:10] VITALS: BP 155/86; PULSE 81; RESP 15; TEMP 36.5; O2SAT 97
--- NOTE | 2024-10-15 15:18 | PC.NURSE ---
Pt on cipro. States while she was shopping yesterday she noted left arm pain. Denies lifting anything heavy. Possible swelling noted to left bicep. Pt reports point tenderness. Left hand fingers noted to change to purple/dark red when hand is resting on leg in sitting position. Extremity warm--neither hot nor cold.
[2024-10-15 15:31] LABS: Appearance Urine UA CLOUDY; Bilirubin Urine UA NEGATIVE (NEGATIVE); Color Urine UA YELLOW; Glucose Urine UA NEGATIVE (Negative); Ketones Urine UA NEGATIVE (NEGATIVE); Leukocyte Esterase Urine UA 1+ (NEGATIVE); Nitrite Urine UA POSITIVE (Negative); Occult Blood Urine UA NEGATIVE (Negative); Protein Urine UA NEGATIVE (Negative); Urobilinogen Urine UA 0.2 E.U./dL (0.2); pH Urine UA 6.5 (4.5-8.0)
--- NOTE | 2024-10-15 15:40 | ED_ITS ---
HPI - General Adult General Chief complaint: Extremity Injury, Upper Stated complaint: left arm px, medication reaction, sent by Time Seen by Provider: 10/15/24 14:18 Source: patient Mode of arrival: Ambulatory History of Present Illness HPI narrative: 83-year-old woman with a history of recurrent urinary tract infections. On October 07 had a positive urine culture that was initially treated with 250 mg b.i.d. ciprofloxacin, 3 days later was increased to 500 mg b.i.d. ciprofloxacin currently at day 7 of antibiotic course and asymptomatic.. Patient states she usually does not get dysuria or frequency symptoms, typically we will get a little bit nauseated with symptoms progressing than 2 pyelonephritis and sepsis. She presents complaining of left bicipital pain. She was lifting something small with the left hand this morning felt and heard cracking/tearing noise with pain in the proximal medial bicipital head. Slight decreased weakness in the hand but not dramatically appreciated. She talked to a triage nurse through [facility] who recommended ER evaluation. Concern is tendon rupture related to recent/current ciprofloxacin dosing. Related Data Home Medications Medication Instructions Recorded Confirmed cyanocobalamin (vitamin B-12) 1,000 mcg PO DAILY ##0 06/21/13 10/07/24 1,000 mcg tablet (Vitamin B-12) Calcium Tablet 1 tab PO DAILY 09/11/19 10/07/24 vit C 250 mg-vit E 90 mg-zinc 40 1 cap PO BID 09/11/19 10/07/24 mg-copper 1 [id number] capsule (PreserVision AREDS-2) aflibercept 2 mg/0.05 mL mg intravitreal 11/23/22 10/07/24 intravitreal solution for injection (Eylea) cholecalciferol (vitamin D3) 50 50 mcg PO DAILY 04/23/23 10/07/24 mcg (2,000 unit) capsule (Vitamin D3) potassium chloride 20 mEq 20 meq PO DAILY 08/20/23 10/07/24 tablet,extended release loratadine 10 mg tablet (Claritin) 10 mg PO DAILY PRN 02/06/24 10/07/24 omeprazole 10 mg capsule,delayed 10 mg PO DAILY PRN 07/17/24 10/07/24 release Previous Rx's Medication Instructions Recorded DISABLED PARKING PERMIT #1 ea 09/06/20 denosumab 60 mg/mL subcutaneous 60 mg SUBCUT [id number] #1 mL 09/06/20 syringe (Prolia) acetaminophen 325 mg tablet 650 mg (2 x 325 mg) PO TID #60 tabs 03/09/21 lorazepam 0.5 mg tablet 0.5 mg PO BEDTIME PRN sleep #10 08/19/23 tabs estradiol 0.01% (0.1 mg/gram) 1 g vaginal 3XW postmenopausal 11/21/23 vaginal cream atrophy #42.5 grams oxyquinoline 0.025 %-sodium lauryl See Rx Instructions vaginal 04/14/24 sulfate 0.01 % vaginal gel .COMPLEX #113.4 grams (Trimo-Mujica Jelly) metoprolol tartrate 25 mg tablet 25 mg PO BID #180 tabs 06/29/24 furosemide 40 mg tablet 40 mg PO QAM PRN edema #90 tabs 09/03/24 ciprofloxacin HCl 500 mg tablet 500 mg PO BID #30 tabs 10/12/24 nitrofurantoin macrocrystal 100 mg 100 mg PO BID #14 caps 10/15/24 capsule Allergies Allergy/AdvReac Type Severity Reaction Status Date / Time hydroxyzine AdvReac Severe Anxiety Verified 10/15/24 14:49 hydromorphone [HYDROMORPHONE] AdvReac Intermediate n/v, Verified 10/15/24 14:49 sweats, vomiting methenamine AdvReac Intermediate Nausea Verified 10/15/24 14:49 sulfamethoxazole AdvReac Intermediate Abdominal Verified 10/15/24 14:49 [From Bactrim] Pain trimethoprim [From Bactrim] AdvReac Intermediate Abdominal Verified 10/15/24 14:49 Pain nitrofurantoin AdvReac Mild Verified 10/15/24 14:49 Review of Systems Review of Systems Narrative: Pertinent positive and negative findings as per HPI Patient History Medical History (Updated 10/15/24 @ 16:45 by Lala Velazquez MD) Vaginal pessary in situ Urinary tract infection AC (acromioclavicular) joint arthritis Atrophic vaginitis Pelvicaliectasis Cervical spinal stenosis History of hydronephrosis Hx of gastroesophageal reflux (GERD) Rotator cuff dysfunction Rash Hyperlipidemia Chronic UTI Abnormal CT scan, chest Pessary maintenance Preoperative evaluation to rule out surgical contraindication Vision disorder Abnormal CXR (~2013) Lumbar compression fracture Osteoporosis (~2013) Fractures Ankle pain (~1976) Rubella (~1947) Mumps (~1947) Measles (~1946) Chicken pox (~1946) Cataract (~2013) Urinary, incontinence, stress female Gastric ulcer Diverticular disease (~2013) Compression fracture of lumbar vertebra (02/19/14) Infected sebaceous cyst of skin Surgical History History of knee replacement (03/04/21) Hx of cystoscopy History of sinus surgery Anesthesia History of kyphoplasty (~2012) History of ankle surgery Femoral hernia Status post appendectomy (~1948) Status post cholecystectomy (~1964) Family History Father Osteoporosis High cholesterol Cancer Mother Dementia Hypertension Social History marital status: number of children: 3 household members: family Smoking Status: Never smoker alcohol intake: current substance use type: does not use caffeine: Yes Type(s) of exercise: walking Smoking Status: Never smoker alcohol intake frequency: holidays/special occasions only Exam Initial Vital Signs Initial Vital Signs: Vital Signs Temperature 97.7 F 10/15/24 14:10 Pulse Rate 81 10/15/24 14:10 Respiratory Rate 15 10/15/24 14:10 Blood Pressure 155/86 H 10/15/24 14:10 Pulse Oximetry 97 10/15/24 14:10 Oxygen Delivery Method Room Air 10/15/24 14:10 General: Alert appropriate in no acute distress Respiratory: Able to speak in full sentences, no obvious respiratory distress Skin: No obvious rashes, warm and dry Neurologic: Grossly intact no obvious asymmetries or abnormalities Psych: appropriate insight and affect, cooperative Extremity: Minor tenderness in the medial bicipital proximal head. No obvious muscle spasm or contraction. No bleeding. She is neurovascularly intact distally. 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 Minimal difference in bicipital tendon strength testing bilaterally. No shoulder tenderness or abnormalities Course Orders Ordered: ED Orders 10/15/24 15:14 UA Complete [Urinalysis and Microscopic] Stat Urine Culture Stat Vital Signs Vital signs: Vital Signs - 8 hr 10/15/24 14:10 Temperature 97.7 F Pulse Rate 81 Respiratory Rate 15 Blood Pressure 155/86 H Pulse Oximetry 97 Oxygen Delivery Method Room Air Medical Decision Making Lab Data Labs: Lab Results 10/15/24 Range/Units 15:14 Urine Color Yellow Urine Appearance Cloudy Urine pH 6.5 (4.5-8.0) Ur Specific [place] 1.010 (1.000-1.035) Urine Protein Negative (Negative) Urine Glucose (UA) Negative (Negative) g/dL Urine Ketones Negative (NEGATIVE) Urine Occult Blood Negative (Negative) Urine Nitrate Positive H (Negative) Urine Bilirubin Negative (NEGATIVE) Urine Urobilinogen 0.2 (0.2) E.U./dL Ur Leukocyte Esterase 1+ H (NEGATIVE) Urine RBC None seen (0-5/HPF) Urine WBC 30-100/hpf H (0-5/HPF) Ur Squamous Epith Cells 1-5 /hpf (0-5/HPF) Urine Bacteria Moderate (10-30) H (None) Ur Culture Indicated? Specimen cultured Vol Urine Centrifuged 10ml (spun) MDM Narrative Medical decision making narrative: CC: Left bicipital pain Complicating co-morbidities: Currently on Cipro for urinary tract infection Data collected from: patient Medical records reviewed: Recent notes regarding urinary tract infection and chronicity are reviewed. Recent culture reviewed Differential considered: Shoulder strain, bicipital tendon rupture/inflammation/tendinitis Exam documented above, pertinent findings include: Mild tenderness without any muscle bulging or obvious defects appreciated in the biceps Bedside ultrasound does not suggest obvious bicipital rupture Treatments: Macrobid given, we will have her discontinue Cipro Sling placed for the left arm by me, neurovascularly intact pre and post placement. She is finding relief with the sling in place Discussion: 83-year-old woman with left bicipital tenderness currently on Cipro concern for antibiotic related tendinopathy or rupture. Ultrasound does not suggest rupture. She is placed in a sling for comfort. She will use Tylenol as needed. She is otherwise neurovascularly intact. Urinalysis does show continued nitrites leukocyte esterase white cells moderate bacteria we will again be cultured but in the meantime based on culture from the we will place her on Macrobid for an additional 7 days. Questions were answered she is safe for discharge Discharge Plan Departure Patient Disposition: Home Clinical Impression: Chronic UTI Biceps tendinitis Qualifiers: Laterality: left Qualified Code(s): M75.22 - Bicipital tendinitis, left shoulder Instructions: DI for Tendinitis Activity Restrictions/Additional Instructions: Thank you for coming in today I share your concern that the Cipro maybe causing some tendon abnormalities. The ultrasound that we did at the bedside in the emergency department does not suggest obvious bicipital tendon rupture. Based on your exam it certainly does seem like it is at least inflamed. Please use the sling for comfort as needed. Tylenol as needed for pain control Please stop the ciprofloxacin. Urine culture from October 07 showed that the bacteria was sensitive to Macrobid. I am going to send a prescription for 7 days to [facility]. If you find that you are getting worse or develop any new symptoms, please feel free to return to the emergency department for further evaluation. Prescriptions: New nitrofurantoin macrocrystal 100 mg capsule 100 mg PO BID Qty: 14 0RF Rx Instructions: must administer with a meal/food No Action Prolia 60 mg/mL syringe 60 mg SUBCUT [id number] Qty: 1 0RF (DME) DISABLED PARKING PERMIT See Rx Instructions .ROUTE .MEDSUPPLY Qty: 1 0RF Rx Instructions: I find this patient to be medically disabled and qualified for DICOM Grid as indicated, and signed, on the accompanying [employer] Application for Individuals. lorazepam 0.5 mg tablet 0.5 mg PO BEDTIME PRN (Reason: sleep) Qty: 10 0RF Rx Instructions: Take one or two tabs at bedtime as needed for muscle spasm of right upper back/shoulder cyanocobalamin (vitamin B-12) [Vitamin B-12] 1,000 mcg Tablet 1,000 mcg PO DAILY Qty: 0 Eylea 2 mg/0.05 mL solution intravitreal estradiol 0.01 % (0.1 mg/gram) cream 1 g VAG 3XW Qty: 42.5 12RF metoprolol tartrate 25 mg tablet 25 mg PO BID Qty: 180 3RF furosemide 40 mg tablet 40 mg PO QAM PRN (Reason: edema) Qty: 90 1RF ciprofloxacin HCl 500 mg tablet 500 mg PO BID Qty: 30 0RF Trimo-Mujica Jelly 0.025-0.01 % gel See Rx Instructions vaginal .COMPLEX Qty: 113.4 12RF Rx Instructions: Apply 1 full applicator vaginally each week. cholecalciferol (vitamin D3) [Vitamin D3] 50 mcg (2,000 unit) Capsule 50 mcg PO DAILY loratadine [Claritin] 10 mg tablet 10 mg PO DAILY PRN PreserVision AREDS-2 [id number] Capsule 1 cap PO BID Calcium Tablet 1 tab PO DAILY acetaminophen 325 mg Tablet 650 mg PO TID Qty: 60 0RF potassium chloride 20 mEq tablet extended release 20 meq PO DAILY omeprazole 10 mg capsule,delayed release(DR/EC) 10 mg PO DAILY PRN Referrals: Rob Adam MD [Primary Care Provider] - Stand Alone Forms: Patient Portal/API/Survey
[2024-10-15 15:45] LABS: Bacteria Urine Moderate (10-30); Culture Indicated Urine Specimen Cultured; RBC Urine None Seen (0-5/HPF); Squamous Epithelial Cell Urine 1-5 /HPF (0-5/HPF); Urine Volume 10mL (spun); WBC Urine 30-100/HPF (0-5/HPF)
[2024-10-15] MEDS: NITROFURANTOIN ER 100 MG CAPSULE PO (17:20)
== END 2024-10-15 17:00 | disposition home or self-care (01) ==
PROVIDERS: Emergency Provider Emergency Medicine; Family Provider Family Medicine; PCP Family Medicine
DX: N39.0 Urinary tract infection, site not specified (principal); M75.22 Bicipital tendinitis, left shoulder
CPT/HCPCS: 81001; 87086; 99283

== ENCOUNTER → 2025-03-17 10:43 | Outpatient (CLI) | payer OTHER, SELFPAY ==
[2024-05-29 10:29] VITALS: BMI 30.9
[2025-03-17 11:14] LABS: Add Manual Diff / Slide Review NO; Basophils Absolute Auto 0 /uL (0-100); Basophils Percent Auto 0.4 % (0-2); Eosinophils Absolute Auto 100 /uL (0-450); Eosinophils Percent Auto 1.8 % (2-4); Hematocrit 37.5 % (36-46); Hemoglobin 12.1 g/dL (12.0-16.0); Lymphocytes Absolute Auto 1100 /uL (1100-4500); Lymphocytes Percent Auto 19.5 % (25-40); Mean Corpuscular HGB Conc 32.2 % (30-36); Mean Corpuscular Hemoglobin 26.1 PG (26-34); Monocytes Absolute Auto 500 /uL (0-900); Monocytes Percent Auto 8.6 % (3-14); Neutrophils Absolute Auto 4000 /uL (1500-7000); Neutrophils Percent Auto 69.7 % (50-75); Platelet Count 309 X10^3/uL (150-400); Red Blood Cell Count 4.63 X10^6/uL (4.0-5.2); Red Cell Distribution Width 17.3 % (11.6-14.8); White Blood Cell Count 5.7 X10^3/uL (4.5-11.0)
[2025-03-17 11:41] LABS: Alanine Aminotransferase 14 IU/L (<35); Albumin 3.9 g/dL (3.5-5.0); Albumin Globulin Ratio 1.4 (1.0-2.8); Alkaline Phosphatase 61 U/L (38-126); Aspartate Aminotransferase 26 IU/L (14-36); BUN Creatinine Ratio 21.1 (6-22); Bilirubin Total 0.5 mg/dL (0.2-1.3); Blood Urea Nitrogen 16 mg/dL (7-17); Calcium 9.3 mg/dL (8.4-10.2); Carbon Dioxide 29 mmol/L (22-32); Chloride 101 mmol/L (98-107); Cholesterol 206 mg/dL (140-199); Estimated Glomerular Filt Rate > 60 mL/min (>60); Globulin 2.8 g/dL (1.7-4.1); Glucose 96 mg/dL (70-99); HDL Cholesterol 58 mg/dL (40-60); HEMOLYSIS < 15 (0-50); LDL Cholesterol Calculated 125 mg/dL (<100); Potassium 4.3 mmol/L (3.4-5.1); Sodium 136 mmol/L (137-145); Total Protein 6.7 g/dL (6.3-8.2); Triglycerides 117 mg/dL (35-150)
[2025-03-17 12:11] LABS: TSH w/ Reflex to FT4 3.92 uIU/mL (0.47-4.68)
[2025-03-17 12:30] LABS: Vitamin B12 > 1000 pg/mL (239-931)
== END ==
LOC: LAB 10:44
PROVIDERS: Family Provider Family Medicine; PCP Family Medicine; Referring Provider Family Medicine; Visit Provider Family Medicine
DX: I10 Essential (primary) hypertension (principal); E78.2 Mixed hyperlipidemia; M81.0 Age-related osteoporosis without current pathological fracture
CPT/HCPCS: 36415; 80053; 80061; 82607; 84443; 85025

== ENCOUNTER → 2025-07-26 12:55 | Outpatient (CLI) | payer OTHER, SELFPAY ==
[2024-05-29 10:29] VITALS: BMI 30.9
[2025-07-26 14:48] LABS: Appearance Urine UA SL CLOUDY; Bilirubin Urine UA NEGATIVE (NEGATIVE); Color Urine UA YELLOW; Glucose Urine UA NEGATIVE (Negative); Ketones Urine UA NEGATIVE (NEGATIVE); Leukocyte Esterase Urine UA TRACE (NEGATIVE); Nitrite Urine UA POSITIVE (Negative); Occult Blood Urine UA NEGATIVE (Negative); Protein Urine UA NEGATIVE (Negative); Specific Gravity Urine UA 1.010 (1.000-1.035); Urobilinogen Urine UA 0.2 E.U./dL (0.2); pH Urine UA 6.0 (4.5-8.0)
[2025-07-26 14:50] LABS: Culture Indicated Urine Specimen Cultured
== END ==
PROVIDERS: PCP Family Medicine; Visit Provider Urology
DX: N39.0 Urinary tract infection, site not specified (principal)
CPT/HCPCS: 81001; 87077; 87086; 87186

== ENCOUNTER 2025-08-14 12:26 | Emergency (ER) | payer OTHER, SELFPAY ==
[2024-05-29 10:29] VITALS: BMI 30.9
[2025-08-14] VITALS (7 sets, daily range): BP systolic 141–176; BP diastolic 84–92; PULSE 68–87; RESP 10–33; TEMP 36.6; O2SAT 80–97; BMI 29.5
--- NOTE | 2025-08-14 12:54 | ED.WEAKNESS ---
HPI - Weakness General Chief complaint: Urogenital-Female Stated complaint: nausea, shaking, chills, dizzy since saturday Time Seen by Provider: 08/14/25 12:31 Source: patient Mode of arrival: Ambulatory History of Present Illness HPI Narrative: 84-year-old female history of hypertension, recurrent UTIs with most recent culture growing E coli 07/26/25 and previously in 2023 for Citrobacter presents with chills, body aches, urinary frequency, feeling more fatigued and weak since Saturday. She denies cough, sore throat, nausea, vomiting, diarrhea, abdominal pain, chest pain, shortness of breath, dyspnea on exertion. Other than what is stated 14 point review of system is negative. Related Data Home Medications ?Medication ?Instructions ?Recorded ?Confirmed Calcium Tablet 1 tab PO DAILY 09/11/19 07/26/25 vit C 250 mg-vit E 90 mg-zinc 40 1 cap PO BID 09/11/19 07/26/25 mg-copper 1 [id number] capsule (PreserVision AREDS-2) aflibercept 2 mg/0.05 mL mg intravitreal 11/23/22 07/26/25 intravitreal solution for injection (Eylea) cholecalciferol (vitamin D3) 50 50 mcg PO DAILY 04/23/23 07/26/25 mcg (2,000 unit) capsule (Vitamin D3) potassium chloride 20 mEq 20 meq PO DAILY 08/20/23 07/26/25 tablet,extended release loratadine 10 mg tablet (Claritin) 10 mg PO DAILY PRN 02/06/24 07/26/25 omeprazole 10 mg capsule,delayed 10 mg PO DAILY PRN 07/17/24 07/26/25 release cyanocobalamin (vitamin B-12) 1,000 mcg PO DAILY PRN ##0 06/17/25 07/26/25 1,000 mcg tablet (Vitamin B-12) diclofenac sodium 1 % topical gel 2 g topical QID 07/26/25 07/26/25 (Voltaren Arthritis Pain) Previous Rx's ?Medication ?Instructions ?Recorded denosumab 60 mg/mL subcutaneous 60 mg SUBCUT [id number] #1 mL 09/06/20 syringe (Prolia) acetaminophen 325 mg tablet 650 mg (2 x 325 mg) PO TID #60 tabs 04/29/21 triamcinolone acetonide 0.1 % See Rx Instructions topical BID 03/18/25 topical cream #30 grams furosemide 40 mg tablet 40 mg PO QAM PRN edema #90 tabs 06/16/25 DISABLED PARKING PERMIT #1 ea 06/17/25 estradiol 0.01% (0.1 mg/gram) 1 g vaginal 3XW #42.5 grams 06/17/25 vaginal cream metoprolol tartrate 25 mg tablet 12.5 mg (1/2 x 25 mg) PO BID #180 06/17/25 tabs oxyquinoline 0.025 %-sodium lauryl See Rx Instructions vaginal 06/17/25 sulfate 0.01 % vaginal gel .COMPLEX #113.4 grams (Trimo-Mujica Jelly) ondansetron 4 mg disintegrating 4 mg PO Q8H PRN nausea and 06/21/25 tablet vomiting #14 tabs amoxicillin 500 mg-potassium 1 tab PO BID #10 tabs 07/29/25 clavulanate 125 mg tablet nitrofurantoin 100 mg PO Q12H 5 days #10 caps 08/14/25 monohydrate/macrocrystals 100 mg capsule (Macrobid) Allergies Allergy/AdvReac Type Severity Reaction Status Date / Time hydroxyzine AdvReac Severe Anxiety Verified 08/14/25 12:38 hydromorphone (HYDROMORPHONE) AdvReac Intermediate n/v, Verified 08/14/25 12:38 sweats, vomiting sulfamethoxazole (From AdvReac Intermediate Abdominal Verified 08/14/25 12:38 Bactrim) Pain trimethoprim (From Bactrim) AdvReac Intermediate Abdominal Verified 08/14/25 12:38 Pain nitrofurantoin AdvReac Mild Verified 08/14/25 12:38 Review of Systems Review of Systems ROS Unobtainable: All systems reviewed & are unremarkable except as noted in HPI and below Patient History Medical History (Updated 08/14/25 @ 15:41 by Dakota Varner DO) Vaginal pessary in situ Urinary tract infection AC (acromioclavicular) joint arthritis Atrophic vaginitis Pelvicaliectasis Cervical spinal stenosis History of hydronephrosis Hx of gastroesophageal reflux (GERD) Rotator cuff dysfunction Rash Hyperlipidemia Chronic UTI Abnormal CT scan, chest Pessary maintenance Preoperative evaluation to rule out surgical contraindication Vision disorder Abnormal CXR (~2013) Lumbar compression fracture Osteoporosis (~2013) Fractures Ankle pain (~1976) Rubella (~1947) Mumps (~1947) Measles (~1946) Chicken pox (~1946) Cataract (~2013) Urinary, incontinence, stress female Gastric ulcer Diverticular disease (~2013) Compression fracture of lumbar vertebra (02/19/14) Infected sebaceous cyst of skin Surgical History History of knee replacement (03/04/21) Hx of cystoscopy History of sinus surgery Anesthesia History of kyphoplasty (~2012) History of ankle surgery Femoral hernia Status post appendectomy (~1948) Status post cholecystectomy (~1964) Family History Father Osteoporosis High cholesterol Cancer Mother Dementia Hypertension Social History marital status: number of children: 3 household members: family alcohol intake: current substance use type: does not use caffeine: Yes Type(s) of exercise: walking alcohol intake frequency: holidays/special occasions only Exam Narrative Exam Narrative: GENERAL: [84] year old patient appears stated age. Well-developed patient, in mild distress. HEAD: Atraumatic. Normocephalic. EYES: Pupils equal round and reactive. Extraocular motions intact. No scleral icterus. No injection or drainage. ENT: Nose without bleeding, purulent drainage. Throat without erythema, tonsillar hypertrophy or exudate. Airway patent. NECK: Trachea midline. Non tender CARDIOVASCULAR: Regular rate and rhythm without murmurs, gallops, or rubs. RESPIRATORY: Clear to auscultation. Breath sounds equal bilaterally. No wheezes, rales, or rhonchi. GASTROINTESTINAL: Abdomen soft, non-tender, nondistended. EXTREMITIES: No edema or joint tenderness. BACK: Nontender without deformity or crepitance. No flank tenderness. NEURO: AOx3. SKIN: No rash or erythema of visible areas Initial Vital Signs Initial Vital Signs: Vital Signs Temperature 97.8 F 08/14/25 12:38 Pulse Rate 87 08/14/25 12:38 Respiratory Rate 18 08/14/25 12:38 Blood Pressure 176/84 H 08/14/25 12:38 Pulse Oximetry 97 08/14/25 12:38 Oxygen Delivery Method Room Air 08/14/25 12:38 Course Orders Ordered: ED Orders 08/14/25 12:57 XR chest 1V Stat EKG-12 Lead Stat RT Consult Eval and Treat NOW 08/14/25 13:00 Blood Culture Stat Complete Blood Count AUTO DIFF Stat Comprehensive Metabolic Panel Stat Ictotest Urine Stat Lactate (Lactic Acid) Stat Lipase Stat PTT Partial Thromboplastin Shayne Stat Procalcitonin Stat Prothrombin Time INR Stat Urine Culture Stat Urine Microscopic Stat 08/14/25 13:45 Covid-19 + FLU A/B + RSV - PCR Stat Ondansetron HCl (Ondansetron 4 Mg/2 Ml Inj) 4 mg IV NOW PRN PRN Reason: Nausea And Vomiting Ondansetron HCl (Ondansetron 4 Mg Odt) 4 mg PO NOW PRN PRN Reason: Nausea And Vomiting Ondansetron HCl (Ondansetron 4 Mg/2 Ml Inj) 4 mg IV NOW PRN PRN Reason: Nausea And Vomiting Ondansetron HCl (Ondansetron 4 Mg Odt) 4 mg PO NOW PRN PRN Reason: Nausea And Vomiting Discontinued Medications Lactated Ringer's (Lactated Ringers) 1,000 mls @ 1,000 mls/hr IV BOLUS ONE Stop: 08/14/25 13:56 Last Admin: 08/14/25 13:54 Dose: 1,000 mls/hr Documented By: Vital Signs Vital signs: Vital Signs - 8 hr 08/14/25 12:38 Temperature 97.8 F Pulse Rate 87 Respiratory Rate 18 Blood Pressure 176/84 H Pulse Oximetry 97 Oxygen Delivery Method Room Air MDM - Weakness Lab Data 08/14/25 13:00 08/14/25 13:00 Labs: Lab Results 08/14/25 Range/Units 13:00 WBC 4.4 L (4.5-11.0) X10^3/uL RBC 4.38 (4.0-5.2) X10^6/uL Hgb 11.3 L (12.0-16.0) g/dL Hct 34.6 L (36-46) % MCV 78.9 L (80-100) fL MCH 25.8 L (26-34) PG MCHC 32.8 (30-36) % RDW 16.1 H (11.6-14.8) % Plt Count 220 (150-400) X10^3/uL Neut % (Auto) 57.9 (50-75) % Lymph % (Auto) 21.1 L (25-40) % [place] % (Auto) 18.5 H (3-14) % Eos % (Auto) 2.1 (2-4) % Baso % (Auto) 0.4 (0-2) % Neut # (Auto) 2600 (9551-0170) /uL Lymph # (Auto) 900 L (2470-2493) /uL [place] # (Auto) 800 (0-900) /uL Eos # (Auto) 100 (0-450) /uL Baso # (Auto) 0 (0-100) /uL PT 11.0 (9.4-12.5) SECONDS INR 1.0 (0.9-1.3) APTT 32 (25.1-36.5) SECONDS Sodium 134 L (137-145) mmol/L Potassium 3.9 (3.4-5.1) mmol/L Chloride 96 L (98-107) mmol/L Carbon Dioxide 30 (22-32) mmol/L BUN 15 (7-17) mg/dL Creatinine 0.87 (0.52-1.04) mg/dL Estimated GFR > 60 (>60) mL/min BUN/Creatinine Ratio 17.2 (6-22) Glucose 100 H (70-99) mg/dL Lactate 1.0 (0.7-2.1) mmol/L Calcium 9.2 (8.4-10.2) mg/dL Total Bilirubin 0.4 (0.2-1.3) mg/dL AST 25 (14-36) IU/L ALT 12 (<35) IU/L Alkaline Phosphatase 76 (38-126) U/L Total Protein 7.0 (6.3-8.2) g/dL Albumin 3.8 (3.5-5.0) g/dL Globulin 3.2 (1.7-4.1) g/dL Albumin/Globulin Ratio 1.2 (1.0-2.8) Lipase 229 (23-300) U/L Procalcitonin 0.570 H (<0.5) ng/mL Ur Bilirubin Confirm Negative (Negative) Urine RBC None seen (0-5/HPF) Urine WBC 30-100/hpf H (0-5/HPF) Ur Squamous Epith Cells 0-1 /hpf (0-5/HPF) Urine Bacteria Many (>30) H (None) Micro UA Comment Vol Urine Centrifuged 10ml (spun) Urine Dip Bedside Urine Glucose Negative Bedside Urine Bilirubin + 1 Bedside Urine Ketone - Negative Urine Specific [place] 1.015 Bedside Urine Occult Blood +/- Bedside Urine pH 6.0 Bedside Urine Protein +/- 15 Bedside Urine Urobilinogen - Negative Bedside Urine Nitrite + Positive Bedside Urine Leukocytes +/- 15 Esterase Imaging Data Chest x-ray: Radiologist Impression: [address] [id number] XRay Report Signed Patient: Ryann Tse MR#: [id number] : 1940 Acct:[id number] Age/Sex: 84 / F Date of Service: 08/14/25 Loc: ED Accession Number: [id number] Procedure: XR chest 1V Ordering Provider: Dakota Varner D.O. PROCEDURE: XR CHEST 1V INDICATIONS: suspected sepsis TECHNIQUE: One view of the chest was acquired. COMPARISON: [facility], , XR CHEST 2V, 07/02/2025, 13:40. FINDINGS: Surgical changes and devices: None. Lungs and pleura: Tenting of the right diaphragm. No concerning consolidation. Mild bibasilar atelectasis. No pleural effusion. No pneumothorax. Mediastinum: Mediastinal contours appear normal. Heart size is normal. Calcification of the aorta. Bones and chest wall: No suspicious bony lesions. Overlying soft tissues appear unremarkable. IMPRESSION: Bibasilar atelectasis without concerning consolidation. ECG Data Interpretation: NSR LAD HR 76 IN [address]-t wave change Unchanged from 02/15/23 [facility] Narrative Medical decision making narrative: All lab work, vital signs, nurse triage note, medication list, previous ER visits, and all imaging studies reviewed. WBC 4.4 hemoglobin 11.3 crit 34.6 platelet 220 INR 1.0 sodium 134 potassium 3.9 chloride 96 CO2 30 BUN 15 creatinine 0.87 glucose 100 lactic acid 1.0 lipase 229 procalcitonin 0.570 lactic acid was 1 urine shows 3200 WBC many bacteria COVID flu RSV negative. Patient given fluids and Rocephin here in to [place] home on Macrobid. Differential diagnosis was UTI sepsis COVID flu RSV pneumonia. Discharge Plan Departure Patient Disposition: Home Clinical Impression: Acute UTI Instructions: DI for Urinary Tract Infection (UTI) Activity Restrictions/Additional Instructions: Return with new or worsening symptoms. Take your medicines as directed. Follow up PCP in 1 week if no improvement in symptoms. Prescriptions: New nitrofurantoin monohyd/m-cryst [Macrobid] 100 mg capsule 100 mg PO Q12H 5 Days Qty: 10 0RF Rx Instructions: must administer with a meal/food No Action Prolia 60 mg/mL syringe 60 mg SUBCUT [id number] Qty: 1 0RF Eylea 2 mg/0.05 mL solution intravitreal furosemide 40 mg tablet 40 mg PO QAM PRN (Reason: edema) Qty: 90 3RF estradiol 0.01 % (0.1 mg/gram) cream 1 g vaginal 3XW Qty: 42.5 12RF Trimo-Mujica Jelly 0.025-0.01 % gel See Rx Instructions vaginal .COMPLEX Qty: 113.4 12RF Rx Instructions: Apply 1 full applicator vaginally each week. cyanocobalamin (vitamin B-12) [Vitamin B-12] 1,000 mcg tablet 1,000 mcg PO DAILY PRNQty: 0 ondansetron 4 mg tablet,disintegrating 4 mg PO Q8H PRN (Reason: nausea and vomiting) Qty: 14 1RF amoxicillin-pot clavulanate 500-125 mg tablet 1 tab PO BID Qty: 10 0RF metoprolol tartrate 25 mg tablet 12.5 mg PO BID Qty: 180 3RF (DME) DISABLED PARKING PERMIT See Rx Instructions .ROUTE .MEDSUPPLY Qty: 1 0RF Rx Instructions: I find this patient to be medically disabled and qualified for disabled parking as indicated, and signed, on the accompanying Disabled Parking Application for Individuals. triamcinolone acetonide 0.1 % cream See Rx Instructions topical BID Qty: 30 0RF Rx Instructions: 1 mg topically bid TOP BID for 7 days cholecalciferol (vitamin D3) [Vitamin D3] 50 mcg (2,000 unit) Capsule 50 mcg PO DAILY loratadine [Claritin] 10 mg tablet 10 mg PO DAILY PRN PreserVision AREDS-2 [id number] Capsule 1 cap PO BID Calcium Tablet 1 tab PO DAILY acetaminophen 325 mg Tablet 650 mg PO TID Qty: 60 0RF potassium chloride 20 mEq tablet extended release 20 meq PO DAILY diclofenac sodium [Voltaren Arthritis Pain] 1 % gel 2 g topical QID Rx Instructions: apply to single elbow, wrist or hand; for hand includes palm/fingers/back of hand omeprazole 10 mg capsule,delayed release(DR/EC) 10 mg PO DAILY PRN Referrals: Rob Adam MD [Primary Care Provider, Family Practice] Stand Alone Forms: Patient Portal/API
--- NOTE | 2025-08-14 12:57 | DI.RAD.S_ITS ---
PROCEDURE: XR CHEST 1V INDICATIONS: suspected sepsis TECHNIQUE: One view of the chest was acquired. COMPARISON: [facility], CR, XR CHEST 2V, 07/02/2025, 13:40. FINDINGS: Surgical changes and devices: None. Lungs and pleura: Tenting of the right diaphragm. No concerning consolidation. Mild bibasilar atelectasis. No pleural effusion. No pneumothorax. Mediastinum: Mediastinal contours appear normal. Heart size is normal. Calcification of the aorta. Bones and chest wall: No suspicious bony lesions. Overlying soft tissues appear unremarkable. IMPRESSION: Bibasilar atelectasis without concerning consolidation. Dictated by: To Huynh M.D. on 08/14/2025 at 12:35 Approved by: To Huynh M.D. on 08/14/2025 at 12:37
--- NOTE | 2025-08-14 13:15 | EKG_ITS ---
[address] [address] Test Date: 2025-08-14 Pat Name: Ryann Tse Department: [facility] Room: Gender: Female Scanning Coordinator: ROBINSON : 1940 Requested By: Order Number: [id number] Reading MD: Ronaldo Santiago Measurements Intervals [place] Rate: 76 P: -14 TX: 148 QRS: -31 QRSD: 82 T: -8 QT: 372 QTc: 418 Interpretive Statements Normal sinus rhythm Left axis deviation Inferior infarct , age undetermined Electronically Signed On 08-18-2025 7:58:09 PDT by Ronaldo Santiago
[2025-08-14 13:29] LABS: Add Manual Diff / Slide Review NO; Hematocrit 34.6 % (36-46); Hemoglobin 11.3 g/dL (12.0-16.0); Lymphocytes Absolute Auto 900 /uL (1100-4500); Mean Corpuscular HGB Conc 32.8 % (30-36); Mean Corpuscular Hemoglobin 25.8 PG (26-34); Mean Corpuscular Volume 78.9 fL (80-100); Platelet Count 220 X10^3/uL (150-400)
[2025-08-14 13:38] LABS: INR 1.0 (0.9-1.3); Prothrombin Time 11.0 SECONDS (9.4-12.5)
[2025-08-14 13:41] LABS: Lactate (Lactic Acid) 1.0 mmol/L (0.7-2.1); PTT Partial Thromboplastin Tim 32 SECONDS (25.1-36.5)
[2025-08-14 13:42] LABS: Alanine Aminotransferase 12 IU/L (<35); Albumin 3.8 g/dL (3.5-5.0); Albumin Globulin Ratio 1.2 (1.0-2.8); Alkaline Phosphatase 76 U/L (38-126); Blood Urea Nitrogen 15 mg/dL (7-17); Calcium 9.2 mg/dL (8.4-10.2); Carbon Dioxide 30 mmol/L (22-32); Chloride 96 mmol/L (98-107); Estimated Glomerular Filt Rate > 60 mL/min (>60); Globulin 3.2 g/dL (1.7-4.1); Glucose 100 mg/dL (70-99); HEMOLYSIS < 15 (0-50); Lipase 229 U/L (23-300); Potassium 3.9 mmol/L (3.4-5.1); Sodium 134 mmol/L (137-145); Total Protein 7.0 g/dL (6.3-8.2)
[2025-08-14 13:47] LABS: Ictotest Urine Negative (Negative)
[2025-08-14] MEDS: LACTATED RINGERS 1,000 ML 1000 ML IV (13:54)
[2025-08-14 13:59] LABS: Procalcitonin 0.570 ng/mL (<0.5)
[2025-08-14 14:42] LABS: Influenza A - CEPHEID Flu A NEGATIVE (NEGATIVE); Influenza B - CEPHEID Flu B NEGATIVE (NEGATIVE)
[2025-08-14 14:44] LABS: COVID-19 CEPHEID 4-PLEX PCR Negative (Negative)
== END 2025-08-14 16:01 | disposition home or self-care (01) ==
PROVIDERS: Emergency Provider Family Medicine; PCP Family Medicine
DX: N39.0 Urinary tract infection, site not specified (principal)
CPT/HCPCS: 36415; 71045; 80053; 81003; 81015; 83605; 83690; 84145; 85025; 85610; 85730; 87040; 87077; 87086; 87186; 87637; 93005; 96365; 99284; J0696

== ENCOUNTER → 2025-09-02 11:12 | Outpatient (CLI) | payer OTHER, SELFPAY ==
[2024-05-29 10:29] VITALS: BMI 30.9
== END ==
PROVIDERS: PCP Family Medicine; Visit Provider Urology
DX: N39.0 Urinary tract infection, site not specified (principal)
CPT/HCPCS: 87077; 87086